=== PATIENT | male | born 1945 | race Caucasian/White ===

== ENCOUNTER 2018-07-02 15:46 | Inpatient (IN) | payer OTHER, MEDICARE | END 2018-07-08 15:23 | disposition home or self-care (01) | LOC: J5S 07-03 06:45 → JER 15:46 → JERBED 19:48 ==

== ENCOUNTER 2018-07-20 07:56 | Inpatient (IN) | payer OTHER, MEDICARE ==
--- NOTE | 2018-07-20 07:57 | PDOC ---
History of Present Illness - General Stated Complaint: Respiratory Distress Time Seen by Provider: 07/20/18 07:57 History Source: Patient Exam Limitations: No Limitations Past History - Travel Traveled outside of the country in the last 30 days: No Close contact w/someone who was outside of country & ill: No - Past Medical History Allergies/Adverse Reactions: Allergies Allergy/AdvReac Type Severity Reaction Status Date / Time No Known Allergies Allergy Verified 07/20/18 08:11 Home Medications: Ambulatory Orders Acetaminophen [Tylenol .Regular Strength -] 650 mg PO Q6H PRN #90 tablet Albuterol 0.083% Nebulizer Kayce [Ventolin 0.083% Nebulizer Soln -] 1 neb NEB Q4H PRN #30 vial 07/18/13 Fluticasone Propionate [Flovent Hfa] 110 mcg IH BID 12/18/13 Diltiazem Cd [Cardizem Cd -] 120 mg PO DAILY #30 cap.cd.24h 12/21/13 Arformoterol Tartrate [Brovana] 15 mcg IH BID #1 ml 04/08/14 Aspirin [ASA -] 81 mg PO DAILY #30 tab.chew 04/08/14 Polyethylene Glycol 3350 [Miralax 119 gm Btl -] 17 gm PO DAILY #1 bottle Oxycodone HCl 20 mg PO ONCE 07/03/18 Albuterol 2.5/Ipratropium 0.5 [Duoneb -] 1 amp NEB RQID #120 amp 07/08/18 Azithromycin [Zithromax 250mg Tablets -] 1 tab PO Q2D #2 tablet 07/08/18 Loratadine [Claritin -] 10 mg PO DAILY #30 tablet 07/08/18 Roflumilast [Daliresp -] 500 mcg PO DAILY #30 tablet 07/08/18 Prednisone 5 mg PO ASDIR 07/20/18 Anemia: No Asthma: No Cancer: No Cardiac Disorders: Yes (a fib) CVA: No COPD: Yes CHF: No Dementia: No Diabetes: No GI Disorders: No Disorders: No HTN: No Hypercholesterolemia: No Liver Disease: No Seizures: No Thyroid Disease: No - Surgical History Abdominal Surgery: No Appendectomy: Yes Cardiac Surgery: No Cholecystectomy: Yes Lung Surgery: No Neurologic Surgery: No Orthopedic Surgery: Yes (total hip replacement) - Suicide/Smoking/Psychosocial Hx Smoking Status: Yes Smoking History: Former smoker Have you smoked in the past 12 months: No Number of Cigarettes Smoked Daily: 40 If you are a former smoker, when did you quit?: 1 YR AGO 'Breaking Loose' booklet given: 05/04/13 Hx Alcohol Use: No Drug/Substance Use Hx: No Substance Use Type: None Hx Substance Use Treatment: No Review of Systems - Review of Systems Able to Perform ROS?: Yes Is the patient limited Romansh proficient: No *Physical Exam - Physical Exam Comments: Vitals stable, pt afebrile. Pt in NAD, normal body habitus. Pt alert and oriented x3. radio mechanic helper generally intact, muscular strength and sensation intact. No midline spinal tenderness, step-offs, or crepitus. Head normocephalic, atraumatic. Eyes PERRLA, EOMI. Oropharynx without erythema or exudates, no LAD b/l. No nasal congestion, hearing intact. Clear heart sounds, S1/S2, no JVD, b/l pedal edema, or heart murmur. Clear lung sounds, no respiratory distress, wheezes, crackles, or accessory muscle use. No abdominal or CVA tenderness to palpation, no rebound, no guarding. Abdomen soft, non-distended, and with normoactive bowel sounds. Skin without jaundice or rash. 07/20/18 09:51 ED Treatment Course - LABORATORY CBC & Chemistry Diagram: 07/20/18 08:02 07/20/18 08:02 Medical Decision Making - Medical Decision Making Pt was seen at bedside, also will be seen by attending Dr. Miller. Pt presenting with complaints of SOB from his baseline over the past 3 days, which worsened this AM. EMS stated pt was low 80% on 2L NC when they arrived at the pt this AM. Considering [vs vs] Ordered work-up including CBC, CMP, BNP, cardiac profile, ECG, chest x-ray, blood cultures (recent hospitalizations), . Provided [interventions/meds] for improvement of [pain/symptom control]. Will continue to reassess pt and monitor for symptomatic improvement. ECG: NSR, intervals WNL. No TWIs or significant ST segment changes. No significant changes from prior ECG. 07/20/18 09:51 Pt improving on BiPAP, resting comfortably. Pt admitted to Dr. Tete Soares (for Dr. George). Consult orders placed -- pulm, cardiology, ID. 07/20/18 10:13 *DC/Admit/Observation/Transfer - Referrals Referrals: James Lira MD [Primary Care Provider] - - Patient Instructions - Post Discharge Activity
[2018-07-20] MEDS ORDERED: methylPREDNISolone NA SUCC 125 MG/2 ML VIAL IVPUSH ONE (07:59)
[2018-07-20] MEDS ORDERED: MAGNESIUM 1GM/D5W - 1 GM/100 ML IVPB IVPB ONE (08:01)
--- NOTE | 2018-07-20 08:05 | PDOC ---
Attending Attestation - Resident Resident Name: Clarisa Goodman - ED Attending Attestation I have performed the following: I have examined & evaluated the patient, The case was reviewed & discussed with the resident, I agree w/resident's findings & plan, Exceptions are as noted - HPI HPI: 07/20/18 10:30 73 years old past medical history significant for COPD on home O2, hypertension remote history of paroxysmal atrial fibrillation not on anticoagulation anxiety back pain presents with three-day history of worsening shortness of breath today at 7 AM woke up with moderate to severe shortness of breath EMS was called was found to be satting in the 80s was given 2 Combineb treatments and Decadron in the field presented to the ED. Symptoms are moderate to severe persistent constant with no exacerbating or alleviating factors. ROS: A complete review of 10 out of 10 review of systems is taken and is negative apart from what is previously mentioned below and in the HPI. - Physicial Exam PE: 07/20/18 10:30 Vitals: Triage Vital signs reviewed General Appearance: no acute distress, well nourished well developed, Head: Atraumatic, Neck: Supple;No Nucal rigidity Chest Wall: Nontender Cardiac: Regular rate and rhythym, no murmurs, no rubs, no gallops, Lungs: Poor air movement bilaterally, wheezing bilaterally inspiratory and expiratory. Increased work of breathing. Abdomen: Soft, non distended, normal bowel sounds, non tender to palpation Extremities: Full range of motion to all extremities, no cyanosis, clubbing, or edema Skin: Warm and dry, no rashes or lesions, no rash, no petechiae Psych: normal mood, normal affect - Critical Care Time Total Critical Care Time: 35 Critical Care Statement: The care of this patient involved high complexity decision making to prevent further life threatening deterioration of the patient 's condition and/or to evaluate & treat vital organ system(s) failure or risk of failure. - Medical Decision Making 07/20/18 10:31 Moderate to severe COPD exacerbation upon arrival to the emergency department patient placed on BiPAP. Given additional Combineb as well as continued Ventolin nebs Solu-Medrol given No significant improvement initially magnesium ordered Reevaluation 10 AM chest x-ray with congestive findings increased markings at the base given patient with additional history of increased sputum production at home we'll cover with broad-spectrum antibiotics given recent admission Reevaluation 10:30 breathing improving the patient still requires BiPAP We'll continue Ventolin treatments and admit the hospital for further management. Heart Score/ECG Review - ECG Impressions Comment:: 07/20/18 10:31 EKG performed at 750 4M and straits sinus rhythm [address] elevations no T- wave inversions Left axis deviation Interpreted by me
[2018-07-20] MEDS ORDERED: ALBUTEROL SO4 0.083% IH SOL 2.5 MG/3 ML VIAL.NEB. NEB ONE ×2 (08:07→08:13)
[2018-07-20] MEDS ORDERED: ALBUTEROL SO4 2.5/IPRATROPIUM 0.5 INH SOL 3 ML VIAL.NEB. NEB ONE (08:12)
[2018-07-20] MEDS ORDERED: ALBUTEROL SO4 0.083% IH SOL 2.5 MG/3 ML VIAL.NEB. NEB PRN (08:12)
[2018-07-20 08:26] LABS: BASO % 0.2 % (0-2.0); EOS % 0.7 % (0-4.5); HEMATOCRIT 38.4 % (35.4-49); HEMOGLOBIN 12.6 GM/dL (11.7-16.9); LYMPH % 3.7 % (8-40); MCH 30.7 pg (25.7-33.7); MCHC 32.8 g/dl (32.0-35.9); MEAN CELL VOLUME 93.6 fl (80-96); MEAN PLT VOLUME 7.9 fl (7.5-11.1); MONO % 4.6 % (3.8-10.2); NEUT % 90.8 % (42.8-82.8); PLATELET COUNT 106 K/MM3 (134-434); RDW 15.8 % (11.9-15.9); WHITE BLOOD COUNT 8.5 K/mm3 (4.0-10.0)
[2018-07-20 08:29] LABS: VENOUS PC02 64.9 mmHg (41-51); VENOUS PH 7.31 (7.31-7.41)
[2018-07-20 08:35] LABS: VENOUS PO2 23.2 mmHg (30-40)
[2018-07-20 08:45] LABS: INR 1.08 (0.83-1.09); PROTHROMBIN TIME (PATIENT) 12.7 SEC (9.7-13.0)
[2018-07-20 08:55] LABS: ALBUMIN 3.2 g/dl (3.4-5.0); BILIRUBIN,TOTAL 0.9 mg/dL (0.2-1); BLOOD UREA NITROGEN 26.9 mg/dL (7-18); CALCIUM 8.7 mg/dL (8.5-10.1); CREATININE 1.3 mg/dL (0.55-1.3); MAGNESIUM 2.1 mg/dL (1.8-2.4); TOT PROT 6.6 g/dl (6.4-8.2)
[2018-07-20] MEDS ORDERED: PIPERACILLIN/TAZOB 3.375 GM 3.375 GM in DEXTROSE 5%-WATER - 50 ML IVPB ONE (09:00)
[2018-07-20] MEDS ORDERED: VANCOMYCIN 1,500 MG in DEXTROSE 5%-WATER - 250 ML IVPB ONE ×3 (09:00→11:15)
[2018-07-20] MEDS ORDERED: AZITHROMYCIN IVPB 500 MG in DEXTROSE 5%-WATER - 250 ML IVPB ONE (09:01)
[2018-07-20] MEDS ORDERED: ASPIRIN 325 MG ENTERIC COATED TABLET (FP) PO ONE (09:01)
[2018-07-20] MEDS ORDERED: ASPIRIN 325 MG TABLET PO ONE (09:06)
[2018-07-20] MEDS ORDERED: PIPERACILLIN/TAZOB 3.375 GM 3.375 GM/50 ML BAG IVPB ONE (09:06)
[2018-07-20] MEDS ORDERED: ASPIRIN 325 MG ENTERIC COATED TABLET (FP) ONE (09:06)
[2018-07-20] MEDS ORDERED: SODIUM CHLORIDE 500 ML IV STA (09:06)
[2018-07-20] MEDS ORDERED: AZITHROMYCIN IVPB 500 MG/250 ML BAG IVPB ONE (09:18)
[2018-07-20] MEDS ORDERED: VANCOMYCIN 1,500 MG in DEXTROSE 5%-WATER - 500 ML IVPB ONE (09:18)
[2018-07-20 09:35] LABS: ARTERIAL BLD GAS O2 SATURATION 95.8 % (95-98); ARTERIAL BLOOD GAS BASE EXCESS 2.5 meq/l (-2-2); ARTERIAL BLOOD GAS PCO2 48.4 mmHg (35-45); ARTERIAL BLOOD GAS pH 7.38 (7.35-7.45); CARBOXYHEMOGLOBIN 1.8 % (0-2)
[2018-07-20 09:38] LABS: ALLENS TEST POSITIVE
--- NOTE | 2018-07-20 11:00 | CON.CARD ---
Consult Consult Specialty:: Cardiology Referred by:: Precious Goodman MD Reason for Consultation:: Dyspnea - History of Present Illness Chief Complaint: Dyspnea History of Present Illness: Patient is a 73 year old male (last saw in the office on 12/16/17) with underlying history of COPD dependent on O2 recent admission for exacerbation undergoing prednisone taper, remote history of PAF (not on anticoagulation due to patient refusal) and HTN who presented to [facility] with 3 days of worsening shortness of breath, found to be in hypoxic respiratory failure, started nebulizers, steroids, placed on bipap. - History Source History Provided By: Patient Limitations to Obtaining History: No Limitations - Past Medical History Cardio/Vascular: Yes: AFIB, HTN Pulmonary: Yes: COPD (home oxygen), Pneumonia Musculoskeletal: Yes: Chronic low back pain - Past Surgical History Past Surgical History: Yes: Appendectomy, Cholecystectomy - Alcohol/Substance Use Hx Alcohol Use: No History of Substance Use: reports: None - Smoking History Smoking history: Former smoker Have you smoked in the past 12 months: No Aproximately how many cigarettes per day: 40 If you are a former smoker, when did you quit?: 1 YR AGO - Social History Usual Living Arrangement: With Spouse ADL: Independent Occupation: retired History of Recent Travel: No Home Medications - Allergies Allergies/Adverse Reactions: Allergies Allergy/AdvReac Type Severity Reaction Status Date / Time No Known Allergies Allergy Verified 07/20/18 08:11 - Home Medications Home Medications: Ambulatory Orders Acetaminophen [Tylenol .Regular Strength -] 650 mg PO Q6H PRN #90 tablet Albuterol 0.083% Nebulizer Kayce [Ventolin 0.083% Nebulizer Soln -] 1 neb NEB Q4H PRN #30 vial 07/18/13 Fluticasone Propionate [Flovent Hfa] 110 mcg IH BID 12/18/13 Diltiazem Cd [Cardizem Cd -] 120 mg PO DAILY #30 cap.cd.24h 12/21/13 Arformoterol Tartrate [Brovana] 15 mcg IH BID #1 ml 04/08/14 Aspirin [ASA -] 81 mg PO DAILY #30 tab.chew 04/08/14 Polyethylene Glycol 3350 [Miralax 119 gm Btl -] 17 gm PO DAILY #1 bottle Oxycodone HCl 20 mg PO ONCE 07/03/18 Albuterol 2.5/Ipratropium 0.5 [Duoneb -] 1 amp NEB RQID #120 amp 07/08/18 Azithromycin [Zithromax 250mg Tablets -] 1 tab PO Q2D #2 tablet 07/08/18 Loratadine [Claritin -] 10 mg PO DAILY #30 tablet 07/08/18 Roflumilast [Daliresp -] 500 mcg PO DAILY #30 tablet 07/08/18 Prednisone 5 mg PO ASDIR 07/20/18 Family Disease History - Family Disease History Family Disease History: Heart Disease: Father ([place] at age 63 ), CA: Mother (Colon , Renal/Bladder) Review of Systems - Review of Systems Respiratory: reports: Exercise Intolerance, SOB, SOB on Exertion Vital Signs: Vital Signs Temperature 98.6 F 07/20/18 07:59 Pulse Rate 79 07/20/18 10:22 Respiratory Rate 20 07/20/18 10:22 Blood Pressure 109/70 07/20/18 10:22 O2 Sat by Pulse Oximetry (%) 95 07/20/18 10:52 Constitutional: Yes: No Distress, Calm Neck: Yes: Supple Respiratory: Yes: Regular, Diminished, On BiPap Gastrointestinal: Yes: Soft, Hypoactive Bowel Sounds Cardiovascular: Yes: Tachycardia JVD: No Carotid Bruit: No Heart Sounds: Yes: S1, S2 Murmur: Yes: Systolic Murmur, Grade 1 Edema: No - Other Data Labs, Other Data: CBC, BMP 07/20/18 08:02 07/20/18 08:02 INR, PTT INR 1.08 (0.83-1.09) 07/20/18 08:09 Troponin, BNP 07/20/18 08:02 Troponin I 0.27 H B-Natriuretic Peptide 535.0 H Troponin, BNP 07/20/18 08:02 Troponin I 0.27 H B-Natriuretic Peptide 535.[address] @ 100 PAC Ejection Fraction %: LVEF > or = 40 % Problem List - Problems (1) Shortness of breath Code(s): R06.02 - SHORTNESS OF BREATH (2) AF (paroxysmal atrial fibrillation) Code(s): I48.0 - PAROXYSMAL ATRIAL FIBRILLATION (3) COPD with acute exacerbation Code(s): J44.1 - CHRONIC OBSTRUCTIVE PULMONARY DISEASE W (ACUTE) EXACERBATION (4) SOB (shortness of breath) Code(s): R06.02 - SHORTNESS OF BREATH (5) Hypertension Code(s): I10 - ESSENTIAL (PRIMARY) HYPERTENSION Qualifiers: Hypertension type: essential hypertension Qualified Code(s): I10 - Essential (primary) hypertension Assessment/Plan Echocardiogram 07/03/2018 Normal LV and RV size and fxn, LVEF 55-60%, mild LAE, mild ao root diltatation 4.2 cm, impaired LV relaxation Echocardiography (12/08/17) which revealed normal LV systolic function, LVEF 60- 65%, moderately dilated ascending thoracic aorta, mild TR and trace [place]. Nuclear MPI (08/20/16) revealed moderate zone of anterior and anteroapical reversible defect c/s mild intensity ischemia and moderate inferior attenuation. LVEF was 71%. 1. Acute on chronic hypercapneic/hypoxemic respiratory failure undergoing prednisone taper. 2. COPD exacerbation 3. PAF [id number] score of 2-3 currently in sinus rhythm, refused DOAC or Coumadin 4. HTN 5. Prior abnormal nuclear MPI suggests CAD with demand ischemia referable to #1 6. Diastolic dysfunction, euvolemic PLAN: 1. Resume IV steroids with GI protection, Daliresp, bronchodilators, O2, empiric abx course, and bipap as needed to maintain saO2>90%. 2. Continue Cardizem CD 120 qd and ASA 81 qd, trend trops to document peak 3. Ideally anticoagulation is recommended, but patient has previously declined, DVT prophylaxis 4. Cardiac work up including repeat nuclear MPI can be done as outpatient in the office once pulmonary status fully improves 5. Thank you for consultative opportunity
--- NOTE | 2018-07-20 11:20 | HP ---
Admitting History and Physical - Admission Chief Complaint: came in for SOB for last few days History of Present Illness: 73 yr old male with h/o of copd on home oxygen, open mouth breathing,PAF,HTN came in for last few days noted his breathing is gurgling, he was discharge last month from hospital on prednisone taper was on 5mg , also noted increase leg swelling and abdominal swelling last few days patient asked today to call 911,EMS found him saturating in 80's got neblzier and steroid History Source: Family Member, Medical Record - Past Medical History Cardiovascular: Yes: AFIB, HTN Pulmonary: Yes: COPD (home oxygen), Pneumonia Musculoskeletal: Yes: Chronic low back pain - Past Surgical History Past Surgical History: Yes: Appendectomy, Cholecystectomy - Smoking History Smoking history: Former smoker Have you smoked in the past 12 months: No Aproximately how many cigarettes per day: 40 If you are a former smoker, when did you quit?: 1 YR AGO - Alcohol/Substance Use Hx Alcohol Use: No History of Substance Use: reports: None - Social History ADL: Independent Occupation: retired History of Recent Travel: No Home Medications - Allergies Allergies/Adverse Reactions: Allergies Allergy/AdvReac Type Severity Reaction Status Date / Time No Known Allergies Allergy Verified 07/20/18 08:11 - Home Medications Home Medications: Ambulatory Orders Acetaminophen [Tylenol .Regular Strength -] 650 mg PO Q6H PRN #90 tablet Albuterol 0.083% Nebulizer Kayce [Ventolin 0.083% Nebulizer Soln -] 1 neb BANNER Q4H PRN #30 vial 07/18/13 Fluticasone Propionate [Flovent Hfa] 110 mcg IH BID 12/18/13 Diltiazem Cd [Cardizem Cd -] 120 mg PO DAILY #30 cap.cd.24h 12/21/13 Arformoterol Tartrate [Brovana] 15 mcg IH BID #1 ml 04/08/14 Aspirin [ASA -] 81 mg PO DAILY #30 tab.chew 04/08/14 Polyethylene Glycol 3350 [Miralax 119 gm Btl -] 17 gm PO DAILY #1 bottle Oxycodone HCl 20 mg PO ONCE 07/03/18 Albuterol 2.5/Ipratropium 0.5 [Duoneb -] 1 amp BANNER RQID #120 amp 07/08/18 Azithromycin [Zithromax 250mg Tablets -] 1 tab PO Q2D #2 tablet 07/08/18 Loratadine [Claritin -] 10 mg PO DAILY #30 tablet 07/08/18 Roflumilast [Daliresp -] 500 mcg PO DAILY #30 tablet 07/08/18 Prednisone 5 mg PO ASDIR 07/20/18 Family Disease History - Family Disease History Family Disease History: Heart Disease: Father ([place] at age 63 ), CA: Mother (Colon , Renal/Bladder) Review of Systems - Review of Systems Respiratory: reports: Other (on bipap feeling better) Physical Examination Vital Signs: Vital Signs Temperature 98.6 F 07/20/18 07:59 Pulse Rate 79 07/20/18 10:22 Respiratory Rate 20 07/20/18 10:22 Blood Pressure 109/70 07/20/18 10:22 O2 Sat by Pulse Oximetry (%) 95 07/20/18 10:52 Constitutional: Yes: Calm Cardiovascular: Yes: Regular Rate and Rhythm, S1, S2 Respiratory: Yes: Diminished, On BiPap Gastrointestinal: Yes: Normal Bowel Sounds, Soft, Abdomen, Obese, Distention Edema: Yes Neurological: Yes: Other (sleeping on bipap) Labs: CBC, BMP 07/20/18 08:02 07/20/18 08:02 Problem List - Problems (1) Shortness of breath Assessment/Plan: bipap pulm solumedrol duonebs will need sleep study and possible cpap when discharge as outpatient abx daliresp Code(s): R06.02 - SHORTNESS OF BREATH (2) AF (paroxysmal atrial fibrillation) Assessment/Plan: cardizem per cardiology patient refusing AC Code(s): I48.0 - PAROXYSMAL ATRIAL FIBRILLATION (3) Hypertension Assessment/Plan: cardizem Code(s): I10 - ESSENTIAL (PRIMARY) HYPERTENSION Qualifiers: Hypertension type: essential hypertension Qualified Code(s): I10 - Essential (primary) hypertension (4) Leg edema Assessment/Plan: venous dopler lasix one dose dvt ppx Code(s): R60.0 - LOCALIZED EDEMA
[2018-07-20] MEDS: ALBUTEROL SO4 2.5/IPRATROPIUM 0.5 INH SOL 3 ML VIAL.NEB. NEB SCH ×3 (11:43→20:01)
[2018-07-20] MEDS ORDERED: FUROSEMIDE 40 MG/4 ML INJECTABLE VIAL IVPUSH ONE (12:00)
--- NOTE | 2018-07-20 13:03 | CON.PULM ---
Consult Consult Specialty:: PULMONARY Referred by:: Dr Soares Reason for Consultation:: shortness of breath - History of Present Illness Chief Complaint: shortness of breath History of Present Illness: 73yo male with h/o HTN, paroxysmal atrial fibrillation, COPD, chronic hypoxic respiratory failure on home O2 who was admitted with worsening shortness of breath x 3 days. Denies chest pain or palpitations. No fevers, chills or sweats. Pt currently somnolent but arousable, difficult to obtain history. No fevers on presentation. CXR with possible right base infiltrate vs atelectasis. Noted to be hypoxic by EMS. Started on antibiotics, medrol and placed on BiPAP in the ER. - History Source History Provided By: Patient, Medical Record Limitations to Obtaining History: Clinical Condition - Past Medical History Cardio/Vascular: Yes: AFIB, HTN Pulmonary: Yes: COPD (home oxygen), Pneumonia Musculoskeletal: Yes: Chronic low back pain - Past Surgical History Past Surgical History: Yes: Appendectomy, Cholecystectomy - Alcohol/Substance Use Hx Alcohol Use: No History of Substance Use: reports: None - Smoking History Smoking history: Former smoker Have you smoked in the past 12 months: No Aproximately how many cigarettes per day: 40 If you are a former smoker, when did you quit?: 1 YR AGO - Social History Usual Living Arrangement: With Spouse ADL: Independent Occupation: retired History of Recent Travel: No Home Medications - Allergies Allergies/Adverse Reactions: Allergies Allergy/AdvReac Type Severity Reaction Status Date / Time No Known Allergies Allergy Verified 07/20/18 08:11 - Home Medications Home Medications: Ambulatory Orders Acetaminophen [Tylenol .Regular Strength -] 650 mg PO Q6H PRN #90 tablet Albuterol 0.083% Nebulizer Kayce [Ventolin 0.083% Nebulizer Soln -] 1 neb NEB Q4H PRN #30 vial 07/18/13 Fluticasone Propionate [Flovent Hfa] 110 mcg IH BID 12/18/13 Diltiazem Cd [Cardizem Cd -] 120 mg PO DAILY #30 cap.cd.24h 12/21/13 Arformoterol Tartrate [Brovana] 15 mcg IH BID #1 ml 04/08/14 Aspirin [ASA -] 81 mg PO DAILY #30 tab.chew 04/08/14 Polyethylene Glycol 3350 [Miralax 119 gm Btl -] 17 gm PO DAILY #1 bottle Oxycodone HCl 20 mg PO ONCE 07/03/18 Albuterol 2.5/Ipratropium 0.5 [Duoneb -] 1 amp NEB RQID #120 amp 07/08/18 Azithromycin [Zithromax 250mg Tablets -] 1 tab PO Q2D #2 tablet 07/08/18 Loratadine [Claritin -] 10 mg PO DAILY #30 tablet 07/08/18 Roflumilast [Daliresp -] 500 mcg PO DAILY #30 tablet 07/08/18 Prednisone 5 mg PO ASDIR 07/20/18 Family Disease History - Family Disease History Family Disease History: Heart Disease: Father ([place] at age 63 ), CA: Mother (Colon , Renal/Bladder) Review of Systems - Review of Systems Constitutional: reports: Weakness. denies: Chills, Fever Eyes: denies: Recent Change in Vision HENT: denies: Throat Pain Neck: denies: Stiffness, Tenderness Cardiovascular: reports: Shortness of Breath. denies: Chest Pain, Edema Respiratory: reports: Cough. denies: Hemoptysis, Wheezing Gastrointestinal: denies: Abdominal Pain, Nausea, Vomiting Genitourinary: denies: Dysuria, Hematuria Neurological: denies: Dizziness, Headache Endocrine: denies: Unexplained Weight Loss Physical Exam Vital Sings: Vital Signs Temperature 98.6 F 07/20/18 07:59 Pulse Rate 79 07/20/18 10:22 Respiratory Rate 20 07/20/18 10:22 Blood Pressure 109/70 07/20/18 10:22 O2 Sat by Pulse Oximetry (%) 95 07/20/18 10:52 Constitutional: Yes: Calm Eyes: Yes: Conjunctiva Clear, EOM Intact HENT: Yes: Atraumatic, Normocephalic Neck: Yes: Supple, Trachea Midline Cardiovascular: Yes: Regular Rate and Rhythm Respiratory: Yes: Diminished (distant breath sounds). No: Wheezes ...Clubbing: No Gastrointestinal: Yes: Normal Bowel Sounds, Soft. No: Tenderness Edema: No Labs: CBC, BMP 07/20/18 08:02 07/20/18 08:02 ABG Results ABG pH 7.38 (7.35-7.45) 07/20/18 09:12 ABG pCO2 at Pt Temp 48.4 mmHg (35-45) H 07/20/18 09:12 ABG pO2 at Pt Temp 81.0 mmHg (80-105) 07/20/18 09:12 ABG HCO3 27.8 mmol/L (22-27) H 07/20/18 09:12 ABG O2 Sat (Measured) 95.8 % (95-98) 07/20/18 09:12 ABG O2 Content 17.4 % vol (15-22) 07/20/18 09:12 ABG Base Excess 2.5 meq/l (-2-2) H 07/20/18 09:12 Imaging - Results Chest X-ray: Report Reviewed, Image Reviewed (right base infiltrate vs atelectasis) Problem List - Problems (1) COPD with acute exacerbation Code(s): J44.1 - CHRONIC OBSTRUCTIVE PULMONARY DISEASE W (ACUTE) EXACERBATION (2) Chronic respiratory failure with hypoxia Code(s): J96.11 - CHRONIC RESPIRATORY FAILURE WITH HYPOXIA Assessment/Plan Acute COPD Exacerbation Acute on Chronic Hypoxic Respiratory Failure Paroxysmal Atrial Fibrillation +Troponins likely Demand Ischemia LV Diastolic Dysfunction HTN - IV medrol - inhaled bronchodilators standing and PRN - O2 to keep SpO2 >88% - can give empiric azithromycin - trend cardiac enzymes - rate controlled - continue anticoagulation Thank you for this consult Daniel Milian MD
--- NOTE | 2018-07-20 13:14 | CON.ID ---
Consult Referred by:: dr betancourt - History of Present Illness Chief Complaint: copd exacerbation, pneumonia History of Present Illness: 73 yo man with known COPD on home oxygen admitted with worsening SOB no fevers on steroid taper at home here 07/02 to 07/08 with copd exacerbation chest ct 07/03 no acute pathology, cxray now unchanged from prior admission currently on bipap no complaints more sob least several days hypoxic this am known prior MRSA colonization of the nares - History Source History Provided By: Patient, Family Member, Medical Record Limitations to Obtaining History: Clinical Condition - Past Medical History Cardio/Vascular: Yes: AFIB, HTN Pulmonary: Yes: COPD (home oxygen), Pneumonia Musculoskeletal: Yes: Chronic low back pain - Past Surgical History Past Surgical History: Yes: Appendectomy, Cholecystectomy - Alcohol/Substance Use Hx Alcohol Use: No History of Substance Use: reports: None - Smoking History Smoking history: Former smoker Have you smoked in the past 12 months: No Aproximately how many cigarettes per day: 40 If you are a former smoker, when did you quit?: 1 YR AGO - Social History Usual Living Arrangement: With Spouse ADL: Independent Occupation: retired History of Recent Travel: No Home Medications - Allergies Allergies/Adverse Reactions: Allergies Allergy/AdvReac Type Severity Reaction Status Date / Time No Known Allergies Allergy Verified 07/20/18 08:11 - Home Medications Home Medications: Ambulatory Orders Acetaminophen [Tylenol .Regular Strength -] 650 mg PO Q6H PRN #90 tablet Albuterol 0.083% Nebulizer Kayce [Ventolin 0.083% Nebulizer Soln -] 1 neb NEB Q4H PRN #30 vial 07/18/13 Fluticasone Propionate [Flovent Hfa] 110 mcg IH BID 12/18/13 Diltiazem Cd [Cardizem Cd -] 120 mg PO DAILY #30 cap.cd.24h 12/21/13 Arformoterol Tartrate [Brovana] 15 mcg IH BID #1 ml 04/08/14 Aspirin [ASA -] 81 mg PO DAILY #30 tab.chew 04/08/14 Polyethylene Glycol 3350 [Miralax 119 gm Btl -] 17 gm PO DAILY #1 bottle Oxycodone HCl 20 mg PO ONCE 07/03/18 Albuterol 2.5/Ipratropium 0.5 [Duoneb -] 1 amp NEB RQID #120 amp 07/08/18 Azithromycin [Zithromax 250mg Tablets -] 1 tab PO Q2D #2 tablet 07/08/18 Loratadine [Claritin -] 10 mg PO DAILY #30 tablet 07/08/18 Roflumilast [Daliresp -] 500 mcg PO DAILY #30 tablet 07/08/18 Prednisone 5 mg PO ASDIR 07/20/18 Family Disease History - Family Disease History Family Disease History: Heart Disease: Father (SD at age 63 ), CA: Mother (Colon , Renal/Bladder) Review of Systems - Review of Systems Constitutional: reports: No Symptoms. denies: Chills, Diaphoresis, Fever Eyes: reports: No Symptoms HENT: reports: No Symptoms. denies: Difficult Swallowing Neck: reports: No Symptoms Cardiovascular: reports: No Symptoms Respiratory: reports: SOB. denies: Hemoptysis Gastrointestinal: reports: Other (increased abdominal girth) Musculoskeletal: reports: Other (leg swelling) Physical Exam Vital Signs: Vital Signs Temperature 98.6 F 07/20/18 07:59 Pulse Rate 79 07/20/18 10:22 Respiratory Rate 20 07/20/18 10:22 Blood Pressure 109/70 07/20/18 10:22 O2 Sat by Pulse Oximetry (%) 95 07/20/18 10:52 Constitutional: Yes: No Distress, Other (on bipap) HENT: Yes: Atraumatic, Normocephalic Neck: Yes: Supple, Trachea Midline Cardiovascular: Yes: Regular Rate and Rhythm Respiratory: Yes: CTA Bilaterally, Diminished (both bases) Gastrointestinal: Yes: Normal Bowel Sounds, Soft ...Rectal Exam: Yes: Deferred Renal/: Yes: WNL Edema: No Labs: CBC, BMP 07/20/18 08:02 07/20/18 08:02 blood cultures pending Imaging - Results Chest X-ray: Report Reviewed, Image Reviewed (no infiltrates, unchanged from prior) Problem List - Problems (1) Chronic respiratory failure with hypoxia Code(s): J96.11 - CHRONIC RESPIRATORY FAILURE WITH HYPOXIA (2) COPD with acute exacerbation Code(s): J44.1 - CHRONIC OBSTRUCTIVE PULMONARY DISEASE W (ACUTE) EXACERBATION (3) MRSA colonization Code(s): Z22.322 - CARRIER OR SUSPECTED CARRIER OF METHICILLIN RESIS STAPH Assessment/Plan d/w pulmonary agree with plans for steroids/zithromax /nebs contact isolation for MRSA
[2018-07-20] MEDS: methylPREDNISolone NA SUCC 40 MG/1 ML VIAL IVPUSH SCH ×2 (16:28→21:51)
[2018-07-20] MEDS: NYSTATIN 500,000 UNITS/5 ML SUSPENSION PO SCH ×2 (18:31→23:56)
[2018-07-20] MEDS: NYSTATIN 100,000 UNIT/GM TOPICAL CREAM 15 GM TUBE TP SCH (23:56)
[2018-07-20] MEDS ORDERED: PT OWN MED DRAWER 7, Y5N ONE (23:58)
[2018-07-21] MEDS: methylPREDNISolone NA SUCC 40 MG/1 ML VIAL IVPUSH SCH ×4 (02:00→22:25)
[2018-07-21] MEDS ORDERED: PT OWN MED DRAWER 7, Y5N ONE ×3 (05:25→14:39)
[2018-07-21] MEDS: NYSTATIN 100,000 UNIT/GM TOPICAL CREAM 15 GM TUBE TP SCH ×4 (05:27→23:50)
[2018-07-21] MEDS: NYSTATIN 500,000 UNITS/5 ML SUSPENSION PO SCH ×4 (05:27→23:07)
[2018-07-21 07:42] LABS: INR 1.04 (0.83-1.09); PROTHROMBIN TIME (PATIENT) 12.3 SEC (9.7-13.0)
[2018-07-21 07:44] LABS: ACTIVATED PTT 25.8 SECONDS (25.2-36.5)
[2018-07-21 07:46] LABS: ALBUMIN 2.8 g/dl (3.4-5.0); BILIRUBIN,TOTAL 0.6 mg/dL (0.2-1); BLOOD UREA NITROGEN 26.4 mg/dL (7-18); CALCIUM 8.3 mg/dL (8.5-10.1); CREATININE 1.2 mg/dL (0.55-1.3); MAGNESIUM 2.4 mg/dL (1.8-2.4); PHOSPHOROUS 3.3 mg/dL (2.5-4.9); POTASSIUM 4.2 mmol/L (3.5-5.1); TOT PROT 6.2 g/dl (6.4-8.2)
[2018-07-21] MEDS: ALBUTEROL SO4 2.5/IPRATROPIUM 0.5 INH SOL 3 ML VIAL.NEB. NEB SCH ×2 (08:08→11:45)
[2018-07-21 08:30] LABS: HEMATOCRIT 36.5 % (35.4-49); HEMOGLOBIN 12.1 GM/dL (11.7-16.9); LYMPH % 1.8 % (8-40); MCH 30.8 pg (25.7-33.7); MCHC 33.3 g/dl (32.0-35.9); MEAN CELL VOLUME 92.3 fl (80-96); MEAN PLT VOLUME 8.3 fl (7.5-11.1); MONO % 1.8 % (3.8-10.2); NEUT % 96.4 % (42.8-82.8); PLATELET COUNT 99 K/MM3 (134-434); RBC 3.95 M/mm3 (4.00-5.60); RDW 15.3 % (11.9-15.9); WHITE BLOOD COUNT 8.5 K/mm3 (4.0-10.0)
[2018-07-21] MEDS: AZITHROMYCIN IVPB 500 MG/250 ML BAG IVPB SCH (09:07)
[2018-07-21] MEDS: ENOXAPARIN NA (PORCINE) 40 MG/0.4 ML DISP.SYRIN SQ SCH (09:08)
[2018-07-21] MEDS: ASPIRIN 81 MG CHEWABLE TABLETS PO SCH (09:08)
[2018-07-21 10:24] LABS: ANISOCYTOSIS 1+; MACROCYTOSIS 1+; OVALOCYTE 1+; PLATELET ESTIMATE DECREASED
[2018-07-21] MEDS: MOMETASONE FUROATE 220 MCG/IH INHALER IH SCH (10:40)
--- NOTE | 2018-07-21 11:17 | PN ---
Progress Note, Physician - Current Medication List Current Medications: Active Medications Albuterol Sulfate (Ventolin 0.083% Nebulizer Soln -) 1 amp NEB Q1H PRN PRN Reason: SHORT OF BREATH/WHEEZING Albuterol/Ipratropium (Duoneb -) 1 amp NEB RQID [facility] Last Admin: 07/21/18 08:08 Dose: 1 amp Aspirin (Asa -) 81 mg PO DAILY [facility] Last Admin: 07/21/18 09:08 Dose: 81 mg Diltiazem HCl (Cardizem Cd -) 120 mg PO DAILY [facility] Last Admin: 07/21/18 09:07 Dose: 120 mg Enoxaparin Sodium (Lovenox -) 40 mg SQ DAILY [facility] Last Admin: 07/21/18 09:08 Dose: 40 mg Azithromycin (Zithromax 500mg Ivpb (Pre-Docked)) 500 mg in 250 mls @ 250 mls/ hr IVPB DAILY [facility] Stop: 07/24/18 10:59 Last Admin: 07/21/18 09:07 Dose: 250 mls/hr Methylprednisolone Sodium Succinate (Solu-Medrol -) 40 mg IVPUSH Q6H-IV MORE Last Admin: 07/21/18 09:07 Dose: 40 mg Mometasone Furoate (Asmanex 220mcg -) 2 puff IH DAILY [facility] Last Admin: 07/21/18 10:40 Dose: Not Given Nystatin (Nystatin Oral Suspension -) 500,000 units PO Q6HPO MORE Last Admin: 07/21/18 05:27 Dose: 500,000 units Nystatin (Mycostatin Cream -) 1 applic TP Q6HPO [facility] Last Admin: 07/21/18 05:27 Dose: 1 applic - Objective Vital Signs: Vital Signs Temperature 97.6 F 07/21/18 05:46 Pulse Rate 67 07/21/18 05:46 Respiratory Rate 18 07/21/18 05:46 Blood Pressure 157/91 07/21/18 05:46 O2 Sat by Pulse Oximetry (%) 96 07/20/18 22:00 Labs: CBC, BMP 07/21/18 06:00 07/21/18 06:00 INR, PTT INR 1.04 (0.83-1.09) 07/21/18 06:00
--- NOTE | 2018-07-21 12:32 | PN ---
Progress Note, Physician Chief Complaint: Events noted Complains of dyspnea intermittently History of Present Illness: Patient was seen and examined. Awake and alert. Chart was reviewed Denies chest pain or palpitations - Current Medication List Current Medications: Active Medications Albuterol Sulfate (Ventolin 0.083% Nebulizer Soln -) 1 amp NEB Q1H PRN PRN Reason: SHORT OF BREATH/WHEEZING Albuterol/Ipratropium (Duoneb -) 1 amp NEB RQID [facility] Last Admin: 07/21/18 11:45 Dose: 1 amp Aspirin (Asa -) 81 mg PO DAILY [facility] Last Admin: 07/21/18 09:08 Dose: 81 mg Diltiazem HCl (Cardizem Cd -) 120 mg PO DAILY [facility] Last Admin: 07/21/18 09:07 Dose: 120 mg Enoxaparin Sodium (Lovenox -) 40 mg SQ DAILY [facility] Last Admin: 07/21/18 09:08 Dose: 40 mg Azithromycin (Zithromax 500mg Ivpb (Pre-Docked)) 500 mg in 250 mls @ 250 mls/ hr IVPB DAILY [facility] Stop: 07/24/18 10:59 Last Admin: 07/21/18 09:07 Dose: 250 mls/hr Methylprednisolone Sodium Succinate (Solu-Medrol -) 40 mg IVPUSH Q6H-IV [facility] Last Admin: 07/21/18 09:07 Dose: 40 mg Mometasone Furoate (Asmanex 220mcg -) 2 puff IH DAILY [facility] Last Admin: 07/21/18 10:40 Dose: Not Given Nystatin (Nystatin Oral Suspension -) 500,000 units PO Q6HPO [facility] Last Admin: 07/21/18 05:27 Dose: 500,000 units Nystatin (Mycostatin Cream -) 1 applic TP Q6HPO [facility] Last Admin: 07/21/18 05:27 Dose: 1 applic - Objective Vital Signs: Vital Signs Temperature 97.9 F 07/21/18 09:00 Pulse Rate 80 07/21/18 09:00 Respiratory Rate 18 07/21/18 09:00 Blood Pressure 102/58 L 07/21/18 09:00 O2 Sat by Pulse Oximetry (%) 96 07/20/18 22:00 Eyes: Yes: PERRL HENT: Yes: Atraumatic Neck: Yes: Supple Cardiovascular: Yes: Regular Rate and Rhythm, S1, S2 Respiratory: Yes: CTA Bilaterally Gastrointestinal: Yes: Normal Bowel Sounds, Soft. No: Tenderness Edema: No Additional Findings/Remarks: - Review of Systems Constitutional: denies: Chills, Fever Cardiovascular: denies: Chest Pain, Palpitations, (+) Shortness of Breath Respiratory: denies: Cough, Hemoptysis, Orthopnea, PND, (+) SOB, SOB on Exertion Gastrointestinal: denies: Abdominal Pain, Constipation, Diarrhea, Melena, Nausea , Rectal Bleeding, Vomiting Genitourinary: denies: Dysuria, Hematuria Musculoskeletal: denies: Back Pain, Joint Pain Neurological: denies: Dizziness, Syncope. denies: Confusion, Headache, Numbness , Seizure, Unsteady Gait Labs: CBC, BMP 07/21/18 06:00 07/21/18 06:00 INR, PTT INR 1.04 (0.83-1.09) 07/21/18 06:00 Problem List - Problems (1) Chronic respiratory failure with hypoxia Code(s): J96.11 - CHRONIC RESPIRATORY FAILURE WITH HYPOXIA (2) Shortness of breath Code(s): R06.02 - SHORTNESS OF BREATH (3) AF (paroxysmal atrial fibrillation) Code(s): I48.0 - PAROXYSMAL ATRIAL FIBRILLATION (4) Anxiety Code(s): F41.9 - ANXIETY DISORDER, UNSPECIFIED (5) COPD (chronic obstructive pulmonary disease) Code(s): J44.9 - CHRONIC OBSTRUCTIVE PULMONARY DISEASE, UNSPECIFIED Qualifiers: COPD type: unspecified COPD Qualified Code(s): J44.9 - Chronic obstructive pulmonary disease, unspecified (6) MRSA colonization Code(s): Z22.322 - CARRIER OR SUSPECTED CARRIER OF METHICILLIN RESIS STAPH (7) Respiratory failure with hypoxia Code(s): J96.91 - RESPIRATORY FAILURE, UNSPECIFIED WITH HYPOXIA (8) SOB (shortness of breath) Code(s): R06.02 - SHORTNESS OF BREATH (9) Hypertension Code(s): I10 - ESSENTIAL (PRIMARY) HYPERTENSION Qualifiers: Hypertension type: essential hypertension Qualified Code(s): I10 - Essential (primary) hypertension Assessment/Plan 1. Acute on chronic hypercapneic/hypoxemic respiratory failure 2. COPD exacerbation 3. PAF [id number] score of 2-3 currently in sinus rhythm (refused DOAC or Coumadin) 4. HTN 5. Prior abnormal nuclear MPI suggests CAD with demand ischemia 6. Diastolic dysfunction, currently euvolemic PLAN: 1. Resume IV steroids with GI protection, Daliresp, bronchodilators, O2, empiric antibiotic coverage and BIPAP as needed 2. Continue Cardizem CD 120 mg QD and ASA 81 mg QD 3. Trend troponins 4. Ideally anticoagulation is recommended, but patient has previously declined. Continue DVT prophylaxis 5. Cardiac work up including repeat nuclear MPI can be done as outpatient in the office once pulmonary status fully improves Garrett Alcantar MD
--- NOTE | 2018-07-21 12:49 | EKG ---
Test Reason : Blood Pressure : / mmHG Vent. Rate : 103 BPM Atrial Rate : 103 BPM P-R Int : 152 ms QRS Dur : 078 ms QT Int : 316 ms P-R-T Axes : 028 -69 062 degrees QTc Int : 413 ms POOR DATA QUALITY, INTERPRETATION MAY BE ADVERSELY AFFECTED SINUS TACHYCARDIA WITH PREMATURE ATRIAL COMPLEXES LEFT ANTERIOR FASCICULAR BLOCK ABNORMAL ECG WHEN COMPARED WITH ECG OF 20-JUL-2018 07:54, NO SIGNIFICANT CHANGE WAS FOUND Confirmed by Daniel Cevallos MD ([id number]) on 07/21/2018 12:48:49 PM Referred By: Confirmed By:Daniel Cevallos MD
--- NOTE | 2018-07-21 13:10 | PN ---
Progress Note, Physician History of Present Illness: PULMONARY ALERT,STILL C/O SOB,-CP - Current Medication List Current Medications: Active Medications Albuterol Sulfate (Ventolin 0.083% Nebulizer Soln -) 1 amp NEB Q1H PRN PRN Reason: SHORT OF BREATH/WHEEZING Albuterol/Ipratropium (Duoneb -) 1 amp NEB RQID [facility] Last Admin: 07/21/18 11:45 Dose: 1 amp Aspirin (Asa -) 81 mg PO DAILY [facility] Last Admin: 07/21/18 09:08 Dose: 81 mg Diltiazem HCl (Cardizem Cd -) 120 mg PO DAILY [facility] Last Admin: 07/21/18 09:07 Dose: 120 mg Enoxaparin Sodium (Lovenox -) 40 mg SQ DAILY [facility] Last Admin: 07/21/18 09:08 Dose: 40 mg Azithromycin (Zithromax 500mg Ivpb (Pre-Docked)) 500 mg in 250 mls @ 250 mls/ hr IVPB DAILY [facility] Stop: 07/24/18 10:59 Last Admin: 07/21/18 09:07 Dose: 250 mls/hr Methylprednisolone Sodium Succinate (Solu-Medrol -) 40 mg IVPUSH Q6H-IV MORE Last Admin: 07/21/18 09:07 Dose: 40 mg Mometasone Furoate (Asmanex 220mcg -) 2 puff IH DAILY [facility] Last Admin: 07/21/18 10:40 Dose: Not Given Nystatin (Nystatin Oral Suspension -) 500,000 units PO Q6HPO [facility] Last Admin: 07/21/18 12:38 Dose: 500,000 units Nystatin (Mycostatin Cream -) 1 applic TP Q6HPO [facility] Last Admin: 07/21/18 12:38 Dose: 1 applic - Objective Vital Signs: Vital Signs Temperature 97.9 F 07/21/18 09:00 Pulse Rate 80 07/21/18 09:00 Respiratory Rate 18 07/21/18 09:00 Blood Pressure 102/58 L 07/21/18 09:00 O2 Sat by Pulse Oximetry (%) 93 L 07/21/18 12:55 Constitutional: Yes: Well Nourished, Calm Eyes: Yes: WNL HENT: Yes: WNL Neck: Yes: WNL Cardiovascular: Yes: Regular Rate and Rhythm, S1, S2 Respiratory: Yes: Rhonchi (SCATTERED BL RHONCHI) Gastrointestinal: Yes: Normal Bowel Sounds, Soft Extremities: Yes: WNL Edema: No Labs: CBC, BMP 07/21/18 06:00 07/21/18 06:00 INR, PTT INR 1.04 (0.83-1.09) 07/21/18 06:00 Assessment/Plan Problem List - Problems (1) COPD with acute exacerbation Code(s): J44.1 - CHRONIC OBSTRUCTIVE PULMONARY DISEASE W (ACUTE) EXACERBATION (2) Chronic respiratory failure with hypoxia Code(s): J96.11 - CHRONIC RESPIRATORY FAILURE WITH HYPOXIA Assessment/Plan Acute COPD Exacerbation Acute on Chronic Hypoxic Respiratory Failure Paroxysmal Atrial Fibrillation +Troponins likely Demand Ischemia LV Diastolic Dysfunction HTN - IV medrol same dose - inhaled bronchodilators standing and PRN - O2 to keep SpO2 >88% - azithromycin - trend cardiac enzymes - rate controlled - anticoagulation as per Cardiology DR DUNN
--- NOTE | 2018-07-21 13:32 | PN ---
Progress Note, Physician Chief Complaint: COPD SOB A-fib History of Present Illness: Previous notes and events reviewed awake and alert NAD complain of productive cough with green phlegm denies chest pain - Current Medication List Current Medications: Active Medications Albuterol Sulfate (Ventolin 0.083% Nebulizer Soln -) 1 amp NEB Q1H PRN PRN Reason: SHORT OF BREATH/WHEEZING Albuterol/Ipratropium (Duoneb -) 1 amp NEB RQID [facility] Last Admin: 07/21/18 11:45 Dose: 1 amp Aspirin (Asa -) 81 mg PO DAILY [facility] Last Admin: 07/21/18 09:08 Dose: 81 mg Diltiazem HCl (Cardizem Cd -) 120 mg PO DAILY [facility] Last Admin: 07/21/18 09:07 Dose: 120 mg Enoxaparin Sodium (Lovenox -) 40 mg SQ DAILY [facility] Last Admin: 07/21/18 09:08 Dose: 40 mg Azithromycin (Zithromax 500mg Ivpb (Pre-Docked)) 500 mg in 250 mls @ 250 mls/ hr IVPB DAILY [facility] Stop: 07/24/18 10:59 Last Admin: 07/21/18 09:07 Dose: 250 mls/hr Methylprednisolone Sodium Succinate (Solu-Medrol -) 40 mg IVPUSH Q6H-IV MORE Last Admin: 07/21/18 09:07 Dose: 40 mg Mometasone Furoate (Asmanex 220mcg -) 2 puff IH DAILY [facility] Last Admin: 07/21/18 10:40 Dose: Not Given Nystatin (Nystatin Oral Suspension -) 500,000 units PO Q6HPO MORE Last Admin: 07/21/18 12:38 Dose: 500,000 units Nystatin (Mycostatin Cream -) 1 applic TP Q6HPO [facility] Last Admin: 07/21/18 12:38 Dose: 1 applic - Objective Vital Signs: Vital Signs Temperature 97.9 F 07/21/18 09:00 Pulse Rate 80 07/21/18 09:00 Respiratory Rate 18 07/21/18 09:00 Blood Pressure 102/58 L 07/21/18 09:00 O2 Sat by Pulse Oximetry (%) 93 L 07/21/18 12:55 Constitutional: Yes: No Distress, Calm Eyes: Yes: Conjunctiva Clear HENT: Yes: Atraumatic Cardiovascular: Yes: Regular Rate and Rhythm Respiratory: Yes: Regular, Diminished, On Nasal O2 Gastrointestinal: Yes: Normal Bowel Sounds, Soft, Abdomen, Obese Musculoskeletal: Yes: Muscle Weakness Extremities: Yes: WNL Edema: No Neurological: Yes: Alert, Oriented Psychiatric: Yes: Alert, Oriented Labs: CBC, BMP 07/21/18 06:00 07/21/18 06:00 INR, PTT INR 1.04 (0.83-1.09) 07/21/18 06:00 Problem List - Problems (1) Chronic respiratory failure with hypoxia Assessment/Plan: -Pulm on board -keep O2 Sat >90% -O2 via NC -Bipap as needed -bronchodilators Code(s): J96.11 - CHRONIC RESPIRATORY FAILURE WITH HYPOXIA (2) Leg edema Assessment/Plan: -dvt ppx -Lovenox -pending LE doppler Code(s): R60.0 - LOCALIZED EDEMA (3) AF (paroxysmal atrial fibrillation) Assessment/Plan: -Cardiology on board -Asa and Cardizem -patient refusing AC in past Code(s): I48.0 - PAROXYSMAL ATRIAL FIBRILLATION (4) COPD with acute exacerbation Assessment/Plan: -Pulm on board -keep O2 Sat >90% -O2 via NC -Bipap as needed -bronchodilators -ID on board -Azithromycin -CXR reviewed -IV Medrol -Symbicort Code(s): J44.1 - CHRONIC OBSTRUCTIVE PULMONARY DISEASE W (ACUTE) EXACERBATION (5) MRSA colonization Assessment/Plan: -contact precaution Code(s): Z22.322 - CARRIER OR SUSPECTED CARRIER OF METHICILLIN RESIS STAPH Assessment/Plan see problem list dvt ppx
[2018-07-21] MEDS: BUDESONIDE/FORMETEROL FUMARATE 160/4.5 mcg INHALER IH SCH ×2 (16:15→22:25)
--- NOTE | 2018-07-21 16:56 | PN ---
Progress Note (short form) - Note Progress Note: feels improved productive cough no fevers Vital Signs Period Temp Pulse Resp BP Sys/[place] Pulse Ox Last 24 Hr 97.5 F-98.2 F 67-88 18-20 102-157/58-91 93-96 cor-rrr lungs clear abd soft,nt ext no edema CBC, BMP 07/21/18 06:00 07/21/18 06:00 Microbiology 07/20/18 08:02 Blood - Peripheral Venous Blood Culture - Preliminary NO GROWTH OBTAINED AFTER 24 HOURS, INCUBATION TO CONTINUE FOR 4 DAYS. 07/20/18 08:06 Blood - Peripheral Venous Blood Culture - Preliminary NO GROWTH OBTAINED AFTER 24 HOURS, INCUBATION TO CONTINUE FOR 4 DAYS. a/p copd exacerbation continue meds per pulmonary mrsa colonization- continue isolation please call back if needed Problem List - Problems (1) Chronic respiratory failure with hypoxia Code(s): J96.11 - CHRONIC RESPIRATORY FAILURE WITH HYPOXIA (2) COPD with acute exacerbation Code(s): J44.1 - CHRONIC OBSTRUCTIVE PULMONARY DISEASE W (ACUTE) EXACERBATION (3) MRSA colonization Code(s): Z22.322 - CARRIER OR SUSPECTED CARRIER OF METHICILLIN RESIS STAPH
[2018-07-21] MEDS: ALBUTEROL SO4 2.5/IPRATROPIUM 0.5 INH SOL 3 ML VIAL.NEB. NEB PRN (20:45)
[2018-07-22] MEDS: methylPREDNISolone NA SUCC 40 MG/1 ML VIAL IVPUSH SCH ×4 (02:44→21:35)
[2018-07-22] MEDS: NYSTATIN 100,000 UNIT/GM TOPICAL CREAM 15 GM TUBE TP SCH ×3 (06:13→18:39)
[2018-07-22] MEDS: NYSTATIN 500,000 UNITS/5 ML SUSPENSION PO SCH ×3 (06:13→18:37)
[2018-07-22 06:36] LABS: HEMATOCRIT 36.2 % (35.4-49); HEMOGLOBIN 12.1 GM/dL (11.7-16.9); MCH 30.6 pg (25.7-33.7); MCHC 33.4 g/dl (32.0-35.9); MEAN CELL VOLUME 91.7 fl (80-96); PLATELET COUNT 121 K/MM3 (134-434); RBC 3.94 M/mm3 (4.00-5.60); WHITE BLOOD COUNT 10.3 K/mm3 (4.0-10.0)
[2018-07-22 07:00] LABS: ALBUMIN 2.6 g/dl (3.4-5.0); BILIRUBIN,TOTAL 0.5 mg/dL (0.2-1); BLOOD UREA NITROGEN 30.6 mg/dL (7-18); CALCIUM 8.4 mg/dL (8.5-10.1); CREATININE 1.2 mg/dL (0.55-1.3); POTASSIUM 4.3 mmol/L (3.5-5.1); TOT PROT 5.8 g/dl (6.4-8.2)
[2018-07-22] MEDS: ALBUTEROL SO4 2.5/IPRATROPIUM 0.5 INH SOL 3 ML VIAL.NEB. NEB PRN ×3 (07:52→20:59)
[2018-07-22] MEDS ORDERED: PT OWN MED DRAWER 7, Y5N ONE (09:33)
[2018-07-22] MEDS: ENOXAPARIN NA (PORCINE) 40 MG/0.4 ML DISP.SYRIN SQ SCH (09:37)
[2018-07-22] MEDS: ASPIRIN 81 MG CHEWABLE TABLETS PO SCH (09:38)
[2018-07-22] MEDS: AZITHROMYCIN IVPB 500 MG/250 ML BAG IVPB SCH (09:38)
[2018-07-22] MEDS: BUDESONIDE/FORMETEROL FUMARATE 160/4.5 mcg INHALER IH SCH ×2 (09:38→21:38)
[2018-07-22] MEDS: MOMETASONE FUROATE 220 MCG/IH INHALER IH SCH (09:39)
--- NOTE | 2018-07-22 10:12 | PN ---
Progress Note, Physician History of Present Illness: Shortness of breath, cough, wheezes resolving on nebulizers, steroids, O2 - Current Medication List Current Medications: Active Medications Albuterol Sulfate (Ventolin 0.083% Nebulizer Soln -) 1 amp NEB Q1H PRN PRN Reason: SHORT OF BREATH/WHEEZING Albuterol/Ipratropium (Duoneb -) 1 amp NEB Q4H PRN PRN Reason: SHORTNESS OF BREATH Last Admin: 07/22/18 07:52 Dose: 1 amp Aspirin (Asa -) 81 mg PO DAILY [facility] Last Admin: 07/22/18 09:38 Dose: 81 mg Budesonide/Formoterol Fumarate (Symbicort 160/4.5mcg -) 2 puff IH BID MORE Last Admin: 07/22/18 09:38 Dose: 2 puff Diltiazem HCl (Cardizem Cd -) 120 mg PO DAILY [facility] Last Admin: 07/22/18 09:38 Dose: 120 mg Enoxaparin Sodium (Lovenox -) 40 mg SQ DAILY [facility] Last Admin: 07/22/18 09:37 Dose: 40 mg Azithromycin (Zithromax 500mg Ivpb (Pre-Docked)) 500 mg in 250 mls @ 250 mls/ hr IVPB DAILY [facility] Stop: 07/24/18 10:59 Last Admin: 07/22/18 09:38 Dose: 250 mls/hr Methylprednisolone Sodium Succinate (Solu-Medrol -) 40 mg IVPUSH Q6H-IV MORE Last Admin: 07/22/18 09:38 Dose: 40 mg Mometasone Furoate (Asmanex 220mcg -) 2 puff IH DAILY [facility] Last Admin: 07/22/18 09:39 Dose: Not Given Nystatin (Nystatin Oral Suspension -) 500,000 units PO Q6HPO MORE Last Admin: 07/22/18 06:13 Dose: 500,000 units Nystatin (Mycostatin Cream -) 1 applic TP Q6HPO MORE Last Admin: 07/22/18 06:13 Dose: 1 applic - Objective Vital Signs: Vital Signs Temperature 97.8 F 07/22/18 09:00 Pulse Rate 87 07/22/18 09:00 Respiratory Rate 17 07/22/18 09:00 Blood Pressure 124/60 07/22/18 09:00 O2 Sat by Pulse Oximetry (%) 96 07/21/18 20:40 Constitutional: Yes: No Distress, Calm Neck: Yes: Supple Cardiovascular: Yes: Regular Rate and Rhythm Respiratory: Yes: Regular, Diminished, On Nasal O2 Gastrointestinal: Yes: Soft, Hypoactive Bowel Sounds Edema: No Labs: CBC, BMP 07/22/18 05:20 07/22/18 05:20 INR, PTT INR 1.04 (0.83-1.09) 07/21/18 06:00 Problem List - Problems (1) Shortness of breath Code(s): R06.02 - SHORTNESS OF BREATH (2) AF (paroxysmal atrial fibrillation) Code(s): I48.0 - PAROXYSMAL ATRIAL FIBRILLATION (3) COPD with acute exacerbation Code(s): J44.1 - CHRONIC OBSTRUCTIVE PULMONARY DISEASE W (ACUTE) EXACERBATION (4) SOB (shortness of breath) Code(s): R06.02 - SHORTNESS OF BREATH (5) Hypertension Code(s): I10 - ESSENTIAL (PRIMARY) HYPERTENSION Qualifiers: Hypertension type: essential hypertension Qualified Code(s): I10 - Essential (primary) hypertension Assessment/Plan Echocardiogram 07/03/2018 Normal LV and RV size and fxn, LVEF 55-60%, mild LAE, mild ao root diltatation 4.2 cm, impaired LV relaxation Echocardiography (12/08/17) which revealed normal LV systolic function, LVEF 60- 65%, moderately dilated ascending thoracic aorta, mild TR and trace IA. Nuclear MPI (08/20/16) revealed moderate zone of anterior and anteroapical reversible defect c/s mild intensity ischemia and moderate inferior attenuation. LVEF was 71%. 1. Acute on chronic hypercapneic/hypoxemic respiratory failure 2. COPD exacerbation improving 3. PAF [id number] score of 2-3 currently in sinus rhythm (refused DOAC or Coumadin) 4. HTN 5. Prior abnormal nuclear MPI suggests CAD with demand ischemia 6. Diastolic dysfunction, currently euvolemic PLAN: 1. IV steroid taper with GI protection, bronchodilators, O2 as needed, empiric antibiotic coverage 2. Continue Cardizem CD 120 mg QD and ASA 81 mg QD 3. Troponins downtrending 4. Ideally anticoagulation is recommended, but patient has previously declined. Continue DVT prophylaxis 5. Cardiac work up including repeat nuclear MPI can be done as outpatient in the office once pulmonary status fully improves
--- NOTE | 2018-07-22 12:34 | PN ---
Progress Note, Physician History of Present Illness: PULMONARY ALERT,LESS DYSPNEIC,ON NASAL CANNULA - Current Medication List Current Medications: Active Medications Albuterol Sulfate (Ventolin 0.083% Nebulizer Soln -) 1 amp NEB Q1H PRN PRN Reason: SHORT OF BREATH/WHEEZING Albuterol/Ipratropium (Duoneb -) 1 amp NEB Q4H PRN PRN Reason: SHORTNESS OF BREATH Last Admin: 07/22/18 07:52 Dose: 1 amp Aspirin (Asa -) 81 mg PO DAILY MORE Last Admin: 07/22/18 09:38 Dose: 81 mg Budesonide/Formoterol Fumarate (Symbicort 160/4.5mcg -) 2 puff IH BID MORE Last Admin: 07/22/18 09:38 Dose: 2 puff Diltiazem HCl (Cardizem Cd -) 120 mg PO DAILY MORE Last Admin: 07/22/18 09:38 Dose: 120 mg Enoxaparin Sodium (Lovenox -) 40 mg SQ DAILY MORE Last Admin: 07/22/18 09:37 Dose: 40 mg Azithromycin (Zithromax 500mg Ivpb (Pre-Docked)) 500 mg in 250 mls @ 250 mls/ hr IVPB DAILY MORE Stop: 07/24/18 10:59 Last Admin: 07/22/18 09:38 Dose: 250 mls/hr Methylprednisolone Sodium Succinate (Solu-Medrol -) 40 mg IVPUSH Q6H-IV MORE Last Admin: 07/22/18 09:38 Dose: 40 mg Mometasone Furoate (Asmanex 220mcg -) 2 puff IH DAILY MORE Last Admin: 07/22/18 09:39 Dose: Not Given Nystatin (Nystatin Oral Suspension -) 500,000 units PO Q6HPO MORE Last Admin: 07/22/18 06:13 Dose: 500,000 units Nystatin (Mycostatin Cream -) 1 applic TP Q6HPO MORE Last Admin: 07/22/18 06:13 Dose: 1 applic - Objective Vital Signs: Vital Signs Temperature 97.8 F 07/22/18 09:00 Pulse Rate 87 07/22/18 09:00 Respiratory Rate 17 07/22/18 09:00 Blood Pressure 124/60 07/22/18 09:00 O2 Sat by Pulse Oximetry (%) 94 L 07/22/18 11:52 Constitutional: Yes: Well Nourished, Calm Eyes: Yes: WNL HENT: Yes: WNL Neck: Yes: WNL Cardiovascular: Yes: Regular Rate and Rhythm, S1, S2 Respiratory: Yes: Diminished Gastrointestinal: Yes: Normal Bowel Sounds, Soft Extremities: Yes: WNL Edema: No Labs: CBC, BMP 07/22/18 05:20 07/22/18 05:20 INR, PTT INR 1.04 (0.83-1.09) 07/21/18 06:00 Assessment/Plan Problem List - Problems (1) COPD with acute exacerbation Code(s): J44.1 - CHRONIC OBSTRUCTIVE PULMONARY DISEASE W (ACUTE) EXACERBATION (2) Chronic respiratory failure with hypoxia Code(s): J96.11 - CHRONIC RESPIRATORY FAILURE WITH HYPOXIA Assessment/Plan Acute COPD Exacerbation Acute on Chronic Hypoxic Respiratory Failure Paroxysmal Atrial Fibrillation +Troponins likely Demand Ischemia LV Diastolic Dysfunction HTN - IV medrol - inhaled bronchodilators standing and PRN - O2 to keep SpO2 >88% - azithromycin 250 mg po tiw as anti-inflammatory - trend cardiac enzymes - rate controlled DR DUNN
--- NOTE | 2018-07-22 14:25 | PN ---
Progress Note, Physician Chief Complaint: COPD SOB A-fib History of Present Illness: Previous notes and events reviewed awake and alert NAD complain of productive cough and SOB with exertion denies chest pain - Current Medication List Current Medications: Active Medications Albuterol Sulfate (Ventolin 0.083% Nebulizer Soln -) 1 amp NEB Q1H PRN PRN Reason: SHORT OF BREATH/WHEEZING Albuterol/Ipratropium (Duoneb -) 1 amp NEB Q4H PRN PRN Reason: SHORTNESS OF BREATH Last Admin: 07/22/18 07:52 Dose: 1 amp Aspirin (Asa -) 81 mg PO DAILY [facility] Last Admin: 07/22/18 09:38 Dose: 81 mg Budesonide/Formoterol Fumarate (Symbicort 160/4.5mcg -) 2 puff IH BID MORE Last Admin: 07/22/18 09:38 Dose: 2 puff Diltiazem HCl (Cardizem Cd -) 120 mg PO DAILY MORE Last Admin: 07/22/18 09:38 Dose: 120 mg Enoxaparin Sodium (Lovenox -) 40 mg SQ DAILY [facility] Last Admin: 07/22/18 09:37 Dose: 40 mg Azithromycin (Zithromax 500mg Ivpb (Pre-Docked)) 500 mg in 250 mls @ 250 mls/ hr IVPB DAILY [facility] Stop: 07/24/18 10:59 Last Admin: 07/22/18 09:38 Dose: 250 mls/hr Methylprednisolone Sodium Succinate (Solu-Medrol -) 40 mg IVPUSH Q6H-IV MORE Last Admin: 07/22/18 09:38 Dose: 40 mg Mometasone Furoate (Asmanex 220mcg -) 2 puff IH DAILY [facility] Last Admin: 07/22/18 09:39 Dose: Not Given Nystatin (Nystatin Oral Suspension -) 500,000 units PO Q6HPO MORE Last Admin: 07/22/18 12:58 Dose: 500,000 units Nystatin (Mycostatin Cream -) 1 applic TP Q6HPO MORE Last Admin: 07/22/18 12:58 Dose: 1 applic - Objective Vital Signs: Vital Signs Temperature 98.2 F 07/22/18 13:41 Pulse Rate 81 07/22/18 13:41 Respiratory Rate 18 07/22/18 13:41 Blood Pressure 127/61 07/22/18 13:41 O2 Sat by Pulse Oximetry (%) 94 L 07/22/18 11:52 Constitutional: Yes: No Distress, Calm Eyes: Yes: Conjunctiva Clear HENT: Yes: Atraumatic Cardiovascular: Yes: Regular Rate and Rhythm Respiratory: Yes: Regular, On Nasal O2, Wheezes Gastrointestinal: Yes: Normal Bowel Sounds, Soft Musculoskeletal: Yes: Muscle Weakness Extremities: Yes: WNL Edema: No Neurological: Yes: Alert, Oriented Psychiatric: Yes: Alert, Oriented Labs: CBC, BMP 07/22/18 05:20 07/22/18 05:20 INR, PTT INR 1.04 (0.83-1.09) 07/21/18 06:00 Microbiology 07/20/18 08:02 Blood - Peripheral Venous Blood Culture - Preliminary NO GROWTH OBTAINED AFTER 48 HOURS, INCUBATION TO CONTINUE FOR 3 DAYS. 07/20/18 08:06 Blood - Peripheral Venous Blood Culture - Preliminary NO GROWTH OBTAINED AFTER 48 HOURS, INCUBATION TO CONTINUE FOR 3 DAYS. Problem List - Problems (1) Chronic respiratory failure with hypoxia Assessment/Plan: -Pulm on board -keep O2 Sat >90% -O2 via NC -Bipap as needed -bronchodilators Code(s): J96.11 - CHRONIC RESPIRATORY FAILURE WITH HYPOXIA (2) Leg edema Assessment/Plan: -dvt ppx -Lovenox -pending LE doppler Code(s): R60.0 - LOCALIZED EDEMA (3) AF (paroxysmal atrial fibrillation) Assessment/Plan: -Cardiology on board -Asa and Cardizem -patient refusing AC in past Code(s): I48.0 - PAROXYSMAL ATRIAL FIBRILLATION (4) COPD with acute exacerbation Assessment/Plan: -Pulm on board -keep O2 Sat >90% -O2 via NC -Bipap as needed -bronchodilators -ID on board -Azithromycin -CXR reviewed -IV Medrol -Symbicort -Asmanex Code(s): J44.1 - CHRONIC OBSTRUCTIVE PULMONARY DISEASE W (ACUTE) EXACERBATION (5) MRSA colonization Assessment/Plan: -contact precaution Code(s): Z22.322 - CARRIER OR SUSPECTED CARRIER OF METHICILLIN RESIS STAPH (6) Elevated troponin Assessment/Plan: -Trop 0.27-->0.07 -cardiology on board -tele monitoring Code(s): R74.8 - ABNORMAL LEVELS OF OTHER SERUM ENZYMES Assessment/Plan see problem list dvt ppx
[2018-07-23] MEDS: NYSTATIN 500,000 UNITS/5 ML SUSPENSION PO SCH ×5 (01:10→23:43)
[2018-07-23] MEDS: NYSTATIN 100,000 UNIT/GM TOPICAL CREAM 15 GM TUBE TP SCH ×4 (01:10→18:02)
[2018-07-23] MEDS: methylPREDNISolone NA SUCC 40 MG/1 ML VIAL IVPUSH SCH ×3 (02:22→21:01)
[2018-07-23] MEDS: ALBUTEROL SO4 2.5/IPRATROPIUM 0.5 INH SOL 3 ML VIAL.NEB. NEB PRN ×2 (08:10→20:08)
[2018-07-23 08:31] LABS: ALBUMIN 2.6 g/dl (3.4-5.0); BILIRUBIN,TOTAL 0.5 mg/dL (0.2-1); BLOOD UREA NITROGEN 45.1 mg/dL (7-18); CALCIUM 7.8 mg/dL (8.5-10.1); CREATININE 1.5 mg/dL (0.55-1.3); POTASSIUM 4.5 mmol/L (3.5-5.1); TOT PROT 5.7 g/dl (6.4-8.2)
[2018-07-23 08:49] LABS: HEMATOCRIT 33.4 % (35.4-49); HEMOGLOBIN 11.3 GM/dL (11.7-16.9); MCH 31.1 pg (25.7-33.7); MCHC 33.9 g/dl (32.0-35.9); MEAN CELL VOLUME 91.6 fl (80-96); MEAN PLT VOLUME 8.5 fl (7.5-11.1); RBC 3.64 M/mm3 (4.00-5.60); RDW 15.5 % (11.9-15.9); WHITE BLOOD COUNT 6.7 K/mm3 (4.0-10.0)
[2018-07-23] MEDS ORDERED: PT OWN MED DRAWER 7, Y5N ONE (09:03)
[2018-07-23] MEDS: AZITHROMYCIN IVPB 500 MG/250 ML BAG IVPB SCH (09:13)
[2018-07-23] MEDS: MOMETASONE FUROATE 220 MCG/IH INHALER IH SCH (09:13)
[2018-07-23] MEDS: ENOXAPARIN NA (PORCINE) 40 MG/0.4 ML DISP.SYRIN SQ SCH (09:13)
[2018-07-23] MEDS: ASPIRIN 81 MG CHEWABLE TABLETS PO SCH (09:13)
[2018-07-23] MEDS: BUDESONIDE/FORMETEROL FUMARATE 160/4.5 mcg INHALER IH SCH ×2 (09:17→21:00)
[2018-07-23 09:21] LABS: PLATELET COUNT 111 K/MM3 (134-434)
--- NOTE | 2018-07-23 11:35 | PN ---
Progress Note (short form) - Note Progress Note: OOB to chair. Breathing overall feels better but became SOB when he walked back from the bathroom. No CP. Intake & Output 07/20/18 07/21/18 07/22/18 07/23/18 23:59 23:59 23:59 23:59 Intake Total 460 1020 1290 Output Total 2620 1000 500 400 Balance -2160 20 790 -400 Weight 215 lb Last Vital Signs Temp Pulse Resp BP Pulse Ox 98.0 F 102 H 18 139/83 96 07/23/18 10:00 07/23/18 10:00 07/23/18 10:00 07/23/18 10:00 07/22/18 21:00 Active Medications Albuterol Sulfate (Ventolin 0.083% Nebulizer Soln -) 1 amp NEB Q1H PRN PRN Reason: SHORT OF BREATH/WHEEZING Albuterol/Ipratropium (Duoneb -) 1 amp NEB Q4H PRN PRN Reason: SHORTNESS OF BREATH Last Admin: 07/23/18 08:10 Dose: 1 amp Aspirin (Asa -) 81 mg PO DAILY [facility] Last Admin: 07/23/18 09:13 Dose: 81 mg Budesonide/Formoterol Fumarate (Symbicort 160/4.5mcg -) 2 puff IH BID [facility] Last Admin: 07/23/18 09:17 Dose: 2 puff Diltiazem HCl (Cardizem Cd -) 120 mg PO DAILY [facility] Last Admin: 07/23/18 09:13 Dose: 120 mg Enoxaparin Sodium (Lovenox -) 40 mg SQ DAILY [facility] Last Admin: 07/23/18 09:13 Dose: 40 mg Azithromycin (Zithromax 500mg Ivpb (Pre-Docked)) 500 mg in 250 mls @ 250 mls/ hr IVPB DAILY [facility] Stop: 07/24/18 10:59 Last Admin: 07/23/18 09:13 Dose: 250 mls/hr Methylprednisolone Sodium Succinate (Solu-Medrol -) 40 mg IVPUSH Q12H [facility] Mometasone Furoate (Asmanex 220mcg -) 2 puff IH DAILY [facility] Last Admin: 07/23/18 09:13 Dose: Not Given Nystatin (Nystatin Oral Suspension -) 500,000 units PO Q6HPO [facility] Last Admin: 07/23/18 06:31 Dose: 500,000 units Nystatin (Mycostatin Cream -) 1 applic TP Q6HPO [facility] Last Admin: 07/23/18 06:31 Dose: Not Given Constitutional: Yes: Awake and alert, Mildly tachypneic at rest Eyes: Yes: WNL HENT: Yes: WNL Neck: Yes: WNL Cardiovascular: Yes: Regular Rate and Rhythm, S1, S2 Respiratory: Yes: Diminished throughout, no expiratory wheeze, scattered rhonchi Gastrointestinal: Yes: Normal Bowel Sounds, Soft Extremities: Yes: WNL Edema: No Labs: Laboratory Results - last 24 hr 07/23/18 07/23/18 06:30 06:30 WBC 6.7 RBC 3.64 L Hgb 11.3 L Hct 33.4 L MCV 91.6 MCH 31.1 MCHC 33.9 RDW 15.5 Plt Count 111 L MPV 8.5 Sodium 139 Potassium 4.5 Chloride 101 Carbon Dioxide 31 Anion Gap 6 L BUN 45.1 H Creatinine 1.5 H Est GFR (CKD-EPI)AfAm 52.03 Est GFR (CKD-EPI)NonAf 44.89 Random Glucose 102 Calcium 7.8 L Total Bilirubin 0.5 AST 24 ALT 85 H Alkaline Phosphatase 92 Total Protein 5.7 L Albumin 2.6 L Assessment/Plan (1) COPD with acute exacerbation Code(s): J44.1 - CHRONIC OBSTRUCTIVE PULMONARY DISEASE W (ACUTE) EXACERBATION (2) Chronic respiratory failure with hypoxia Code(s): J96.11 - CHRONIC RESPIRATORY FAILURE WITH HYPOXIA Assessment/Plan Acute COPD Exacerbation Acute on Chronic Hypoxic Respiratory Failure Paroxysmal Atrial Fibrillation +Troponins likely Demand Ischemia LV Diastolic Dysfunction HTN - Taper IV medrol today - inhaled bronchodilators standing and PRN - O2 to keep SpO2 >88% - Azithromycin 250 mg po tiw as anti-inflammatory - rate controlled Dr Rios
--- NOTE | 2018-07-23 12:11 | PN ---
Progress Note, Physician History of Present Illness: Shortness of breath, cough, wheezes slowly resolving on nebulizers, steroids, O2 - Current Medication List Current Medications: Active Medications Albuterol Sulfate (Ventolin 0.083% Nebulizer Soln -) 1 amp NEB Q1H PRN PRN Reason: SHORT OF BREATH/WHEEZING Albuterol/Ipratropium (Duoneb -) 1 amp NEB Q4H PRN PRN Reason: SHORTNESS OF BREATH Last Admin: 07/23/18 08:10 Dose: 1 amp Aspirin (Asa -) 81 mg PO DAILY [facility] Last Admin: 07/23/18 09:13 Dose: 81 mg Budesonide/Formoterol Fumarate (Symbicort 160/4.5mcg -) 2 puff IH BID [facility] Last Admin: 07/23/18 09:17 Dose: 2 puff Diltiazem HCl (Cardizem Cd -) 120 mg PO DAILY [facility] Last Admin: 07/23/18 09:13 Dose: 120 mg Enoxaparin Sodium (Lovenox -) 40 mg SQ DAILY [facility] Last Admin: 07/23/18 09:13 Dose: 40 mg Azithromycin (Zithromax 500mg Ivpb (Pre-Docked)) 500 mg in 250 mls @ 250 mls/ hr IVPB DAILY [facility] Stop: 07/24/18 10:59 Last Admin: 07/23/18 09:13 Dose: 250 mls/hr Methylprednisolone Sodium Succinate (Solu-Medrol -) 40 mg IVPUSH BID [facility] Mometasone Furoate (Asmanex 220mcg -) 2 puff IH DAILY [facility] Last Admin: 07/23/18 09:13 Dose: Not Given Nystatin (Nystatin Oral Suspension -) 500,000 units PO Q6HPO [facility] Last Admin: 07/23/18 06:31 Dose: 500,000 units Nystatin (Mycostatin Cream -) 1 applic TP Q6HPO [facility] Last Admin: 07/23/18 06:31 Dose: Not Given - Objective Vital Signs: Vital Signs Temperature 98.0 F 07/23/18 10:00 Pulse Rate 102 H 07/23/18 10:00 Respiratory Rate 18 07/23/18 10:00 Blood Pressure 139/83 07/23/18 10:00 O2 Sat by Pulse Oximetry (%) 96 07/22/18 21:00 Constitutional: Yes: No Distress, Calm Neck: Yes: Supple Cardiovascular: Yes: Regular Rate and Rhythm Respiratory: Yes: Regular, Diminished, On Nasal O2 Gastrointestinal: Yes: Normal Bowel Sounds, Soft Edema: No Labs: CBC, BMP 07/23/18 06:30 07/23/18 06:30 INR, PTT INR 1.04 (0.83-1.09) 07/21/18 06:00 - ....Imaging EKG: Report Reviewed (Tele: NSR) Problem List - Problems (1) Shortness of breath Code(s): R06.02 - SHORTNESS OF BREATH (2) AF (paroxysmal atrial fibrillation) Code(s): I48.0 - PAROXYSMAL ATRIAL FIBRILLATION (3) COPD with acute exacerbation Code(s): J44.1 - CHRONIC OBSTRUCTIVE PULMONARY DISEASE W (ACUTE) EXACERBATION (4) SOB (shortness of breath) Code(s): R06.02 - SHORTNESS OF BREATH (5) Hypertension Code(s): I10 - ESSENTIAL (PRIMARY) HYPERTENSION Qualifiers: Hypertension type: essential hypertension Qualified Code(s): I10 - Essential (primary) hypertension Assessment/Plan Echocardiogram 07/03/2018 Normal LV and RV size and fxn, LVEF 55-60%, mild LAE, mild ao root diltatation 4.2 cm, impaired LV relaxation Echocardiography (12/08/17) which revealed normal LV systolic function, LVEF 60- 65%, moderately dilated ascending thoracic aorta, mild TR and trace [place]. Nuclear MPI (08/20/16) revealed moderate zone of anterior and anteroapical reversible defect c/s mild intensity ischemia and moderate inferior attenuation. LVEF was 71%. 1. Acute on chronic hypercapneic/hypoxemic respiratory failure 2. COPD exacerbation improving 3. PAF [id number] score of 2-3 currently in sinus rhythm (refused DOAC or Coumadin) 4. HTN 5. Prior abnormal nuclear MPI suggests CAD with demand ischemia 6. Diastolic dysfunction, currently euvolemic PLAN: 1. IV steroid taper with GI protection, bronchodilators, O2 as needed to keep SpO2 >88%, Azithromycin 250 mg po tiw as anti-inflammatory 2. Continue Cardizem CD 120 mg QD and ASA 81 mg QD 3. Troponins downtrending 4. Ideally anticoagulation is recommended, but patient has previously declined. Continue DVT prophylaxis 5. Cardiac work up including repeat nuclear MPI can be done as outpatient in the office once pulmonary status fully improves
--- NOTE | 2018-07-23 13:25 | PN ---
Progress Note, Physician Chief Complaint: patient seen nad examiend sitting in chair - Current Medication List Current Medications: Active Medications Albuterol Sulfate (Ventolin 0.083% Nebulizer Soln -) 1 amp NEB Q1H PRN PRN Reason: SHORT OF BREATH/WHEEZING Albuterol/Ipratropium (Duoneb -) 1 amp NEB Q4H PRN PRN Reason: SHORTNESS OF BREATH Last Admin: 07/23/18 08:10 Dose: 1 amp Aspirin (Asa -) 81 mg PO DAILY [facility] Last Admin: 07/23/18 09:13 Dose: 81 mg Azithromycin (Zithromax -) 250 mg PO Q2D [facility] Budesonide/Formoterol Fumarate (Symbicort 160/4.5mcg -) 2 puff IH BID [facility] Last Admin: 07/23/18 09:17 Dose: 2 puff Diltiazem HCl (Cardizem Cd -) 120 mg PO DAILY [facility] Last Admin: 07/23/18 09:13 Dose: 120 mg Enoxaparin Sodium (Lovenox -) 40 mg SQ DAILY [facility] Last Admin: 07/23/18 09:13 Dose: 40 mg Methylprednisolone Sodium Succinate (Solu-Medrol -) 40 mg IVPUSH BID [facility] Mometasone Furoate (Asmanex 220mcg -) 2 puff IH DAILY [facility] Last Admin: 07/23/18 09:13 Dose: Not Given Nystatin (Nystatin Oral Suspension -) 500,000 units PO Q6HPO [facility] Last Admin: 07/23/18 13:04 Dose: 500,000 units Nystatin (Mycostatin Cream -) 1 applic TP Q6HPO [facility] Last Admin: 07/23/18 13:05 Dose: Not Given - Objective Vital Signs: Vital Signs Temperature 98.0 F 07/23/18 10:00 Pulse Rate 102 H 07/23/18 10:00 Respiratory Rate 18 07/23/18 10:00 Blood Pressure 139/83 07/23/18 10:00 O2 Sat by Pulse Oximetry (%) 96 07/22/18 21:00 Constitutional: Yes: Calm Cardiovascular: Yes: Regular Rate and Rhythm, S1, S2 Respiratory: Yes: On Nasal O2, Rhonchi (scattered) Gastrointestinal: Yes: Normal Bowel Sounds, Soft Edema: No Neurological: Yes: Alert, Oriented Labs: CBC, BMP 07/23/18 06:30 07/23/18 06:30 INR, PTT INR 1.04 (0.83-1.09) 07/21/18 06:00 Problem List - Problems (1) Shortness of breath Assessment/Plan: solumedrol taper duonebs will need sleep study and possible cpap when discharge as outpatient abx zithormcyin 250mg po TIW as an antifinflammatory daliresp dc symbivort bid Code(s): R06.02 - SHORTNESS OF BREATH (2) AF (paroxysmal atrial fibrillation) Assessment/Plan: cardizem per cardiology patient refusing AC Code(s): I48.0 - PAROXYSMAL ATRIAL FIBRILLATION (3) Hypertension Assessment/Plan: cardizem Code(s): I10 - ESSENTIAL (PRIMARY) HYPERTENSION Qualifiers: Hypertension type: essential hypertension Qualified Code(s): I10 - Essential (primary) hypertension (4) Leg edema Assessment/Plan: venous dopler- no dvt lasix one dose dvt ppx Code(s): R60.0 - LOCALIZED EDEMA
[2018-07-24] MEDS: NYSTATIN 100,000 UNIT/GM TOPICAL CREAM 15 GM TUBE TP SCH ×5 (00:08→23:20)
[2018-07-24] MEDS: NYSTATIN 500,000 UNITS/5 ML SUSPENSION PO SCH ×4 (05:50→23:20)
[2018-07-24] MEDS: ALBUTEROL SO4 2.5/IPRATROPIUM 0.5 INH SOL 3 ML VIAL.NEB. NEB PRN (07:45)
[2018-07-24 08:01] LABS: ALBUMIN 2.7 g/dl (3.4-5.0); BILIRUBIN,TOTAL 0.5 mg/dL (0.2-1); BLOOD UREA NITROGEN 49.7 mg/dL (7-18); CALCIUM 8.1 mg/dL (8.5-10.1); CREATININE 1.4 mg/dL (0.55-1.3); POTASSIUM 4.8 mmol/L (3.5-5.1); TOT PROT 5.7 g/dl (6.4-8.2)
[2018-07-24 08:27] LABS: HEMATOCRIT 34.3 % (35.4-49); HEMOGLOBIN 11.4 GM/dL (11.7-16.9); LYMPH % 2.1 % (8-40); MCH 30.2 pg (25.7-33.7); MCHC 33.1 g/dl (32.0-35.9); MEAN CELL VOLUME 91.4 fl (80-96); MEAN PLT VOLUME 8.9 fl (7.5-11.1); MONO % 4.1 % (3.8-10.2); NEUT % 93.8 % (42.8-82.8); RBC 3.76 M/mm3 (4.00-5.60); RDW 15.2 % (11.9-15.9); WHITE BLOOD COUNT 6.3 K/mm3 (4.0-10.0)
[2018-07-24] MEDS: ASPIRIN 81 MG CHEWABLE TABLETS PO SCH (09:11)
[2018-07-24] MEDS: methylPREDNISolone NA SUCC 40 MG/1 ML VIAL IVPUSH SCH ×2 (09:12→22:00)
[2018-07-24] MEDS: ENOXAPARIN NA (PORCINE) 40 MG/0.4 ML DISP.SYRIN SQ SCH (09:12)
--- NOTE | 2018-07-24 09:40 | PN ---
Progress Note, Physician History of Present Illness: Shortness of breath, cough, wheezes slowly resolving on nebulizers, steroids, O2 , developed thrush. - Current Medication List Current Medications: Active Medications Albuterol Sulfate (Ventolin 0.083% Nebulizer Soln -) 1 amp NEB Q1H PRN PRN Reason: SHORT OF BREATH/WHEEZING Albuterol/Ipratropium (Duoneb -) 1 amp NEB Q4H PRN PRN Reason: SHORTNESS OF BREATH Last Admin: 07/23/18 20:08 Dose: 1 amp Aspirin (Asa -) 81 mg PO DAILY [facility] Last Admin: 07/24/18 09:11 Dose: 81 mg Azithromycin (Zithromax -) 250 mg PO Q2D [facility] Budesonide/Formoterol Fumarate (Symbicort 160/4.5mcg -) 2 puff IH BID [facility] Last Admin: 07/23/18 21:00 Dose: 2 puff Diltiazem HCl (Cardizem Cd -) 120 mg PO DAILY [facility] Last Admin: 07/24/18 09:11 Dose: 120 mg Enoxaparin Sodium (Lovenox -) 40 mg SQ DAILY [facility] Last Admin: 07/24/18 09:12 Dose: 40 mg Methylprednisolone Sodium Succinate (Solu-Medrol -) 40 mg IVPUSH BID [facility] Last Admin: 07/24/18 09:12 Dose: 40 mg Mometasone Furoate (Asmanex 220mcg -) 2 puff IH DAILY [facility] Last Admin: 07/23/18 09:13 Dose: Not Given Nystatin (Nystatin Oral Suspension -) 500,000 units PO Q6HPO [facility] Last Admin: 07/24/18 05:50 Dose: 500,000 units Nystatin (Mycostatin Cream -) 1 applic TP Q6HPO [facility] Last Admin: 07/24/18 05:50 Dose: Not Given - Objective Vital Signs: Vital Signs Temperature 97.8 F 07/24/18 09:04 Pulse Rate 81 07/24/18 09:04 Respiratory Rate 20 07/24/18 09:04 Blood Pressure 139/77 07/24/18 09:04 O2 Sat by Pulse Oximetry (%) 96 07/24/18 09:00 Constitutional: Yes: No Distress, Calm Neck: Yes: Supple Cardiovascular: Yes: Regular Rate and Rhythm Respiratory: Yes: Regular, Diminished, On Nasal O2 Gastrointestinal: Yes: Normal Bowel Sounds, Soft Edema: No Labs: CBC, BMP 07/24/18 06:31 07/24/18 06:31 INR, PTT INR 1.04 (0.83-1.09) 07/21/18 06:00 - ....Imaging EKG: Report Reviewed (Tele: SR) Problem List - Problems (1) Shortness of breath Code(s): R06.02 - SHORTNESS OF BREATH (2) AF (paroxysmal atrial fibrillation) Code(s): I48.0 - PAROXYSMAL ATRIAL FIBRILLATION (3) COPD with acute exacerbation Code(s): J44.1 - CHRONIC OBSTRUCTIVE PULMONARY DISEASE W (ACUTE) EXACERBATION (4) Hypertension Code(s): I10 - ESSENTIAL (PRIMARY) HYPERTENSION Qualifiers: Hypertension type: essential hypertension Qualified Code(s): I10 - Essential (primary) hypertension Assessment/Plan Echocardiogram 07/03/2018 Normal LV and RV size and fxn, LVEF 55-60%, mild LAE, mild ao root diltatation 4.2 cm, impaired LV relaxation Echocardiography (12/08/17) which revealed normal LV systolic function, LVEF 60- 65%, moderately dilated ascending thoracic aorta, mild TR and trace [place]. Nuclear MPI (08/20/16) revealed moderate zone of anterior and anteroapical reversible defect c/s mild intensity ischemia and moderate inferior attenuation. LVEF was 71%. 1. Acute on chronic hypercapneic/hypoxemic respiratory failure 2. COPD exacerbation improving 3. PAF [id number] score of 2-3 currently in sinus rhythm (refused DOAC or Coumadin) 4. HTN 5. Prior abnormal nuclear MPI suggests CAD with demand ischemia 6. Diastolic dysfunction, currently euvolemic PLAN: 1. IV steroid taper with GI protection, bronchodilators, O2 as needed to keep SpO2 >88%, Azithromycin 250 mg po tiw as anti-inflammatory 2. Continue Cardizem CD 120 mg QD and ASA 81 mg QD 3. Troponins downtrending 4. Ideally anticoagulation is recommended, but patient has previously declined. Continue DVT prophylaxis 5. Cardiac work up including repeat nuclear MPI can be done as outpatient in the office once pulmonary status fully improves
--- NOTE | 2018-07-24 10:43 | PN ---
Progress Note (short form) - Note Progress Note: PULMONARY AWAKE/ALERT/OOB TO CHAIR COMPLAINING OF THRUSH STILL DYSPNEIC UPON MINIMAL EXERTION VSS/AFEBRILE Constitutional: Yes: Awake and alert, Mildly tachypneic at rest Eyes: Yes: WNL HENT: Yes: WNL Neck: Yes: WNL Cardiovascular: Yes: Regular Rate and Rhythm, S1, S2 Respiratory: Yes: Diminished throughout, no expiratory wheeze, scattered rhonchi Gastrointestinal: Yes: Normal Bowel Sounds, Soft Extremities: Yes: WNL Edema: No Labs/xrays reviewed Acute COPD Exacerbation Acute on Chronic Hypoxic Respiratory Failure Paroxysmal Atrial Fibrillation +Troponins likely Demand Ischemia LV Diastolic Dysfunction HTN - medrol same dose today - inhaled bronchodilators standing and PRN/chest PT - O2 to keep SpO2 >88% - Azithromycin 250 mg po tiw as anti-inflammatory - rate controlled - Xanax to relieve anxiety - Short trial of diflucan - will hold zithromax while on diflucan Dr James Lira
[2018-07-24] MEDS: BUDESONIDE/FORMETEROL FUMARATE 160/4.5 mcg INHALER IH SCH ×2 (11:01→22:01)
[2018-07-24] MEDS: FLUCONAZOLE 100 MG TABLET (UD) PO SCH (11:02)
[2018-07-24] MEDS: ALBUTEROL SO4 2.5/IPRATROPIUM 0.5 INH SOL 3 ML VIAL.NEB. NEB SCH ×4 (11:15→23:36)
[2018-07-24] MEDS: MOMETASONE FUROATE 220 MCG/IH INHALER IH SCH (11:16)
[2018-07-24 11:21] LABS: ANISOCYTOSIS 0; MACROCYTOSIS 0
[2018-07-24 11:50] LABS: PLATELET ESTIMATE ADEQUATE
[2018-07-24 11:54] LABS: PLATELET COUNT 158 K/MM3 (134-434)
--- NOTE | 2018-07-24 12:33 | PN ---
Progress Note, Physician Chief Complaint: sitting in chair says his breathing is better - Current Medication List Current Medications: Active Medications Albuterol Sulfate (Ventolin 0.083% Nebulizer Soln -) 1 amp NEB Q1H PRN PRN Reason: SHORT OF BREATH/WHEEZING Albuterol/Ipratropium (Duoneb -) 1 amp NEB RQ4H [facility] Last Admin: 07/24/18 11:15 Dose: 1 amp Alprazolam (Xanax -) 0.5 mg PO [facility] Aspirin (Asa -) 81 mg PO DAILY [facility] Last Admin: 07/24/18 09:11 Dose: 81 mg Budesonide/Formoterol Fumarate (Symbicort 160/4.5mcg -) 2 puff IH BID [facility] Last Admin: 07/24/18 11:01 Dose: 2 puff Diltiazem HCl (Cardizem Cd -) 120 mg PO DAILY [facility] Last Admin: 07/24/18 09:11 Dose: 120 mg Enoxaparin Sodium (Lovenox -) 40 mg SQ DAILY [facility] Last Admin: 07/24/18 09:12 Dose: 40 mg Fluconazole (Diflucan -) 100 mg PO DAILY [facility] Last Admin: 07/24/18 11:02 Dose: 100 mg Methylprednisolone Sodium Succinate (Solu-Medrol -) 40 mg IVPUSH BID [facility] Last Admin: 07/24/18 09:12 Dose: 40 mg Mometasone Furoate (Asmanex 220mcg -) 2 puff IH DAILY [facility] Last Admin: 07/24/18 11:16 Dose: Not Given Nystatin (Nystatin Oral Suspension -) 500,000 units PO Q6HPO [facility] Last Admin: 07/24/18 05:50 Dose: 500,000 units Nystatin (Mycostatin Cream -) 1 applic TP Q6HPO [facility] Last Admin: 07/24/18 05:50 Dose: Not Given - Objective Vital Signs: Vital Signs Temperature 97.8 F 07/24/18 09:04 Pulse Rate 81 07/24/18 09:04 Respiratory Rate 20 07/24/18 09:04 Blood Pressure 139/77 07/24/18 09:04 O2 Sat by Pulse Oximetry (%) 97 07/24/18 10:01 Constitutional: Yes: Calm Cardiovascular: Yes: Regular Rate and Rhythm, S1, S2 Respiratory: Yes: Diminished Gastrointestinal: Yes: Normal Bowel Sounds, Soft Edema: No Labs: CBC, BMP 07/24/18 06:31 07/24/18 06:31 INR, PTT INR 1.04 (0.83-1.09) 07/21/18 06:00 Problem List - Problems (1) Shortness of breath Assessment/Plan: solumedrol same dose duonebs abx zithormcyin 250mg po TIW as an antifinflammatory- on hold for now as diflucan daliresp dc symbivort bid Code(s): R06.02 - SHORTNESS OF BREATH (2) AF (paroxysmal atrial fibrillation) Assessment/Plan: cardizem per cardiology patient refusing AC Code(s): I48.0 - PAROXYSMAL ATRIAL FIBRILLATION (3) Hypertension Assessment/Plan: cardizem Code(s): I10 - ESSENTIAL (PRIMARY) HYPERTENSION Qualifiers: Hypertension type: essential hypertension Qualified Code(s): I10 - Essential (primary) hypertension (4) Leg edema Assessment/Plan: venous dopler- no dvt lasix one dose- improved leg edema dvt ppx (5) Thrush Assessment/Plan: nystatin and diflucan Code(s): B37.0 - CANDIDAL STOMATITIS
[2018-07-24] MEDS ORDERED: PT OWN MED DRAWER 7, Y5N ONE (18:22)
[2018-07-24] MEDS: ALPRAZolam 0.25 MG TABLET PO SCH (22:00)
[2018-07-25] MEDS: ALBUTEROL SO4 2.5/IPRATROPIUM 0.5 INH SOL 3 ML VIAL.NEB. NEB SCH ×5 (04:50→20:11)
[2018-07-25] MEDS: NYSTATIN 500,000 UNITS/5 ML SUSPENSION PO SCH ×3 (06:08→17:16)
[2018-07-25] MEDS: NYSTATIN 100,000 UNIT/GM TOPICAL CREAM 15 GM TUBE TP SCH ×3 (06:09→17:24)
[2018-07-25 06:21] LABS: HEMATOCRIT 32.3 % (35.4-49); HEMOGLOBIN 10.8 GM/dL (11.7-16.9); LYMPH % 2.1 % (8-40); MCH 30.4 pg (25.7-33.7); MCHC 33.3 g/dl (32.0-35.9); MEAN CELL VOLUME 91.2 fl (80-96); MEAN PLT VOLUME 8.1 fl (7.5-11.1); MONO % 2.7 % (3.8-10.2); NEUT % 95.2 % (42.8-82.8); PLATELET COUNT 112 K/MM3 (134-434); RBC 3.54 M/mm3 (4.00-5.60); RDW 15.1 % (11.9-15.9); WHITE BLOOD COUNT 3.8 K/mm3 (4.0-10.0)
[2018-07-25 06:42] LABS: ALBUMIN 2.6 g/dl (3.4-5.0); BILIRUBIN,TOTAL 0.5 mg/dL (0.2-1); BLOOD UREA NITROGEN 49.9 mg/dL (7-18); CALCIUM 7.9 mg/dL (8.5-10.1); CREATININE 1.4 mg/dL (0.55-1.3); POTASSIUM 5.3 mmol/L (3.5-5.1); TOT PROT 5.4 g/dl (6.4-8.2)
[2018-07-25] MEDS: methylPREDNISolone NA SUCC 40 MG/1 ML VIAL IVPUSH SCH ×2 (09:16→17:17)
[2018-07-25] MEDS: ASPIRIN 81 MG CHEWABLE TABLETS PO SCH (09:16)
[2018-07-25] MEDS: ENOXAPARIN NA (PORCINE) 40 MG/0.4 ML DISP.SYRIN SQ SCH (09:16)
[2018-07-25] MEDS: FLUCONAZOLE 100 MG TABLET (UD) PO SCH (09:16)
[2018-07-25] MEDS: BUDESONIDE/FORMETEROL FUMARATE 160/4.5 mcg INHALER IH SCH ×2 (09:25→22:00)
[2018-07-25] MEDS: MOMETASONE FUROATE 220 MCG/IH INHALER IH SCH (09:26)
[2018-07-25] MEDS ORDERED: AZITHROMYCIN 250 MG TABLET PO SCH (10:00)
--- NOTE | 2018-07-25 10:44 | PN ---
Progress Note (short form) - Note Progress Note: PULMONARY AWAKE/ALERT/OOB TO CHAIR SUBJECTIVE IMPROVEMENT STILL DYSPNEIC UPON MINIMAL EXERTION VSS/AFEBRILE Constitutional: Yes: Awake and alert, Mildly tachypneic at rest Eyes: Yes: WNL HENT: Yes: WNL Neck: Yes: WNL Cardiovascular: Yes: Regular Rate and Rhythm, S1, S2 Respiratory: Yes: Diminished throughout, no expiratory wheeze, scattered rhonchi Gastrointestinal: Yes: Normal Bowel Sounds, Soft Extremities: Yes: WNL Edema: No Labs/xrays reviewed Acute COPD Exacerbation Acute on Chronic Hypoxic Respiratory Failure Paroxysmal Atrial Fibrillation +Troponins likely Demand Ischemia LV Diastolic Dysfunction HTN - medrol changed to 20mg Q8 - inhaled bronchodilators standing and PRN/chest PT - O2 to keep SpO2 >88% - Azithromycin 250 mg po tiw as anti-inflammatory - rate controlled - Xanax to relieve anxiety - Short trial of diflucan - will hold zithromax while on diflucan Dr James Lira
--- NOTE | 2018-07-25 12:21 | PN ---
Progress Note, Physician Chief Complaint: AWAKE ALERT STILL COUGHING - Current Medication List Current Medications: Active Medications Albuterol Sulfate (Ventolin 0.083% Nebulizer Soln -) 1 amp NEB Q1H PRN PRN Reason: SHORT OF BREATH/WHEEZING Albuterol/Ipratropium (Duoneb -) 1 amp NEB RQ4H [facility] Last Admin: 07/25/18 11:55 Dose: 1 amp Alprazolam (Xanax -) 0.5 mg PO HS [facility] Last Admin: 07/24/18 22:00 Dose: 0.5 mg Aspirin (Asa -) 81 mg PO DAILY [facility] Last Admin: 07/25/18 09:16 Dose: 81 mg Budesonide/Formoterol Fumarate (Symbicort 160/4.5mcg -) 2 puff IH BID [facility] Last Admin: 07/25/18 09:25 Dose: 2 puff Diltiazem HCl (Cardizem Cd -) 120 mg PO DAILY [facility] Last Admin: 07/25/18 09:16 Dose: 120 mg Enoxaparin Sodium (Lovenox -) 40 mg SQ DAILY [facility] Last Admin: 07/25/18 09:16 Dose: 40 mg Fluconazole (Diflucan -) 100 mg PO DAILY [facility] Last Admin: 07/25/18 09:16 Dose: 100 mg Methylprednisolone Sodium Succinate (Solu-Medrol -) 20 mg IVPUSH Q8H-IV MORE Mometasone Furoate (Asmanex 220mcg -) 2 puff IH DAILY [facility] Last Admin: 07/25/18 09:26 Dose: Not Given Nystatin (Nystatin Oral Suspension -) 500,000 units PO Q6HPO [facility] Last Admin: 07/25/18 12:10 Dose: 500,000 units Nystatin (Mycostatin Cream -) 1 applic TP Q6HPO [facility] Last Admin: 07/25/18 12:12 Dose: 1 applic - Objective Vital Signs: Vital Signs Temperature 98 F 07/25/18 09:45 Pulse Rate 95 H 07/25/18 09:45 Respiratory Rate 18 07/25/18 09:45 Blood Pressure 145/81 07/25/18 09:45 O2 Sat by Pulse Oximetry (%) 94 L 07/25/18 09:00 Constitutional: Yes: Mild Distress Eyes: Yes: WNL HENT: Yes: WNL Neck: Yes: WNL Cardiovascular: Yes: Pulse Irregular Respiratory: Yes: Cough, On Nasal O2, Rhonchi Gastrointestinal: Yes: WNL Genitourinary: Yes: WNL Musculoskeletal: Yes: WNL Extremities: Yes: WNL Edema: No Peripheral Pulses WNL: Yes Integumentary: Yes: WNL Wound/Incision: Yes: Clean/Dry Neurological: Yes: WNL ...Motor Strength: WNL Psychiatric: Yes: WNL Labs: CBC, BMP 07/25/18 05:30 07/25/18 05:30 INR, PTT INR 1.04 (0.83-1.09) 07/21/18 06:00 Problem List - Problems (1) Chronic respiratory failure with hypoxia Code(s): J96.11 - CHRONIC RESPIRATORY FAILURE WITH HYPOXIA (2) Shortness of breath Code(s): R06.02 - SHORTNESS OF BREATH (3) AF (paroxysmal atrial fibrillation) Code(s): I48.0 - PAROXYSMAL ATRIAL FIBRILLATION (4) Anxiety Code(s): F41.9 - ANXIETY DISORDER, UNSPECIFIED (5) COPD (chronic obstructive pulmonary disease) Code(s): J44.9 - CHRONIC OBSTRUCTIVE PULMONARY DISEASE, UNSPECIFIED Qualifiers: COPD type: unspecified COPD Qualified Code(s): J44.9 - Chronic obstructive pulmonary disease, unspecified Assessment/Plan STEROIDS AND NEBULIZERS WITH 02 SUPPORT CONTINUE LOVENOX DVT PROPHYLAXIS OOB TO CHAIR +BM/+APPETITE DC PLANNING THURSDAY 07/27
[2018-07-25 12:37] LABS: ANISOCYTOSIS 0; MACROCYTOSIS 0; PLATELET ESTIMATE DECREASED
[2018-07-25] MEDS ORDERED: methylPREDNISolone NA SUCC 40 MG/1 ML VIAL IVPUSH SCH (18:00)
[2018-07-25] MEDS: ALPRAZolam 0.25 MG TABLET PO SCH (22:00)
[2018-07-26] MEDS: NYSTATIN 100,000 UNIT/GM TOPICAL CREAM 15 GM TUBE TP SCH ×4 (00:04→17:33)
[2018-07-26] MEDS: NYSTATIN 500,000 UNITS/5 ML SUSPENSION PO SCH ×4 (00:04→17:33)
[2018-07-26] MEDS: ALBUTEROL SO4 2.5/IPRATROPIUM 0.5 INH SOL 3 ML VIAL.NEB. NEB SCH ×7 (00:30→23:17)
[2018-07-26] MEDS: methylPREDNISolone NA SUCC 40 MG/1 ML VIAL IVPUSH SCH ×3 (01:20→17:33)
[2018-07-26 06:14] LABS: BLOOD UREA NITROGEN 43.8 mg/dL (7-18); CALCIUM 7.9 mg/dL (8.5-10.1); CREATININE 1.2 mg/dL (0.55-1.3); POTASSIUM 5.4 mmol/L (3.5-5.1)
--- NOTE | 2018-07-26 08:58 | PN ---
Progress Note (short form) - Note Progress Note: PULMONARY AWAKE/ALERT/ SUBJECTIVE IMPROVEMENT STILL DYSPNEIC UPON EXERTION VSS/AFEBRILE Constitutional: Yes: Awake and alert, Mildly tachypneic at rest Eyes: Yes: WNL HENT: Yes: WNL Neck: Yes: WNL Cardiovascular: Yes: Regular Rate and Rhythm, S1, S2 Respiratory: Yes: Diminished throughout, no expiratory wheeze, scattered rhonchi Gastrointestinal: Yes: Normal Bowel Sounds, Soft Extremities: Yes: WNL Edema: No Labs/xrays reviewed Acute COPD Exacerbation Acute on Chronic Hypoxic Respiratory Failure Paroxysmal Atrial Fibrillation +Troponins likely Demand Ischemia LV Diastolic Dysfunction HTN - medrol changed to 20mg Q8 - inhaled bronchodilators standing and PRN/chest PT - O2 to keep SpO2 >88% - Azithromycin 250 mg po tiw as anti-inflammatory - rate controlled - Xanax to relieve anxiety - Short trial of diflucan - will hold zithromax while on diflucan - would change to prednisone in AM if improving trend continues Dr James Lira
[2018-07-26] MEDS: PHENOL 177 ML SPRAY BOTTLE MM PRN ×2 (09:19→17:33)
[2018-07-26] MEDS: BUDESONIDE/FORMETEROL FUMARATE 160/4.5 mcg INHALER IH SCH ×2 (09:20→22:38)
[2018-07-26] MEDS: ENOXAPARIN NA (PORCINE) 40 MG/0.4 ML DISP.SYRIN SQ SCH (09:20)
[2018-07-26] MEDS: ASPIRIN 81 MG CHEWABLE TABLETS PO SCH (09:20)
[2018-07-26] MEDS: MOMETASONE FUROATE 220 MCG/IH INHALER IH SCH (09:21)
[2018-07-26] MEDS: FLUCONAZOLE 100 MG TABLET (UD) PO SCH (09:21)
--- NOTE | 2018-07-26 12:16 | PN ---
Progress Note, Physician Chief Complaint: AWAKE ALERT EATING LUNH," FEELS GOOD BUT NOT 100% YET" - Current Medication List Current Medications: Active Medications Albuterol Sulfate (Ventolin 0.083% Nebulizer Soln -) 1 amp NEB Q1H PRN PRN Reason: SHORT OF BREATH/WHEEZING Albuterol/Ipratropium (Duoneb -) 1 amp NEB RQ4H [facility] Last Admin: 07/26/18 08:27 Dose: 1 amp Alprazolam (Xanax -) 0.5 mg PO HS [facility] Last Admin: 07/25/18 22:00 Dose: 0.5 mg Aspirin (Asa -) 81 mg PO DAILY [facility] Last Admin: 07/26/18 09:20 Dose: 81 mg Budesonide/Formoterol Fumarate (Symbicort 160/4.5mcg -) 2 puff IH BID [facility] Last Admin: 07/26/18 09:20 Dose: 2 puff Diltiazem HCl (Cardizem Cd -) 120 mg PO DAILY [facility] Last Admin: 07/26/18 09:20 Dose: 120 mg Enoxaparin Sodium (Lovenox -) 40 mg SQ DAILY [facility] Last Admin: 07/26/18 09:20 Dose: 40 mg Fluconazole (Diflucan -) 100 mg PO DAILY [facility] Last Admin: 07/26/18 09:21 Dose: 100 mg Methylprednisolone Sodium Succinate (Solu-Medrol -) 20 mg IVPUSH Q8H-IV MORE Last Admin: 07/26/18 09:21 Dose: 20 mg Mometasone Furoate (Asmanex 220mcg -) 2 puff IH DAILY [facility] Last Admin: 07/26/18 09:21 Dose: Not Given Nystatin (Nystatin Oral Suspension -) 500,000 units PO Q6HPO MORE Last Admin: 07/26/18 05:38 Dose: 500,000 units Nystatin (Mycostatin Cream -) 1 applic TP Q6HPO MORE Last Admin: 07/26/18 12:12 Dose: 1 applic Phenol/Menthol (Chloraseptic -) 1 spray MM Q6HPO PRN PRN Reason: SORE THROAT Last Admin: 07/26/18 09:19 Dose: 1 spray - Objective Vital Signs: Vital Signs Temperature 98.2 F 07/26/18 10:00 Pulse Rate 98 H 07/26/18 10:00 Respiratory Rate 18 07/26/18 10:00 Blood Pressure 145/85 07/26/18 10:00 O2 Sat by Pulse Oximetry (%) 98 07/26/18 10:00 Constitutional: Yes: Mild Distress Eyes: Yes: WNL HENT: Yes: WNL Neck: Yes: WNL Cardiovascular: Yes: Regular Rate and Rhythm Respiratory: Yes: On Nasal O2, Wheezes Gastrointestinal: Yes: WNL Genitourinary: Yes: WNL Musculoskeletal: Yes: WNL Extremities: Yes: WNL Edema: No Peripheral Pulses WNL: Yes Integumentary: Yes: WNL Wound/Incision: Yes: Clean/Dry Neurological: Yes: WNL ...Motor Strength: WNL Psychiatric: Yes: WNL Labs: CBC, BMP 07/25/18 05:30 07/26/18 05:20 INR, PTT INR 1.04 (0.83-1.09) 07/21/18 06:00 Problem List - Problems (1) Chronic respiratory failure with hypoxia Code(s): J96.11 - CHRONIC RESPIRATORY FAILURE WITH HYPOXIA (2) Shortness of breath Code(s): R06.02 - SHORTNESS OF BREATH (3) AF (paroxysmal atrial fibrillation) Code(s): I48.0 - PAROXYSMAL ATRIAL FIBRILLATION (4) Anxiety Code(s): F41.9 - ANXIETY DISORDER, UNSPECIFIED (5) COPD (chronic obstructive pulmonary disease) Code(s): J44.9 - CHRONIC OBSTRUCTIVE PULMONARY DISEASE, UNSPECIFIED Qualifiers: COPD type: unspecified COPD Qualified Code(s): J44.9 - Chronic obstructive pulmonary disease, unspecified Assessment/Plan STEROIDS AND NEBULIZERS WITH 02 SUPPORT CONTINUE CHANGE TP PREDNISONE IN A.M. LOVENOX DVT PROPHYLAXIS OOB TO CHAIR +BM/+APPETITE DC PLANNING THURSDAY 07/27
[2018-07-26] MEDS: ALPRAZolam 0.25 MG TABLET PO SCH (22:39)
[2018-07-27] MEDS: NYSTATIN 100,000 UNIT/GM TOPICAL CREAM 15 GM TUBE TP SCH ×4 (01:03→18:16)
[2018-07-27] MEDS: NYSTATIN 500,000 UNITS/5 ML SUSPENSION PO SCH ×4 (01:03→18:15)
[2018-07-27] MEDS: methylPREDNISolone NA SUCC 40 MG/1 ML VIAL IVPUSH SCH ×3 (01:03→18:15)
[2018-07-27] MEDS: ALBUTEROL SO4 2.5/IPRATROPIUM 0.5 INH SOL 3 ML VIAL.NEB. NEB SCH ×5 (03:50→20:50)
[2018-07-27] MEDS: PHENOL 177 ML SPRAY BOTTLE MM PRN ×2 (08:00→18:16)
[2018-07-27] MEDS ORDERED: PT OWN MED DRAWER 7, Y5N ONE ×4 (09:35→14:24)
[2018-07-27] MEDS: FLUCONAZOLE 100 MG TABLET (UD) PO SCH (09:52)
[2018-07-27] MEDS: ASPIRIN 81 MG CHEWABLE TABLETS PO SCH (09:53)
[2018-07-27] MEDS: ENOXAPARIN NA (PORCINE) 40 MG/0.4 ML DISP.SYRIN SQ SCH (09:55)
[2018-07-27] MEDS: BUDESONIDE/FORMETEROL FUMARATE 160/4.5 mcg INHALER IH SCH ×2 (09:56→22:56)
--- NOTE | 2018-07-27 09:58 | PN ---
Progress Note, Physician History of Present Illness: Shortness of breath, cough, wheezes slowly resolving on nebulizers, steroids, O2 , developed thrush. - Current Medication List Current Medications: Active Medications Albuterol Sulfate (Ventolin 0.083% Nebulizer Soln -) 1 amp NEB Q1H PRN PRN Reason: SHORT OF BREATH/WHEEZING Albuterol/Ipratropium (Duoneb -) 1 amp NEB RQ4H [facility] Last Admin: 07/27/18 07:50 Dose: 1 amp Alprazolam (Xanax -) 0.5 mg PO HS [facility] Last Admin: 07/26/18 22:39 Dose: 0.5 mg Aspirin (Asa -) 81 mg PO DAILY [facility] Last Admin: 07/26/18 09:20 Dose: 81 mg Budesonide/Formoterol Fumarate (Symbicort 160/4.5mcg -) 2 puff IH BID [facility] Last Admin: 07/26/18 22:38 Dose: 2 puff Diltiazem HCl (Cardizem Cd -) 120 mg PO DAILY [facility] Last Admin: 07/26/18 09:20 Dose: 120 mg Enoxaparin Sodium (Lovenox -) 40 mg SQ DAILY [facility] Last Admin: 07/26/18 09:20 Dose: 40 mg Fluconazole (Diflucan -) 100 mg PO DAILY [facility] Last Admin: 07/26/18 09:21 Dose: 100 mg Methylprednisolone Sodium Succinate (Solu-Medrol -) 20 mg IVPUSH Q8H-IV [facility] Last Admin: 07/27/18 01:03 Dose: 20 mg Mometasone Furoate (Asmanex 220mcg -) 2 puff IH DAILY [facility] Last Admin: 07/26/18 09:21 Dose: Not Given Nystatin (Nystatin Oral Suspension -) 500,000 units PO Q6HPO MORE Last Admin: 07/27/18 05:48 Dose: 500,000 units Nystatin (Mycostatin Cream -) 1 applic TP Q6HPO MORE Last Admin: 07/27/18 05:48 Dose: Not Given Phenol/Menthol (Chloraseptic -) 1 spray MM Q6HPO PRN PRN Reason: SORE THROAT Last Admin: 07/26/18 17:33 Dose: 1 spray - Objective Vital Signs: Vital Signs Temperature 98 F 07/27/18 06:12 Pulse Rate 82 07/27/18 06:12 Respiratory Rate 18 07/27/18 06:12 Blood Pressure 133/76 07/27/18 06:12 O2 Sat by Pulse Oximetry (%) 93 L 07/26/18 21:00 Constitutional: Yes: No Distress, Calm Neck: Yes: Supple Cardiovascular: Yes: Regular Rate and Rhythm Respiratory: Yes: Regular, Diminished, On Nasal O2 Gastrointestinal: Yes: Soft, Hypoactive Bowel Sounds Edema: Yes Edema: LLE: Trace, RLE: Trace Labs: CBC, BMP 07/25/18 05:30 07/26/18 05:20 INR, PTT INR 1.04 (0.83-1.09) 07/21/18 06:00 - ....Imaging EKG: Report Reviewed (Tele: NSR) Problem List - Problems (1) Shortness of breath Code(s): R06.02 - SHORTNESS OF BREATH (2) AF (paroxysmal atrial fibrillation) Code(s): I48.0 - PAROXYSMAL ATRIAL FIBRILLATION (3) COPD with acute exacerbation Code(s): J44.1 - CHRONIC OBSTRUCTIVE PULMONARY DISEASE W (ACUTE) EXACERBATION (4) Hypertension Code(s): I10 - ESSENTIAL (PRIMARY) HYPERTENSION Qualifiers: Hypertension type: essential hypertension Qualified Code(s): I10 - Essential (primary) hypertension Assessment/Plan Echocardiogram 07/03/2018 Normal LV and RV size and fxn, LVEF 55-60%, mild LAE, mild ao root diltatation 4.2 cm, impaired LV relaxation Echocardiography (12/08/17) which revealed normal LV systolic function, LVEF 60- 65%, moderately dilated ascending thoracic aorta, mild TR and trace MT. Nuclear MPI (08/20/16) revealed moderate zone of anterior and anteroapical reversible defect c/s mild intensity ischemia and moderate inferior attenuation. LVEF was 71%. 1. Acute on chronic hypercapneic/hypoxemic respiratory failure 2. COPD exacerbation improving 3. PAF [id number] score of 2-3 currently in sinus rhythm (refused DOAC or Coumadin) 4. HTN 5. Prior abnormal nuclear MPI suggests CAD with demand ischemia 6. Diastolic dysfunction, currently euvolemic PLAN: 1. IV steroid taper with GI protection, bronchodilators, O2 as needed to keep SpO2 >88%, Azithromycin 250 mg po tiw as anti-inflammatory 2. Continue Cardizem CD 120 mg QD and ASA 81 mg QD 3. Troponins downtrending 4. Ideally anticoagulation is recommended, but patient has previously declined. Continue DVT prophylaxis 5. Cardiac work up including repeat nuclear MPI can be done as outpatient in the office once pulmonary status fully improves
[2018-07-27] MEDS: MOMETASONE FUROATE 220 MCG/IH INHALER IH SCH (10:00)
--- NOTE | 2018-07-27 12:09 | PN ---
Progress Note (short form) - Note Progress Note: PULMONARY States breathing better today. Less cough and chest tightness. Vital Signs Period Temp Pulse Resp BP Sys/[place] Pulse Ox Last 24 Hr 97.5 F-98.1 F 81-86 18-20 130-161/54-89 93-95 Gen: NAD in chair Heart: RRR Lung: distant breath sounds, no wheezes Abd: soft, nontender Ext: no edema CBC, BMP 07/25/18 05:30 07/26/18 05:20 Active Medications Albuterol Sulfate (Ventolin 0.083% Nebulizer Soln -) 1 amp NEB Q1H PRN PRN Reason: SHORT OF BREATH/WHEEZING Albuterol/Ipratropium (Duoneb -) 1 amp NEB RQ4H [facility] Last Admin: 07/27/18 11:49 Dose: 1 amp Alprazolam (Xanax -) 0.5 mg PO HS [facility] Last Admin: 07/26/18 22:39 Dose: 0.5 mg Aspirin (Asa -) 81 mg PO DAILY [facility] Last Admin: 07/27/18 09:53 Dose: 81 mg Budesonide/Formoterol Fumarate (Symbicort 160/4.5mcg -) 2 puff IH BID [facility] Last Admin: 07/27/18 09:56 Dose: 2 puff Diltiazem HCl (Cardizem Cd -) 120 mg PO DAILY [facility] Last Admin: 07/27/18 09:52 Dose: 120 mg Enoxaparin Sodium (Lovenox -) 40 mg SQ DAILY [facility] Last Admin: 07/27/18 09:55 Dose: 40 mg Methylprednisolone Sodium Succinate (Solu-Medrol -) 20 mg IVPUSH Q8H-IV MORE Last Admin: 07/27/18 09:53 Dose: 20 mg Mometasone Furoate (Asmanex 220mcg -) 2 puff IH DAILY [facility] Last Admin: 07/27/18 10:00 Dose: Not Given Nystatin (Nystatin Oral Suspension -) 500,000 units PO Q6HPO MORE Last Admin: 07/27/18 11:41 Dose: 500,000 units Nystatin (Mycostatin Cream -) 1 applic TP Q6HPO [facility] Last Admin: 07/27/18 05:48 Dose: Not Given Phenol/Menthol (Chloraseptic -) 1 spray MM Q6HPO PRN PRN Reason: SORE THROAT Last Admin: 07/27/18 08:00 Dose: 1 spray A/P Acute COPD Exacerbation Acute on Chronic Hypoxic Respiratory Failure Paroxysmal Atrial Fibrillation +Troponins likely Demand Ischemia LV Diastolic Dysfunction HTN - continue medrol - inhaled bronchodilators standing and PRN/chest PT - O2 to keep SpO2 >88% - rate controlled - nystatin swish/swallow - will hold zithromax while on diflucan - would change to prednisone in AM if continues to improve Problem List - Problems (1) COPD with acute exacerbation Code(s): J44.1 - CHRONIC OBSTRUCTIVE PULMONARY DISEASE W (ACUTE) EXACERBATION (2) Chronic respiratory failure with hypoxia Code(s): J96.11 - CHRONIC RESPIRATORY FAILURE WITH HYPOXIA
--- NOTE | 2018-07-27 12:24 | PN ---
Progress Note, Physician Chief Complaint: patient seen and examined says his breathing is better - Current Medication List Current Medications: Active Medications Albuterol Sulfate (Ventolin 0.083% Nebulizer Soln -) 1 amp NEB Q1H PRN PRN Reason: SHORT OF BREATH/WHEEZING Albuterol/Ipratropium (Duoneb -) 1 amp NEB RQ4H [facility] Last Admin: 07/27/18 11:49 Dose: 1 amp Alprazolam (Xanax -) 0.5 mg PO HS [facility] Last Admin: 07/26/18 22:39 Dose: 0.5 mg Aspirin (Asa -) 81 mg PO DAILY [facility] Last Admin: 07/27/18 09:53 Dose: 81 mg Budesonide/Formoterol Fumarate (Symbicort 160/4.5mcg -) 2 puff IH BID [facility] Last Admin: 07/27/18 09:56 Dose: 2 puff Diltiazem HCl (Cardizem Cd -) 120 mg PO DAILY [facility] Last Admin: 07/27/18 09:52 Dose: 120 mg Enoxaparin Sodium (Lovenox -) 40 mg SQ DAILY [facility] Last Admin: 07/27/18 09:55 Dose: 40 mg Methylprednisolone Sodium Succinate (Solu-Medrol -) 20 mg IVPUSH Q8H-IV [facility] Last Admin: 07/27/18 09:53 Dose: 20 mg Mometasone Furoate (Asmanex 220mcg -) 2 puff IH DAILY [facility] Last Admin: 07/27/18 10:00 Dose: Not Given Nystatin (Nystatin Oral Suspension -) 500,000 units PO Q6HPO [facility] Last Admin: 07/27/18 11:41 Dose: 500,000 units Nystatin (Mycostatin Cream -) 1 applic TP Q6HPO MORE Last Admin: 07/27/18 12:15 Dose: 1 applic Phenol/Menthol (Chloraseptic -) 1 spray MM Q6HPO PRN PRN Reason: SORE THROAT Last Admin: 07/27/18 08:00 Dose: 1 spray - Objective Vital Signs: Vital Signs Temperature 98.1 F 07/27/18 10:00 Pulse Rate 86 07/27/18 10:00 Respiratory Rate 18 07/27/18 10:00 Blood Pressure 161/89 07/27/18 10:00 O2 Sat by Pulse Oximetry (%) 95 07/27/18 09:00 Constitutional: Yes: Calm Cardiovascular: Yes: Regular Rate and Rhythm, S1, S2 Respiratory: Yes: Diminished, On Nasal O2 Gastrointestinal: Yes: Normal Bowel Sounds, Soft Edema: No Neurological: Yes: Alert, Oriented Labs: CBC, BMP 07/25/18 05:30 07/26/18 05:20 INR, PTT INR 1.04 (0.83-1.09) 07/21/18 06:00 Problem List - Problems (1) Shortness of breath Assessment/Plan: solumedrol same dose duonebs abx zithormcyin 250mg po TIW as an antifinflammatory- daliresp dc symbivort bid Code(s): R06.02 - SHORTNESS OF BREATH (2) AF (paroxysmal atrial fibrillation) Assessment/Plan: cardizem per cardiology patient refusing AC Code(s): I48.0 - PAROXYSMAL ATRIAL FIBRILLATION (3) Hypertension Assessment/Plan: cardizem Code(s): I10 - ESSENTIAL (PRIMARY) HYPERTENSION Qualifiers: Hypertension type: essential hypertension Qualified Code(s): I10 - Essential (primary) hypertension (4) Leg edema Assessment/Plan: venous dopler- no dvt lasix one dose- improved leg edema dvt ppx (5) Thrush Assessment/Plan: nystatin s/p diflucan Code(s): B37.0 - CANDIDAL STOMATITIS
[2018-07-27] MEDS ORDERED: AZITHROMYCIN 500 MG TABLET PO SCH (12:30)
[2018-07-27] MEDS ORDERED: AZITHROMYCIN 250 MG TABLET PO SCH (14:27)
[2018-07-27] MEDS: AZITHROMYCIN 250 MG TABLET PO SCH (14:54)
[2018-07-27] MEDS: ALPRAZolam 0.25 MG TABLET PO SCH (22:56)
[2018-07-28] MEDS: ALBUTEROL SO4 2.5/IPRATROPIUM 0.5 INH SOL 3 ML VIAL.NEB. NEB SCH ×7 (00:29→23:51)
[2018-07-28] MEDS: NYSTATIN 500,000 UNITS/5 ML SUSPENSION PO SCH ×4 (01:18→18:14)
[2018-07-28] MEDS: NYSTATIN 100,000 UNIT/GM TOPICAL CREAM 15 GM TUBE TP SCH ×4 (01:18→18:24)
[2018-07-28] MEDS: methylPREDNISolone NA SUCC 40 MG/1 ML VIAL IVPUSH SCH ×3 (01:18→18:15)
[2018-07-28 06:53] LABS: ALBUMIN 2.9 g/dl (3.4-5.0); BILIRUBIN,TOTAL 0.4 mg/dL (0.2-1); BLOOD UREA NITROGEN 46.1 mg/dL (7-18); CALCIUM 8.4 mg/dL (8.5-10.1); CREATININE 1.3 mg/dL (0.55-1.3); POTASSIUM 5.5 mmol/L (3.5-5.1); TOT PROT 5.9 g/dl (6.4-8.2)
[2018-07-28] MEDS ORDERED: PT OWN MED DRAWER 7, Y5N ONE (10:13)
[2018-07-28] MEDS: ENOXAPARIN NA (PORCINE) 40 MG/0.4 ML DISP.SYRIN SQ SCH (10:22)
[2018-07-28] MEDS: ASPIRIN 81 MG CHEWABLE TABLETS PO SCH (10:23)
[2018-07-28] MEDS: BUDESONIDE/FORMETEROL FUMARATE 160/4.5 mcg INHALER IH SCH ×2 (10:26→22:02)
[2018-07-28] MEDS: PHENOL 177 ML SPRAY BOTTLE MM PRN (10:27)
[2018-07-28] MEDS: MOMETASONE FUROATE 220 MCG/IH INHALER IH SCH (10:27)
--- NOTE | 2018-07-28 12:29 | PN ---
Progress Note, Physician Chief Complaint: Events noted Feels better History of Present Illness: Patient was seen and examined. Awake and alert. Chart was reviewed Denies chest pain or palpitations Less SOB - Current Medication List Current Medications: Active Medications Albuterol Sulfate (Ventolin 0.083% Nebulizer Soln -) 1 amp NEB Q1H PRN PRN Reason: SHORT OF BREATH/WHEEZING Albuterol/Ipratropium (Duoneb -) 1 amp NEB RQ4H [facility] Last Admin: 07/28/18 12:12 Dose: 1 amp Alprazolam (Xanax -) 0.5 mg PO HS [facility] Last Admin: 07/27/18 22:56 Dose: 0.5 mg Aspirin (Asa -) 81 mg PO DAILY [facility] Last Admin: 07/28/18 10:23 Dose: 81 mg Azithromycin (Zithromax -) 250 mg PO Q2D [facility] Stop: 07/31/18 10:01 Last Admin: 07/27/18 14:54 Dose: 250 mg Budesonide/Formoterol Fumarate (Symbicort 160/4.5mcg -) 2 puff IH BID [facility] Last Admin: 07/28/18 10:26 Dose: 2 puff Diltiazem HCl (Cardizem Cd -) 120 mg PO DAILY [facility] Last Admin: 07/28/18 10:23 Dose: 120 mg Enoxaparin Sodium (Lovenox -) 40 mg SQ DAILY [facility] Last Admin: 07/28/18 10:22 Dose: 40 mg Methylprednisolone Sodium Succinate (Solu-Medrol -) 20 mg IVPUSH Q8H-IV [facility] Last Admin: 07/28/18 10:25 Dose: 20 mg Mometasone Furoate (Asmanex 220mcg -) 2 puff IH DAILY [facility] Last Admin: 07/28/18 10:27 Dose: Not Given Nystatin (Nystatin Oral Suspension -) 500,000 units PO Q6HPO MORE Last Admin: 07/28/18 06:16 Dose: 500,000 units Nystatin (Mycostatin Cream -) 1 applic TP Q6HPO MORE Last Admin: 07/28/18 06:16 Dose: 1 applic Phenol/Menthol (Chloraseptic -) 1 spray MM Q6HPO PRN PRN Reason: SORE THROAT Last Admin: 07/28/18 10:27 Dose: 1 spray - Objective Vital Signs: Vital Signs Temperature 98.5 F 07/28/18 10:34 Pulse Rate 100 H 07/28/18 10:34 Respiratory Rate 20 07/28/18 10:34 Blood Pressure 141/77 07/28/18 10:34 O2 Sat by Pulse Oximetry (%) 95 07/28/18 10:35 Eyes: Yes: PERRL HENT: Yes: Atraumatic Neck: Yes: Supple Cardiovascular: Yes: Regular Rate and Rhythm, S1, S2 Respiratory: Yes: Diminished Gastrointestinal: Yes: Normal Bowel Sounds, Soft. No: Tenderness Edema: Yes Edema: LLE: Trace, RLE: Trace Additional Findings/Remarks: - Review of Systems Constitutional: denies: Chills, Fever Cardiovascular: denies: Chest Pain, Palpitations, (+) Shortness of Breath Respiratory: denies: Cough, Hemoptysis, Orthopnea, PND, (+) SOB, SOB on Exertion Gastrointestinal: denies: Abdominal Pain, Constipation, Diarrhea, Melena, Nausea , Rectal Bleeding, Vomiting Genitourinary: denies: Dysuria, Hematuria Musculoskeletal: denies: Back Pain, Joint Pain Neurological: denies: Dizziness, Syncope. denies: Confusion, Headache, Numbness , Seizure, Unsteady Gait Labs: CBC, BMP 07/28/18 05:45 Problem List - Problems (1) Chronic respiratory failure with hypoxia Code(s): J96.11 - CHRONIC RESPIRATORY FAILURE WITH HYPOXIA (2) Shortness of breath Code(s): R06.02 - SHORTNESS OF BREATH (3) AF (paroxysmal atrial fibrillation) Code(s): I48.0 - PAROXYSMAL ATRIAL FIBRILLATION (4) Anxiety Code(s): F41.9 - ANXIETY DISORDER, UNSPECIFIED (5) COPD (chronic obstructive pulmonary disease) Code(s): J44.9 - CHRONIC OBSTRUCTIVE PULMONARY DISEASE, UNSPECIFIED Qualifiers: COPD type: unspecified COPD Qualified Code(s): J44.9 - Chronic obstructive pulmonary disease, unspecified (6) MRSA colonization Code(s): Z22.322 - CARRIER OR SUSPECTED CARRIER OF METHICILLIN RESIS STAPH (7) Respiratory failure with hypoxia Code(s): J96.91 - RESPIRATORY FAILURE, UNSPECIFIED WITH HYPOXIA (8) SOB (shortness of breath) Code(s): R06.02 - SHORTNESS OF BREATH (9) Hypertension Code(s): I10 - ESSENTIAL (PRIMARY) HYPERTENSION Qualifiers: Hypertension type: essential hypertension Qualified Code(s): I10 - Essential (primary) hypertension Assessment/Plan 1. Acute on chronic hypercapneic/hypoxemic respiratory failure 2. COPD exacerbation 3. PAF [id number] score of 2-3 currently in sinus rhythm (refused DOAC or Coumadin) 4. HTN 5. Prior abnormal nuclear MPI suggests CAD with demand ischemia 6. Diastolic dysfunction, currently euvolemic PLAN: 1. IV steroids with GI protection, bronchodilators, O2, empiric antibiotic coverage and BIPAP as needed 2. Continue Cardizem CD 120 mg QD and ASA 81 mg QD 3. Ideally anticoagulation is recommended, but patient has previously declined. Continue DVT prophylaxis 4. Cardiac work up including repeat nuclear MPI can be done as outpatient in the office once clinically improved Garrett Alcantar MD
--- NOTE | 2018-07-28 12:34 | PN ---
Progress Note, Physician History of Present Illness: PULMONARY ALERT,FEELING BETTER,LESS DYSPNEIC,LESS COUGH - Current Medication List Current Medications: Active Medications Albuterol Sulfate (Ventolin 0.083% Nebulizer Soln -) 1 amp NEB Q1H PRN PRN Reason: SHORT OF BREATH/WHEEZING Albuterol/Ipratropium (Duoneb -) 1 amp NEB RQ4H [facility] Last Admin: 07/28/18 12:12 Dose: 1 amp Alprazolam (Xanax -) 0.5 mg PO HS [facility] Last Admin: 07/27/18 22:56 Dose: 0.5 mg Aspirin (Asa -) 81 mg PO DAILY [facility] Last Admin: 07/28/18 10:23 Dose: 81 mg Azithromycin (Zithromax -) 250 mg PO Q2D [facility] Stop: 07/31/18 10:01 Last Admin: 07/27/18 14:54 Dose: 250 mg Budesonide/Formoterol Fumarate (Symbicort 160/4.5mcg -) 2 puff IH BID [facility] Last Admin: 07/28/18 10:26 Dose: 2 puff Diltiazem HCl (Cardizem Cd -) 120 mg PO DAILY [facility] Last Admin: 07/28/18 10:23 Dose: 120 mg Enoxaparin Sodium (Lovenox -) 40 mg SQ DAILY [facility] Last Admin: 07/28/18 10:22 Dose: 40 mg Methylprednisolone Sodium Succinate (Solu-Medrol -) 20 mg IVPUSH Q8H-IV [facility] Last Admin: 07/28/18 10:25 Dose: 20 mg Mometasone Furoate (Asmanex 220mcg -) 2 puff IH DAILY [facility] Last Admin: 07/28/18 10:27 Dose: Not Given Nystatin (Nystatin Oral Suspension -) 500,000 units PO Q6HPO [facility] Last Admin: 07/28/18 06:16 Dose: 500,000 units Nystatin (Mycostatin Cream -) 1 applic TP Q6HPO [facility] Last Admin: 07/28/18 06:16 Dose: 1 applic Phenol/Menthol (Chloraseptic -) 1 spray MM Q6HPO PRN PRN Reason: SORE THROAT Last Admin: 07/28/18 10:27 Dose: 1 spray - Objective Vital Signs: Vital Signs Temperature 98.5 F 07/28/18 10:34 Pulse Rate 100 H 07/28/18 10:34 Respiratory Rate 20 07/28/18 10:34 Blood Pressure 141/77 07/28/18 10:34 O2 Sat by Pulse Oximetry (%) 95 07/28/18 10:35 Constitutional: Yes: Well Nourished, Calm Eyes: Yes: WNL HENT: Yes: WNL, Other Cardiovascular: Yes: Regular Rate and Rhythm, S1, S2 Respiratory: Yes: Rhonchi (FEW SCATTERED RHONCHI) Gastrointestinal: Yes: Normal Bowel Sounds, Soft Extremities: Yes: WNL Edema: No Labs: CBC, BMP 07/28/18 05:45 INR, PTT INR 1.04 (0.83-1.09) 07/21/18 06:00 Assessment/Plan Problem List - Problems (1) COPD with acute exacerbation Code(s): J44.1 - CHRONIC OBSTRUCTIVE PULMONARY DISEASE W (ACUTE) EXACERBATION (2) Chronic respiratory failure with hypoxia Code(s): J96.11 - CHRONIC RESPIRATORY FAILURE WITH HYPOXIA Assessment/Plan Acute COPD Exacerbation improving Acute on Chronic Hypoxic Respiratory Failure Paroxysmal Atrial Fibrillation +Troponins likely Demand Ischemia LV Diastolic Dysfunction HTN - IV medrol - inhaled bronchodilators standing and PRN - O2 to keep SpO2 >88% - azithromycin 250 mg po tiw as anti-inflammatory - rate controlled - pulmonary rehab post discharge DR DUNN
--- NOTE | 2018-07-28 17:59 | PN ---
Progress Note, Physician Chief Complaint: COPD SOB A-fib History of Present Illness: Previous notes and events reviewed awake and alert NAD sts breathing has improved productive cough with light green colored sputum reported pulmonary rehab for discharge - Current Medication List Current Medications: Active Medications Albuterol Sulfate (Ventolin 0.083% Nebulizer Soln -) 1 amp NEB Q1H PRN PRN Reason: SHORT OF BREATH/WHEEZING Albuterol/Ipratropium (Duoneb -) 1 amp NEB RQ4H [facility] Last Admin: 07/28/18 12:12 Dose: 1 amp Alprazolam (Xanax -) 0.5 mg PO HS [facility] Last Admin: 07/27/18 22:56 Dose: 0.5 mg Aspirin (Asa -) 81 mg PO DAILY [facility] Last Admin: 07/28/18 10:23 Dose: 81 mg Azithromycin (Zithromax -) 250 mg PO Q2D [facility] Stop: 07/31/18 10:01 Last Admin: 07/27/18 14:54 Dose: 250 mg Budesonide/Formoterol Fumarate (Symbicort 160/4.5mcg -) 2 puff IH BID [facility] Last Admin: 07/28/18 10:26 Dose: 2 puff Diltiazem HCl (Cardizem Cd -) 120 mg PO DAILY [facility] Last Admin: 07/28/18 10:23 Dose: 120 mg Enoxaparin Sodium (Lovenox -) 40 mg SQ DAILY [facility] Last Admin: 07/28/18 10:22 Dose: 40 mg Methylprednisolone Sodium Succinate (Solu-Medrol -) 20 mg IVPUSH Q8H-IV [facility] Last Admin: 07/28/18 10:25 Dose: 20 mg Mometasone Furoate (Asmanex 220mcg -) 2 puff IH DAILY [facility] Last Admin: 07/28/18 10:27 Dose: Not Given Nystatin (Nystatin Oral Suspension -) 500,000 units PO Q6HPO [facility] Last Admin: 07/28/18 12:56 Dose: 500,000 units Nystatin (Mycostatin Cream -) 1 applic TP Q6HPO [facility] Last Admin: 07/28/18 12:56 Dose: 1 applic Phenol/Menthol (Chloraseptic -) 1 spray MM Q6HPO PRN PRN Reason: SORE THROAT Last Admin: 07/28/18 10:27 Dose: 1 spray - Objective Vital Signs: Vital Signs Temperature 97.5 F L 07/28/18 15:02 Pulse Rate 87 07/28/18 15:02 Respiratory Rate 20 07/28/18 15:02 Blood Pressure 152/86 07/28/18 15:02 O2 Sat by Pulse Oximetry (%) 95 07/28/18 10:35 Constitutional: Yes: No Distress, Calm Eyes: Yes: Conjunctiva Clear HENT: Yes: Atraumatic Cardiovascular: Yes: Regular Rate and Rhythm Respiratory: Yes: Diminished, On Nasal O2 Gastrointestinal: Yes: Normal Bowel Sounds, Soft Musculoskeletal: Yes: Muscle Weakness Extremities: Yes: WNL Edema: Yes Edema: LLE: 2+, RLE: 1+ Neurological: Yes: Alert, Oriented Psychiatric: Yes: Alert, Oriented Labs: CBC, BMP 07/25/18 05:30 07/28/18 05:45 INR, PTT INR 1.04 (0.83-1.09) 07/21/18 06:00 Microbiology 07/20/18 08:02 Blood - Peripheral Venous Blood Culture - Final NO GROWTH AFTER 5 DAYS INCUBATION 07/20/18 08:06 Blood - Peripheral Venous Blood Culture - Final NO GROWTH AFTER 5 DAYS INCUBATION Problem List - Problems (1) Chronic respiratory failure with hypoxia Assessment/Plan: -Pulm on board -keep O2 Sat >90% -O2 via NC -Bipap as needed -bronchodilators -pulm rehab for discharge Code(s): J96.11 - CHRONIC RESPIRATORY FAILURE WITH HYPOXIA (2) Leg edema Assessment/Plan: -dvt ppx -Lovenox -pending LE doppler Code(s): R60.0 - LOCALIZED EDEMA (3) AF (paroxysmal atrial fibrillation) Assessment/Plan: -Cardiology on board -Asa and Cardizem -patient refusing AC in past Code(s): I48.0 - PAROXYSMAL ATRIAL FIBRILLATION (4) COPD with acute exacerbation Assessment/Plan: -Pulm on board -keep O2 Sat >90% -O2 via NC -Bipap as needed -bronchodilators -ID on board -Azithromycin -CXR reviewed -IV Medrol -Symbicort -Asmanex Code(s): J44.1 - CHRONIC OBSTRUCTIVE PULMONARY DISEASE W (ACUTE) EXACERBATION (5) MRSA colonization Assessment/Plan: -contact precaution Code(s): Z22.322 - CARRIER OR SUSPECTED CARRIER OF METHICILLIN RESIS STAPH (6) Elevated troponin Assessment/Plan: -Trop 0.27-->0.07 -cardiology on board -tele monitoring Code(s): R74.8 - ABNORMAL LEVELS OF OTHER SERUM ENZYMES (7) Hyperkalemia Assessment/Plan: -repeat CMP STAT -renal consult placed -monitor electrolyte daily Code(s): E87.5 - HYPERKALEMIA (8) Elevated BUN Assessment/Plan: -BUN 46.1 -renal consult Code(s): R79.9 - ABNORMAL FINDING OF BLOOD CHEMISTRY, UNSPECIFIED Assessment/Plan see problem list dvt ppx
[2018-07-28 21:21] LABS: ALBUMIN 3.1 g/dl (3.4-5.0); BILIRUBIN,TOTAL 0.3 mg/dL (0.2-1); BLOOD UREA NITROGEN 51.2 mg/dL (7-18); CALCIUM 8.4 mg/dL (8.5-10.1); CREATININE 1.6 mg/dL (0.55-1.3); POTASSIUM 5.4 mmol/L (3.5-5.1); TOT PROT 6.4 g/dl (6.4-8.2)
[2018-07-28] MEDS ORDERED: SODIUM POLYSTYRENE SULFONATE 15 GM/60 ML BOTTLE PO ONE (21:48)
[2018-07-29] MEDS: ALPRAZolam 0.25 MG TABLET PO SCH ×2 (00:32→22:51)
[2018-07-29] MEDS: NYSTATIN 500,000 UNITS/5 ML SUSPENSION PO SCH ×5 (00:32→23:00)
[2018-07-29] MEDS: NYSTATIN 100,000 UNIT/GM TOPICAL CREAM 15 GM TUBE TP SCH ×5 (00:32→23:01)
[2018-07-29] MEDS: methylPREDNISolone NA SUCC 40 MG/1 ML VIAL IVPUSH SCH ×2 (01:23→10:32)
[2018-07-29] MEDS: ALBUTEROL SO4 2.5/IPRATROPIUM 0.5 INH SOL 3 ML VIAL.NEB. NEB SCH ×6 (05:08→23:57)
[2018-07-29 06:43] LABS: HEMOGLOBIN 11.3 GM/dL (11.7-16.9); MEAN PLT VOLUME 7.7 fl (7.5-11.1)
[2018-07-29 06:55] LABS: ALBUMIN 2.7 g/dl (3.4-5.0); BILIRUBIN,TOTAL 0.5 mg/dL (0.2-1); BLOOD UREA NITROGEN 39.9 mg/dL (7-18); CALCIUM 7.8 mg/dL (8.5-10.1); CREATININE 1.2 mg/dL (0.55-1.3); POTASSIUM 5.2 mmol/L (3.5-5.1); TOT PROT 5.8 g/dl (6.4-8.2)
[2018-07-29 07:35] LABS: HEMATOCRIT 33.9 % (35.4-49); MCH 30.7 pg (25.7-33.7); MCHC 33.3 g/dl (32.0-35.9); MEAN CELL VOLUME 92.2 fl (80-96); PLATELET COUNT 221 K/MM3 (134-434); RBC 3.67 M/mm3 (4.00-5.60); RDW 15.3 % (11.9-15.9); WHITE BLOOD COUNT 6.4 K/mm3 (4.0-10.0)
[2018-07-29] MEDS: ASPIRIN 81 MG CHEWABLE TABLETS PO SCH (10:31)
[2018-07-29] MEDS: ENOXAPARIN NA (PORCINE) 40 MG/0.4 ML DISP.SYRIN SQ SCH (10:31)
[2018-07-29] MEDS: MOMETASONE FUROATE 220 MCG/IH INHALER IH SCH (10:35)
[2018-07-29] MEDS: BUDESONIDE/FORMETEROL FUMARATE 160/4.5 mcg INHALER IH SCH ×2 (10:35→21:19)
[2018-07-29] MEDS: AZITHROMYCIN 250 MG TABLET PO SCH (10:38)
--- NOTE | 2018-07-29 10:46 | PN ---
Progress Note, Physician History of Present Illness: pulmonary alert,oob-chair,+whitt,-cp - Current Medication List Current Medications: Active Medications Albuterol Sulfate (Ventolin 0.083% Nebulizer Soln -) 1 amp NEB Q1H PRN PRN Reason: SHORT OF BREATH/WHEEZING Albuterol/Ipratropium (Duoneb -) 1 amp NEB RQ4H [facility] Last Admin: 07/29/18 08:46 Dose: 1 amp Alprazolam (Xanax -) 0.5 mg PO HS [facility] Last Admin: 07/29/18 00:32 Dose: 0.5 mg Aspirin (Asa -) 81 mg PO DAILY [facility] Last Admin: 07/29/18 10:31 Dose: 81 mg Azithromycin (Zithromax -) 250 mg PO Q2D [facility] Stop: 07/31/18 10:01 Last Admin: 07/29/18 10:38 Dose: 250 mg Budesonide/Formoterol Fumarate (Symbicort 160/4.5mcg -) 2 puff IH BID [facility] Last Admin: 07/29/18 10:35 Dose: 2 puff Diltiazem HCl (Cardizem Cd -) 120 mg PO DAILY [facility] Last Admin: 07/29/18 10:31 Dose: 120 mg Enoxaparin Sodium (Lovenox -) 40 mg SQ DAILY [facility] Last Admin: 07/29/18 10:31 Dose: 40 mg Methylprednisolone Sodium Succinate (Solu-Medrol -) 20 mg IVPUSH Q8H-IV MORE Last Admin: 07/29/18 10:32 Dose: 20 mg Mometasone Furoate (Asmanex 220mcg -) 2 puff IH DAILY [facility] Last Admin: 07/29/18 10:35 Dose: Not Given Nystatin (Nystatin Oral Suspension -) 500,000 units PO Q6HPO MORE Last Admin: 07/29/18 05:05 Dose: 500,000 units Nystatin (Mycostatin Cream -) 1 applic TP Q6HPO MORE Last Admin: 07/29/18 05:05 Dose: 1 applic Phenol/Menthol (Chloraseptic -) 1 spray MM Q6HPO PRN PRN Reason: SORE THROAT Last Admin: 07/28/18 10:27 Dose: 1 spray - Objective Vital Signs: Vital Signs Temperature 97.6 F 07/29/18 08:49 Pulse Rate 87 07/29/18 08:49 Respiratory Rate 20 07/29/18 08:49 Blood Pressure 135/76 07/29/18 08:49 O2 Sat by Pulse Oximetry (%) 95 07/29/18 00:18 Constitutional: Yes: Well Nourished, Calm Eyes: Yes: WNL HENT: Yes: WNL Neck: Yes: WNL Cardiovascular: Yes: Regular Rate and Rhythm, S1, S2 Respiratory: Yes: Diminished, Rhonchi (few scattered rhonchi) Gastrointestinal: Yes: Normal Bowel Sounds, Soft Extremities: Yes: WNL Edema: Yes Labs: CBC, BMP 07/29/18 05:30 07/29/18 05:30 INR, PTT INR 1.04 (0.83-1.09) 07/21/18 06:00 Assessment/Plan Problem List - Problems (1) COPD with acute exacerbation Code(s): J44.1 - CHRONIC OBSTRUCTIVE PULMONARY DISEASE W (ACUTE) EXACERBATION (2) Chronic respiratory failure with hypoxia Code(s): J96.11 - CHRONIC RESPIRATORY FAILURE WITH HYPOXIA Assessment/Plan Acute COPD Exacerbation improving Acute on Chronic Hypoxic Respiratory Failure Paroxysmal Atrial Fibrillation +Troponins likely Demand Ischemia LV Diastolic Dysfunction HTN - Steroids - inhaled bronchodilators standing and PRN - O2 to keep SpO2 >88% - azithromycin 250 mg po tiw as anti-inflammatory - rate controlled - pulmonary rehab post discharge DR DUNN
[2018-07-29] MEDS ORDERED: DOCUSATE SODIUM 100 MG CAPSULE (FP) PO PRN (11:18)
--- NOTE | 2018-07-29 12:58 | CONSULT ---
Consult Consult Specialty:: Nephrology Reason for Consultation:: CKD and hyperkalemia - History of Present Illness Chief Complaint: shortness of breath History of Present Illness: Pt is a 73 year old male with pmhx of COPD, HTN, a-fib and anxiety who presented with shortness of breath. He is on home oxygen. He was noted to have hyperkalemia and I was called to evaluate him. He denies history of CKD. He denies history of hyperkalemia. He is on steroids for COPD. He feels that his breathing is improving however he does get shortness of breath with ambulation. He denies dysuria or hematuria. - History Source History Provided By: Patient, Medical Record - Past Medical History Cardio/Vascular: Yes: AFIB, HTN Pulmonary: Yes: COPD (home oxygen), Pneumonia Musculoskeletal: Yes: Chronic low back pain - Past Surgical History Past Surgical History: Yes: Appendectomy, Cholecystectomy - Alcohol/Substance Use Hx Alcohol Use: No History of Substance Use: reports: None - Smoking History Smoking history: Former smoker Have you smoked in the past 12 months: No Aproximately how many cigarettes per day: 40 If you are a former smoker, when did you quit?: 1 YR AGO - Social History Usual Living Arrangement: With Spouse ADL: Independent Occupation: retired History of Recent Travel: No Home Medications - Allergies Allergies/Adverse Reactions: Allergies Allergy/AdvReac Type Severity Reaction Status Date / Time No Known Allergies Allergy Verified 07/20/18 08:11 - Home Medications Home Medications: Ambulatory Orders Acetaminophen [Tylenol .Regular Strength -] 650 mg PO Q6H PRN #90 tablet Albuterol 0.083% Nebulizer Kayce [Ventolin 0.083% Nebulizer Soln -] 1 neb NEB Q4H PRN #30 vial 07/18/13 Fluticasone Propionate [Flovent Hfa] 110 mcg IH BID 12/18/13 Diltiazem Cd [Cardizem Cd -] 120 mg PO DAILY #30 cap.cd.24h 12/21/13 Arformoterol Tartrate [Brovana] 15 mcg IH BID #1 ml 04/08/14 Aspirin [ASA -] 81 mg PO DAILY #30 tab.chew 04/08/14 Polyethylene Glycol 3350 [Miralax 119 gm Btl -] 17 gm PO DAILY #1 bottle Oxycodone HCl 20 mg PO ONCE 07/03/18 Albuterol 2.5/Ipratropium 0.5 [Duoneb -] 1 amp NEB RQID #120 amp 07/08/18 Azithromycin [Zithromax 250mg Tablets -] 1 tab PO Q2D #2 tablet 07/08/18 Loratadine [Claritin -] 10 mg PO DAILY #30 tablet 07/08/18 Roflumilast [Daliresp -] 500 mcg PO DAILY #30 tablet 07/08/18 Prednisone 5 mg PO ASDIR 07/20/18 Family Disease History - Family Disease History Family Disease History: Heart Disease: Father (ID at age 63 ), CA: Mother (Colon , Renal/Bladder) Review of Systems - Review of Systems Constitutional: reports: Malaise Eyes: reports: No Symptoms HENT: reports: No Symptoms Neck: reports: No Symptoms Cardiovascular: reports: Edema, Shortness of Breath. denies: Chest Pain Respiratory: reports: SOB on Exertion Gastrointestinal: reports: No Symptoms Genitourinary: reports: No Symptoms Musculoskeletal: reports: No Symptoms Integumentary: reports: No Symptoms Neurological: reports: No Symptoms Endocrine: reports: No Symptoms Hematology/Lymphatic: reports: No Symptoms Psychiatric: reports: No Symptoms Physical Exam Vital Signs: Vital Signs Temperature 97.6 F 07/29/18 08:49 Pulse Rate 87 07/29/18 08:49 Respiratory Rate 20 07/29/18 10:00 Blood Pressure 135/76 07/29/18 08:49 O2 Sat by Pulse Oximetry (%) 91 L 07/29/18 10:00 Constitutional: Yes: Calm Eyes: Yes: Conjunctiva Clear HENT: Yes: Atraumatic Neck: Yes: Supple Cardiovascular: Yes: S1, S2 Respiratory: Yes: On Nasal O2 Gastrointestinal: Yes: Normal Bowel Sounds, Soft Renal/: Yes: WNL Musculoskeletal: Yes: WNL Edema: Yes Edema: LLE: 1+, RLE: 1+ Neurological: Yes: Oriented Psychiatric: Yes: Oriented Labs: CBC, BMP 07/29/18 05:30 07/29/18 05:30 Laboratory Tests 07/24/18 07/25/18 07/25/18 06:31 05:30 05:30 WBC 3.8 L Hgb 10.8 L Plt Count 112 L D Sodium Potassium Creatinine 1.4 H 1.4 H 07/26/18 07/28/18 07/28/18 05:20 05:45 20:00 WBC Hgb Plt Count Sodium Potassium 5.4 H Creatinine 1.2 1.3 1.6 H 07/29/18 07/29/18 05:30 05:30 WBC 6.4 Hgb 11.3 L Plt Count 221 D Sodium 140 Potassium 5.2 H Creatinine 1.2 Imaging - Results Chest X-ray: Report Reviewed Problem List - Problems (1) Elevated BUN Code(s): R79.9 - ABNORMAL FINDING OF BLOOD CHEMISTRY, UNSPECIFIED (2) Hyperkalemia Code(s): E87.5 - HYPERKALEMIA (3) COPD with acute exacerbation Code(s): J44.1 - CHRONIC OBSTRUCTIVE PULMONARY DISEASE W (ACUTE) EXACERBATION Assessment/Plan Current Medications Generic Name Dose Route Start Last Admin Trade Name Freq PRN Reason Stop Dose Admin Albuterol Sulfate 1 amp 07/20/18 08:12 Ventolin 0.083% Nebulizer Soln - NEB Q1H PRN SHORT OF BREATH/WHEEZING Albuterol/Ipratropium 1 amp 07/24/18 10:45 07/29/18 08:46 Duoneb - NEB 1 amp RQ4H MORE Administration Alprazolam 0.5 mg 07/24/18 22:00 07/29/18 00:32 Xanax - PO 0.5 mg HS MORE Administration Aspirin 81 mg 07/21/18 10:00 07/29/18 10:31 Asa - PO 81 mg DAILY MORE Administration Azithromycin 250 mg 07/27/18 15:00 07/29/18 10:38 Zithromax - PO 07/31/18 10:01 250 mg Q2D MORE Administration Budesonide/Formoterol Fumarate 2 puff 07/21/18 13:45 07/29/18 10:35 Symbicort 160/4.5mcg - IH 2 puff BID MORE Administration Diltiazem HCl 120 mg 07/20/18 11:30 07/29/18 10:31 Cardizem Cd - PO 120 mg DAILY MORE Administration Docusate Sodium 100 mg 07/29/18 11:18 Colace - PO BID PRN CONSTIPATION Enoxaparin Sodium 40 mg 07/21/18 10:00 07/29/18 10:31 Lovenox - SQ 40 mg DAILY MORE Administration Methylprednisolone Sodium Succinate 20 mg 07/25/18 18:00 07/29/18 10:32 Solu-Medrol - IVPUSH 20 mg Q8H-IV MORE Administration Mometasone Furoate 2 puff 07/21/18 10:00 07/29/18 10:35 Asmanex 220mcg - IH Not Given DAILY MORE Nystatin 500,000 units 07/20/18 18:00 07/29/18 11:35 Nystatin Oral Suspension - PO 500,000 units Q6HPO MORE Administration Nystatin 1 applic 07/21/18 00:00 07/29/18 11:36 Mycostatin Cream - TP 1 applic Q6HPO MORE Administration Phenol/Menthol 1 spray 07/26/18 08:58 07/28/18 10:27 Chloraseptic - MM 1 spray Q6HPO PRN Administration SORE THROAT Impression 1. CKD vs YANG 2. hyperkalemia 3. copd 4. htn 5. 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
--- NOTE | 2018-07-29 14:07 | PN ---
Progress Note, Physician History of Present Illness: Shortness of breath, cough, wheezes slowly resolving on nebulizers, steroids, O2 , developed thrush. - Current Medication List Current Medications: Active Medications Albuterol Sulfate (Ventolin 0.083% Nebulizer Soln -) 1 amp NEB Q1H PRN PRN Reason: SHORT OF BREATH/WHEEZING Albuterol/Ipratropium (Duoneb -) 1 amp NEB RQ4H MORE Last Admin: 07/29/18 08:46 Dose: 1 amp Alprazolam (Xanax -) 0.5 mg PO HS [facility] Last Admin: 07/29/18 00:32 Dose: 0.5 mg Aspirin (Asa -) 81 mg PO DAILY [facility] Last Admin: 07/29/18 10:31 Dose: 81 mg Azithromycin (Zithromax -) 250 mg PO Q2D [facility] Stop: 07/31/18 10:01 Last Admin: 07/29/18 10:38 Dose: 250 mg Budesonide/Formoterol Fumarate (Symbicort 160/4.5mcg -) 2 puff IH BID [facility] Last Admin: 07/29/18 10:35 Dose: 2 puff Diltiazem HCl (Cardizem Cd -) 120 mg PO DAILY [facility] Last Admin: 07/29/18 10:31 Dose: 120 mg Docusate Sodium (Colace -) 100 mg PO BID PRN PRN Reason: CONSTIPATION Enoxaparin Sodium (Lovenox -) 40 mg SQ DAILY [facility] Last Admin: 07/29/18 10:31 Dose: 40 mg Methylprednisolone Sodium Succinate (Solu-Medrol -) 20 mg IVPUSH Q8H-IV MORE Last Admin: 07/29/18 10:32 Dose: 20 mg Mometasone Furoate (Asmanex 220mcg -) 2 puff IH DAILY [facility] Last Admin: 07/29/18 10:35 Dose: Not Given Nystatin (Nystatin Oral Suspension -) 500,000 units PO Q6HPO MORE Last Admin: 07/29/18 11:35 Dose: 500,000 units Nystatin (Mycostatin Cream -) 1 applic TP Q6HPO MORE Last Admin: 07/29/18 11:36 Dose: 1 applic Phenol/Menthol (Chloraseptic -) 1 spray MM Q6HPO PRN PRN Reason: SORE THROAT Last Admin: 07/28/18 10:27 Dose: 1 spray - Objective Vital Signs: Vital Signs Temperature 97.6 F 07/29/18 08:49 Pulse Rate 87 07/29/18 08:49 Respiratory Rate 20 07/29/18 10:00 Blood Pressure 135/76 07/29/18 08:49 O2 Sat by Pulse Oximetry (%) 91 L 07/29/18 10:00 Constitutional: Yes: No Distress, Calm Neck: Yes: Supple Cardiovascular: Yes: Regular Rate and Rhythm Respiratory: Yes: Regular, Diminished, On Nasal O2 Gastrointestinal: Yes: Normal Bowel Sounds, Soft Edema: Yes Edema: LLE: Trace, RLE: Trace Labs: CBC, BMP 07/29/18 05:30 07/29/18 05:30 INR, PTT INR 1.04 (0.83-1.09) 07/21/18 06:00 Problem List - Problems (1) Shortness of breath Code(s): R06.02 - SHORTNESS OF BREATH (2) AF (paroxysmal atrial fibrillation) Code(s): I48.0 - PAROXYSMAL ATRIAL FIBRILLATION (3) COPD with acute exacerbation Code(s): J44.1 - CHRONIC OBSTRUCTIVE PULMONARY DISEASE W (ACUTE) EXACERBATION (4) Hypertension Code(s): I10 - ESSENTIAL (PRIMARY) HYPERTENSION Qualifiers: Hypertension type: essential hypertension Qualified Code(s): I10 - Essential (primary) hypertension (5) Acute kidney injury superimposed on CKD Code(s): N17.9 - ACUTE KIDNEY FAILURE, UNSPECIFIED; N18.9 - CHRONIC KIDNEY DISEASE, UNSPECIFIED Assessment/Plan Echocardiogram 07/03/2018 Normal LV and RV size and fxn, LVEF 55-60%, mild LAE, mild ao root diltatation 4.2 cm, impaired LV relaxation Echocardiography (12/08/17) which revealed normal LV systolic function, LVEF 60- 65%, moderately dilated ascending thoracic aorta, mild TR and trace LA. Nuclear MPI (08/20/16) revealed moderate zone of anterior and anteroapical reversible defect c/s mild intensity ischemia and moderate inferior attenuation. LVEF was 71%. 1. Acute on chronic hypercapneic/hypoxemic respiratory failure 2. COPD exacerbation 3. PAF [id number] score of 2-3 currently in sinus rhythm (refused DOAC or Coumadin) 4. HTN 5. Prior abnormal nuclear MPI suggests CAD with demand ischemia 6. Diastolic dysfunction, currently euvolemic 7. Acute on CKD with hyperkalemia resolving PLAN: 1. IV steroid taper with GI protection, bronchodilators, O2, empiric azithromycin as antiinflammatory and BIPAP as needed, pulmonary rehab post discharge 2. Continue Cardizem CD 120 mg QD and ASA 81 mg QD 3. Ideally anticoagulation is recommended, but patient has previously declined. Continue DVT prophylaxis 4. Cardiac work up including repeat nuclear MPI can be done as outpatient in the office once clinically improved 5. F/u renal U/S, microalbumin/Cr ratio, potassium levels
--- NOTE | 2018-07-29 17:13 | DS ---
Physical Examination Vital Signs: Vital Signs Temperature 97.6 F 07/29/18 08:49 Pulse Rate 87 07/29/18 08:49 Respiratory Rate 20 07/29/18 14:00 Blood Pressure 135/76 07/29/18 08:49 O2 Sat by Pulse Oximetry (%) 91 L 07/29/18 10:00 Findings/Remarks: Patient is a 73 y/o male with past medical history of COPD with home O2, PAF, HTN. Patients noted patient having gurgling while breathing. Patient was discharged from hospital last month and was on Prednisone taper. Patient also had bilateral lower extremity swelling. Constitutional: Yes: No Distress, Calm Eyes: Yes: Conjunctiva Clear HENT: Yes: Atraumatic Cardiovascular: Yes: Regular Rate and Rhythm Respiratory: Yes: Regular, Diminished, On Nasal O2 Gastrointestinal: Yes: Normal Bowel Sounds, Soft, Abdomen, Obese Musculoskeletal: Yes: Muscle Weakness Extremities: Yes: WNL Edema: Yes Edema: LLE: 2+, RLE: 1+ Neurological: Yes: Alert, Oriented Psychiatric: Yes: Alert, Oriented Labs: CBC, BMP 07/29/18 05:30 07/29/18 05:30 Microbiology 07/20/18 08:02 Blood - Peripheral Venous Blood Culture - Final NO GROWTH AFTER 5 DAYS INCUBATION 07/20/18 08:06 Blood - Peripheral Venous Blood Culture - Final NO GROWTH AFTER 5 DAYS INCUBATION Discharge Summary Reason For Visit: ELEVATED TROPONIN LEVEL,COPD,PNEUMONIA Current Active Problems Acute kidney injury superimposed on CKD (Acute) Chronic respiratory failure with hypoxia (Acute) Elevated BUN (Acute) Elevated troponin (Acute) Hyperkalemia (Acute) Leg edema (Acute) Shortness of breath (Acute) Thrush (Acute) Hospital Course: see progress notes Laboratory Tests 07/20/18 07/20/18 07/20/18 00:00 08:02 08:02 WBC 8.5 RBC 4.10 Hgb 12.6 Hct 38.4 MCV 93.6 MCH 30.7 MCHC 32.8 RDW 15.8 Plt Count 106 L D MPV 7.9 Absolute Neuts (auto) 7.7 Neutrophils % 90.8 H Neutrophils % (Manual) Band Neutrophils % Lymphocytes % 3.7 L Lymphocytes % (Manual) Monocytes % 4.6 D Monocytes % (Manual) Eosinophils % 0.7 D Eosinophils % (Manual) Basophils % 0.2 D Basophils % (Manual) Myelocytes % (Man) Promyelocytes % (Man) Blast Cells % (Manual) Nucleated RBC % 0 Metamyelocytes Hypochromia Platelet Estimate Platelet Comment Polychromasia Poikilocytosis Anisocytosis Microcytosis Macrocytosis Ovalocytes PT with INR INR PTT (Actin FS) Anticoagulation Therapy Puncture Site ABG pH ABG pCO2 at Pt Temp ABG pO2 at Pt Temp ABG HCO3 ABG O2 Sat (Measured) ABG O2 Content ABG Base Excess Josue Test VBG pH 7.31 POC VBG pCO2 64.9 H POC VBG pO2 23.2 L VBG HCO3 31.5 H VBG O2 Sat (Lefty) 32.1 L VBG Base Excess 3.4 H Carboxyhemoglobin Methemoglobin O2 Delivery Device Oxygen Flow Rate Vent Mode Vent Rate Mechanical Rate Pressure Support Vent Sodium Potassium Chloride Carbon Dioxide Anion Gap BUN Creatinine Est GFR (CKD-EPI)AfAm Est GFR (CKD-EPI)NonAf Random Glucose Lactic Acid Calcium Phosphorus Magnesium Total Bilirubin AST ALT Alkaline Phosphatase Creatine Kinase Troponin I B-Natriuretic Peptide Total Protein Albumin Influenza A (Rapid) Negative Influenza B (Rapid) Negative 07/20/18 07/20/18 07/20/18 08:02 08:02 08:09 WBC RBC Hgb Hct MCV MCH MCHC RDW Plt Count MPV Absolute Neuts (auto) Neutrophils % Neutrophils % (Manual) Band Neutrophils % Lymphocytes % Lymphocytes % (Manual) Monocytes % Monocytes % (Manual) Eosinophils % Eosinophils % (Manual) Basophils % Basophils % (Manual) Myelocytes % (Man) Promyelocytes % (Man) Blast Cells % (Manual) Nucleated RBC % Metamyelocytes Hypochromia Platelet Estimate Platelet Comment Polychromasia Poikilocytosis Anisocytosis Microcytosis Macrocytosis Ovalocytes PT with INR 12.70 INR 1.08 PTT (Actin FS) Anticoagulation Therapy Puncture Site ABG pH ABG pCO2 at Pt Temp ABG pO2 at Pt Temp ABG HCO3 ABG O2 Sat (Measured) ABG O2 Content ABG Base Excess Josue Test VBG pH POC VBG pCO2 POC VBG pO2 VBG HCO3 VBG O2 Sat (Lefty) VBG Base Excess Carboxyhemoglobin Methemoglobin O2 Delivery Device Oxygen Flow Rate Vent Mode Vent Rate Mechanical Rate Pressure Support Vent Sodium 139 Potassium 5.0 Chloride 100 Carbon Dioxide 32 Anion Gap 7 L BUN 26.9 H Creatinine 1.3 Est GFR (CKD-EPI)AfAm 61.86 Est GFR (CKD-EPI)NonAf 53.37 Random Glucose 92 Lactic Acid 1.5 Calcium 8.7 Phosphorus Magnesium 2.1 Total Bilirubin 0.9 AST 24 ALT 65 H Alkaline Phosphatase 117 Creatine Kinase 101 Troponin I 0.27 H B-Natriuretic Peptide 535.0 H Total Protein 6.6 Albumin 3.2 L Influenza A (Rapid) Influenza B (Rapid) 07/20/18 07/21/18 07/21/18 09:12 06:00 06:00 WBC 8.5 RBC 3.95 L Hgb 12.1 Hct 36.5 MCV 92.3 MCH 30.8 MCHC 33.3 RDW 15.3 Plt Count 99 L MPV 8.3 Absolute Neuts (auto) 8.2 H Neutrophils % 96.4 H Neutrophils % (Manual) 98.0 H Band Neutrophils % 0.0 Lymphocytes % 1.8 L D Lymphocytes % (Manual) 0.0 L Monocytes % 1.8 L Monocytes % (Manual) 2 L D Eosinophils % 0.0 D Eosinophils % (Manual) 0.0 Basophils % 0.0 Basophils % (Manual) 0.0 Myelocytes % (Man) 0 Promyelocytes % (Man) 0 Blast Cells % (Manual) 0 Nucleated RBC % 0 Metamyelocytes 0 Hypochromia 0 Platelet Estimate Decreased Platelet Comment Polychromasia 0 Poikilocytosis 0 Anisocytosis 1+ Microcytosis 0 Macrocytosis 1+ Ovalocytes 1+ PT with INR 12.30 INR 1.04 PTT (Actin FS) 25.8 Anticoagulation Therapy No Result Required. Puncture Site Right radial ABG pH 7.38 ABG pCO2 at Pt Temp 48.4 H ABG pO2 at Pt Temp 81.0 ABG HCO3 27.8 H ABG O2 Sat (Measured) 95.8 ABG O2 Content 17.4 ABG Base Excess 2.5 H Josue Test Positive VBG pH POC VBG pCO2 POC VBG pO2 VBG HCO3 VBG O2 Sat (Lefty) VBG Base Excess Carboxyhemoglobin 1.8 Methemoglobin 0.3 O2 Delivery Device No Result Required. Oxygen Flow Rate 35 Vent Mode No Result Required. Vent Rate No Result Required. Mechanical Rate No Result Required. Pressure Support Vent No Result Required. Sodium Potassium Chloride Carbon Dioxide Anion Gap BUN Creatinine Est GFR (CKD-EPI)AfAm Est GFR (CKD-EPI)NonAf Random Glucose Lactic Acid Calcium Phosphorus Magnesium Total Bilirubin AST ALT Alkaline Phosphatase Creatine Kinase Troponin I B-Natriuretic Peptide Total Protein Albumin Influenza A (Rapid) Influenza B (Rapid) 07/21/18 07/22/18 07/22/18 06:00 05:20 05:20 WBC 10.3 H RBC 3.94 L Hgb 12.1 Hct 36.2 MCV 91.7 MCH 30.6 MCHC 33.4 RDW 16.0 H Plt Count 121 L D MPV 8.0 Absolute Neuts (auto) Neutrophils % Neutrophils % (Manual) Band Neutrophils % Lymphocytes % Lymphocytes % (Manual) Monocytes % Monocytes % (Manual) Eosinophils % Eosinophils % (Manual) Basophils % Basophils % (Manual) Myelocytes % (Man) Promyelocytes % (Man) Blast Cells % (Manual) Nucleated RBC % Metamyelocytes Hypochromia Platelet Estimate Platelet Comment Polychromasia Poikilocytosis Anisocytosis Microcytosis Macrocytosis Ovalocytes PT with INR INR PTT (Actin FS) Anticoagulation Therapy Puncture Site ABG pH ABG pCO2 at Pt Temp ABG pO2 at Pt Temp ABG HCO3 ABG O2 Sat (Measured) ABG O2 Content ABG Base Excess Josue Test VBG pH POC VBG pCO2 POC VBG pO2 VBG HCO3 VBG O2 Sat (Lefty) VBG Base Excess Carboxyhemoglobin Methemoglobin O2 Delivery Device Oxygen Flow Rate Vent Mode Vent Rate Mechanical Rate Pressure Support Vent Sodium 142 141 Potassium 4.2 4.3 Chloride 102 103 Carbon Dioxide 31 33 H Anion Gap 8 5 L BUN 26.4 H 30.6 H Creatinine 1.2 1.2 Est GFR (CKD-EPI)AfAm 68.15 68.15 Est GFR (CKD-EPI)NonAf 58.80 58.80 Random Glucose 128 H 116 H Lactic Acid Calcium 8.3 L 8.4 L Phosphorus 3.3 Magnesium 2.4 Total Bilirubin 0.6 0.5 AST 16 21 ALT 50 54 Alkaline Phosphatase 105 100 Creatine Kinase Troponin I 0.07 H B-Natriuretic Peptide Total Protein 6.2 L 5.8 L Albumin 2.8 L 2.6 L Influenza A (Rapid) Influenza B (Rapid) 07/23/18 07/23/18 07/24/18 06:30 06:30 06:31 WBC 6.7 RBC 3.64 L Hgb 11.3 L Hct 33.4 L MCV 91.6 MCH 31.1 MCHC 33.9 RDW 15.5 Plt Count 111 L MPV 8.5 Absolute Neuts (auto) Neutrophils % Neutrophils % (Manual) Band Neutrophils % Lymphocytes % Lymphocytes % (Manual) Monocytes % Monocytes % (Manual) Eosinophils % Eosinophils % (Manual) Basophils % Basophils % (Manual) Myelocytes % (Man) Promyelocytes % (Man) Blast Cells % (Manual) Nucleated RBC % Metamyelocytes Hypochromia Platelet Estimate Platelet Comment Polychromasia Poikilocytosis Anisocytosis Microcytosis Macrocytosis Ovalocytes PT with INR INR PTT (Actin FS) Anticoagulation Therapy Puncture Site ABG pH ABG pCO2 at Pt Temp ABG pO2 at Pt Temp ABG HCO3 ABG O2 Sat (Measured) ABG O2 Content ABG Base Excess Josue Test VBG pH POC VBG pCO2 POC VBG pO2 VBG HCO3 VBG O2 Sat (Lefty) VBG Base Excess Carboxyhemoglobin Methemoglobin O2 Delivery Device Oxygen Flow Rate Vent Mode Vent Rate Mechanical Rate Pressure Support Vent Sodium 139 137 Potassium 4.5 4.8 Chloride 101 100 Carbon Dioxide 31 33 H Anion Gap 6 L 4 L BUN 45.1 H 49.7 H Creatinine 1.5 H 1.4 H Est GFR (CKD-EPI)AfAm 52.03 56.56 Est GFR (CKD-EPI)NonAf 44.89 48.80 Random Glucose 102 103 Lactic Acid Calcium 7.8 L 8.1 L Phosphorus Magnesium Total Bilirubin 0.5 0.5 AST 24 24 ALT 85 H 87 H Alkaline Phosphatase 92 89 Creatine Kinase Troponin I B-Natriuretic Peptide Total Protein 5.7 L 5.7 L Albumin 2.6 L 2.7 L Influenza A (Rapid) Influenza B (Rapid) 07/24/18 07/25/18 07/25/18 06:31 05:30 05:30 WBC 6.3 3.8 L RBC 3.76 L 3.54 L Hgb 11.4 L 10.8 L Hct 34.3 L 32.3 L MCV 91.4 91.2 MCH 30.2 30.4 MCHC 33.1 33.3 RDW 15.2 15.1 Plt Count 158 D 112 L D MPV 8.9 8.1 Absolute Neuts (auto) 5.9 3.6 Neutrophils % 93.8 H 95.2 H Neutrophils % (Manual) 93.0 H 93.0 H Band Neutrophils % 1.0 0.0 Lymphocytes % 2.1 L 2.1 L Lymphocytes % (Manual) 3.0 L D 3.0 L Monocytes % 4.1 D 2.7 L Monocytes % (Manual) 3 L 4 Eosinophils % 0.0 0.0 Eosinophils % (Manual) 0.0 0.0 Basophils % 0.0 0.0 Basophils % (Manual) 0.0 0.0 Myelocytes % (Man) 0 0 Promyelocytes % (Man) 0 0 Blast Cells % (Manual) 0 0 Nucleated RBC % 0 0 Metamyelocytes 0 0 Hypochromia 0 0 Platelet Estimate Adequate Decreased Platelet Comment No clumping noted Polychromasia 0 0 Poikilocytosis 0 0 Anisocytosis 0 0 Microcytosis 0 0 Macrocytosis 0 0 Ovalocytes PT with INR INR PTT (Actin FS) Anticoagulation Therapy Puncture Site ABG pH ABG pCO2 at Pt Temp ABG pO2 at Pt Temp ABG HCO3 ABG O2 Sat (Measured) ABG O2 Content ABG Base Excess Josue Test VBG pH POC VBG pCO2 POC VBG pO2 VBG HCO3 VBG O2 Sat (Lefty) VBG Base Excess Carboxyhemoglobin Methemoglobin O2 Delivery Device Oxygen Flow Rate Vent Mode Vent Rate Mechanical Rate Pressure Support Vent Sodium 137 Potassium 5.3 H Chloride 102 Carbon Dioxide 31 Anion Gap 5 L BUN 49.9 H Creatinine 1.4 H Est GFR (CKD-EPI)AfAm 56.56 Est GFR (CKD-EPI)NonAf 48.80 Random Glucose 112 H Lactic Acid Calcium 7.9 L Phosphorus Magnesium Total Bilirubin 0.5 AST 16 ALT 72 H Alkaline Phosphatase 79 Creatine Kinase Troponin I B-Natriuretic Peptide Total Protein 5.4 L Albumin 2.6 L Influenza A (Rapid) Influenza B (Rapid) 07/26/18 07/28/18 07/28/18 05:20 05:45 20:00 WBC RBC Hgb Hct MCV MCH MCHC RDW Plt Count MPV Absolute Neuts (auto) Neutrophils % Neutrophils % (Manual) Band Neutrophils % Lymphocytes % Lymphocytes % (Manual) Monocytes % Monocytes % (Manual) Eosinophils % Eosinophils % (Manual) Basophils % Basophils % (Manual) Myelocytes % (Man) Promyelocytes % (Man) Blast Cells % (Manual) Nucleated RBC % Metamyelocytes Hypochromia Platelet Estimate Platelet Comment Polychromasia Poikilocytosis Anisocytosis Microcytosis Macrocytosis Ovalocytes PT with INR INR PTT (Actin FS) Anticoagulation Therapy Puncture Site ABG pH ABG pCO2 at Pt Temp ABG pO2 at Pt Temp ABG HCO3 ABG O2 Sat (Measured) ABG O2 Content ABG Base Excess Josue Test VBG pH POC VBG pCO2 POC VBG pO2 VBG HCO3 VBG O2 Sat (Lefty) VBG Base Excess Carboxyhemoglobin Methemoglobin O2 Delivery Device Oxygen Flow Rate Vent Mode Vent Rate Mechanical Rate Pressure Support Vent Sodium 139 138 138 Potassium 5.4 H 5.5 H 5.4 H Chloride 103 102 99 Carbon Dioxide 32 33 H 32 Anion Gap 5 L 4 L 6 L BUN 43.8 H 46.1 H 51.2 H Creatinine 1.2 1.3 1.6 H Est GFR (CKD-EPI)AfAm 68.15 61.86 48.13 Est GFR (CKD-EPI)NonAf 58.80 53.37 41.53 Random Glucose 108 H 94 135 H Lactic Acid Calcium 7.9 L 8.4 L 8.4 L Phosphorus Magnesium Total Bilirubin 0.4 0.3 AST 15 22 ALT 81 H 88 H Alkaline Phosphatase 87 97 Creatine Kinase Troponin I B-Natriuretic Peptide Total Protein 5.9 L 6.4 Albumin 2.9 L 3.1 L Influenza A (Rapid) Influenza B (Rapid) 07/29/18 07/29/18 05:30 05:30 WBC 6.4 RBC 3.67 L Hgb 11.3 L Hct 33.9 L MCV 92.2 MCH 30.7 MCHC 33.3 RDW 15.3 Plt Count 221 D MPV 7.7 Absolute Neuts (auto) Neutrophils % Neutrophils % (Manual) Band Neutrophils % Lymphocytes % Lymphocytes % (Manual) Monocytes % Monocytes % (Manual) Eosinophils % Eosinophils % (Manual) Basophils % Basophils % (Manual) Myelocytes % (Man) Promyelocytes % (Man) Blast Cells % (Manual) Nucleated RBC % Metamyelocytes Hypochromia Platelet Estimate Platelet Comment Polychromasia Poikilocytosis Anisocytosis Microcytosis Macrocytosis Ovalocytes PT with INR INR PTT (Actin FS) Anticoagulation Therapy Puncture Site ABG pH ABG pCO2 at Pt Temp ABG pO2 at Pt Temp ABG HCO3 ABG O2 Sat (Measured) ABG O2 Content ABG Base Excess Josue Test VBG pH POC VBG pCO2 POC VBG pO2 VBG HCO3 VBG O2 Sat (Lefty) VBG Base Excess Carboxyhemoglobin Methemoglobin O2 Delivery Device Oxygen Flow Rate Vent Mode Vent Rate Mechanical Rate Pressure Support Vent Sodium 140 Potassium 5.2 H Chloride 103 Carbon Dioxide 31 Anion Gap 5 L BUN 39.9 H Creatinine 1.2 Est GFR (CKD-EPI)AfAm 68.15 Est GFR (CKD-EPI)NonAf 58.80 Random Glucose 116 H Lactic Acid Calcium 7.8 L Phosphorus Magnesium Total Bilirubin 0.5 AST 18 ALT 75 H Alkaline Phosphatase 86 Creatine Kinase Troponin I B-Natriuretic Peptide Total Protein 5.8 L Albumin 2.7 L Influenza A (Rapid) Influenza B (Rapid) Active Medications Generic Name Dose Route Start Last Admin Trade Name Freq PRN Reason Stop Dose Admin Albuterol Sulfate 1 amp 07/20/18 08:12 Ventolin 0.083% Nebulizer Soln - NEB Q1H PRN SHORT OF BREATH/WHEEZING Albuterol/Ipratropium 1 amp 07/24/18 10:45 07/29/18 16:35 Duoneb - NEB 1 amp RQ4H MORE Administration Alprazolam 0.5 mg 07/24/18 22:00 07/29/18 00:32 Xanax - PO 0.5 mg HS MORE Administration Aspirin 81 mg 07/21/18 10:00 07/29/18 10:31 Asa - PO 81 mg DAILY MORE Administration Azithromycin 250 mg 07/27/18 15:00 07/29/18 10:38 Zithromax - PO 07/31/18 10:01 250 mg Q2D MORE Administration Budesonide/Formoterol Fumarate 2 puff 07/21/18 13:45 07/29/18 10:35 Symbicort 160/4.5mcg - IH 2 puff BID MORE Administration Diltiazem HCl 120 mg 07/20/18 11:30 07/29/18 10:31 Cardizem Cd - PO 120 mg DAILY MORE Administration Docusate Sodium 100 mg 07/29/18 11:18 Colace - PO BID PRN CONSTIPATION Enoxaparin Sodium 40 mg 07/21/18 10:00 07/29/18 10:31 Lovenox - SQ 40 mg DAILY MORE Administration Methylprednisolone Sodium Succinate 20 mg 07/25/18 18:00 07/29/18 10:32 Solu-Medrol - IVPUSH 20 mg Q8H-IV MORE Administration Mometasone Furoate 2 puff 07/21/18 10:00 07/29/18 10:35 Asmanex 220mcg - IH Not Given DAILY MORE Nystatin 500,000 units 07/20/18 18:00 07/29/18 11:35 Nystatin Oral Suspension - PO 500,000 units Q6HPO MORE Administration Nystatin 1 applic 07/21/18 00:00 07/29/18 11:36 Mycostatin Cream - TP 1 applic Q6HPO MORE Administration Phenol/Menthol 1 spray 07/26/18 08:58 07/28/18 10:27 Chloraseptic - MM 1 spray Q6HPO PRN Administration SORE THROAT Microbiology 07/20/18 08:02 Blood - Peripheral Venous Blood Culture - Final NO GROWTH AFTER 5 DAYS INCUBATION 07/20/18 08:06 Blood - Peripheral Venous Blood Culture - Final NO GROWTH AFTER 5 DAYS INCUBATION Condition: Stable - Instructions Diet, Activity, Other Instructions: follow up with pmd after discharge from pulmonary rehab follow up with Dr Dunn follow up with [facility] Dr Oakley Follow up with renal Dr Mcdaniel take medication as prescribed return to ER if develop severe abdominal pain, respiratory distress, chest pain Patient will be discharged with Prednisone 60mg daily. Pulmonary rehab will taper dose of prednisone Referrals: Jaylan Oakley MD [Staff Physician] - Heather Mcdaniel MD [Staff Physician] - Merritt Dunn MD [Staff Physician] - Disposition: [facility] - Home Medications Comprehensive Discharge Medication List: Ambulatory Orders Acetaminophen [Tylenol .Regular Strength -] 650 mg PO Q6H PRN #90 tablet Albuterol 0.083% Nebulizer Kayce [Ventolin 0.083% Nebulizer Soln -] 1 neb NEB Q4H PRN #30 vial 07/18/13 Fluticasone Propionate [Flovent Hfa] 110 mcg IH BID 12/18/13 Diltiazem Cd [Cardizem Cd -] 120 mg PO DAILY #30 cap.cd.24h 12/21/13 Arformoterol Tartrate [Brovana] 15 mcg IH BID #1 ml 04/08/14 Aspirin [ASA -] 81 mg PO DAILY #30 tab.chew 04/08/14 Polyethylene Glycol 3350 [Miralax 119 gm Btl -] 17 gm PO DAILY #1 bottle Oxycodone HCl 20 mg PO ONCE 07/03/18 Albuterol 2.5/Ipratropium 0.5 [Duoneb -] 1 amp NEB RQID #120 amp 07/08/18 Azithromycin [Zithromax 250mg Tablets -] 1 tab PO Q2D #2 tablet 07/08/18 Loratadine [Claritin -] 10 mg PO DAILY #30 tablet 07/08/18 Roflumilast [Daliresp -] 500 mcg PO DAILY #30 tablet 07/08/18 Prednisone 5 mg PO ASDIR 07/20/18 Albuterol 0.083% Nebulizer Kayce [Ventolin 0.083% Nebulizer Soln -] 1 amp NEB Q1H PRN amp 07/29/18 Albuterol 2.5/Ipratropium 0.5 [Duoneb -] 1 amp NEB RQ4H amp 07/29/18 Alprazolam [Xanax] 0.5 mg PO HS tablet MDD 1 07/29/18 Aspirin [ASA -] 81 mg PO DAILY #0 tab.chew 07/29/18 Azithromycin [Zithromax 250mg Tablets -] 250 mg PO Q2D tablet 07/29/18 Budesonide/Formeterol Fumarate [SYMBICORT 160/4.5mcg -] 2 puff IH BID inhaler 07/29/18 Diltiazem Cd [Cardizem Cd -] 120 mg PO DAILY cap.cd.24h 07/29/18 Docusate Sodium [Colace -] 100 mg PO BID PRN capsule 07/29/18 Enoxaparin [Lovenox -] 40 mg SQ DAILY disp.syrin 07/29/18 Mometasone Furoate [Asmanex 220Mcg -] 2 puff IH DAILY inhaler 07/29/18 Nystatin Cream [Mycostatin Cream -] 1 applic TP Q6HPO applic 07/29/18 Nystatin Oral Suspension - [Nystatin Oral Susp 449446 Units/5 ML -] 500,000 units PO Q6HPO cup 07/29/18 Phenol [Chloraseptic -] 1 spray MM Q6HPO PRN bottle 07/29/18 Prednisone 60mg daily--dose will be tapered by pulmonary rehab
[2018-07-29 20:37] LABS: EPI CELLS 0.3 /HPF (0-5/HPF); HYALINE CASTS 3 /lpf (0-8); PH,URINE 5.5 (5.0-8.0); URINE APPEARANCE CLEAR; URINE BACTERIA 4.4 /hpf (NEGATIVE); URINE BILIRUBIN NEGATIVE (NEGATIVE); URINE COLOR YELLOW; URINE GLUCOSE (UA) NEGATIVE (NEGATIVE); URINE KETONE NEGATIVE (NEGATIVE); URINE LEUK ESTERASE NEGATIVE (NEGATIVE); URINE NITRITE NEGATIVE (NEGATIVE); URINE PROTEIN 1+ (NEGATIVE); URINE RBC 1 /hpf (0-4); URINE UROBILINOGEN 0.2 mg/dL (0.2-1.0); URINE WBC 0 /hpf (0-5)
[2018-07-29 20:50] LABS: RATIO URIN PROTEIN/URIN CREAT 0.83 MG/DL
[2018-07-29] MEDS: PHENOL 177 ML SPRAY BOTTLE MM PRN (21:22)
[2018-07-30] MEDS: ALBUTEROL SO4 2.5/IPRATROPIUM 0.5 INH SOL 3 ML VIAL.NEB. NEB SCH ×5 (04:55→20:12)
[2018-07-30] MEDS: NYSTATIN 100,000 UNIT/GM TOPICAL CREAM 15 GM TUBE TP SCH ×4 (05:08→23:01)
[2018-07-30] MEDS: NYSTATIN 500,000 UNITS/5 ML SUSPENSION PO SCH ×4 (06:16→23:01)
[2018-07-30 06:46] LABS: ALBUMIN 2.6 g/dl (3.4-5.0); BILIRUBIN,TOTAL 0.6 mg/dL (0.2-1); CALCIUM 8.2 mg/dL (8.5-10.1); CREATININE 1.2 mg/dL (0.55-1.3); POTASSIUM 5.3 mmol/L (3.5-5.1); TOT PROT 5.6 g/dl (6.4-8.2)
[2018-07-30] MEDS ORDERED: PT OWN MED DRAWER 7, Y5N ONE (09:49)
[2018-07-30] MEDS: ENOXAPARIN NA (PORCINE) 40 MG/0.4 ML DISP.SYRIN SQ SCH (09:51)
[2018-07-30] MEDS: ASPIRIN 81 MG CHEWABLE TABLETS PO SCH (09:51)
[2018-07-30] MEDS: predniSONE 20 MG TABLET (UD) PO SCH (09:52)
[2018-07-30] MEDS: BUDESONIDE/FORMETEROL FUMARATE 160/4.5 mcg INHALER IH SCH ×2 (09:56→23:01)
[2018-07-30] MEDS: MOMETASONE FUROATE 220 MCG/IH INHALER IH SCH (09:58)
--- NOTE | 2018-07-30 09:58 | PN ---
Progress Note, Physician Chief Complaint: COPD SOB A-fib History of Present Illness: Previous notes and events reviewed awake and alert NAD patient complain of feeling weak, breathing in tripod position, noted to be tachycardic with HR 130s, on O2 NC and noted with accessory muscle use, denied palpitations and chest pain, EKG and troponin ordered STAT, placed on Bipap and states that he feels he is breathing better and feels less weak - Current Medication List Current Medications: Active Medications Albuterol Sulfate (Ventolin 0.083% Nebulizer Soln -) 1 amp NEB Q1H PRN PRN Reason: SHORT OF BREATH/WHEEZING Albuterol/Ipratropium (Duoneb -) 1 amp NEB RQ4H [facility] Last Admin: 07/30/18 04:55 Dose: 1 amp Alprazolam (Xanax -) 0.5 mg PO HS [facility] Last Admin: 07/29/18 22:51 Dose: 0.5 mg Aspirin (Asa -) 81 mg PO DAILY [facility] Last Admin: 07/29/18 10:31 Dose: 81 mg Azithromycin (Zithromax -) 250 mg PO Q2D [facility] Stop: 07/31/18 10:01 Last Admin: 07/29/18 10:38 Dose: 250 mg Budesonide/Formoterol Fumarate (Symbicort 160/4.5mcg -) 2 puff IH BID [facility] Last Admin: 07/29/18 21:19 Dose: 2 puff Diltiazem HCl (Cardizem Cd -) 120 mg PO DAILY [facility] Last Admin: 07/29/18 10:31 Dose: 120 mg Docusate Sodium (Colace -) 100 mg PO BID PRN PRN Reason: CONSTIPATION Enoxaparin Sodium (Lovenox -) 40 mg SQ DAILY [facility] Last Admin: 07/29/18 10:31 Dose: 40 mg Mometasone Furoate (Asmanex 220mcg -) 2 puff IH DAILY [facility] Last Admin: 07/29/18 10:35 Dose: Not Given Nystatin (Nystatin Oral Suspension -) 500,000 units PO Q6HPO [facility] Last Admin: 07/30/18 06:16 Dose: 500,000 units Nystatin (Mycostatin Cream -) 1 applic TP Q6HPO [facility] Last Admin: 07/30/18 05:08 Dose: Not Given Phenol/Menthol (Chloraseptic -) 1 spray MM Q6HPO PRN PRN Reason: SORE THROAT Last Admin: 07/29/18 21:22 Dose: 1 spray Prednisone (Deltasone -) 60 mg PO DAILY MORE - Objective Vital Signs: Vital Signs Temperature 98.6 F 07/30/18 05:25 Pulse Rate 113 H 07/30/18 05:25 Respiratory Rate 22 H 07/30/18 05:25 Blood Pressure 153/89 07/30/18 05:25 O2 Sat by Pulse Oximetry (%) 91 L 07/29/18 20:31 Constitutional: Yes: Mild Distress Eyes: Yes: Conjunctiva Clear HENT: Yes: Atraumatic Cardiovascular: Yes: Tachycardia, Pulse Irregular Respiratory: Yes: Diminished, On BiPap Gastrointestinal: Yes: Normal Bowel Sounds, Soft Musculoskeletal: Yes: Muscle Weakness Extremities: Yes: WNL Edema: Yes Edema: LLE: 2+, RLE: 1+ Neurological: Yes: Alert, Oriented Psychiatric: Yes: Alert, Oriented Labs: CBC, BMP 07/29/18 05:30 07/30/18 05:15 INR, PTT INR 1.04 (0.83-1.09) 07/21/18 06:00 Microbiology 07/20/18 08:02 Blood - Peripheral Venous Blood Culture - Final NO GROWTH AFTER 5 DAYS INCUBATION 07/20/18 08:06 Blood - Peripheral Venous Blood Culture - Final NO GROWTH AFTER 5 DAYS INCUBATION Problem List - Problems (1) Chronic respiratory failure with hypoxia Assessment/Plan: -Pulm on board -keep O2 Sat >90% -O2 via NC -Bipap -bronchodilators -pulm rehab for discharge on hold at moment Code(s): J96.11 - CHRONIC RESPIRATORY FAILURE WITH HYPOXIA (2) Leg edema Assessment/Plan: -dvt ppx -Lovenox -pending LE doppler Code(s): R60.0 - LOCALIZED EDEMA (3) AF (paroxysmal atrial fibrillation) Assessment/Plan: -Cardiology on board -Asa and Cardizem -patient refusing AC in past Code(s): I48.0 - PAROXYSMAL ATRIAL FIBRILLATION (4) COPD with acute exacerbation Assessment/Plan: -Pulm on board -keep O2 Sat >90% -O2 via NC -Bipap -bronchodilators -ID on board -Azithromycin -CXR reviewed -Prednisone -Symbicort -Asmanex Code(s): J44.1 - CHRONIC OBSTRUCTIVE PULMONARY DISEASE W (ACUTE) EXACERBATION (5) MRSA colonization Assessment/Plan: -contact precaution -MRSA culture sent Code(s): Z22.322 - CARRIER OR SUSPECTED CARRIER OF METHICILLIN RESIS STAPH (6) Elevated troponin Assessment/Plan: -Trop 0.27-->0.07 -cardiology on board -tele monitoring Code(s): R74.8 - ABNORMAL LEVELS OF OTHER SERUM ENZYMES (7) Hyperkalemia Assessment/Plan: -K 5.3 -renal on board -monitor electrolyte daily Code(s): E87.5 - HYPERKALEMIA (8) Elevated BUN Assessment/Plan: -BUN 37 -renal on board Code(s): R79.9 - ABNORMAL FINDING OF BLOOD CHEMISTRY, UNSPECIFIED Assessment/Plan see problem list dvt ppx discharge on hold until patient status improve
[2018-07-30] MEDS ORDERED: FUROSEMIDE 40 MG/4 ML INJECTABLE VIAL IVPUSH ONE ×2 (10:33→16:00)
[2018-07-30 10:39] LABS: HEMATOCRIT 36.1 % (35.4-49); MCH 30.4 pg (25.7-33.7); MCHC 33.3 g/dl (32.0-35.9); MEAN CELL VOLUME 91.5 fl (80-96); MEAN PLT VOLUME 7.8 fl (7.5-11.1); PLATELET COUNT 239 K/MM3 (134-434); RBC 3.95 M/mm3 (4.00-5.60); RDW 15.5 % (11.9-15.9); WHITE BLOOD COUNT 10.6 K/mm3 (4.0-10.0)
[2018-07-30] MEDS ORDERED: SODIUM ZIRCONIUM CYCLOSILICATE (LOKELMA) 5 GM PACKET PO ONE (11:00)
--- NOTE | 2018-07-30 12:01 | PN ---
Progress Note (short form) - Note Progress Note: PULMONARY Episode of respiratory distress this AM, placed on BiPAP and given lasix with improvement. Now denies shortness of breath. Vital Signs Period Temp Pulse Resp BP Sys/[place] Pulse Ox Last 24 Hr 98.0 F-99.3 F 91-114 18-22 140-154/79-89 89-91 Gen: mildly tachypneic at rest Heart: RRR Lung: distant breath sounds, no wheezes Abd: soft, nontender Ext: + edema CBC, BMP 07/30/18 10:00 07/30/18 05:15 Active Medications Albuterol Sulfate (Ventolin 0.083% Nebulizer Soln -) 1 amp NEB Q1H PRN PRN Reason: SHORT OF BREATH/WHEEZING Albuterol/Ipratropium (Duoneb -) 1 amp NEB RQ4H [facility] Last Admin: 07/30/18 07:45 Dose: 1 amp Alprazolam (Xanax -) 0.5 mg PO HS [facility] Last Admin: 07/29/18 22:51 Dose: 0.5 mg Aspirin (Asa -) 81 mg PO DAILY [facility] Last Admin: 07/30/18 09:51 Dose: 81 mg Azithromycin (Zithromax -) 250 mg PO Q2D [facility] Stop: 07/31/18 10:01 Last Admin: 07/29/18 10:38 Dose: 250 mg Budesonide/Formoterol Fumarate (Symbicort 160/4.5mcg -) 2 puff IH BID [facility] Last Admin: 07/30/18 09:56 Dose: 2 puff Diltiazem HCl (Cardizem Cd -) 120 mg PO DAILY [facility] Last Admin: 07/30/18 09:52 Dose: 120 mg Docusate Sodium (Colace -) 100 mg PO BID PRN PRN Reason: CONSTIPATION Enoxaparin Sodium (Lovenox -) 40 mg SQ DAILY [facility] Last Admin: 07/30/18 09:51 Dose: 40 mg Mometasone Furoate (Asmanex 220mcg -) 2 puff IH DAILY [facility] Last Admin: 07/30/18 09:58 Dose: Not Given Nystatin (Nystatin Oral Suspension -) 500,000 units PO Q6HPO [facility] Last Admin: 07/30/18 11:13 Dose: 500,000 units Nystatin (Mycostatin Cream -) 1 applic TP Q6HPO [facility] Last Admin: 07/30/18 11:20 Dose: 1 applic Phenol/Menthol (Chloraseptic -) 1 spray MM Q6HPO PRN PRN Reason: SORE THROAT Last Admin: 07/29/18 21:22 Dose: 1 spray Prednisone (Deltasone -) 60 mg PO DAILY [facility] Last Admin: 07/30/18 09:52 Dose: 60 mg A/P Acute COPD Exacerbation Acute on Chronic Hypoxic Respiratory Failure Paroxysmal Atrial Fibrillation +Troponins likely Demand Ischemia LV Diastolic Dysfunction HTN - will give another dose lasix in PM - monitor urine output, creatinine - daily weights - BiPAP as needed - prednisone taper - inhaled bronchodilators standing and PRN/chest PT - O2 to keep SpO2 >88% - rate controlled - nystatin swish/swallow Problem List - Problems (1) COPD with acute exacerbation Code(s): J44.1 - CHRONIC OBSTRUCTIVE PULMONARY DISEASE W (ACUTE) EXACERBATION (2) Chronic respiratory failure with hypoxia Code(s): J96.11 - CHRONIC RESPIRATORY FAILURE WITH HYPOXIA
--- NOTE | 2018-07-30 12:16 | PN ---
Progress Note, Physician History of Present Illness: Shortness of breath worse in AM amenable to IV Lasix, telemetry shows ST with PAC. - Current Medication List Current Medications: Active Medications Albuterol Sulfate (Ventolin 0.083% Nebulizer Soln -) 1 amp NEB Q1H PRN PRN Reason: SHORT OF BREATH/WHEEZING Albuterol/Ipratropium (Duoneb -) 1 amp NEB RQ4H [facility] Last Admin: 07/30/18 12:06 Dose: 1 amp Alprazolam (Xanax -) 0.5 mg PO HS [facility] Last Admin: 07/29/18 22:51 Dose: 0.5 mg Aspirin (Asa -) 81 mg PO DAILY [facility] Last Admin: 07/30/18 09:51 Dose: 81 mg Azithromycin (Zithromax -) 250 mg PO Q2D [facility] Stop: 07/31/18 10:01 Last Admin: 07/29/18 10:38 Dose: 250 mg Budesonide/Formoterol Fumarate (Symbicort 160/4.5mcg -) 2 puff IH BID [facility] Last Admin: 07/30/18 09:56 Dose: 2 puff Diltiazem HCl (Cardizem Cd -) 120 mg PO DAILY [facility] Last Admin: 07/30/18 09:52 Dose: 120 mg Docusate Sodium (Colace -) 100 mg PO BID PRN PRN Reason: CONSTIPATION Enoxaparin Sodium (Lovenox -) 40 mg SQ DAILY [facility] Last Admin: 07/30/18 09:51 Dose: 40 mg Furosemide (Lasix Injection -) 40 mg IVPUSH ONCE ONE Stop: 07/30/18 16:01 Mometasone Furoate (Asmanex 220mcg -) 2 puff IH DAILY [facility] Last Admin: 07/30/18 09:58 Dose: Not Given Nystatin (Nystatin Oral Suspension -) 500,000 units PO Q6HPO [facility] Last Admin: 07/30/18 11:13 Dose: 500,000 units Nystatin (Mycostatin Cream -) 1 applic TP Q6HPO [facility] Last Admin: 07/30/18 11:20 Dose: 1 applic Phenol/Menthol (Chloraseptic -) 1 spray MM Q6HPO PRN PRN Reason: SORE THROAT Last Admin: 07/29/18 21:22 Dose: 1 spray Prednisone (Deltasone -) 60 mg PO DAILY [facility] Last Admin: 07/30/18 09:52 Dose: 60 mg - Objective Vital Signs: Vital Signs Temperature 99.3 F 07/30/18 09:00 Pulse Rate 114 H 07/30/18 09:00 Respiratory Rate 22 H 07/30/18 09:00 Blood Pressure 143/87 07/30/18 09:00 O2 Sat by Pulse Oximetry (%) 89 L 07/30/18 12:05 Constitutional: Yes: No Distress, Calm Neck: Yes: Supple Cardiovascular: Yes: Tachycardia Respiratory: Yes: Regular, Diminished, On Nasal O2 Gastrointestinal: Yes: Normal Bowel Sounds, Soft Edema: No Labs: CBC, BMP 07/30/18 10:00 07/30/18 05:15 INR, PTT INR 1.04 (0.83-1.09) 07/21/18 06:00 - ....Imaging Chest X-ray: Report Reviewed (Bibasilar ATX) Ultrasound: Report Reviewed (Renal US: Negative for hydro) EKG: Report Reviewed (Tele: ST with PAC) Problem List - Problems (1) Shortness of breath Code(s): R06.02 - SHORTNESS OF BREATH (2) AF (paroxysmal atrial fibrillation) Code(s): I48.0 - PAROXYSMAL ATRIAL FIBRILLATION (3) COPD with acute exacerbation Code(s): J44.1 - CHRONIC OBSTRUCTIVE PULMONARY DISEASE W (ACUTE) EXACERBATION (4) Hypertension Code(s): I10 - ESSENTIAL (PRIMARY) HYPERTENSION Qualifiers: Hypertension type: essential hypertension Qualified Code(s): I10 - Essential (primary) hypertension (5) Acute kidney injury superimposed on CKD Code(s): N17.9 - ACUTE KIDNEY FAILURE, UNSPECIFIED; N18.9 - CHRONIC KIDNEY DISEASE, UNSPECIFIED Assessment/Plan Echocardiogram 07/03/2018 Normal LV and RV size and fxn, LVEF 55-60%, mild LAE, mild ao root diltatation 4.2 cm, impaired LV relaxation Echocardiography (12/08/17) which revealed normal LV systolic function, LVEF 60- 65%, moderately dilated ascending thoracic aorta, mild TR and trace AR. Nuclear MPI (08/20/16) revealed moderate zone of anterior and anteroapical reversible defect c/s mild intensity ischemia and moderate inferior attenuation. LVEF was 71%. 1. Acute on chronic hypercapneic/hypoxemic respiratory failure 2. COPD exacerbation improving 3. PAF [id number] score of 2-3 currently in sinus rhythm (refused DOAC or Coumadin) 4. HTN 5. Prior abnormal nuclear MPI suggests CAD with demand ischemia 6. Diastolic dysfunction 7. Acute on CKD with hyperkalemia resolving PLAN: 1. Oral steroid taper with GI protection, bronchodilators, O2, empiric azithromycin as antiinflammatory and BIPAP as needed, pulmonary rehab post discharge 2. Continue Cardizem CD 120 mg QD and ASA 81 mg QD, diuresis as needed 3. Ideally anticoagulation is recommended, but patient has previously declined. Continue DVT prophylaxis 4. Cardiac work up including repeat nuclear MPI can be done as outpatient in the office once clinically improved 5. F/u microalbumin/Cr ratio, potassium levels
--- NOTE | 2018-07-30 12:29 | EKG ---
Test Reason : Blood Pressure : / mmHG Vent. Rate : 123 BPM Atrial Rate : 123 BPM P-R Int : 128 ms QRS Dur : 076 ms QT Int : 270 ms P-R-T Axes : 055 -72 072 degrees QTc Int : 386 ms SINUS TACHYCARDIA WITH PREMATURE ATRIAL COMPLEXES LEFT ANTERIOR FASCICULAR BLOCK ABNORMAL ECG WHEN COMPARED WITH ECG OF 20-JUL-2018 07:56, NO SIGNIFICANT CHANGE WAS FOUND Confirmed by NICHOLAS TEAGUE, LAURE ([id number]) on 07/30/2018 12:29:28 PM Referred By: HORTENSIA TERRY Confirmed By:LAURE PETERSON MD
--- NOTE | 2018-07-30 16:17 | PN ---
Progress Note, Physician History of Present Illness: Pt seen and examined at bedside. He is awake and alert. He denies chest pain or palpitations. - Current Medication List Current Medications: Active Medications Albuterol Sulfate (Ventolin 0.083% Nebulizer Soln -) 1 amp NEB Q1H PRN PRN Reason: SHORT OF BREATH/WHEEZING Albuterol/Ipratropium (Duoneb -) 1 amp NEB RQ4H [facility] Last Admin: 07/30/18 16:09 Dose: 1 amp Alprazolam (Xanax -) 0.5 mg PO HS [facility] Last Admin: 07/29/18 22:51 Dose: 0.5 mg Aspirin (Asa -) 81 mg PO DAILY [facility] Last Admin: 07/30/18 09:51 Dose: 81 mg Azithromycin (Zithromax -) 250 mg PO Q2D [facility] Stop: 07/31/18 10:01 Last Admin: 07/29/18 10:38 Dose: 250 mg Budesonide/Formoterol Fumarate (Symbicort 160/4.5mcg -) 2 puff IH BID [facility] Last Admin: 07/30/18 09:56 Dose: 2 puff Diltiazem HCl (Cardizem Cd -) 120 mg PO DAILY [facility] Last Admin: 07/30/18 09:52 Dose: 120 mg Docusate Sodium (Colace -) 100 mg PO BID PRN PRN Reason: CONSTIPATION Enoxaparin Sodium (Lovenox -) 40 mg SQ DAILY [facility] Last Admin: 07/30/18 09:51 Dose: 40 mg Mometasone Furoate (Asmanex 220mcg -) 2 puff IH DAILY [facility] Last Admin: 07/30/18 09:58 Dose: Not Given Nystatin (Nystatin Oral Suspension -) 500,000 units PO Q6HPO [facility] Last Admin: 07/30/18 11:13 Dose: 500,000 units Nystatin (Mycostatin Cream -) 1 applic TP Q6HPO [facility] Last Admin: 07/30/18 11:20 Dose: 1 applic Phenol/Menthol (Chloraseptic -) 1 spray MM Q6HPO PRN PRN Reason: SORE THROAT Last Admin: 07/29/18 21:22 Dose: 1 spray Prednisone (Deltasone -) 60 mg PO DAILY [facility] Last Admin: 07/30/18 09:52 Dose: 60 mg - Objective Vital Signs: Vital Signs Temperature 99.3 F 07/30/18 14:28 Pulse Rate 92 H 07/30/18 14:28 Respiratory Rate 22 H 07/30/18 14:28 Blood Pressure 135/69 07/30/18 14:28 O2 Sat by Pulse Oximetry (%) 91 L 07/30/18 16:08 Constitutional: Yes: Calm Eyes: Yes: Conjunctiva Clear HENT: Yes: Atraumatic Neck: Yes: Supple Cardiovascular: Yes: S1, S2 Respiratory: Yes: CTA Bilaterally Gastrointestinal: Yes: Soft Genitourinary: Yes: WNL Musculoskeletal: Yes: WNL Edema: Yes Edema: LLE: Trace, RLE: Trace Neurological: Yes: Oriented Psychiatric: Yes: Oriented Labs: CBC, BMP 07/30/18 10:00 07/30/18 05:15 INR, PTT INR 1.04 (0.83-1.09) 07/21/18 06:00 Problem List - Problems (1) Elevated BUN Code(s): R79.9 - ABNORMAL FINDING OF BLOOD CHEMISTRY, UNSPECIFIED (2) Hyperkalemia Code(s): E87.5 - HYPERKALEMIA (3) COPD with acute exacerbation Code(s): J44.1 - CHRONIC OBSTRUCTIVE PULMONARY DISEASE W (ACUTE) EXACERBATION Assessment/Plan Current Medications Generic Name Dose Route Start Last Admin Trade Name Freq PRN Reason Stop Dose Admin Albuterol Sulfate 1 amp 07/20/18 08:12 Ventolin 0.083% Nebulizer Soln - NEB Q1H PRN SHORT OF BREATH/WHEEZING Albuterol/Ipratropium 1 amp 07/24/18 10:45 07/30/18 16:09 Duoneb - NEB 1 amp RQ4H MORE Administration Alprazolam 0.5 mg 07/24/18 22:00 07/29/18 22:51 Xanax - PO 0.5 mg HS MORE Administration Aspirin 81 mg 07/21/18 10:00 07/30/18 09:51 Asa - PO 81 mg DAILY MORE Administration Azithromycin 250 mg 07/27/18 15:00 07/29/18 10:38 Zithromax - PO 07/31/18 10:01 250 mg Q2D MORE Administration Budesonide/Formoterol Fumarate 2 puff 07/21/18 13:45 07/30/18 09:56 Symbicort 160/4.5mcg - IH 2 puff BID MORE Administration Diltiazem HCl 120 mg 07/20/18 11:30 07/30/18 09:52 Cardizem Cd - PO 120 mg DAILY MORE Administration Docusate Sodium 100 mg 07/29/18 11:18 Colace - PO BID PRN CONSTIPATION Enoxaparin Sodium 40 mg 07/21/18 10:00 07/30/18 09:51 Lovenox - SQ 40 mg DAILY MORE Administration Mometasone Furoate 2 puff 07/21/18 10:00 07/30/18 09:58 Asmanex 220mcg - IH Not Given DAILY MORE Nystatin 500,000 units 07/20/18 18:00 07/30/18 11:13 Nystatin Oral Suspension - PO 500,000 units Q6HPO MORE Administration Nystatin 1 applic 07/21/18 00:00 07/30/18 11:20 Mycostatin Cream - TP 1 applic Q6HPO MORE Administration Phenol/Menthol 1 spray 07/26/18 08:58 07/29/18 21:22 Chloraseptic - MM 1 spray Q6HPO PRN Administration SORE THROAT Prednisone 60 mg 07/30/18 10:00 07/30/18 09:52 Deltasone - PO 60 mg DAILY MORE Administration Laboratory Tests 07/29/18 19:45 Protein/Creatinin Ratio 0.830 Impression 1. CKD vs YANG 2. hyperkalemia 3. copd 4. htn 5. a-fib 6 anxiety Plan - will give lokelma - renal ultrasound reviewed - low potassium diet - mechanical technologist is improved - cardiology follow up
[2018-07-30 16:38] VITALS: BMI 29.0
[2018-07-30] MEDS: ALPRAZolam 0.25 MG TABLET PO SCH (23:01)
[2018-07-31] MEDS: ALBUTEROL SO4 2.5/IPRATROPIUM 0.5 INH SOL 3 ML VIAL.NEB. NEB SCH ×4 (00:53→11:51)
[2018-07-31] MEDS: NYSTATIN 500,000 UNITS/5 ML SUSPENSION PO SCH ×2 (05:15→12:17)
[2018-07-31] MEDS: NYSTATIN 100,000 UNIT/GM TOPICAL CREAM 15 GM TUBE TP SCH ×2 (05:15→12:16)
[2018-07-31 08:32] LABS: HEMATOCRIT 34.8 % (35.4-49); HEMOGLOBIN 11.4 GM/dL (11.7-16.9); MCHC 32.8 g/dl (32.0-35.9); MEAN CELL VOLUME 91.2 fl (80-96); MEAN PLT VOLUME 7.4 fl (7.5-11.1); PLATELET COUNT 230 K/MM3 (134-434); RBC 3.82 M/mm3 (4.00-5.60); RDW 15.3 % (11.9-15.9); WHITE BLOOD COUNT 8.4 K/mm3 (4.0-10.0)
[2018-07-31 08:59] LABS: ALBUMIN 2.4 g/dl (3.4-5.0); BILIRUBIN,TOTAL 0.4 mg/dL (0.2-1); BLOOD UREA NITROGEN 40.7 mg/dL (7-18); CREATININE 1.2 mg/dL (0.55-1.3); POTASSIUM 4.3 mmol/L (3.5-5.1); TOT PROT 5.5 g/dl (6.4-8.2)
[2018-07-31] MEDS: predniSONE 20 MG TABLET (UD) PO SCH (09:53)
[2018-07-31] MEDS: ENOXAPARIN NA (PORCINE) 40 MG/0.4 ML DISP.SYRIN SQ SCH (09:54)
[2018-07-31] MEDS: AZITHROMYCIN 250 MG TABLET PO SCH (09:54)
[2018-07-31] MEDS: ASPIRIN 81 MG CHEWABLE TABLETS PO SCH (09:54)
[2018-07-31] MEDS: BUDESONIDE/FORMETEROL FUMARATE 160/4.5 mcg INHALER IH SCH (09:59)
[2018-07-31] MEDS: MOMETASONE FUROATE 220 MCG/IH INHALER IH SCH (09:59)
--- NOTE | 2018-07-31 10:28 | PN ---
Progress Note, Physician Chief Complaint: COPD SOB A-fib History of Present Illness: Previous notes and events reviewed awake and alert NAD patient states feeling much better today, states breathing is better than yesterday continue with productive cough HR more controlled today OOB to chair - Current Medication List Current Medications: Active Medications Albuterol Sulfate (Ventolin 0.083% Nebulizer Soln -) 1 amp NEB Q1H PRN PRN Reason: SHORT OF BREATH/WHEEZING Albuterol/Ipratropium (Duoneb -) 1 amp NEB RQ4H [facility] Last Admin: 07/31/18 04:49 Dose: Not Given Alprazolam (Xanax -) 0.5 mg PO HS [facility] Last Admin: 07/30/18 23:01 Dose: Not Given Aspirin (Asa -) 81 mg PO DAILY [facility] Last Admin: 07/31/18 09:54 Dose: 81 mg Budesonide/Formoterol Fumarate (Symbicort 160/4.5mcg -) 2 puff IH BID [facility] Last Admin: 07/31/18 09:59 Dose: 2 puff Diltiazem HCl (Cardizem Cd -) 120 mg PO DAILY [facility] Last Admin: 07/31/18 09:54 Dose: 120 mg Docusate Sodium (Colace -) 100 mg PO BID PRN PRN Reason: CONSTIPATION Last Admin: 07/30/18 17:09 Dose: 100 mg Enoxaparin Sodium (Lovenox -) 40 mg SQ DAILY [facility] Last Admin: 07/31/18 09:54 Dose: 40 mg Mometasone Furoate (Asmanex 220mcg -) 2 puff IH DAILY [facility] Last Admin: 07/31/18 09:59 Dose: Not Given Nystatin (Nystatin Oral Suspension -) 500,000 units PO Q6HPO [facility] Last Admin: 07/31/18 05:15 Dose: 500,000 units Nystatin (Mycostatin Cream -) 1 applic TP Q6HPO [facility] Last Admin: 07/31/18 05:15 Dose: Not Given Phenol/Menthol (Chloraseptic -) 1 spray MM Q6HPO PRN PRN Reason: SORE THROAT Last Admin: 07/29/18 21:22 Dose: 1 spray Prednisone (Deltasone -) 60 mg PO DAILY [facility] Last Admin: 07/31/18 09:53 Dose: 60 mg - Objective Vital Signs: Vital Signs Temperature 98.0 F 07/31/18 06:00 Pulse Rate 70 07/31/18 06:00 Respiratory Rate 20 07/31/18 06:00 Blood Pressure 151/75 07/31/18 06:00 O2 Sat by Pulse Oximetry (%) 93 L 07/30/18 21:00 Constitutional: Yes: No Distress, Calm Eyes: Yes: Conjunctiva Clear HENT: Yes: Atraumatic Cardiovascular: Yes: Regular Rate and Rhythm Respiratory: Yes: Regular, Diminished, On Nasal O2 Gastrointestinal: Yes: Normal Bowel Sounds, Soft Musculoskeletal: Yes: Muscle Weakness Extremities: Yes: WNL Edema: Yes Edema: LLE: 1+, RLE: 1+ Neurological: Yes: Alert, Oriented Psychiatric: Yes: Alert, Oriented Labs: CBC, BMP 07/31/18 08:07 07/31/18 08:07 INR, PTT INR 1.04 (0.83-1.09) 07/21/18 06:00 Problem List - Problems (1) Chronic respiratory failure with hypoxia Assessment/Plan: -Pulm on board -keep O2 Sat >90% -O2 via NC -Bipap as needed -prednisone taper to be done by pulm rehab -bronchodilators -pulm rehab for discharge Code(s): J96.11 - CHRONIC RESPIRATORY FAILURE WITH HYPOXIA (2) Leg edema Assessment/Plan: -dvt ppx -Lovenox Code(s): R60.0 - LOCALIZED EDEMA (3) AF (paroxysmal atrial fibrillation) Assessment/Plan: -Cardiology on board -Asa and Cardizem -patient refusing AC in past Code(s): I48.0 - PAROXYSMAL ATRIAL FIBRILLATION (4) COPD with acute exacerbation Assessment/Plan: -Pulm on board -keep O2 Sat >90% -O2 via NC -Bipap -bronchodilators -ID on board -Azithromycin -CXR reviewed -Prednisone to be tapered by pulmonary rehab -Symbicort -Asmanex Code(s): J44.1 - CHRONIC OBSTRUCTIVE PULMONARY DISEASE W (ACUTE) EXACERBATION (5) MRSA colonization Assessment/Plan: -contact precaution -MRSA culture sent Code(s): Z22.322 - CARRIER OR SUSPECTED CARRIER OF METHICILLIN RESIS STAPH (6) Elevated troponin Assessment/Plan: -Trop 0.27-->0.07 -cardiology on board -tele monitoring Code(s): R74.8 - ABNORMAL LEVELS OF OTHER SERUM ENZYMES (7) Hyperkalemia Assessment/Plan: -K 4.3 -renal on board -monitor electrolyte daily Code(s): E87.5 - HYPERKALEMIA (8) Elevated BUN Assessment/Plan: -BUN 40.7 -renal on board Code(s): R79.9 - ABNORMAL FINDING OF BLOOD CHEMISTRY, UNSPECIFIED Assessment/Plan see problem list dvt ppx discharge to pulmonary rehab
--- NOTE | 2018-07-31 11:33 | PN ---
Progress Note, Physician History of Present Illness: Shortness of breath improved to baseline. - Current Medication List Current Medications: Active Medications Albuterol Sulfate (Ventolin 0.083% Nebulizer Soln -) 1 amp NEB Q1H PRN PRN Reason: SHORT OF BREATH/WHEEZING Albuterol/Ipratropium (Duoneb -) 1 amp NEB RQ4H [facility] Last Admin: 07/31/18 04:49 Dose: Not Given Alprazolam (Xanax -) 0.5 mg PO HS [facility] Last Admin: 07/30/18 23:01 Dose: Not Given Aspirin (Asa -) 81 mg PO DAILY [facility] Last Admin: 07/31/18 09:54 Dose: 81 mg Budesonide/Formoterol Fumarate (Symbicort 160/4.5mcg -) 2 puff IH BID [facility] Last Admin: 07/31/18 09:59 Dose: 2 puff Diltiazem HCl (Cardizem Cd -) 120 mg PO DAILY [facility] Last Admin: 07/31/18 09:54 Dose: 120 mg Docusate Sodium (Colace -) 100 mg PO BID PRN PRN Reason: CONSTIPATION Last Admin: 07/30/18 17:09 Dose: 100 mg Enoxaparin Sodium (Lovenox -) 40 mg SQ DAILY [facility] Last Admin: 07/31/18 09:54 Dose: 40 mg Mometasone Furoate (Asmanex 220mcg -) 2 puff IH DAILY [facility] Last Admin: 07/31/18 09:59 Dose: Not Given Nystatin (Nystatin Oral Suspension -) 500,000 units PO Q6HPO [facility] Last Admin: 07/31/18 05:15 Dose: 500,000 units Nystatin (Mycostatin Cream -) 1 applic TP Q6HPO [facility] Last Admin: 07/31/18 05:15 Dose: Not Given Phenol/Menthol (Chloraseptic -) 1 spray MM Q6HPO PRN PRN Reason: SORE THROAT Last Admin: 07/29/18 21:22 Dose: 1 spray Prednisone (Deltasone -) 60 mg PO DAILY [facility] Last Admin: 07/31/18 09:53 Dose: 60 mg - Objective Vital Signs: Vital Signs Temperature 98.0 F 07/31/18 06:00 Pulse Rate 70 07/31/18 06:00 Respiratory Rate 20 07/31/18 09:00 Blood Pressure 151/75 07/31/18 06:00 O2 Sat by Pulse Oximetry (%) 93 L 07/31/18 09:00 Constitutional: Yes: No Distress, Calm Neck: Yes: Supple Cardiovascular: Yes: Regular Rate and Rhythm Respiratory: Yes: Regular, Diminished, On Nasal O2 Gastrointestinal: Yes: Normal Bowel Sounds, Soft Edema: No Labs: CBC, BMP 07/31/18 08:07 07/31/18 08:07 INR, PTT INR 1.04 (0.83-1.09) 07/21/18 06:00 - ....Imaging EKG: Report Reviewed (Tele: PAF->SR) Problem List - Problems (1) Shortness of breath Code(s): R06.02 - SHORTNESS OF BREATH (2) AF (paroxysmal atrial fibrillation) Code(s): I48.0 - PAROXYSMAL ATRIAL FIBRILLATION (3) COPD with acute exacerbation Code(s): J44.1 - CHRONIC OBSTRUCTIVE PULMONARY DISEASE W (ACUTE) EXACERBATION (4) Hypertension Code(s): I10 - ESSENTIAL (PRIMARY) HYPERTENSION Qualifiers: Hypertension type: essential hypertension Qualified Code(s): I10 - Essential (primary) hypertension (5) Acute kidney injury superimposed on CKD Code(s): N17.9 - ACUTE KIDNEY FAILURE, UNSPECIFIED; N18.9 - CHRONIC KIDNEY DISEASE, UNSPECIFIED Assessment/Plan Echocardiogram 07/03/2018 Normal LV and RV size and fxn, LVEF 55-60%, mild LAE, mild ao root diltatation 4.2 cm, impaired LV relaxation Echocardiography (12/08/17) which revealed normal LV systolic function, LVEF 60- 65%, moderately dilated ascending thoracic aorta, mild TR and trace AR. Nuclear MPI (08/20/16) revealed moderate zone of anterior and anteroapical reversible defect c/s mild intensity ischemia and moderate inferior attenuation. LVEF was 71%. 1. Acute on chronic hypercapneic/hypoxemic respiratory failure 2. COPD exacerbation improving 3. PAF [id number] score of 2-3 currently in sinus rhythm (refused DOAC or Coumadin) 4. HTN 5. Prior abnormal nuclear MPI suggests CAD with demand ischemia 6. Diastolic dysfunction 7. Acute on CKD with hyperkalemia resolving PLAN: 1. Oral steroid taper with GI protection, bronchodilators, O2, empiric azithromycin as antiinflammatory and BIPAP as needed, pulmonary rehab post discharge 2. Continue Cardizem CD 120 mg QD and ASA 81 mg QD, diuresis as needed 3. Ideally anticoagulation is recommended, but patient has previously declined. Continue DVT prophylaxis 4. Cardiac work up including repeat nuclear MPI can be done as outpatient in the office once clinically improved 5. Lokemia with f/u potassium levels 6. D/c planning to pulm rehab
--- NOTE | 2018-07-31 13:18 | PN ---
Progress Note, Physician History of Present Illness: Pt seen and examined at bedside. He is awake and alert. He denies dysuria or hematuria. He is eager to go home. - Current Medication List Current Medications: Active Medications Albuterol Sulfate (Ventolin 0.083% Nebulizer Soln -) 1 amp NEB Q1H PRN PRN Reason: SHORT OF BREATH/WHEEZING Albuterol/Ipratropium (Duoneb -) 1 amp NEB RQ4H [facility] Last Admin: 07/31/18 11:51 Dose: 1 amp Alprazolam (Xanax -) 0.5 mg PO HS [facility] Last Admin: 07/30/18 23:01 Dose: Not Given Aspirin (Asa -) 81 mg PO DAILY [facility] Last Admin: 07/31/18 09:54 Dose: 81 mg Budesonide/Formoterol Fumarate (Symbicort 160/4.5mcg -) 2 puff IH BID [facility] Last Admin: 07/31/18 09:59 Dose: 2 puff Diltiazem HCl (Cardizem Cd -) 120 mg PO DAILY [facility] Last Admin: 07/31/18 09:54 Dose: 120 mg Docusate Sodium (Colace -) 100 mg PO BID PRN PRN Reason: CONSTIPATION Last Admin: 07/30/18 17:09 Dose: 100 mg Enoxaparin Sodium (Lovenox -) 40 mg SQ DAILY [facility] Last Admin: 07/31/18 09:54 Dose: 40 mg Mometasone Furoate (Asmanex 220mcg -) 2 puff IH DAILY [facility] Last Admin: 07/31/18 09:59 Dose: Not Given Nystatin (Nystatin Oral Suspension -) 500,000 units PO Q6HPO MORE Last Admin: 07/31/18 12:17 Dose: 500,000 units Nystatin (Mycostatin Cream -) 1 applic TP Q6HPO [facility] Last Admin: 07/31/18 12:16 Dose: Not Given Phenol/Menthol (Chloraseptic -) 1 spray MM Q6HPO PRN PRN Reason: SORE THROAT Last Admin: 07/29/18 21:22 Dose: 1 spray Prednisone (Deltasone -) 60 mg PO DAILY [facility] Last Admin: 07/31/18 09:53 Dose: 60 mg - Objective Vital Signs: Vital Signs Temperature 98.0 F 07/31/18 06:00 Pulse Rate 70 06/21/19 06:00 Respiratory Rate 20 07/31/18 09:00 Blood Pressure 151/75 07/31/18 06:00 O2 Sat by Pulse Oximetry (%) 93 L 07/31/18 09:00 Constitutional: Yes: Calm Eyes: Yes: Conjunctiva Clear HENT: Yes: Atraumatic Neck: Yes: Supple Cardiovascular: Yes: S1, S2 Respiratory: Yes: On Nasal O2 Gastrointestinal: Yes: WNL Genitourinary: Yes: WNL Musculoskeletal: Yes: WNL Edema: Yes Edema: LLE: Trace, RLE: Trace Integumentary: Yes: WNL Neurological: Yes: Oriented Psychiatric: Yes: Oriented Labs: CBC, BMP 07/31/18 08:07 07/31/18 08:07 INR, PTT INR 1.04 (0.83-1.09) 07/21/18 06:00 Problem List - Problems (1) Elevated BUN Code(s): R79.9 - ABNORMAL FINDING OF BLOOD CHEMISTRY, UNSPECIFIED (2) Hyperkalemia Code(s): E87.5 - HYPERKALEMIA (3) COPD with acute exacerbation Code(s): J44.1 - CHRONIC OBSTRUCTIVE PULMONARY DISEASE W (ACUTE) EXACERBATION Assessment/Plan Current Medications Generic Name Dose Route Start Last Admin Trade Name Freq PRN Reason Stop Dose Admin Albuterol Sulfate 1 amp 07/20/18 08:12 Ventolin 0.083% Nebulizer Soln - NEB Q1H PRN SHORT OF BREATH/WHEEZING Albuterol/Ipratropium 1 amp 07/24/18 10:45 07/31/18 11:51 Duoneb - NEB 1 amp RQ4H MORE Administration Alprazolam 0.5 mg 07/24/18 22:00 07/30/18 23:01 Xanax - PO Not Given HS MORE Aspirin 81 mg 07/21/18 10:00 07/31/18 09:54 Asa - PO 81 mg DAILY MORE Administration Budesonide/Formoterol Fumarate 2 puff 07/21/18 13:45 07/31/18 09:59 Symbicort 160/4.5mcg - IH 2 puff BID MORE Administration Diltiazem HCl 120 mg 07/20/18 11:30 07/31/18 09:54 Cardizem Cd - PO 120 mg DAILY MORE Administration Docusate Sodium 100 mg 07/29/18 11:18 07/30/18 17:09 Colace - PO 100 mg BID PRN Administration CONSTIPATION Enoxaparin Sodium 40 mg 07/21/18 10:00 07/31/18 09:54 Lovenox - SQ 40 mg DAILY MORE Administration Mometasone Furoate 2 puff 07/21/18 10:00 07/31/18 09:59 Asmanex 220mcg - IH Not Given DAILY MORE Nystatin 500,000 units 07/20/18 18:00 07/31/18 12:17 Nystatin Oral Suspension - PO 500,000 units Q6HPO MORE Administration Nystatin 1 applic 07/21/18 00:00 07/31/18 12:16 Mycostatin Cream - TP Not Given Q6HPO MORE Phenol/Menthol 1 spray 07/26/18 08:58 07/29/18 21:22 Chloraseptic - MM 1 spray Q6HPO PRN Administration SORE THROAT Prednisone 60 mg 07/30/18 10:00 07/31/18 09:53 Deltasone - PO 60 mg DAILY MORE Administration Impression 1. CKD vs YANG 2. hyperkalemia 3. copd 4. htn 5. a-fib 6. anxiety Plan - potassium normalized - [facility] laboratory is stable - can see as outpt - low potassium diet, discussed with pt - cardiology follow up
--- NOTE | 2018-07-31 13:19 | PN ---
Progress Note (short form) - Note Progress Note: Breathing overall feels better. No acute events overnight. Intake & Output 07/28/18 07/29/18 07/30/18 07/31/18 23:59 23:59 23:59 23:59 Intake Total 690 520 120 Output Total 1350 1420 825 650 Balance -660 -900 -825 -530 Weight 202 lb Last Vital Signs Temp Pulse Resp BP Pulse Ox 98.0 F 70 20 151/75 93 L 07/31/18 06:00 07/31/18 06:00 07/31/18 09:00 07/31/18 06:00 07/31/18 09:00 Active Medications Albuterol Sulfate (Ventolin 0.083% Nebulizer Soln -) 1 amp NEB Q1H PRN PRN Reason: SHORT OF BREATH/WHEEZING Albuterol/Ipratropium (Duoneb -) 1 amp NEB RQ4H [facility] Last Admin: 07/31/18 11:51 Dose: 1 amp Alprazolam (Xanax -) 0.5 mg PO HS [facility] Last Admin: 07/30/18 23:01 Dose: Not Given Aspirin (Asa -) 81 mg PO DAILY [facility] Last Admin: 07/31/18 09:54 Dose: 81 mg Budesonide/Formoterol Fumarate (Symbicort 160/4.5mcg -) 2 puff IH BID [facility] Last Admin: 07/31/18 09:59 Dose: 2 puff Diltiazem HCl (Cardizem Cd -) 120 mg PO DAILY [facility] Last Admin: 07/31/18 09:54 Dose: 120 mg Docusate Sodium (Colace -) 100 mg PO BID PRN PRN Reason: CONSTIPATION Last Admin: 07/30/18 17:09 Dose: 100 mg Enoxaparin Sodium (Lovenox -) 40 mg SQ DAILY [facility] Last Admin: 07/31/18 09:54 Dose: 40 mg Mometasone Furoate (Asmanex 220mcg -) 2 puff IH DAILY [facility] Last Admin: 07/31/18 09:59 Dose: Not Given Nystatin (Nystatin Oral Suspension -) 500,000 units PO Q6HPO MORE Last Admin: 07/31/18 12:17 Dose: 500,000 units Nystatin (Mycostatin Cream -) 1 applic TP Q6HPO MORE Last Admin: 07/31/18 12:16 Dose: Not Given Phenol/Menthol (Chloraseptic -) 1 spray MM Q6HPO PRN PRN Reason: SORE THROAT Last Admin: 07/29/18 21:22 Dose: 1 spray Prednisone (Deltasone -) 60 mg PO DAILY [facility] Last Admin: 07/31/18 09:53 Dose: 60 mg Constitutional: Yes: Awake and alert, NAD Eyes: Yes: WNL HENT: Yes: WNL Neck: Yes: WNL Cardiovascular: Yes: Regular Rate and Rhythm, S1, S2 Respiratory: Yes: Diminished throughout, no expiratory wheeze, scattered rhonchi Gastrointestinal: Yes: Normal Bowel Sounds, Soft Extremities: Yes: WNL Edema: No Labs: Laboratory Results - last 24 hr 07/31/18 07/31/18 08:07 08:07 WBC 8.4 RBC 3.82 L Hgb 11.4 L Hct 34.8 L MCV 91.2 MCH 30.0 MCHC 32.8 RDW 15.3 Plt Count 230 MPV 7.4 L Sodium 138 Potassium 4.3 Chloride 98 Carbon Dioxide 35 H Anion Gap 5 L BUN 40.7 H Creatinine 1.2 Est GFR (CKD-EPI)AfAm 68.15 Est GFR (CKD-EPI)NonAf 58.80 Random Glucose 86 Calcium 8.0 L Total Bilirubin 0.4 AST 16 ALT 58 Alkaline Phosphatase 85 Total Protein 5.5 L Albumin 2.4 L Assessment/Plan (1) COPD with acute exacerbation Code(s): J44.1 - CHRONIC OBSTRUCTIVE PULMONARY DISEASE W (ACUTE) EXACERBATION (2) Chronic respiratory failure with hypoxia Code(s): J96.11 - CHRONIC RESPIRATORY FAILURE WITH HYPOXIA Assessment/Plan Acute COPD Exacerbation Acute on Chronic Hypoxic Respiratory Failure Paroxysmal Atrial Fibrillation +Troponins likely Demand Ischemia LV Diastolic Dysfunction HTN - Prednisone - BD TX - O2 to keep SpO2 >88% - Azithromycin 250 mg po tiw as anti-inflammatory - D/C planning Dr Rios
[2018-07-31 15:19] VITALS: BP 137/74; PULSE 81; TEMP 97.6
== END 2018-07-31 15:32 | DRG 189 ==
LOC: JER 07:56 → JERBED 09:07 → J4S 11:03
PROVIDERS: ADMIT Student in an Organized Health Care Education/Training Program; ATTEND Student in an Organized Health Care Education/Training Program
DX: J96.21 Acute and chronic respiratory failure with hypoxia (principal); J44.1 Chronic obstructive pulmonary disease with (acute) exacerbation; I24.8 Other forms of acute ischemic heart disease; B37.0 Candidal stomatitis; N17.9 Acute kidney failure, unspecified; J96.22 Acute and chronic respiratory failure with hypercapnia; I48.91 Unspecified atrial fibrillation; I48.0 Paroxysmal atrial fibrillation; I12.9 Hypertensive chronic kidney disease with stage 1 through stage 4 chronic kidney disease, or unspecified chronic kidney disease; N18.9 Chronic kidney disease, unspecified; R60.0 Localized edema; E87.5 Hyperkalemia; M54.5 Low back pain; F41.9 Anxiety disorder, unspecified; I25.10 Atherosclerotic heart disease of native coronary artery without angina pectoris; R79.9 Abnormal finding of blood chemistry, unspecified; R74.8 Abnormal levels of other serum enzymes; Z99.81 Dependence on supplemental oxygen; Z22.322 Carrier or suspected carrier of Methicillin resistant Staphylococcus aureus
CPT/HCPCS: 36415; 36600; 71045-TC-FY; 76775-TC; 80048; 80053; 81003; 82375; 82550; 82570; 82803; 83050; 83605; 83735; 83880; 84100; 84156; 84484; 85025; 85027; 85610; 85730; 87040; 87081; 87804; 93005; 93010; 93970-TC; 94640; 94660; 97116-GP; 97161-GP; 99285-25; J7030

== ENCOUNTER 2018-09-22 20:58 | Inpatient (IN) | payer OTHER, MEDICARE ==
[2018-09-22] MEDS ORDERED: RAPID SEQUENCE INTUBATION KIT NR ONE (21:03)
[2018-09-22] MEDS ORDERED: KETAMINE HCL 200 MG/20 ML VIAL ONE (21:06)
[2018-09-22] MEDS ORDERED: MAGNESIUM SULF 50% (8.12 MEQ/2 ML-1 GM VIAL) ONE (21:22)
[2018-09-22] MEDS ORDERED: DEXAMETHASONE SOD PHOSPHATE 10 MG/1 ML VIAL ONE (21:22)
[2018-09-22] MEDS ORDERED: PROPOFOL 1,000,000 MCG/100 ML VIAL ONE (21:23)
[2018-09-22] MEDS ORDERED: PROPOFOL 1,000,000 MCG/100 ML VIAL IVPB SCH ×2 (21:30→21:48)
[2018-09-22] MEDS ORDERED: KETAMINE HCL 200 MG/20 ML VIAL IVPUSH ONE (21:41)
[2018-09-22 21:48] LABS: HEMOGLOBIN 8.6 GM/dL (11.7-16.9); MEAN CELL VOLUME 91.8 fl (80-96); WHITE BLOOD COUNT 6.7 K/mm3 (4.0-10.0)
[2018-09-22] MEDS ORDERED: PIPERACILLIN/TAZOB 3.375 GM 3.375 GM in DEXTROSE 5%-WATER - 50 ML IVPB ONE (21:49)
[2018-09-22] MEDS ORDERED: VANCOMYCIN 1 GM in D5W (PRE-DOCKED) 1,000 MG/250 ML IVPB ONE (21:49)
[2018-09-22 21:52] LABS: VENOUS PC02 55.1 mmHg (41-51); VENOUS PH 7.32 (7.31-7.41)
[2018-09-22 21:57] LABS: BASO % 0.1 % (0-2.0); EOS % 0.4 % (0-4.5); HEMATOCRIT 26.4 % (35.4-49); MCH 29.9 pg (25.7-33.7); MCHC 32.5 g/dl (32.0-35.9); MEAN PLT VOLUME 7.2 fl (7.5-11.1); MONO % 2.9 % (3.8-10.2); NEUT % 86.6 % (42.8-82.8); PLATELET COUNT 236 K/MM3 (134-434); RBC 2.88 M/mm3 (4.00-5.60); RDW 17.3 % (11.9-15.9)
[2018-09-22 22:13] LABS: EPI CELLS 1.6 /HPF (0-5/HPF); HYALINE CASTS 15 /lpf (0-8); URINE APPEARANCE CLEAR; URINE BACTERIA 0.5 /hpf (NEGATIVE); URINE BILIRUBIN NEGATIVE (NEGATIVE); URINE COLOR YELLOW; URINE GLUCOSE (UA) NEGATIVE (NEGATIVE); URINE KETONE NEGATIVE (NEGATIVE); URINE LEUK ESTERASE NEGATIVE (NEGATIVE); URINE NITRITE NEGATIVE (NEGATIVE); URINE PROTEIN 2+ (NEGATIVE); URINE RBC 1 /hpf (0-4); URINE UROBILINOGEN 0.2 mg/dL (0.2-1.0); URINE WBC 2 /hpf (0-5)
[2018-09-22] MEDS ORDERED: SODIUM CHLORIDE 1,000 ML IV STA (22:17)
[2018-09-22] MEDS ORDERED: VANCOMYCIN 1 GRAM (PRE-DOCKED) 1,000 MG/250 ML BAG IVPB ONE (22:21)
[2018-09-22] MEDS ORDERED: PIPERACILLIN/TAZOB 3.375 GM 3.375 GM/50 ML BAG IVPB ONE (22:22)
--- NOTE | 2018-09-22 22:23 | PDOC ---
Documentation entered by Coy Elmore SCRIBE, acting as scribe for Darlyn Gonzalez DO. Darlyn Gonzalez DO: This documentation has been prepared by the Ramírez frost Elijah, SCRIBE, under my direction and personally reviewed by me in its entirety. I confirm that the documentation accurately reflects all work , treatment, procedures, and medical decision making performed by me. Attending Attestation - Resident Resident Name: Jaylin Lindquist - ED Attending Attestation I have performed the following: I have examined & evaluated the patient, The case was reviewed & discussed with the resident, I agree w/resident's findings & plan - HPI HPI: 09/22/18 21:22 Patient is a 73 year old male with a significant past medical history of asthma who presents to the ED with increasing SOB. Patient was brought in with severe distress and was unable to provide history. Patient was recently admitted for similar symptoms. CPAP in Progress. Allergies:NKA - Physicial Exam PE: 09/22/18 21:25 Agree with Resident's exam. - Critical Care Time Total Critical Care Time: 60 Critical Care Statement: The care of this patient involved high complexity decision making to prevent further life threatening deterioration of the patient 's condition and/or to evaluate & treat vital organ system(s) failure or risk of failure. - Medical Decision Making 09/22/18 22:21 73-year-old male with severe respiratory distress Patient intubated on arrival due to increased work of breathing and oxygen saturation of 70% on 100% oxygen CPAP mask Patient given dexamethasone in route by EMS as well as duo nebs 2 and magnesium 2 g with minimal improvement Successful intubation performed by the emergency department resident, end tidal CO2, direct visualization and chest x-ray confirmed placement Patient to be admitted to ICU for further management
[2018-09-22 22:28] LABS: ALBUMIN 2.5 g/dl (3.4-5.0); BILIRUBIN,TOTAL 0.4 mg/dL (0.2-1); CALCIUM 7.8 mg/dL (8.5-10.1); CREATININE 1.2 mg/dL (0.55-1.3); N-TERMINAL BNP 821.7 pg/ml (5-450); POTASSIUM 4.6 mmol/L (3.5-5.1); TOT PROT 5.8 g/dl (6.4-8.2)
--- NOTE | 2018-09-22 22:36 | PDOC ---
History of Present Illness - General Chief Complaint: Respiratory Distress Stated Complaint: DIFFICULTY BREATHING Time Seen by Provider: 09/22/18 21:23 History Source: EMS, Family Exam Limitations: Intubated - History of Present Illness Initial Comments: 09/22/18 22:34 73yo M with PMH of COPD (on 2L O2), Afib, HTN, Anemia BIBA for SOB/COPD exacerbation. Patient was placed on CPAP by EMS, given magnesium and decadron. Patient was saturating in the 70s on CPAP and decision to intubate was made. Per , patient was in his usual state of health yesterday. He went to see his strip machine operator and everything was fine. Pt started to feel short of breath today and it got worse in the evening. also states that pt was hospitalized 3-4w ago at [facility] and ended up with a GI bleed which required repair and pt became anemic. No recent fevers. Pt had been intubated once in the past for COPD exacerbation. PMD: Doris PMH: see hpi PSH: see hpi Meds: see med rec Allergies: nkda Past History - Past Medical History Allergies/Adverse Reactions: Allergies Allergy/AdvReac Type Severity Reaction Status Date / Time No Known Allergies Allergy Verified 09/22/18 21:20 Home Medications: Ambulatory Orders Acetaminophen [Tylenol .Regular Strength -] 650 mg PO Q6H PRN #90 tablet Albuterol 0.083% Nebulizer Kayce [Ventolin 0.083% Nebulizer Soln -] 1 neb NEB Q4H PRN #30 vial 07/18/13 Fluticasone Propionate [Flovent Hfa] 110 mcg IH BID 12/18/13 Diltiazem Cd [Cardizem Cd -] 120 mg PO DAILY #30 cap.cd.24h 12/21/13 Arformoterol Tartrate [Brovana] 15 mcg IH BID #1 ml 04/08/14 Aspirin [ASA -] 81 mg PO DAILY #30 tab.chew 04/08/14 Polyethylene Glycol 3350 [Miralax 119 gm Btl -] 17 gm PO DAILY #1 bottle Oxycodone HCl 20 mg PO ONCE 07/03/18 Albuterol 2.5/Ipratropium 0.5 [Duoneb -] 1 amp NEB RQID #120 amp 07/08/18 Azithromycin [Zithromax 250mg Tablets -] 1 tab PO Q2D #2 tablet 07/08/18 Loratadine [Claritin -] 10 mg PO DAILY #30 tablet 07/08/18 Roflumilast [Daliresp -] 500 mcg PO DAILY #30 tablet 07/08/18 Prednisone 5 mg PO ASDIR 07/20/18 Albuterol 0.083% Nebulizer Kayce [Ventolin 0.083% Nebulizer Soln -] 1 amp NEB Q1H PRN amp 07/29/18 Albuterol 2.5/Ipratropium 0.5 [Duoneb -] 1 amp NEB RQ4H amp 07/29/18 Alprazolam [Xanax] 0.5 mg PO HS tablet MDD 1 07/29/18 Aspirin [ASA -] 81 mg PO DAILY #0 tab.chew 07/29/18 Azithromycin [Zithromax 250mg Tablets -] 250 mg PO Q2D tablet 07/29/18 Budesonide/Formeterol Fumarate [SYMBICORT 160/4.5mcg -] 2 puff IH BID inhaler 07/29/18 Diltiazem Cd [Cardizem Cd -] 120 mg PO DAILY cap.cd.24h 07/29/18 Docusate Sodium [Colace -] 100 mg PO BID PRN capsule 07/29/18 Enoxaparin [Lovenox -] 40 mg SQ DAILY disp.syrin 07/29/18 Methylprednisolone Na Succ [Solu-Medrol -] 20 mg IVPUSH Q8H-IV vial 07/29/18 Mometasone Furoate [Asmanex 220Mcg -] 2 puff IH DAILY inhaler 07/29/18 Nystatin Cream [Mycostatin Cream -] 1 applic TP Q6HPO applic 07/29/18 Nystatin Oral Suspension - [Nystatin Oral Susp 799736 Units/5 ML -] 500,000 units PO Q6HPO cup 07/29/18 Phenol [Chloraseptic -] 1 spray MM Q6HPO PRN bottle 07/29/18 predniSONE [Deltasone -] 60 mg PO DAILY tablet 07/29/18 Anemia: No Asthma: No Cancer: No Cardiac Disorders: Yes (a fib) CVA: No COPD: Yes CHF: No Dementia: No Diabetes: No GI Disorders: No Disorders: No HTN: No Hypercholesterolemia: No Liver Disease: No Seizures: No Thyroid Disease: No - Surgical History Abdominal Surgery: No Appendectomy: Yes Cardiac Surgery: No Cholecystectomy: Yes Lung Surgery: No Neurologic Surgery: No Orthopedic Surgery: Yes (total hip replacement) - Suicide/Smoking/Psychosocial Hx Smoking Status: Yes Smoking History: Never smoked Have you smoked in the past 12 months: No Number of Cigarettes Smoked Daily: 40 If you are a former smoker, when did you quit?: 1 YR AGO 'Breaking Loose' booklet given: 05/04/13 Hx Alcohol Use: No Drug/Substance Use Hx: No Substance Use Type: None Hx Substance Use Treatment: No Review of Systems - Review of Systems Able to Perform ROS?: No (intubated) *Physical Exam - Vital Signs Last Vital Signs Temp Pulse Resp BP Pulse Ox 96.6 F L 129 H 14 174/84 H 70 L 09/22/18 21:11 09/22/18 21:11 09/22/18 21:29 09/22/18 21:11 09/22/18 21:11 - Physical Exam General Appearance: Yes: Other (tachypneic, and uncomfortable upon arrival, using accessory muscles. ) HEENT: positive: EOMI, TYRONE Neck: positive: Trachea midline, Supple. negative: Lymphadenopathy (R), Lymphadenopathy (L) Respiratory/Chest: positive: Accessory Muscle Use, Rapid RR, Decreased Breath Sounds, Crackles, Rhonchi Cardiovascular: positive: Tachycardia. negative: Edema, JVD, Murmur Vascular Pulses: Dorsalis-Pedis (R): 2+, Doralis-Pedis (L): 2+ Gastrointestinal/Abdominal: positive: Normal Bowel Sounds, Soft. negative: Tender Musculoskeletal: negative: CVA Tenderness Extremity: positive: Normal Capillary Refill. negative: Swelling, Calf Tenderness, Erythema Integumentary: positive: Normal Color, Dry, Warm Neurologic: positive: screen room operator II-XII NML intact, Fully Oriented, Alert, Normal Mood/ Affect, Normal Response, Motor Strength 5/5 Procedures - Intubation Time of Intubation: 21:05 Intubation Method: orotracheal Blade used: Mac Tube Size (Fr): 7.5 Medications: Ketamine, Rocuronium Tube position @ lip (cm): 22 Tube position confirmed by: Direct visualization, CO2 detector, Chest x-ray, Breath sounds Intubation Complications: no complications Post Intubation Xray: Yes ED Treatment Course - LABORATORY CBC & Chemistry Diagram: 09/22/18 21:00 09/23/18 06:05 - ADDITIONAL ORDERS Additional order review: Laboratory Results 09/22/18 09/22/18 09/22/18 22:00 21:00 21:00 PT with INR INR PTT (Actin FS) VBG pH 7.32 POC VBG pCO2 55.1 H POC VBG pO2 126 H VBG HCO3 27.4 VBG O2 Sat (Lefty) 98.7 H VBG Base Excess 1.4 Sodium Potassium Chloride Carbon Dioxide Anion Gap BUN Creatinine Est GFR (CKD-EPI)AfAm Est GFR (CKD-EPI)NonAf Random Glucose Lactic Acid 1.4 Calcium Total Bilirubin AST ALT Alkaline Phosphatase Troponin I B-Natriuretic Peptide Total Protein Albumin Urine Color Yellow Urine Appearance Clear Urine pH 5.0 Ur Specific [place] 1.023 Urine Protein 2+ H Urine Glucose (UA) Negative Urine Ketones Negative Urine Blood Negative Urine Nitrite Negative Urine Bilirubin Negative Urine Urobilinogen 0.2 Ur Leukocyte Esterase Negative Urine WBC (Auto) 2 Urine RBC (Auto) 1 Urine Casts (Auto) 15 U Epithel Cells (Auto) 1.6 Urine Bacteria (Auto) 0.5 09/22/18 09/22/18 09/22/18 21:00 21:00 21:00 PT with INR 14.10 H INR 1.19 H PTT (Actin FS) 26.0 VBG pH POC VBG pCO2 POC VBG pO2 VBG HCO3 VBG O2 Sat (Lefty) VBG Base Excess Sodium 134 L Potassium 4.6 Chloride 98 Carbon Dioxide 28 Anion Gap 7 L BUN 24.0 H Creatinine 1.2 Est GFR (CKD-EPI)AfAm 68.15 Est GFR (CKD-EPI)NonAf 58.80 Random Glucose 134 H Lactic Acid Calcium 7.8 L Total Bilirubin 0.4 AST 17 ALT 25 Alkaline Phosphatase 108 Troponin I 0.03 B-Natriuretic Peptide 821.7 H Total Protein 5.8 L Albumin 2.5 L Urine Color Urine Appearance Urine pH Ur Specific [place] Urine Protein Urine Glucose (UA) Urine Ketones Urine Blood Urine Nitrite Urine Bilirubin Urine Urobilinogen Ur Leukocyte Esterase Urine WBC (Auto) Urine RBC (Auto) Urine Casts (Auto) U Epithel Cells (Auto) Urine Bacteria (Auto) 09/22/18 21:00 RBC 2.88 L MCV 91.8 MCHC 32.5 RDW 17.3 H MPV 7.2 L Neutrophils % 86.6 H Lymphocytes % 10.0 D Monocytes % 2.9 L Eosinophils % 0.4 D Basophils % 0.1 D - RADIOLOGY Radiology Studies Ordered: Category Date Time Status CHEST X-RAY PORTABLE* [RAD] Stat Radiology 09/22/18 21:28 Taken - Medications Given in the ED: ED Medications Discontinued Medications Generic Name Dose Route Start Last Admin Trade Name Roger PRN Reason Stop Dose Admin Propofol 1,000,000 mcg in 100 mls @ 3.13 mls/hr 09/22/18 21:30 09/22/18 21:42 Diprivan - IVPB 10 mcg/kg/min TITR MORE 6.26 mls/hr Administration Protocol 5 MCG/KG/MIN Ketamine HCl 100 mg 09/22/18 21:41 09/22/18 22:08 Ketalar - IVPUSH 09/22/18 21:42 100 mg ONCE ONE Administration Medical Decision Making - Critical Care Time Total Critical Care Time (minutes): 40 Critical Care Statement: The care of this patient involved high complexity decision making to prevent further life threatening deterioration of the patient 's condition and/or to evaluate & treat vital organ system(s) failure or risk of failure. - Medical Decision Making 09/23/18 07:44 73yo M with PMH of COPD (on 2L O2), Afib, HTN, Anemia BIBA for SOB/COPD exacerbation. Patient was placed on CPAP by EMS, given magnesium and decadron. Patient was saturating in the 70s on CPAP and decision to intubate was made. Per , patient was in his usual state of health yesterday. He went to see his strip machine operator and everything was fine. Pt started to feel short of breath today and it got worse in the evening. also states that pt was hospitalized 3-4w ago at [facility] and ended up with a GI bleed which required repair and pt became anemic. No recent fevers. Pt had been intubated once in the past for COPD exacerbation. Vitals; tachycardic, tachypneic, saturing in 70s. afebrile ddx includes but not limited to copd exacerbation, pe, chf, acs, ptx, pna likely copd exacerbation. pt intubated quickly upon arrival. see procedure note. added fluids, antibiotics, sedated with ketamine, induction by kofi. Given propfol drip for sedation and added fentanyl labs including guaiac (recent history of gi bleed), ts, cardiac enzymes, cultures. cxr: no infiltrates or consolidations ekg: sinus tachycardia at 129. pr 140, qtc 407. no marino or depressions. labs wnl, negative trop. pocus: no b lines. pt accepted to ICU. *DC/Admit/Observation/Transfer Diagnosis at time of Disposition: COPD with acute exacerbation - Discharge Dispostion Condition at time of disposition: Critical Decision to Admit order Date/Time: Decision to Admit Order Category Date Time Status Decision to Admit to Hospital Routine Admission 09/22/18 22:07 Active - Referrals - Patient Instructions - Post Discharge Activity
[2018-09-22 22:44] LABS: INR 1.18 (0.83-1.09); PROTHROMBIN TIME (PATIENT) 13.9 SEC (9.7-13.0)
[2018-09-22] MEDS ORDERED: FENTANYL INJECTION 500 MCG in DEXTROSE 5%-WATER - 90 ML IVPB SCH (22:45)
[2018-09-22 22:46] LABS: ACTIVATED PTT 25.4 SECONDS (25.2-36.5)
[2018-09-22 22:56] LABS: ANISOCYTOSIS 1+; MACROCYTOSIS 1+; PLATELET ESTIMATE ADEQUATE
[2018-09-22] MEDS ORDERED: fentaNYL CITRATE 250 MCG/5 ML VIAL ONE (23:01)
--- NOTE | 2018-09-22 23:01 | CONSULT ---
Consultation: REQUESTING PROVIDER: CONSULT REQUEST: We have been asked to medically evaluate this patient for ( specify). HISTORY OF PRESENT ILLNESS: HPI obtained from and children @ bedside as patient intubated at time of exam. Patient was in his usual state of health earlier today then around 7 p.m. he started to complain of chills and shortness of breath. Patient tried nebulizer treatment and continued c/o shortness of breath prompting to call 911. notes he has been hospitalized intermittently for eight weeks total since June 2018 including multiple hospitalizations for PNA and a hospitalization for GI bleed requiring transfusion. Recently completed a three week course of Methylprednisolone which states he was only supposed to take for 5 days. Patient takes Zithromax (3x weekly) for COPD. Also recently started on Fe pills for anemia As per EM medical staff patient was given Dexamethasone, Duo Nebs x2 and Mg (2 gm) en route to the hospital. ED course was significant for SpO2 70% on CPAP, s/p intubation (currently on ventilator, sedation w/propofol). REVIEW OF SYSTEMS: unable to obtain 2/2 to clinical condition PHYSICAL EXAMINATION General: Obese, intubated Respiratory: scattered rhonchi CV: S1, S2, Tachycardic Abdomen: soft, non-tender, (+) bowel sounds Extremity: 2+ DP pulses B/L, no edema Vital Signs - 24 hr 09/22/18 09/22/18 21:11 21:29 Temperature 96.6 F L Pulse Rate 129 H Respiratory 40 H 14 Rate Blood Pressure 174/84 H O2 Sat by Pulse 70 L Oximetry (%) Laboratory Results - last 24 hr 09/22/18 09/22/18 09/22/18 21:00 21:00 21:00 WBC 6.7 RBC 2.88 L Hgb 8.6 L Hct 26.4 L D MCV 91.8 MCH 29.9 MCHC 32.5 RDW 17.3 H Plt Count 236 MPV 7.2 L Absolute Neuts (auto) 5.8 Total Counted 100 Neutrophils % 86.6 H Neutrophils % (Manual) 65.0 D Band Neutrophils % 21.0 Lymphocytes % 10.0 D Lymphocytes % (Manual) 9.0 D Monocytes % 2.9 L Monocytes % (Manual) 2 L Eosinophils % 0.4 D Basophils % 0.1 D Myelocytes % (Man) 1 D Nucleated RBC % 0 Differential Comment Man diff performed Platelet Estimate Adequate Platelet Comment Polychromasia 1+ Anisocytosis 1+ Macrocytosis 1+ PT with INR 13.90 H INR 1.18 H PTT (Actin FS) 25.4 VBG pH POC VBG pCO2 POC VBG pO2 VBG HCO3 VBG O2 Sat (Lefty) VBG Base Excess Sodium Potassium Chloride Carbon Dioxide Anion Gap BUN Creatinine Est GFR (CKD-EPI)AfAm Est GFR (CKD-EPI)NonAf Random Glucose Lactic Acid Calcium Total Bilirubin AST ALT Alkaline Phosphatase Troponin I 0.03 B-Natriuretic Peptide Total Protein Albumin Urine Color Urine Appearance Urine pH Ur Specific [place] Urine Protein Urine Glucose (UA) Urine Ketones Urine Blood Urine Nitrite Urine Bilirubin Urine Urobilinogen Ur Leukocyte Esterase Urine WBC (Auto) Urine RBC (Auto) Urine Casts (Auto) U Epithel Cells (Auto) Urine Bacteria (Auto) 09/22/18 09/22/18 09/22/18 21:00 21:00 21:00 WBC RBC Hgb Hct MCV MCH MCHC RDW Plt Count MPV Absolute Neuts (auto) Total Counted Neutrophils % Neutrophils % (Manual) Band Neutrophils % Lymphocytes % Lymphocytes % (Manual) Monocytes % Monocytes % (Manual) Eosinophils % Basophils % Myelocytes % (Man) Nucleated RBC % Differential Comment Platelet Estimate Platelet Comment Polychromasia Anisocytosis Macrocytosis PT with INR Cancelled INR Cancelled PTT (Actin FS) VBG pH POC VBG pCO2 POC VBG pO2 VBG HCO3 VBG O2 Sat (Lefty) VBG Base Excess Sodium 134 L Potassium 4.6 Chloride 98 Carbon Dioxide 28 Anion Gap 7 L BUN 24.0 H Creatinine 1.2 Est GFR (CKD-EPI)AfAm 68.15 Est GFR (CKD-EPI)NonAf 58.80 Random Glucose 134 H Lactic Acid 1.4 Calcium 7.8 L Total Bilirubin 0.4 AST 17 ALT 25 Alkaline Phosphatase 108 Troponin I B-Natriuretic Peptide 821.7 H Total Protein 5.8 L Albumin 2.5 L Urine Color Urine Appearance Urine pH Ur Specific [place] Urine Protein Urine Glucose (UA) Urine Ketones Urine Blood Urine Nitrite Urine Bilirubin Urine Urobilinogen Ur Leukocyte Esterase Urine WBC (Auto) Urine RBC (Auto) Urine Casts (Auto) U Epithel Cells (Auto) Urine Bacteria (Auto) 09/22/18 09/22/18 21:00 22:00 WBC RBC Hgb Hct MCV MCH MCHC RDW Plt Count MPV Absolute Neuts (auto) Total Counted Neutrophils % Neutrophils % (Manual) Band Neutrophils % Lymphocytes % Lymphocytes % (Manual) Monocytes % Monocytes % (Manual) Eosinophils % Basophils % Myelocytes % (Man) Nucleated RBC % Differential Comment Platelet Estimate Platelet Comment Polychromasia Anisocytosis Macrocytosis PT with INR INR PTT (Actin FS) VBG pH 7.32 POC VBG pCO2 55.1 H POC VBG pO2 126 H VBG HCO3 27.4 VBG O2 Sat (Lefty) 98.7 H VBG Base Excess 1.4 Sodium Potassium Chloride Carbon Dioxide Anion Gap BUN Creatinine Est GFR (CKD-EPI)AfAm Est GFR (CKD-EPI)NonAf Random Glucose Lactic Acid Calcium Total Bilirubin AST ALT Alkaline Phosphatase Troponin I B-Natriuretic Peptide Total Protein Albumin Urine Color Yellow Urine Appearance Clear Urine pH 5.0 Ur Specific [place] 1.023 Urine Protein 2+ H Urine Glucose (UA) Negative Urine Ketones Negative Urine Blood Negative Urine Nitrite Negative Urine Bilirubin Negative Urine Urobilinogen 0.2 Ur Leukocyte Esterase Negative Urine WBC (Auto) 2 Urine RBC (Auto) 1 Urine Casts (Auto) 15 U Epithel Cells (Auto) 1.6 Urine Bacteria (Auto) 0.5 Active Medications Generic Name Dose Route Start Last Admin Trade Name Freq PRN Reason Stop Dose Admin Propofol 1,000,000 mcg in 100 mls @ 9.389 mls/hr 09/22/18 21:48 09/22/18 22: 08 Diprivan - IVPB 25 mcg/kg/min TITR MORE 15.649 mls/hr Titration Protocol 15 MCG/KG/MIN Sodium Chloride 1,000 mls @ 1,000 mls/hr 09/22/18 22:17 09/22/18 22:55 Normal Saline - IV 09/22/18 23:16 1,000 mls/hr ASDIR STA Administration Fentanyl 500 mcg/ Dextrose 100 mls @ 5 mls/hr 09/22/18 22:45 IVPB TITR MORE 25 MCG/HR ASSESSMENT/PLAN: The patient is a 73 year old male with a PMH of GI bleed, Anemia and COPD (on 2 L NC @ home) who presented to our ED in Respiratory Distress. Patient intubated and sedated with Propofol. Admitted to ICU for further monitoring. RESPIRATORY Acute on Chronic Respiratory Failure - s/p intubation w/Propofol sedation - Vent settings 500/12/5/40% (double triggering vent) - VBG 7.32/55.1/126/27.4 - CXR shows bibasilar atelectasis - ABG pending Acute COPD Exacerbation - No leukocytosis, Bandemia 21% - possibly 2/2 to chronic steroid use + chronic prophylatic ABx - Urine Legionella, Sputum Cultures pending - Continue Vanc/Zosyn - Duo-Nebs - Steroids CARDIOVASCULAR HTN - BP well controlled - Hold home medications HEMATOLOGY Anemia - Hb 8 - Continue to monitor daily CBC, transfuse for Hb =/< 7 FEN NS 75cc/hr Monitor Lytes replete PRN NPO Visit type - Emergency Visit Emergency Visit: Yes ED Registration Date: 09/22/18 Care time: The patient presented to the Emergency Department on the above date and was hospitalized for further evaluation of their emergent condition. - New Patient This patient is new to me today: Yes Date on this admission: 09/24/18 - Critical Care Critical Care patient: Yes Total Critical Care Time (in minutes): 30 Critical Care Statement: The care of this patient involved high complexity decision making to prevent further life threatening deterioration of the patient 's condition and/or to evaluate & treat vital organ system(s) failure or risk of failure. ATTENDING PHYSICIAN STATEMENT I saw and evaluated the patient. I reviewed the resident's note and discussed the case with the resident. I agree with the resident's findings and plan as documented. SUBJECTIVE: OBJECTIVE: ASSESSMENT AND PLAN:
[2018-09-23] MEDS: SODIUM CHLORIDE 1,000 ML IV SCH (00:35)
--- NOTE | 2018-09-23 00:44 | HP ---
CHIEF COMPLAINT: Respiratory Distress PCP: Dr. Miller HISTORY OF PRESENT ILLNESS: 73 year old male with PMHx of COPD (on 2L O2 at home), Afib, HTN arrived to ED via EMS for SOB/COPD exacerbation. Patient was placed on CPAP by EMS, given magnesium and decadron. Patient was saturating in the 70s on CPAP and decision to intubate was made in ED. As per family at bedside patient was in his usual state of health earlier today then in evening complained of chills and shortness of breath. Patient tried nebulizer treatment without relief which made call 911. According to patient has had multiple hospitalized intermittently for eight weeks total since June 2018 including multiple hospitalizations for PNA and a hospitalization for GI bleed requiring transfusion. Recently completed a three week course of Methylprednisolone which states supposed to be for 5 days. ER course was notable for: (1) with CPAP spo2 was 70s ---> intubation (currently on ventilator, sedation w/ propofol) (2) given a dose of Vanco, Zosy & 1 L IVF Recent Travel:No PAST MEDICAL HISTORY: A-fib,COPD PAST SURGICAL HISTORY: Appendectomy, Cholecystectomy, B/l Total hip replacement Social History: Smokin cigarettes a day, quite 1 year ago Alcohol: No Drugs: No Family History: Allergies: No Known Allergies Allergy (Verified 09/22/18 21:20) HOME MEDICATIONS: Home Medications Medication Instructions Recorded Acetaminophen [Tylenol .Regular 650 mg PO Q6H PRN #90 tablet 07/05/13 Strength -] Albuterol 0.083% Nebulizer Kayce 1 neb NEB Q4H PRN #30 vial 07/18/13 [Ventolin 0.083% Nebulizer Soln -] Fluticasone Propionate [Flovent 110 mcg IH BID 12/18/13 Hfa] Diltiazem Cd [Cardizem Cd -] 120 mg PO DAILY #30 cap.cd.24h 12/21/13 Arformoterol Tartrate [Brovana] 15 mcg IH BID #1 ml 04/08/14 Aspirin [ASA -] 81 mg PO DAILY #30 tab.chew 04/08/14 Polyethylene Glycol 3350 [Miralax 17 gm PO DAILY #1 bottle 04/08/14 119 gm Btl -] Oxycodone HCl 20 mg PO ONCE 07/03/18 Albuterol 2.5/Ipratropium 0.5 1 amp NEB RQID #120 amp 07/08/18 [Duoneb -] Azithromycin [Zithromax 250mg 1 tab PO Q2D #2 tablet 07/08/18 Tablets -] Loratadine [Claritin -] 10 mg PO DAILY #30 tablet 07/08/18 Roflumilast [Daliresp -] 500 mcg PO DAILY #30 tablet 07/08/18 Prednisone 5 mg PO ASDIR 07/20/18 Albuterol 0.083% Nebulizer Kayce 1 amp NEB Q1H PRN amp 07/29/18 [Ventolin 0.083% Nebulizer Soln -] Albuterol 2.5/Ipratropium 0.5 1 amp NEB RQ4H amp 07/29/18 [Duoneb -] Alprazolam [Xanax] 0.5 mg PO HS tablet MDD 1 07/29/18 Aspirin [ASA -] 81 mg PO DAILY #0 tab.chew 07/29/18 Azithromycin [Zithromax 250mg 250 mg PO Q2D tablet 07/29/18 Tablets -] Budesonide/Formeterol Fumarate 2 puff IH BID inhaler 07/29/18 [SYMBICORT 160/4.5mcg -] Diltiazem Cd [Cardizem Cd -] 120 mg PO DAILY cap.cd.24h 07/29/18 Docusate Sodium [Colace -] 100 mg PO BID PRN capsule 07/29/18 Enoxaparin [Lovenox -] 40 mg SQ DAILY disp.syrin 07/29/18 Methylprednisolone Na Succ 20 mg IVPUSH Q8H-IV vial 07/29/18 [Solu-Medrol -] Mometasone Furoate [Asmanex 220Mcg 2 puff IH DAILY inhaler 07/29/18 -] Nystatin Cream [Mycostatin Cream -] 1 applic TP Q6HPO applic 07/29/18 Nystatin Oral Suspension - 500,000 units PO Q6HPO cup 07/29/18 [Nystatin Oral Susp 551688 Units/5 ML -] Phenol [Chloraseptic -] 1 spray MM Q6HPO PRN bottle 07/29/18 predniSONE [Deltasone -] 60 mg PO DAILY tablet 07/29/18 REVIEW OF SYSTEMS: unable to obtain 2/2 to clinical condition PHYSICAL EXAMINATION Vital Signs - 24 hr 09/22/18 09/22/18 21:11 21:29 Temperature 96.6 F L Pulse Rate 129 H Respiratory 40 H 14 Rate Blood Pressure 174/84 H O2 Sat by Pulse 70 L Oximetry (%) GENERAL: + sedated, intubated HEENT: NC/AT, no JVD LUNGS: air entry equal, noted with few rhonchi HEART: Regular rate and rhythm, normal S1 and S2 without murmur, rub or gallop. ABDOMEN: Soft, nontender, not distended, normoactive bowel sounds, no guarding, no rebound, no masses. Extremity: edema 2+ B/l LE o NEUROLOGICAL: sedated SKIN: Warm, dry Laboratory Results - last 24 hr 09/22/18 09/22/18 09/22/18 21:00 21:00 21:00 WBC 6.7 RBC 2.88 L Hgb 8.6 L Hct 26.4 L D MCV 91.8 MCH 29.9 MCHC 32.5 RDW 17.3 H Plt Count 236 MPV 7.2 L Absolute Neuts (auto) 5.8 Total Counted 100 Neutrophils % 86.6 H Neutrophils % (Manual) 65.0 D Band Neutrophils % 21.0 Lymphocytes % 10.0 D Lymphocytes % (Manual) 9.0 D Monocytes % 2.9 L Monocytes % (Manual) 2 L Eosinophils % 0.4 D Basophils % 0.1 D Myelocytes % (Man) 1 D Nucleated RBC % 0 Differential Comment Man diff performed Platelet Estimate Adequate Platelet Comment Polychromasia 1+ Anisocytosis 1+ Macrocytosis 1+ PT with INR 13.90 H INR 1.18 H PTT (Actin FS) 25.4 VBG pH POC VBG pCO2 POC VBG pO2 VBG HCO3 VBG O2 Sat (Lefty) VBG Base Excess Sodium Potassium Chloride Carbon Dioxide Anion Gap BUN Creatinine Est GFR (CKD-EPI)AfAm Est GFR (CKD-EPI)NonAf Random Glucose Lactic Acid Calcium Total Bilirubin AST ALT Alkaline Phosphatase Troponin I 0.03 B-Natriuretic Peptide Total Protein Albumin Urine Color Urine Appearance Urine pH Ur Specific [place] Urine Protein Urine Glucose (UA) Urine Ketones Urine Blood Urine Nitrite Urine Bilirubin Urine Urobilinogen Ur Leukocyte Esterase Urine WBC (Auto) Urine RBC (Auto) Urine Casts (Auto) U Pathogenic Cast Auto U Epithel Cells (Auto) Urine Bacteria (Auto) 09/22/18 09/22/18 09/22/18 21:00 21:00 21:00 WBC RBC Hgb Hct MCV MCH MCHC RDW Plt Count MPV Absolute Neuts (auto) Total Counted Neutrophils % Neutrophils % (Manual) Band Neutrophils % Lymphocytes % Lymphocytes % (Manual) Monocytes % Monocytes % (Manual) Eosinophils % Basophils % Myelocytes % (Man) Nucleated RBC % Differential Comment Platelet Estimate Platelet Comment Polychromasia Anisocytosis Macrocytosis PT with INR Cancelled INR Cancelled PTT (Actin FS) VBG pH POC VBG pCO2 POC VBG pO2 VBG HCO3 VBG O2 Sat (Lefty) VBG Base Excess Sodium 134 L Potassium 4.6 Chloride 98 Carbon Dioxide 28 Anion Gap 7 L BUN 24.0 H Creatinine 1.2 Est GFR (CKD-EPI)AfAm 68.15 Est GFR (CKD-EPI)NonAf 58.80 Random Glucose 134 H Lactic Acid 1.4 Calcium 7.8 L Total Bilirubin 0.4 AST 17 ALT 25 Alkaline Phosphatase 108 Troponin I B-Natriuretic Peptide 821.7 H Total Protein 5.8 L Albumin 2.5 L Urine Color Urine Appearance Urine pH Ur Specific [place] Urine Protein Urine Glucose (UA) Urine Ketones Urine Blood Urine Nitrite Urine Bilirubin Urine Urobilinogen Ur Leukocyte Esterase Urine WBC (Auto) Urine RBC (Auto) Urine Casts (Auto) U Pathogenic Cast Auto U Epithel Cells (Auto) Urine Bacteria (Auto) 09/22/18 09/22/18 21:00 22:00 WBC RBC Hgb Hct MCV MCH MCHC RDW Plt Count MPV Absolute Neuts (auto) Total Counted Neutrophils % Neutrophils % (Manual) Band Neutrophils % Lymphocytes % Lymphocytes % (Manual) Monocytes % Monocytes % (Manual) Eosinophils % Basophils % Myelocytes % (Man) Nucleated RBC % Differential Comment Platelet Estimate Platelet Comment Polychromasia Anisocytosis Macrocytosis PT with INR INR PTT (Actin FS) VBG pH 7.32 POC VBG pCO2 55.1 H POC VBG pO2 126 H VBG HCO3 27.4 VBG O2 Sat (Lefty) 98.7 H VBG Base Excess 1.4 Sodium Potassium Chloride Carbon Dioxide Anion Gap BUN Creatinine Est GFR (CKD-EPI)AfAm Est GFR (CKD-EPI)NonAf Random Glucose Lactic Acid Calcium Total Bilirubin AST ALT Alkaline Phosphatase Troponin I B-Natriuretic Peptide Total Protein Albumin Urine Color Yellow Urine Appearance Clear Urine pH 5.0 Ur Specific [place] 1.023 Urine Protein 2+ H Urine Glucose (UA) Negative Urine Ketones Negative Urine Blood Negative Urine Nitrite Negative Urine Bilirubin Negative Urine Urobilinogen 0.2 Ur Leukocyte Esterase Negative Urine WBC (Auto) 2 Urine RBC (Auto) 1 Urine Casts (Auto) 15 U Pathogenic Cast Auto None seen U Epithel Cells (Auto) 1.6 Urine Bacteria (Auto) 0.5 ASSESSMENT/PLAN: 73 year old male with PMHx of COPD (on 2L O2 at home), Afib, HTN arrived to ED via EMS for SOB/COPD exacerbation, severe respiratory distress, intubated on arrival due to saturation of 70% on 100% oxygen CPAP mask. En enroute to ED EMS gave dexamethasone, duo nebs 2 and magnesium 2 g without much changes. # Acute on Chronic hypoxia respiratory failure ( s/p intubation) # Acute COPD exacerbation # A-FIB #HTN # Anemia - s/p intubation, sedated - f/u community youth secretary consult - repeat cbc, cmp, and ABGs - continue with nebulizer PRN - monitor BP, SPo2 levels closely - follow up occult blood, monitor H/H trend - follow up blood, urine culture - hogue in place, monitor I &O Problem List - Problem (1) Acute and chronic respiratory failure with hypoxia Code(s): J96.21 - ACUTE AND CHRONIC RESPIRATORY FAILURE WITH HYPOXIA (2) Intubation of airway performed without difficulty Code(s): Z78.9 - OTHER SPECIFIED HEALTH STATUS (3) COPD with acute exacerbation Code(s): J44.1 - CHRONIC OBSTRUCTIVE PULMONARY DISEASE W (ACUTE) EXACERBATION (4) Anemia Code(s): D64.9 - ANEMIA, UNSPECIFIED (5) AF (paroxysmal atrial fibrillation) Code(s): I48.0 - PAROXYSMAL ATRIAL FIBRILLATION (6) Hypertension Code(s): I10 - ESSENTIAL (PRIMARY) HYPERTENSION Qualifiers: Hypertension type: essential hypertension Qualified Code(s): I10 - Essential (primary) hypertension Visit type - Emergency Visit Emergency Visit: Yes ED Registration Date: 09/22/18 Care time: The patient presented to the Emergency Department on the above date and was hospitalized for further evaluation of their emergent condition. - New Patient This patient is new to me today: Yes Date on this admission: 09/23/18 - Critical Care Critical Care patient: Yes Total Critical Care Time (in minutes): 30 Critical Care Statement: The care of this patient involved high complexity decision making to prevent further life threatening deterioration of the patient 's condition and/or to evaluate & treat vital organ system(s) failure or risk of failure.
[2018-09-23 06:48] LABS: BILIRUBIN,TOTAL 0.5 mg/dL (0.2-1); BLOOD UREA NITROGEN 22.8 mg/dL (7-18); CALCIUM 7.6 mg/dL (8.5-10.1); CREATININE 1.2 mg/dL (0.55-1.3); POTASSIUM 4.4 mmol/L (3.5-5.1); TOT PROT 4.9 g/dl (6.4-8.2)
[2018-09-23 06:59] LABS: ARTERIAL BLOOD GAS BASE EXCESS 1.6 meq/l (-2-2); ARTERIAL BLOOD GAS PCO2 43.9 mmHg (35-45); ARTERIAL BLOOD GAS PO2 78.2 mmHg (80-105); ARTERIAL BLOOD GAS pH 7.39 (7.35-7.45)
[2018-09-23 07:01] LABS: ALLENS TEST POSITIVE
[2018-09-23] MEDS ORDERED: PIPERACILLIN/TAZOBACTAM 3.375 GM VIAL IVPB ONE (07:37)
[2018-09-23] MEDS ORDERED: DEXTROSE 5%-WATER - 50 ML IVPB ONE (07:37)
[2018-09-23 07:45] LABS: BASO % 0.1 % (0-2.0); EOS % 0.1 % (0-4.5); HEMATOCRIT 22.1 % (35.4-49); HEMOGLOBIN 7.2 GM/dL (11.7-16.9); LYMPH % 4.7 % (8-40); MCHC 32.4 g/dl (32.0-35.9); MEAN CELL VOLUME 92.7 fl (80-96); MEAN PLT VOLUME 7.4 fl (7.5-11.1); MONO % 2.7 % (3.8-10.2); NEUT % 92.4 % (42.8-82.8); PLATELET COUNT 162 K/MM3 (134-434); RBC 2.38 M/mm3 (4.00-5.60); RDW 17.3 % (11.9-15.9); WHITE BLOOD COUNT 8.3 K/mm3 (4.0-10.0)
[2018-09-23] MEDS ORDERED: PIPERACILLIN/TAZOB 3.375 GM 3.375 GM in DEXTROSE 5%-WATER - 50 ML IVPB SCH (08:00)
[2018-09-23] MEDS: ALBUTEROL SO4 2.5/IPRATROPIUM 0.5 INH SOL 3 ML VIAL.NEB. NEB SCH ×4 (08:15→20:50)
[2018-09-23] MEDS ORDERED: PT OWN MED DRAWER 7, Y5N ONE ×2 (09:09→19:47)
[2018-09-23] MEDS: methylPREDNISolone NA SUCC 40 MG/1 ML VIAL IVPUSH SCH (09:47)
[2018-09-23] MEDS: MUPIROCIN 2% TOPICAL OINTMENT FOR DECOLONIZATION NS SCH ×2 (09:48→22:24)
[2018-09-23] MEDS ORDERED: AZITHROMYCIN IVPB 250 MG in DEXTROSE 5%-WATER - 250 ML IVPB SCH (10:00)
--- NOTE | 2018-09-23 11:49 | PN ---
Physical Exam: SUBJECTIVE: Patient seen and examined at bedside. There were no acute events reported overnight. Will trial sedation vacation and CPAP to evaluate patient for extubation today. OBJECTIVE: Vital Signs Period Temp Pulse Resp BP Sys/[place] Pulse Ox Last 24 Hr 96.6 F-99.2 F 68-129 12-40 85-174/56-84 70-98 GENERAL: The patient is awake, alert, in no acute distress. HEAD: Normal with no signs of trauma. EYES: PERRL, extraocular movements intact, sclera anicteric, conjunctiva clear. ENT: Ears normal, nares patent NECK: Trachea midline, supple. LUNGS: Breath sounds equal, clear to auscultation bilaterally, no wheezes, no crackles, no accessory muscle use. HEART: Regular rate and rhythm, S1, S2 without murmur. ABDOMEN: Soft, nontender, nondistended, normoactive bowel sounds, EXTREMITIES: 2+ pulses, warm, well-perfused, no edema. SKIN: Warm, dry, normal turgor, no rashes or lesions noted Laboratory Results - last 24 hr 09/22/18 09/22/18 09/22/18 21:00 21:00 21:00 WBC 6.7 RBC 2.88 L Hgb 8.6 L Hct 26.4 L D MCV 91.8 MCH 29.9 MCHC 32.5 RDW 17.3 H Plt Count 236 MPV 7.2 L Absolute Neuts (auto) 5.8 Total Counted 100 Neutrophils % 86.6 H Neutrophils % (Manual) 65.0 D Band Neutrophils % 21.0 Lymphocytes % 10.0 D Lymphocytes % (Manual) 9.0 D Monocytes % 2.9 L Monocytes % (Manual) 2 L Eosinophils % 0.4 D Basophils % 0.1 D Myelocytes % (Man) 1 D Nucleated RBC % 0 Differential Comment Man diff performed Platelet Estimate Adequate Platelet Comment Polychromasia 1+ Anisocytosis 1+ Macrocytosis 1+ PT with INR 13.90 H INR 1.18 H PTT (Actin FS) 25.4 Puncture Site ABG pH ABG pCO2 at Pt Temp ABG pO2 at Pt Temp ABG HCO3 ABG O2 Sat (Measured) ABG O2 Content ABG Base Excess Josue Test VBG pH POC VBG pCO2 POC VBG pO2 VBG HCO3 VBG O2 Sat (Lefty) VBG Base Excess O2 Delivery Device Oxygen Flow Rate Vent Mode Vent Rate Mechanical Rate PEEP Pressure Support Vent Sodium Potassium Chloride Carbon Dioxide Anion Gap BUN Creatinine Est GFR (CKD-EPI)AfAm Est GFR (CKD-EPI)NonAf Random Glucose Lactic Acid Calcium Total Bilirubin AST ALT Alkaline Phosphatase Troponin I 0.03 B-Natriuretic Peptide Total Protein Albumin Urine Color Urine Appearance Urine pH Ur Specific [place] Urine Protein Urine Glucose (UA) Urine Ketones Urine Blood Urine Nitrite Urine Bilirubin Urine Urobilinogen Ur Leukocyte Esterase Urine WBC (Auto) Urine RBC (Auto) Urine Casts (Auto) U Pathogenic Cast Auto U Epithel Cells (Auto) Urine Bacteria (Auto) Blood Type Antibody Screen 09/22/18 09/22/18 09/22/18 21:00 21:00 21:00 WBC RBC Hgb Hct MCV MCH MCHC RDW Plt Count MPV Absolute Neuts (auto) Total Counted Neutrophils % Neutrophils % (Manual) Band Neutrophils % Lymphocytes % Lymphocytes % (Manual) Monocytes % Monocytes % (Manual) Eosinophils % Basophils % Myelocytes % (Man) Nucleated RBC % Differential Comment Platelet Estimate Platelet Comment Polychromasia Anisocytosis Macrocytosis PT with INR Cancelled INR Cancelled PTT (Actin FS) Puncture Site ABG pH ABG pCO2 at Pt Temp ABG pO2 at Pt Temp ABG HCO3 ABG O2 Sat (Measured) ABG O2 Content ABG Base Excess Josue Test VBG pH POC VBG pCO2 POC VBG pO2 VBG HCO3 VBG O2 Sat (Lefty) VBG Base Excess O2 Delivery Device Oxygen Flow Rate Vent Mode Vent Rate Mechanical Rate PEEP Pressure Support Vent Sodium 134 L Potassium 4.6 Chloride 98 Carbon Dioxide 28 Anion Gap 7 L BUN 24.0 H Creatinine 1.2 Est GFR (CKD-EPI)AfAm 68.15 Est GFR (CKD-EPI)NonAf 58.80 Random Glucose 134 H Lactic Acid 1.4 Calcium 7.8 L Total Bilirubin 0.4 AST 17 ALT 25 Alkaline Phosphatase 108 Troponin I B-Natriuretic Peptide 821.7 H Total Protein 5.8 L Albumin 2.5 L Urine Color Urine Appearance Urine pH Ur Specific [place] Urine Protein Urine Glucose (UA) Urine Ketones Urine Blood Urine Nitrite Urine Bilirubin Urine Urobilinogen Ur Leukocyte Esterase Urine WBC (Auto) Urine RBC (Auto) Urine Casts (Auto) U Pathogenic Cast Auto U Epithel Cells (Auto) Urine Bacteria (Auto) Blood Type Antibody Screen 09/22/18 09/22/18 09/22/18 21:00 22:00 23:45 WBC RBC Hgb Hct MCV MCH MCHC RDW Plt Count MPV Absolute Neuts (auto) Total Counted Neutrophils % Neutrophils % (Manual) Band Neutrophils % Lymphocytes % Lymphocytes % (Manual) Monocytes % Monocytes % (Manual) Eosinophils % Basophils % Myelocytes % (Man) Nucleated RBC % Differential Comment Platelet Estimate Platelet Comment Polychromasia Anisocytosis Macrocytosis PT with INR INR PTT (Actin FS) Puncture Site ABG pH ABG pCO2 at Pt Temp ABG pO2 at Pt Temp ABG HCO3 ABG O2 Sat (Measured) ABG O2 Content ABG Base Excess Josue Test VBG pH 7.32 POC VBG pCO2 55.1 H POC VBG pO2 126 H VBG HCO3 27.4 VBG O2 Sat (Lefty) 98.7 H VBG Base Excess 1.4 O2 Delivery Device Oxygen Flow Rate Vent Mode Vent Rate Mechanical Rate PEEP Pressure Support Vent Sodium Potassium Chloride Carbon Dioxide Anion Gap BUN Creatinine Est GFR (CKD-EPI)AfAm Est GFR (CKD-EPI)NonAf Random Glucose Lactic Acid Calcium Total Bilirubin AST ALT Alkaline Phosphatase Troponin I B-Natriuretic Peptide Total Protein Albumin Urine Color Yellow Urine Appearance Clear Urine pH 5.0 Ur Specific [place] 1.023 Urine Protein 2+ H Urine Glucose (UA) Negative Urine Ketones Negative Urine Blood Negative Urine Nitrite Negative Urine Bilirubin Negative Urine Urobilinogen 0.2 Ur Leukocyte Esterase Negative Urine WBC (Auto) 2 Urine RBC (Auto) 1 Urine Casts (Auto) 15 U Pathogenic Cast Auto None seen U Epithel Cells (Auto) 1.6 Urine Bacteria (Auto) 0.5 Blood Type O POSITIVE Antibody Screen Negative 09/23/18 09/23/18 09/23/18 00:41 06:05 06:05 WBC 8.3 RBC 2.38 L Hgb 7.2 L Hct 22.1 L D MCV 92.7 MCH 30.0 MCHC 32.4 RDW 17.3 H Plt Count 162 D MPV 7.4 L Absolute Neuts (auto) 7.7 Total Counted Neutrophils % 92.4 H Neutrophils % (Manual) Band Neutrophils % Lymphocytes % 4.7 L D Lymphocytes % (Manual) Monocytes % 2.7 L Monocytes % (Manual) Eosinophils % 0.1 Basophils % 0.1 Myelocytes % (Man) Nucleated RBC % 0 Differential Comment Platelet Estimate Platelet Comment Polychromasia Anisocytosis Macrocytosis PT with INR INR PTT (Actin FS) Puncture Site ABG pH ABG pCO2 at Pt Temp ABG pO2 at Pt Temp ABG HCO3 ABG O2 Sat (Measured) ABG O2 Content ABG Base Excess Josue Test VBG pH POC VBG pCO2 POC VBG pO2 VBG HCO3 VBG O2 Sat (Lefty) VBG Base Excess O2 Delivery Device Oxygen Flow Rate Vent Mode Vent Rate Mechanical Rate PEEP Pressure Support Vent Sodium 135 L Potassium 4.4 Chloride 100 Carbon Dioxide 28 Anion Gap 8 BUN 22.8 H Creatinine 1.2 Est GFR (CKD-EPI)AfAm 68.15 Est GFR (CKD-EPI)NonAf 58.80 Random Glucose 163 H Lactic Acid 1.1 Calcium 7.6 L Total Bilirubin 0.5 AST 17 ALT 21 Alkaline Phosphatase 88 Troponin I B-Natriuretic Peptide Total Protein 4.9 L Albumin 2.0 L Urine Color Urine Appearance Urine pH Ur Specific [place] Urine Protein Urine Glucose (UA) Urine Ketones Urine Blood Urine Nitrite Urine Bilirubin Urine Urobilinogen Ur Leukocyte Esterase Urine WBC (Auto) Urine RBC (Auto) Urine Casts (Auto) U Pathogenic Cast Auto U Epithel Cells (Auto) Urine Bacteria (Auto) Blood Type Antibody Screen 09/23/18 06:45 WBC RBC Hgb Hct MCV MCH MCHC RDW Plt Count MPV Absolute Neuts (auto) Total Counted Neutrophils % Neutrophils % (Manual) Band Neutrophils % Lymphocytes % Lymphocytes % (Manual) Monocytes % Monocytes % (Manual) Eosinophils % Basophils % Myelocytes % (Man) Nucleated RBC % Differential Comment Platelet Estimate Platelet Comment Polychromasia Anisocytosis Macrocytosis PT with INR INR PTT (Actin FS) Puncture Site Right radial ABG pH 7.39 ABG pCO2 at Pt Temp 43.9 ABG pO2 at Pt Temp 78.2 L ABG HCO3 26.1 ABG O2 Sat (Measured) 96.0 ABG O2 Content 9.7 L* ABG Base Excess 1.6 Josue Test Positive VBG pH POC VBG pCO2 POC VBG pO2 VBG HCO3 VBG O2 Sat (Lefty) VBG Base Excess O2 Delivery Device Vent Oxygen Flow Rate 40% Vent Mode A/c Vent Rate 12 Mechanical Rate Yes PEEP 5.0 Pressure Support Vent 500 Sodium Potassium Chloride Carbon Dioxide Anion Gap BUN Creatinine Est GFR (CKD-EPI)AfAm Est GFR (CKD-EPI)NonAf Random Glucose Lactic Acid Calcium Total Bilirubin AST ALT Alkaline Phosphatase Troponin I B-Natriuretic Peptide Total Protein Albumin Urine Color Urine Appearance Urine pH Ur Specific [place] Urine Protein Urine Glucose (UA) Urine Ketones Urine Blood Urine Nitrite Urine Bilirubin Urine Urobilinogen Ur Leukocyte Esterase Urine WBC (Auto) Urine RBC (Auto) Urine Casts (Auto) U Pathogenic Cast Auto U Epithel Cells (Auto) Urine Bacteria (Auto) Blood Type Antibody Screen Active Medications Generic Name Dose Route Start Last Admin Trade Name Freq PRN Reason Stop Dose Admin Albuterol/Ipratropium 1 amp 09/23/18 08:00 09/23/18 08:15 Duoneb - NEB 1 amp RQID MORE Administration Chlorhexidine Gluconate 1 applic 09/23/18 22:00 Hibiclens For Decolonization - TP HS MORE Propofol 1,000,000 mcg in 100 mls @ 9.389 mls/hr 09/22/18 21:48 09/23/18 04: 00 Diprivan - IVPB 10 mcg/kg/min TITR MORE 6.26 mls/hr Titration Protocol 15 MCG/KG/MIN Fentanyl 500 mcg/ Dextrose 100 mls @ 5 mls/hr 09/22/18 22:45 09/23/18 05:20 IVPB 25 mcg/hr TITR MORE 5 mls/hr Titration 25 MCG/HR Sodium Chloride 1,000 mls @ 75 mls/hr 09/23/18 00:30 09/23/18 00:35 Normal Saline - IV 75 mls/hr ASDIR MORE Administration Azithromycin 250 mg/ Dextrose 250 mls @ 250 mls/hr 09/23/18 10:00 09/23/18 10 :35 IVPB 250 mls/hr DAILY MORE Administration Piperacillin Sod/Tazobactam 50 mls @ 100 mls/hr 09/23/18 08:00 Sod 3.375 gm/ Dextrose IVPB Q8H-IV MORE Protocol Piperacillin Sod/Tazobactam 50 mls @ 100 mls/hr 09/23/18 08:00 09/23/18 07:54 Sod 3.375 gm/ Dextrose IVPB 09/24/18 00:29 100 mls/hr Q8H MORE Administration Methylprednisolone Sodium Succinate 40 mg 09/23/18 10:00 09/23/18 09:47 Solu-Medrol - IVPUSH 40 mg DAILY MORE Administration Mupirocin 1 applic 09/23/18 10:00 09/23/18 09:48 Bactroban Ointment (For Decolonization) - NS 09/28/18 09:59 1 applic BID MORE Administration ASSESSMENT/PLAN: The patient is a 73 year old male with a PMH of GI bleed, Anemia and COPD (on 2 L NC @ home) who presented to our ED in Respiratory Distress. Patient intubated and sedated with Propofol. Admitted to ICU for further monitoring. Acute on Chronic Respiratory Failure due to RLL PNA GI bleed Anemia O2 dependent COPD (on 2 L NC @ home) HTN Neurologic - Intubated but not sedated - Patient alert and following commands - Plan for trial of CPAP and extubation today. Cardiovascular - HTN - BP well controlled for now, continue to monitor - Holding home medications Pulmonary Acute on Chronic Respiratory Failure - intubated, not sedated, following commands - Vent settings 500/18/5/40% (was double triggering vent) -plan to trial CPAP and if well tolerated, extubate this morning - ABG 7.39/43.9/78.2/26.1 - CXR shows bibasilar atelectasis - continue Duo-Nebs - continue teroids Hematologic - Anemia in patient with history of recent GI bleed - Hb decreasing, now 7.2 from 8.6 yesterday - Continue to monitor daily CBC - transfuse for Hb =/< 7 - Continue to monitor for evidence of bleeding ID -Bandemia 21% without Leukocytosis- possibly 2/2 to chronic steroid use + chronic prophylatic ABx - RLL pneumonia(HAP)-legionella urinary antigen negative - Continue Vanc/Zosyn - d/c zithromax -history of MRSA colonization-continue isolation -f/u cultures -add probiotics - ID following, appreciate recommendations FEN NS 75cc/hr Monitor Lytes replete PRN NPO Visit type - Emergency Visit Emergency Visit: Yes ED Registration Date: 09/22/18 Care time: The patient presented to the Emergency Department on the above date and was hospitalized for further evaluation of their emergent condition. - New Patient This patient is new to me today: Yes Date on this admission: 09/23/18 - Critical Care Critical Care patient: Yes Total Critical Care Time (in minutes): 40 Critical Care Statement: The care of this patient involved high complexity decision making to prevent further life threatening deterioration of the patient 's condition and/or to evaluate & treat vital organ system(s) failure or risk of failure. ATTENDING PHYSICIAN STATEMENT I saw and evaluated the patient. I reviewed the resident's note and discussed the case with the resident. I agree with the resident's findings and plan as documented. SUBJECTIVE: OBJECTIVE: ASSESSMENT AND PLAN:
--- NOTE | 2018-09-23 12:00 | PN ---
Teaching Attending Note Name of Resident: Mary Ann Foley ATTENDING PHYSICIAN STATEMENT I saw and evaluated the patient. I reviewed the resident's note and discussed the case with the resident. I agree with the resident's findings and plan as documented. SUBJECTIVE: Patient seen and examined in the ICU. Intubated on AC Mode of vent, 40% FiO2. No pressors. Awake and alert and able to follow commands. Intake & Output 09/20/18 09/21/18 09/22/18 09/23/18 23:59 23:59 23:59 23:59 Intake Total 805 Output Total 500 Balance 305 Weight 187 lb 6.287 oz 188 lb 8 oz Last Vital Signs Temp Pulse Resp BP Pulse Ox 98.2 F 75 18 133/68 97 09/23/18 08:00 09/23/18 11:54 09/23/18 10:35 09/23/18 08:00 09/23/18 11:54 Active Medications Albuterol/Ipratropium (Duoneb -) 1 amp NEB RQID [facility] Last Admin: 09/23/18 11:55 Dose: 1 amp Chlorhexidine Gluconate (Hibiclens For Decolonization -) 1 applic TP HS MORE Propofol (Diprivan -) 1,000,000 mcg in 100 mls @ 9.389 mls/hr IVPB TITR MORE; Protocol Last Titration: 09/23/18 04:00 Dose: 10 mcg/kg/min, 6.26 mls/hr Fentanyl 500 mcg/ Dextrose 100 mls @ 5 mls/hr IVPB TITR [facility] Last Titration: 09/23/18 05:20 Dose: 25 mcg/hr, 5 mls/hr Sodium Chloride (Normal Saline -) 1,000 mls @ 75 mls/hr IV ASDIR MORE Last Admin: 09/23/18 00:35 Dose: 75 mls/hr Azithromycin 250 mg/ Dextrose 250 mls @ 250 mls/hr IVPB DAILY MORE Last Admin: 09/23/18 10:35 Dose: 250 mls/hr Piperacillin Sod/Tazobactam (Sod 3.375 gm/ Dextrose) 50 mls @ 100 mls/hr IVPB Q8H-IV MORE; Protocol Piperacillin Sod/Tazobactam (Sod 3.375 gm/ Dextrose) 50 mls @ 100 mls/hr IVPB Q8H MORE Stop: 09/24/18 00:29 Last Admin: 09/23/18 07:54 Dose: 100 mls/hr Methylprednisolone Sodium Succinate (Solu-Medrol -) 40 mg IVPUSH DAILY [facility] Last Admin: 09/23/18 09:47 Dose: 40 mg Mupirocin (Bactroban Ointment (For Decolonization) -) 1 applic NS BID [facility] Stop: 09/28/18 09:59 Last Admin: 09/23/18 09:48 Dose: 1 applic General: Obese, intubated, awake Respiratory: bibasilar rhonchi, Right > Left CV: S1, S2, Tachycardic Abdomen: soft, non-tender, (+) bowel sounds Extremity: 2+ DP pulses B/L, no edema [employer]CEIVING [employer]IST: awake and alert, non-focal Laboratory Results - last 24 hr 09/22/18 09/22/18 09/22/18 21:00 21:00 21:00 WBC 6.7 RBC 2.88 L Hgb 8.6 L Hct 26.4 L D MCV 91.8 MCH 29.9 MCHC 32.5 RDW 17.3 H Plt Count 236 MPV 7.2 L Absolute Neuts (auto) 5.8 Total Counted 100 Neutrophils % 86.6 H Neutrophils % (Manual) 65.0 D Band Neutrophils % 21.0 Lymphocytes % 10.0 D Lymphocytes % (Manual) 9.0 D Monocytes % 2.9 L Monocytes % (Manual) 2 L Eosinophils % 0.4 D Basophils % 0.1 D Myelocytes % (Man) 1 D Nucleated RBC % 0 Differential Comment Man diff performed Platelet Estimate Adequate Platelet Comment Polychromasia 1+ Anisocytosis 1+ Macrocytosis 1+ PT with INR 13.90 H INR 1.18 H PTT (Actin FS) 25.4 Puncture Site ABG pH ABG pCO2 at Pt Temp ABG pO2 at Pt Temp ABG HCO3 ABG O2 Sat (Measured) ABG O2 Content ABG Base Excess Josue Test VBG pH POC VBG pCO2 POC VBG pO2 VBG HCO3 VBG O2 Sat (Lefty) VBG Base Excess O2 Delivery Device Oxygen Flow Rate Vent Mode Vent Rate Mechanical Rate PEEP Pressure Support Vent Sodium Potassium Chloride Carbon Dioxide Anion Gap BUN Creatinine Est GFR (CKD-EPI)AfAm Est GFR (CKD-EPI)NonAf Random Glucose Lactic Acid Calcium Total Bilirubin AST ALT Alkaline Phosphatase Troponin I 0.03 B-Natriuretic Peptide Total Protein Albumin Urine Color Urine Appearance Urine pH Ur Specific [place] Urine Protein Urine Glucose (UA) Urine Ketones Urine Blood Urine Nitrite Urine Bilirubin Urine Urobilinogen Ur Leukocyte Esterase Urine WBC (Auto) Urine RBC (Auto) Urine Casts (Auto) U Pathogenic Cast Auto U Epithel Cells (Auto) Urine Bacteria (Auto) Blood Type Antibody Screen 09/22/18 09/22/18 09/22/18 21:00 21:00 21:00 WBC RBC Hgb Hct MCV MCH MCHC RDW Plt Count MPV Absolute Neuts (auto) Total Counted Neutrophils % Neutrophils % (Manual) Band Neutrophils % Lymphocytes % Lymphocytes % (Manual) Monocytes % Monocytes % (Manual) Eosinophils % Basophils % Myelocytes % (Man) Nucleated RBC % Differential Comment Platelet Estimate Platelet Comment Polychromasia Anisocytosis Macrocytosis PT with INR Cancelled INR Cancelled PTT (Actin FS) Puncture Site ABG pH ABG pCO2 at Pt Temp ABG pO2 at Pt Temp ABG HCO3 ABG O2 Sat (Measured) ABG O2 Content ABG Base Excess Josue Test VBG pH POC VBG pCO2 POC VBG pO2 VBG HCO3 VBG O2 Sat (Lefty) VBG Base Excess O2 Delivery Device Oxygen Flow Rate Vent Mode Vent Rate Mechanical Rate PEEP Pressure Support Vent Sodium 134 L Potassium 4.6 Chloride 98 Carbon Dioxide 28 Anion Gap 7 L BUN 24.0 H Creatinine 1.2 Est GFR (CKD-EPI)AfAm 68.15 Est GFR (CKD-EPI)NonAf 58.80 Random Glucose 134 H Lactic Acid 1.4 Calcium 7.8 L Total Bilirubin 0.4 AST 17 ALT 25 Alkaline Phosphatase 108 Troponin I B-Natriuretic Peptide 821.7 H Total Protein 5.8 L Albumin 2.5 L Urine Color Urine Appearance Urine pH Ur Specific [place] Urine Protein Urine Glucose (UA) Urine Ketones Urine Blood Urine Nitrite Urine Bilirubin Urine Urobilinogen Ur Leukocyte Esterase Urine WBC (Auto) Urine RBC (Auto) Urine Casts (Auto) U Pathogenic Cast Auto U Epithel Cells (Auto) Urine Bacteria (Auto) Blood Type Antibody Screen 09/22/18 09/22/18 09/22/18 21:00 22:00 23:45 WBC RBC Hgb Hct MCV MCH MCHC RDW Plt Count MPV Absolute Neuts (auto) Total Counted Neutrophils % Neutrophils % (Manual) Band Neutrophils % Lymphocytes % Lymphocytes % (Manual) Monocytes % Monocytes % (Manual) Eosinophils % Basophils % Myelocytes % (Man) Nucleated RBC % Differential Comment Platelet Estimate Platelet Comment Polychromasia Anisocytosis Macrocytosis PT with INR INR PTT (Actin FS) Puncture Site ABG pH ABG pCO2 at Pt Temp ABG pO2 at Pt Temp ABG HCO3 ABG O2 Sat (Measured) ABG O2 Content ABG Base Excess [place] Test VBG pH 7.32 POC VBG pCO2 55.1 H POC VBG pO2 126 H VBG HCO3 27.4 VBG O2 Sat (Lefty) 98.7 H VBG Base Excess 1.4 O2 Delivery Device Oxygen Flow Rate Vent Mode Vent Rate Mechanical Rate PEEP Pressure Support Vent Sodium Potassium Chloride Carbon Dioxide Anion Gap BUN Creatinine Est GFR (CKD-EPI)AfAm Est GFR (CKD-EPI)NonAf Random Glucose Lactic Acid Calcium Total Bilirubin AST ALT Alkaline Phosphatase Troponin I B-Natriuretic Peptide Total Protein Albumin Urine Color Yellow Urine Appearance Clear Urine pH 5.0 Ur Specific [place] 1.023 Urine Protein 2+ H Urine Glucose (UA) Negative Urine Ketones Negative Urine Blood Negative Urine Nitrite Negative Urine Bilirubin Negative Urine Urobilinogen 0.2 Ur Leukocyte Esterase Negative Urine WBC (Auto) 2 Urine RBC (Auto) 1 Urine Casts (Auto) 15 U Pathogenic Cast Auto None seen U Epithel Cells (Auto) 1.6 Urine Bacteria (Auto) 0.5 Blood Type O POSITIVE Antibody Screen Negative 09/23/18 09/23/18 09/23/18 00:41 06:05 06:05 WBC 8.3 RBC 2.38 L Hgb 7.2 L Hct 22.1 L D MCV 92.7 MCH 30.0 MCHC 32.4 RDW 17.3 H Plt Count 162 D MPV 7.4 L Absolute Neuts (auto) 7.7 Total Counted Neutrophils % 92.4 H Neutrophils % (Manual) Band Neutrophils % Lymphocytes % 4.7 L D Lymphocytes % (Manual) Monocytes % 2.7 L Monocytes % (Manual) Eosinophils % 0.1 Basophils % 0.1 Myelocytes % (Man) Nucleated RBC % 0 Differential Comment Platelet Estimate Platelet Comment Polychromasia Anisocytosis Macrocytosis PT with INR INR PTT (Actin FS) Puncture Site ABG pH ABG pCO2 at Pt Temp ABG pO2 at Pt Temp ABG HCO3 ABG O2 Sat (Measured) ABG O2 Content ABG Base Excess Josue Test VBG pH POC VBG pCO2 POC VBG pO2 VBG HCO3 VBG O2 Sat (Lefty) VBG Base Excess O2 Delivery Device Oxygen Flow Rate Vent Mode Vent Rate Mechanical Rate PEEP Pressure Support Vent Sodium 135 L Potassium 4.4 Chloride 100 Carbon Dioxide 28 Anion Gap 8 BUN 22.8 H Creatinine 1.2 Est GFR (CKD-EPI)AfAm 68.15 Est GFR (CKD-EPI)NonAf 58.80 Random Glucose 163 H Lactic Acid 1.1 Calcium 7.6 L Total Bilirubin 0.5 AST 17 ALT 21 Alkaline Phosphatase 88 Troponin I B-Natriuretic Peptide Total Protein 4.9 L Albumin 2.0 L Urine Color Urine Appearance Urine pH Ur Specific [place] Urine Protein Urine Glucose (UA) Urine Ketones Urine Blood Urine Nitrite Urine Bilirubin Urine Urobilinogen Ur Leukocyte Esterase Urine WBC (Auto) Urine RBC (Auto) Urine Casts (Auto) U Pathogenic Cast Auto U Epithel Cells (Auto) Urine Bacteria (Auto) Blood Type Antibody Screen 09/23/18 06:45 WBC RBC Hgb Hct MCV MCH MCHC RDW Plt Count MPV Absolute Neuts (auto) Total Counted Neutrophils % Neutrophils % (Manual) Band Neutrophils % Lymphocytes % Lymphocytes % (Manual) Monocytes % Monocytes % (Manual) Eosinophils % Basophils % Myelocytes % (Man) Nucleated RBC % Differential Comment Platelet Estimate Platelet Comment Polychromasia Anisocytosis Macrocytosis PT with INR INR PTT (Actin FS) Puncture Site Right radial ABG pH 7.39 ABG pCO2 at Pt Temp 43.9 ABG pO2 at Pt Temp 78.2 L ABG HCO3 26.1 ABG O2 Sat (Measured) 96.0 ABG O2 Content 9.7 L* ABG Base Excess 1.6 Josue Test Positive VBG pH POC VBG pCO2 POC VBG pO2 VBG HCO3 VBG O2 Sat (Lefty) VBG Base Excess O2 Delivery Device Vent Oxygen Flow Rate 40% Vent Mode A/c Vent Rate 12 Mechanical Rate Yes PEEP 5.0 Pressure Support Vent 500 Sodium Potassium Chloride Carbon Dioxide Anion Gap BUN Creatinine Est GFR (CKD-EPI)AfAm Est GFR (CKD-EPI)NonAf Random Glucose Lactic Acid Calcium Total Bilirubin AST ALT Alkaline Phosphatase Troponin I B-Natriuretic Peptide Total Protein Albumin Urine Color Urine Appearance Urine pH Ur Specific [place] Urine Protein Urine Glucose (UA) Urine Ketones Urine Blood Urine Nitrite Urine Bilirubin Urine Urobilinogen Ur Leukocyte Esterase Urine WBC (Auto) Urine RBC (Auto) Urine Casts (Auto) U Pathogenic Cast Auto U Epithel Cells (Auto) Urine Bacteria (Auto) Blood Type Antibody Screen ASSESSMENT/PLAN: Acute on Chronic Respiratory Failure due to RLL PNA GI bleed Anemia O2 dependent COPD (on 2 L NC @ home) HTN Wean to extubate ABX ID evaluation Check urinary antigen BD TX Daily Medrol Follow sputum Normal transfusion thresholds Requires ICU monitoring Dr Rios Critical care time spent in reviewing chart, evaluating patient and formulating plan - 36 minutes.
[2018-09-23 13:16] LABS: MACROCYTOSIS 1+; OVALOCYTE 1+; PLATELET ESTIMATE ADEQUATE; TEAR DROP CELLS 1+
[2018-09-23 13:16] LABS: BASO % 0.1 % (0-2.0); HEMATOCRIT 24.3 % (35.4-49); HEMOGLOBIN 7.9 GM/dL (11.7-16.9); LYMPH % 3.5 % (8-40); MCH 29.5 pg (25.7-33.7); MCHC 32.6 g/dl (32.0-35.9); MEAN CELL VOLUME 90.4 fl (80-96); MONO % 2.4 % (3.8-10.2); PLATELET COUNT 173 K/MM3 (134-434); RBC 2.69 M/mm3 (4.00-5.60); WHITE BLOOD COUNT 8.4 K/mm3 (4.0-10.0)
--- NOTE | 2018-09-23 13:53 | PN ---
Progress Note (short form) - Note Progress Note: ID consult dictated imp/reccd 73 yo ma n with history of copd on oxygen at home recently discharged from [facility] - reports anticiotics and steroids at [place], also had GI bleed, and Cdiff?? finished outpt steroids, has constipation yesterday developed sudden SOB , always coughs brought to ED by EMS-given decadron, nebs and magnesium en route intubated on arrival to the ER due to severe respiratory distress and hypoxia despite cpap received vancomycin, zosyn and zithromax in the ED extubated this am remains dyspneic he takes zithromax 3times a week as outpt no fevers +cough no dysuria aute on chronic resp failure RLL pneumonia(HAP)-legionella urinary antigen negative recent GI bleed COPD home oxygen history of MRSA colonization-continue isolation suggest vancomycin and zosyn d/c zithromax f/u cultures add probiotics over 40 minutes spent in the care of this critically ill ICU patient
[2018-09-23] MEDS ORDERED: DEXTROSE 5%-WATER 100 ML IVPB ONE ×2 (15:35→16:48)
[2018-09-23] MEDS ORDERED: PIPERACILLIN/TAZOBACTAM 4.5 GM VIAL IVPB ONE ×2 (15:35→16:48)
[2018-09-23] MEDS: VANCOMYCIN 1 GRAM (PRE-DOCKED) 1,000 MG/250 ML BAG IVPB SCH (15:46)
[2018-09-23] MEDS: PIPERACILLIN/TAZOB 4.5 GM 4.5 GM in DEXTROSE 5%-WATER 100 ML IVPB SCH ×2 (15:59→20:47)
--- NOTE | 2018-09-23 16:04 | EKG ---
Test Reason : Blood Pressure : / mmHG Vent. Rate : 088 BPM Atrial Rate : 088 BPM P-R Int : 152 ms QRS Dur : 090 ms QT Int : 352 ms P-R-T Axes : 055 -17 049 degrees QTc Int : 425 ms SINUS RHYTHM WITH MARKED SINUS ARRHYTHMIA WITH PREMATURE ATRIAL COMPLEXES WITH ABERRANT CONDUCTION LOW VOLTAGE QRS BORDERLINE ECG WHEN COMPARED WITH ECG OF 30-JUL-2018 09:21, QRS AXIS SHIFTED RIGHT PATIENT SITTING UP IN BED DURING EKG DUE TO BREATHING DIFFICULTY Confirmed by JHOANA BEST MD ([id number]) on 09/23/2018 4:03:44 PM Referred By: Sarah GANT Confirmed By:JHOANA BEST MD
[2018-09-23 16:19] LABS: ANISOCYTOSIS 0; HELMET CELLS 0; HOWELL-JOLLY BODIES 0; MACROCYTOSIS 0; OVALOCYTE 0; PLATELET ESTIMATE NORMAL; ROULEAU 0; SICKELED CELLS 0; TARGET CELLS 0; TEAR DROP CELLS 0; TOXIC GRANULATION 0
[2018-09-23] MEDS ORDERED: PANTOPRAZOLE SODIUM 40 MG VIAL IVPUSH ONE (16:29)
--- NOTE | 2018-09-23 17:50 | PN ---
Progress Note (short form) - Note Progress Note: Update #3 Noted that patient has tachypnea, with increased work of breathing (using accessory muscles of respiration) Patient denies chest or abdominal pain at this time. Endorses only shortness of breath STAT ABG reveals decreased PaO2 78.2 -> 45.8 while on 40% venti-mask, without CO2 retention. Patient placed on BiLevel ventillation with significant improvement of his work of breathing. Will obtain CTA chest to rule out pulmonary embolism. Update #2 Patient endorses re-occurrence of epigastric abdominal pain. Patient states this is similar pain he felt prior to his endoscopy for ?bleeding gastric ulcer. His abdomen is soft, mildly tender at epigastrum without guarding, rigidity, or rebound tenderness. Patient given Ranitidine, and Maalox with improvement of the pain Patient endorses vague chest discomfort EKG performed revealing sinus arrhythmia, repeat reveals Afib (known history of PAF). Negative ischemic changes noted. Patient endorses recent history of hematemesis 3-4 weeks ago, requiring PRBC transfusion- refuses anticoagulation, and aspirin Case discussed with Dr. Oakley Upon further questioning, patient endorses the discomfort is in epigastric region. Protonix 40mg IV push- patient endorses significant improvement of the discomfort.
--- NOTE | 2018-09-23 18:44 | PN ---
Progress Note, Physician Chief Complaint: Pneumonia Afib COPD History of Present Illness: Previous notes and events reviewed awake and alert NAD complain of mid chest/epigastric pain, EKG and troponin ordered, EKG shows Afib , stated feeling relief after receiving pantoprazole patient extubated and on VentiMask 40% denies dyspnea or cough - Current Medication List Current Medications: Active Medications Albuterol/Ipratropium (Duoneb -) 1 amp NEB RQID [facility] Last Admin: 09/23/18 15:54 Dose: 1 amp Chlorhexidine Gluconate (Hibiclens For Decolonization -) 1 applic TP HS [facility] Diltiazem HCl (Cardizem Cd -) 120 mg PO DAILY [facility] Last Admin: 09/23/18 17:57 Dose: 120 mg Sodium Chloride (Normal Saline -) 1,000 mls @ 75 mls/hr IV ASDIR [facility] Last Admin: 09/23/18 00:35 Dose: 75 mls/hr Vancomycin HCl (Vancomycin (Pre-Docked)) 1,000 mg in 250 mls @ 166.667 mls/hr IVPB Q12H [facility]; Protocol Last Admin: 09/23/18 15:46 Dose: 166.667 mls/hr Piperacillin Sod/Tazobactam (Sod 4.5 gm/ Dextrose) 100 mls @ 200 mls/hr IVPB Q8H-IV MORE; Protocol Last Admin: 09/23/18 15:59 Dose: 200 mls/hr Lactobacillus Acidophilus (Bacid -) 1 tab PO DAILY [facility] Methylprednisolone Sodium Succinate (Solu-Medrol -) 40 mg IVPUSH DAILY [facility] Last Admin: 09/23/18 09:47 Dose: 40 mg Mupirocin (Bactroban Ointment (For Decolonization) -) 1 applic NS BID [facility] Stop: 09/28/18 09:59 Last Admin: 09/23/18 09:48 Dose: 1 applic - Objective Vital Signs: Vital Signs Temperature 98.2 F 09/23/18 08:00 Pulse Rate 93 H 09/23/18 17:00 Respiratory Rate 17 09/23/18 17:00 Blood Pressure 122/58 L 09/23/18 17:00 O2 Sat by Pulse Oximetry (%) 97 09/23/18 11:54 Constitutional: Yes: No Distress, Calm Eyes: Yes: Conjunctiva Clear HENT: Yes: Atraumatic Cardiovascular: Yes: Pulse Irregular Respiratory: Yes: Regular, On Venti-Mask, Rhonchi Gastrointestinal: Yes: Normal Bowel Sounds, Soft Musculoskeletal: Yes: Muscle Weakness Extremities: Yes: WNL Edema: Yes (2+ pedal edema) Neurological: Yes: Alert, Oriented Psychiatric: Yes: Alert, Oriented Labs: CBC, BMP 09/23/18 12:55 09/23/18 06:05 INR, PTT INR 1.18 (0.83-1.09) H 09/22/18 21:00 Microbiology 09/23/18 02:00 Sputum - Endotrachea Suction/Ventilator Gram Stain - Final 09/23/18 02:00 Urine For Antigen Detection Legionella Antigen - Final 09/23/18 02:00 Urine For Antigen Detection Streptococcus pneumoniae Antigen (M - Final - ....Imaging Chest X-ray: Report Reviewed EKG: Report Reviewed Problem List - Problems (1) Acute and chronic respiratory failure with hypoxia Assessment/Plan: -Pulmonary on board -CXR shows prominent mediastinum with congestive changes and some bibasilar atelectactic/infiltrative findings -patient extubated -VentiMask 40% -keep SpO2 >90% -bronchodilators -IV Medrol Code(s): J96.21 - ACUTE AND CHRONIC RESPIRATORY FAILURE WITH HYPOXIA (2) Anemia Assessment/Plan: -Hg 7.9 -monitor Hg daily -transfuse for Hg <7.0 to avoid fluid overload -recent admission to [facility] for GI bleed Code(s): D64.9 - ANEMIA, UNSPECIFIED (3) COPD with acute exacerbation Assessment/Plan: -Pulm on board -CXR shows prominent mediastinum with congestive changes and some bibasilar atelectactic/infiltrative findings -VentiMask 40% -keep SpO2 >90% -bronchodilators -IV Medrol Code(s): J44.1 - CHRONIC OBSTRUCTIVE PULMONARY DISEASE W (ACUTE) EXACERBATION (4) Pneumonia Assessment/Plan: -Pulm on board -CXR shows prominent mediastinum with congestive changes and some bibasilar atelectactic/infiltrative findings -VentiMask 40% -keep SpO2 >90% -bronchodilators -IV Medrol -ID on board -afebrile -Vancomycin, Zosyn -no leukocytosis -tylenol prn for temp >100F -BC and Sputum cultures pending -Urine Legionella neg Code(s): J18.9 - PNEUMONIA, UNSPECIFIED ORGANISM (5) Hypertension Assessment/Plan: -Cardizem Code(s): I10 - ESSENTIAL (PRIMARY) HYPERTENSION Qualifiers: Hypertension type: essential hypertension Qualified Code(s): I10 - Essential (primary) hypertension (6) Chest pain Assessment/Plan: -EKG shows afib--not on AC?, recent admission to [facility] for GI bleed -troponin ordered -telemetry monitoring -cardiology consult Code(s): R07.9 - CHEST PAIN, UNSPECIFIED Assessment/Plan see problem list SCDs
--- NOTE | 2018-09-23 19:22 | CONS ---
DATE OF CONSULTATION: DATE OF DICTATION: 09/23/2018 INFECTIOUS DISEASE CONSULTATION REQUESTING PHYSICIAN: Jenn Miller M.D. CONSULTING PHYSICIAN: Stephanie Romo M.D. HISTORY OF PRESENT ILLNESS: This is a 73-year-old man with a past medical history of COPD on home oxygen who was recently admitted to [facility] he reports several weeks ago. Over the course of his admission, he states he was treated with antibiotics and steroids. He had a GI bleed as well, and he states he may have had C. difficile. After discharge he says he was continued on steroids. He does not know if he was continued on antibiotics. He reports he finished the steroid tape. Yesterday he developed sudden shortness of breath. He reports he has a chronic cough. He was brought to the ER by EMS, given Decadron nebulizers and magnesium en route. He was intubated on arrival to the ER due to severe respiratory distress and hypoxia despite CPAP. He received vancomycin, Zosyn, and Zithromax in the ER. He was extubated this morning. He still remains dyspneic. He reports he takes Zithromax 3 times a week as an outpatient per Dr. Lira. He denies any fevers, but has this cough. He denies any dysuria, and he reports constipation. PAST MEDICAL HISTORY: At [facility] he has had 2 admissions here for COPD exacerbation and has had MRSA colonization of his nares. His past medical history is notable for this recent admission to [place]. He has had a prior history of COPD on home oxygen 2 L, atrial fibrillation, hypertension. He is status post appendectomy, cholecystectomy, and bilateral total hip repair. He has chronic low back pain as well. SOCIAL HISTORY: He lives at home with his . He is retired. There is no history of recent travel. He has no known drug allergies. FAMILY HISTORY: Notable for heart disease in his father and colon and renal bladder cancer in his mother. MEDICATION: His medications as an outpatient include prednisone, Daliresp, Miralax, Nystatin, , Claritin, Lovenox, Colace, Cardizem, Zithromax every 2 days, aspirin, Brovana, Xanax, Ventolin nebulizer solution, DuoNeb nebulizer solution. PHYSICAL EXAMINATION: GENERAL: He is awake and alert. VITAL SIGNS: T-max is 99.2, current temperature is 98.2. His pulse was 72, his blood pressure 107/59, respiratory rate 24, he is saturating 97% on Ventimask. HEENT: Normocephalic. Eyes are anicteric. PULMONARY: He has bilateral rhonchi on exam. HEART: Regular rate and rhythm. ABDOMEN: Firm, nontender. EXTREMITIES: Without edema. LABORATORY: White count is 8.4, hemoglobin 7.9, platelets of 173. BUN and creatinine are 22 and 1.2, LFTs are normal. Urinalysis is negative. Cultures are pending. Legionella urinary antigen is negative. Chest x-ray reveals a possible right lower lobe infiltrate. IMPRESSION: In summary this is a 73-year-old man with acute on chronic respiratory failure, chest extubated, right lower lobe pneumonia hospital acquired, legionella urinary antigen negative, recent gastrointestinal bleed, chronic obstructive pulmonary disease on home oxygen, history of methicillin-resistant Staphylococcus aureus colonization, would continue isolation. Suggest vancomycin and Zosyn at this time, discontinue Zithromax. Follow up cultures. Add probiotics. Overall 40 minutes were spent in the care of this critically ill intensive care unit patient. Alexsandra [id number]
--- NOTE | 2018-09-23 19:45 | CON.CARD ---
Consult Consult Specialty:: Cardiology Referred by:: JORDYN Kimbrough Reason for Consultation:: PAF - History of Present Illness Chief Complaint: Dyspnea, respiratory failure History of Present Illness: Patient is a 73 year old male (last saw in the office on 12/16/17) with underlying history of COPD dependent on O2 recent admission for exacerbation at [facility] with GI bleed and ?c. diff, undergoing prednisone taper, remote history of PAF (not on anticoagulation due to patient refusal), and HTN who presented to [facility] with worsening shortness of breath refractory to nebulizer treatments, intubated for hypoxic respiratory failure despite NIPPV, recently extubated on 40% VM, noted to be back in rate-controlled afib, denies chest pain , palpitations, near or true syncope. - History Source History Provided By: Medical Record Limitations to Obtaining History: Clinical Condition - Past Medical History Cardio/Vascular: Yes: AFIB, HTN Pulmonary: Yes: COPD (home oxygen), Pneumonia Musculoskeletal: Yes: Chronic low back pain - Past Surgical History Past Surgical History: Yes: Appendectomy, Cholecystectomy - Alcohol/Substance Use Hx Alcohol Use: No History of Substance Use: reports: None - Smoking History Smoking history: Never smoked Have you smoked in the past 12 months: No Aproximately how many cigarettes per day: 40 If you are a former smoker, when did you quit?: 1 YR AGO - Social History Usual Living Arrangement: With Spouse ADL: Independent Occupation: retired History of Recent Travel: No Home Medications - Allergies Allergies/Adverse Reactions: Allergies Allergy/AdvReac Type Severity Reaction Status Date / Time No Known Allergies Allergy Verified 09/22/18 21:20 - Home Medications Home Medications: Ambulatory Orders Acetaminophen [Tylenol .Regular Strength -] 650 mg PO Q6H PRN #90 tablet Albuterol 0.083% Nebulizer Kayce [Ventolin 0.083% Nebulizer Soln -] 1 neb NEB Q4H PRN #30 vial 07/18/13 Fluticasone Propionate [Flovent Hfa] 110 mcg IH BID 12/18/13 Diltiazem Cd [Cardizem Cd -] 120 mg PO DAILY #30 cap.cd.24h 12/21/13 Arformoterol Tartrate [Brovana] 15 mcg IH BID #1 ml 04/08/14 Aspirin [ASA -] 81 mg PO DAILY #30 tab.chew 04/08/14 Polyethylene Glycol 3350 [Miralax 119 gm Btl -] 17 gm PO DAILY #1 bottle Oxycodone HCl 20 mg PO ONCE 07/03/18 Albuterol 2.5/Ipratropium 0.5 [Duoneb -] 1 amp NEB RQID #120 amp 07/08/18 Azithromycin [Zithromax 250mg Tablets -] 1 tab PO Q2D #2 tablet 07/08/18 Loratadine [Claritin -] 10 mg PO DAILY #30 tablet 07/08/18 Roflumilast [Daliresp -] 500 mcg PO DAILY #30 tablet 07/08/18 Prednisone 5 mg PO ASDIR 07/20/18 Albuterol 0.083% Nebulizer Kayce [Ventolin 0.083% Nebulizer Soln -] 1 amp NEB Q1H PRN amp 07/29/18 Albuterol 2.5/Ipratropium 0.5 [Duoneb -] 1 amp NEB RQ4H amp 07/29/18 Alprazolam [Xanax] 0.5 mg PO HS tablet MDD 1 07/29/18 Aspirin [ASA -] 81 mg PO DAILY #0 tab.chew 07/29/18 Azithromycin [Zithromax 250mg Tablets -] 250 mg PO Q2D tablet 07/29/18 Budesonide/Formeterol Fumarate [SYMBICORT 160/4.5mcg -] 2 puff IH BID inhaler 07/29/18 Diltiazem Cd [Cardizem Cd -] 120 mg PO DAILY cap.cd.24h 07/29/18 Docusate Sodium [Colace -] 100 mg PO BID PRN capsule 07/29/18 Enoxaparin [Lovenox -] 40 mg SQ DAILY disp.syrin 07/29/18 Methylprednisolone Na Succ [Solu-Medrol -] 20 mg IVPUSH Q8H-IV vial 07/29/18 Mometasone Furoate [Asmanex 220Mcg -] 2 puff IH DAILY inhaler 07/29/18 Nystatin Cream [Mycostatin Cream -] 1 applic TP Q6HPO applic 07/29/18 Nystatin Oral Suspension - [Nystatin Oral Susp 896258 Units/5 ML -] 500,000 units PO Q6HPO cup 07/29/18 Phenol [Chloraseptic -] 1 spray MM Q6HPO PRN bottle 07/29/18 predniSONE [Deltasone -] 60 mg PO DAILY tablet 07/29/18 Family Disease History - Family Disease History Family Disease History: Heart Disease: Father ([place] at age 63 ), CA: Mother (Colon , Renal/Bladder) Review of Systems - Review of Systems Cardiovascular: reports: Shortness of Breath Respiratory: reports: SOB Vital Signs: Vital Signs Temperature 98.2 F 09/23/18 08:00 Pulse Rate 93 H 09/23/18 17:00 Respiratory Rate 17 09/23/18 17:00 Blood Pressure 122/58 L 09/23/18 17:00 O2 Sat by Pulse Oximetry (%) 97 09/23/18 11:54 Constitutional: Yes: No Distress, Calm Neck: Yes: Supple Respiratory: Yes: Regular, Diminished, On Venti-Mask Gastrointestinal: Yes: Normal Bowel Sounds, Soft Cardiovascular: Yes: Pulse Irregular JVD: No Carotid Bruit: No Heart Sounds: Yes: S1, S2 Edema: No - Other Data Labs, Other Data: CBC, BMP 09/23/18 12:55 09/23/18 06:05 INR, PTT INR 1.18 (0.83-1.09) H 09/22/18 21:00 Troponin, BNP 09/22/18 09/22/18 21:00 21:00 Troponin I 0.03 B-Natriuretic Peptide 821.7 H Troponin, BNP 09/22/18 09/22/18 21:00 21:00 Troponin I 0.03 B-Natriuretic Peptide 821.7 H NSR PAC ECG: Afib @98 Tele: Afib Ejection Fraction %: LVEF > or = 40 % Imaging - Results Chest X-ray: Report Reviewed (Lou ROCHE) Problem List - Problems (1) Acute and chronic respiratory failure with hypoxia Code(s): J96.21 - ACUTE AND CHRONIC RESPIRATORY FAILURE WITH HYPOXIA (2) Anemia Code(s): D64.9 - ANEMIA, UNSPECIFIED Qualifiers: Iron deficiency anemia type: chronic blood loss (3) COPD with acute exacerbation Code(s): J44.1 - CHRONIC OBSTRUCTIVE PULMONARY DISEASE W (ACUTE) EXACERBATION (4) AF (paroxysmal atrial fibrillation) Code(s): I48.0 - PAROXYSMAL ATRIAL FIBRILLATION (5) Hypertension Code(s): I10 - ESSENTIAL (PRIMARY) HYPERTENSION Qualifiers: Hypertension type: essential hypertension Qualified Code(s): I10 - Essential (primary) hypertension (6) Pneumonia Code(s): J18.9 - PNEUMONIA, UNSPECIFIED ORGANISM Qualifiers: Laterality: right Lung location: lower lobe of lung Assessment/Plan Echocardiogram 07/03/2018 Normal LV and RV size and fxn, LVEF 55-60%, mild LAE, mild ao root dilatation 4.2 cm, impaired LV relaxation Echocardiography (12/08/17) which revealed normal LV systolic function, LVEF 60- 65%, moderately dilated ascending thoracic aorta, mild TR and trace [place]. Nuclear MPI (08/20/16) revealed moderate zone of anterior and anteroapical reversible defect c/s mild intensity ischemia and moderate inferior attenuation. LVEF was 71%. 1. Post acute on chronic hypercapneic/hypoxemic respiratory failure requiring mechanical ventilation 2. Acute COPD exacerbation 3. RLL pneumonia(HAP)-legionella urinary antigen negative 4. PAF [id number] score of 2-3 currently in sinus rhythm (refused DOAC or Coumadin) 5. Recent GI bleed 6. Anemia 7. HTN 8. Prior abnormal nuclear MPI suggests CAD with demand ischemia 9. Diastolic dysfunction 10. Hstory of MRSA colonization-continue isolation PLAN: 1. IV steroids with GI protection, bronchodilators, O2, Vanco/zosyn per C&S and BIPAP as needed, pulmonary rehab post discharge 2. Continue Cardizem CD 120 mg QD and hold ASA 81 mg QD, diuresis as needed 3. Ideally anticoagulation is recommended, but patient has previously declined, recent GI bleed. Continue DVT prophylaxis 4. Cardiac work up including repeat nuclear MPI can be done as outpatient in the office once clinically improved 5. Monitor Hgb and transfuse as needed 6. Thank you for consultative opportunity
[2018-09-23] MEDS ORDERED: RANITIDINE HCL 150 MG TABLET (FP) PO ONE (20:04)
[2018-09-23] MEDS ORDERED: MAG HYDROX/AL HYDROX/SIMETH 30 ML UNIT-DOSE CUP PO ONE (20:10)
[2018-09-23] MEDS: CHLORHEXIDINE GLUCONATE 4% CLEANSER FOR DECOLONIZATION TP SCH (22:23)
[2018-09-23] MEDS ORDERED: ACETAMINOPHEN 1000 MG/100 ML VIAL (NON FORMULARY) IVPB ONE (22:38)
[2018-09-24] MEDS: VANCOMYCIN 1 GRAM (PRE-DOCKED) 1,000 MG/250 ML BAG IVPB SCH ×2 (01:37→14:00)
[2018-09-24] MEDS: PIPERACILLIN/TAZOB 4.5 GM 4.5 GM in DEXTROSE 5%-WATER 100 ML IVPB SCH ×3 (02:00→18:06)
[2018-09-24] MEDS ORDERED: MAG HYDROX/AL HYDROX/SIMETH 30 ML UNIT-DOSE CUP PO ONE (02:29)
[2018-09-24] MEDS ORDERED: PIPERACILLIN/TAZOBACTAM 4.5 GM VIAL IVPB ONE ×3 (02:31→18:00)
[2018-09-24] MEDS ORDERED: DEXTROSE 5%-WATER 100 ML IVPB ONE ×3 (02:32→18:00)
[2018-09-24 03:26] LABS: ALLENS TEST POSITIVE
[2018-09-24 03:35] LABS: ARTERIAL BLD GAS O2 SATURATION 79.1 % (95-98); ARTERIAL BLOOD GAS BASE EXCESS 3.3 meq/l (-2-2); ARTERIAL BLOOD GAS PCO2 41.3 mmHg (35-45); ARTERIAL BLOOD GAS pH 7.44 (7.35-7.45)
[2018-09-24 03:46] LABS: ARTERIAL BLOOD GAS PO2 45.8 mmHg (80-105)
[2018-09-24] MEDS ORDERED: dilTIAZem HCL 25 MG/5 ML - 5 ML VIAL IVPUSH ONE (03:46)
[2018-09-24] MEDS: SODIUM CHLORIDE 1,000 ML IV SCH (06:20)
[2018-09-24 07:11] LABS: HEMATOCRIT 22.8 % (35.4-49); HEMOGLOBIN 7.5 GM/dL (11.7-16.9); MCH 29.5 pg (25.7-33.7); MCHC 32.9 g/dl (32.0-35.9); MEAN CELL VOLUME 89.9 fl (80-96); MEAN PLT VOLUME 7.3 fl (7.5-11.1); PLATELET COUNT 172 K/MM3 (134-434); RBC 2.54 M/mm3 (4.00-5.60); WHITE BLOOD COUNT 8.5 K/mm3 (4.0-10.0)
[2018-09-24 07:16] LABS: BILIRUBIN,TOTAL 0.6 mg/dL (0.2-1); BLOOD UREA NITROGEN 17.6 mg/dL (7-18); CALCIUM 7.8 mg/dL (8.5-10.1); CREATININE 0.9 mg/dL (0.55-1.3); MAGNESIUM 2.3 mg/dL (1.8-2.4); PHOSPHOROUS 2.7 mg/dL (2.5-4.9); POTASSIUM 3.9 mmol/L (3.5-5.1); TOT PROT 5.2 g/dl (6.4-8.2)
[2018-09-24] MEDS: ALBUTEROL SO4 2.5/IPRATROPIUM 0.5 INH SOL 3 ML VIAL.NEB. NEB SCH ×4 (08:07→21:30)
[2018-09-24] MEDS ORDERED: PANTOPRAZOLE SODIUM 40 MG VIAL IVPUSH SCH (10:00)
[2018-09-24] MEDS: LACTOBACILLUS ACIDOPHILUS 1 TABLET PO SCH (10:03)
[2018-09-24] MEDS: MUPIROCIN 2% TOPICAL OINTMENT FOR DECOLONIZATION NS SCH ×2 (10:03→22:44)
[2018-09-24] MEDS: methylPREDNISolone NA SUCC 40 MG/1 ML VIAL IVPUSH SCH (10:03)
--- NOTE | 2018-09-24 10:31 | PN ---
Progress Note, Physician History of Present Illness: Remains extubated on 40% VM, required NIPPV overnight, remains in rate- controlled afib, afebrile. - Current Medication List Current Medications: Active Medications Albuterol/Ipratropium (Duoneb -) 1 amp NEB RQID [facility] Last Admin: 09/24/18 08:07 Dose: 1 amp Chlorhexidine Gluconate (Hibiclens For Decolonization -) 1 applic TP HS [facility] Last Admin: 09/23/18 22:23 Dose: 1 applic Diltiazem HCl (Cardizem Cd -) 120 mg PO DAILY [facility] Last Admin: 09/24/18 10:03 Dose: 120 mg Sodium Chloride (Normal Saline -) 1,000 mls @ 75 mls/hr IV ASDIR [facility] Last Admin: 09/24/18 06:20 Dose: 75 mls/hr Vancomycin HCl (Vancomycin (Pre-Docked)) 1,000 mg in 250 mls @ 166.667 mls/hr IVPB Q12H MORE; Protocol Last Admin: 09/24/18 01:37 Dose: 166.667 mls/hr Piperacillin Sod/Tazobactam (Sod 4.5 gm/ Dextrose) 100 mls @ 200 mls/hr IVPB Q8H-IV MORE; Protocol Last Admin: 09/24/18 10:03 Dose: 200 mls/hr Lactobacillus Acidophilus (Bacid -) 1 tab PO DAILY [facility] Last Admin: 09/24/18 10:03 Dose: 1 tab Methylprednisolone Sodium Succinate (Solu-Medrol -) 40 mg IVPUSH DAILY [facility] Last Admin: 09/24/18 10:03 Dose: 40 mg Mupirocin (Bactroban Ointment (For Decolonization) -) 1 applic NS BID [facility] Stop: 09/28/18 09:59 Last Admin: 09/24/18 10:03 Dose: 1 applic Pantoprazole Sodium (Protonix Iv) 40 mg IVPUSH DAILY [facility] Last Admin: 09/24/18 10:03 Dose: 40 mg - Objective Vital Signs: Vital Signs Temperature 97.6 F 09/24/18 06:00 Pulse Rate 72 09/24/18 07:40 Respiratory Rate 22 H 09/24/18 06:00 Blood Pressure 101/51 L 09/24/18 06:00 O2 Sat by Pulse Oximetry (%) 100 09/24/18 07:40 Constitutional: Yes: No Distress, Calm Neck: Yes: Supple Cardiovascular: Yes: Pulse Irregular Respiratory: Yes: Regular, Diminished, On Venti-Mask Gastrointestinal: Yes: Soft, Hypoactive Bowel Sounds Edema: No Labs: CBC, BMP 09/24/18 06:20 09/24/18 06:20 INR, PTT INR 1.18 (0.83-1.09) H 09/22/18 21:00 - ....Imaging Chest X-ray: Report Reviewed (Rt base ATX and congestive changes) Problem List - Problems (1) Acute and chronic respiratory failure with hypoxia Code(s): J96.21 - ACUTE AND CHRONIC RESPIRATORY FAILURE WITH HYPOXIA (2) Anemia Code(s): D64.9 - ANEMIA, UNSPECIFIED Qualifiers: Iron deficiency anemia type: chronic blood loss (3) COPD with acute exacerbation Code(s): J44.1 - CHRONIC OBSTRUCTIVE PULMONARY DISEASE W (ACUTE) EXACERBATION (4) AF (paroxysmal atrial fibrillation) Code(s): I48.0 - PAROXYSMAL ATRIAL FIBRILLATION (5) Hypertension Code(s): I10 - ESSENTIAL (PRIMARY) HYPERTENSION Qualifiers: Hypertension type: essential hypertension Qualified Code(s): I10 - Essential (primary) hypertension (6) Pneumonia Code(s): J18.9 - PNEUMONIA, UNSPECIFIED ORGANISM Qualifiers: Laterality: right Lung location: lower lobe of lung Assessment/Plan Echocardiogram 07/03/2018 Normal LV and RV size and fxn, LVEF 55-60%, mild LAE, mild ao root dilatation 4.2 cm, impaired LV relaxation Echocardiography (12/08/17) which revealed normal LV systolic function, LVEF 60- 65%, moderately dilated ascending thoracic aorta, mild TR and trace [place]. Nuclear MPI (08/20/16) revealed moderate zone of anterior and anteroapical reversible defect c/s mild intensity ischemia and moderate inferior attenuation. LVEF was 71%. Chest CT: 09/21/2018 Patchy pneumonia middle lobe and bilateral lower lobes, mod -severe centrilobular/paraseptal pulmomary emphysema, mucous plugging right lower lobe 1. Post acute on chronic hypercapneic/hypoxemic respiratory failure requiring mechanical ventilation 2. Acute COPD exacerbation 3. RLL pneumonia(HAP)-legionella urinary antigen negative 4. PAF [id number] score of 2-3 currently in sinus rhythm (refused DOAC or Coumadin) 5. Recent UGI bleed 2/2 bleeding duodenal ulcer post epinephrine injection 6. Anemia 7. HTN 8. Prior abnormal nuclear MPI suggests CAD with demand ischemia 9. Diastolic dysfunction 10. Hstory of MRSA colonization-continue isolation PLAN: 1. IV steroids with GI protection, bronchodilators, Vanco/zosyn per C&S and NIPPV as needed, wean FIO2 as tolerated, pulmonary rehab post discharge 2. Continue Cardizem CD 120 mg QD and hold ASA 81 mg QD, diuresis as needed 3. Ideally anticoagulation is recommended, but patient has previously declined along with recent UGI bleed. Continue DVT prophylaxis 4. Cardiac work up including repeat nuclear MPI can be done as outpatient in the office once clinically improved 5. Monitor Hgb and transfuse as needed
--- NOTE | 2018-09-24 10:44 | PN ---
Progress Note (short form) - Note Progress Note: required bipap last night no fevers +BM Vital Signs Period Temp Pulse Resp BP Sys/[place] Pulse Ox Last 24 Hr 97.6 F 69-96 17-28 94-143/51-76 97-100 cor-rrr lungs bilateral rhonchi abd soft,nt ext trace edema CBC, BMP 09/24/18 06:20 09/24/18 06:20 Microbiology 09/22/18 22:00 Urine - Urine [place] Urine Culture - Final NO GROWTH OBTAINED 09/22/18 21:00 Blood - Peripheral Venous Blood Culture - Preliminary NO GROWTH OBTAINED AFTER 24 HOURS, INCUBATION TO CONTINUE FOR 4 DAYS. 09/22/18 21:00 Blood - Peripheral Venous Blood Culture - Preliminary NO GROWTH OBTAINED AFTER 24 HOURS, INCUBATION TO CONTINUE FOR 4 DAYS. 09/23/18 02:00 Sputum - Endotrachea Suction/Ventilator Gram Stain - Final 09/23/18 02:00 Urine For Antigen Detection Legionella Antigen - Final 09/23/18 02:00 Urine For Antigen Detection Streptococcus pneumoniae Antigen (M - Final a/p acute on chronic resp failure RLL pneumonia(HAP)-legionella urinary antigen negative recent GI bleed COPD home oxygen history of MRSA colonization-continue isolation continue vancomycin and zosyn continue probiotics f/u cultures d/w at bedside
--- NOTE | 2018-09-24 11:03 | PN ---
Progress Note, Physician Chief Complaint: EVENTS AND NOTES REVIEWED PATIENT IN BED DYSPNEA AND WEAKNESS IS MAIN COMPLAINT. - Current Medication List Current Medications: Active Medications Al Hydroxide/Mg Hydroxide (Mylanta Oral Suspension -) 30 ml PO BID PRN PRN Reason: epigastric pain Albuterol/Ipratropium (Duoneb -) 1 amp NEB RQID [facility] Last Admin: 09/24/18 08:07 Dose: 1 amp Chlorhexidine Gluconate (Hibiclens For Decolonization -) 1 applic TP HS [facility] Last Admin: 09/23/18 22:23 Dose: 1 applic Diltiazem HCl (Cardizem Cd -) 120 mg PO DAILY [facility] Last Admin: 09/24/18 10:03 Dose: 120 mg Sodium Chloride (Normal Saline -) 1,000 mls @ 75 mls/hr IV ASDIR [facility] Last Admin: 09/24/18 06:20 Dose: 75 mls/hr Vancomycin HCl (Vancomycin (Pre-Docked)) 1,000 mg in 250 mls @ 166.667 mls/hr IVPB Q12H MORE; Protocol Last Admin: 09/24/18 01:37 Dose: 166.667 mls/hr Piperacillin Sod/Tazobactam (Sod 4.5 gm/ Dextrose) 100 mls @ 200 mls/hr IVPB Q8H-IV MORE; Protocol Last Admin: 09/24/18 10:03 Dose: 200 mls/hr Lactobacillus Acidophilus (Bacid -) 1 tab PO DAILY [facility] Last Admin: 09/24/18 10:03 Dose: 1 tab Methylprednisolone Sodium Succinate (Solu-Medrol -) 40 mg IVPUSH DAILY [facility] Last Admin: 09/24/18 10:03 Dose: 40 mg Mupirocin (Bactroban Ointment (For Decolonization) -) 1 applic NS BID [facility] Stop: 09/28/18 09:59 Last Admin: 09/24/18 10:03 Dose: 1 applic Pantoprazole Sodium (Protonix Iv) 40 mg IVPUSH DAILY [facility] Last Admin: 09/24/18 10:03 Dose: 40 mg - Objective Vital Signs: Vital Signs Temperature 97.6 F 09/24/18 06:00 Pulse Rate 68 09/24/18 10:00 Respiratory Rate 20 09/24/18 10:00 Blood Pressure 107/68 09/24/18 10:00 O2 Sat by Pulse Oximetry (%) 100 09/24/18 07:40 Constitutional: Yes: Moderate Distress Cardiovascular: Yes: Pulse Irregular Respiratory: Yes: On Nasal O2 Gastrointestinal: Yes: Soft, Abdomen, Obese Genitourinary: Yes: WNL Musculoskeletal: Yes: Muscle Weakness Edema: Yes Integumentary: Yes: WNL Wound/Incision: Yes: Clean/Dry Neurological: Yes: WNL ...Motor Strength: WNL Psychiatric: Yes: WNL Labs: CBC, BMP 09/24/18 06:20 09/24/18 06:20 INR, PTT INR 1.18 (0.83-1.09) H 09/22/18 21:00 Assessment/Plan ANEMIA WORKUP IN PROGRESS IRON STUDIES SENT INJECTOFER GIVEN IV YESTERDAY HEME WORKUP TRANSFUSE PRBC 1 UNIT TODAY ADVANCE DIET OOB TO CHAIR IF POSSIBLE WHEN OFF AIRVO RESPIRATORY STATUS VOLATILE CARDIO W/UP PROTEIN SHAKES FOR ENERGY FULL CODE SPENT 30 MINS WITH DISCUSSED STATUS AND GOC
[2018-09-24] MEDS ORDERED: FERRIC CARBOXYMALTOSE 750 MG in SODIUM CHLORIDE 250 ML IVPB ONE (11:15)
--- NOTE | 2018-09-24 11:20 | PN ---
Teaching Attending Note Name of Resident: Mary Ann Foley ATTENDING PHYSICIAN STATEMENT I saw and evaluated the patient. I reviewed the resident's note and discussed the case with the resident. I agree with the resident's findings and plan as documented. SUBJECTIVE: Patient seen and examined in the ICU. Remains extubated but required NIPPV support overnight due to respiratory distress. No CP. (+) congested cough. Intake & Output 09/21/18 09/22/18 09/23/18 09/24/18 23:59 23:59 23:59 23:59 Intake Total 2392 850 Output Total 1975 500 Balance 417 350 Weight 187 lb 6.287 oz 188 lb 8 oz 188 lb 5 oz Last Vital Signs Temp Pulse Resp BP Pulse Ox 97.6 F 68 20 107/68 100 09/24/18 06:00 09/24/18 10:00 09/24/18 10:00 09/24/18 10:00 09/24/18 07:40 Active Medications Al Hydroxide/Mg Hydroxide (Mylanta Oral Suspension -) 30 ml PO BID PRN PRN Reason: epigastric pain Albuterol/Ipratropium (Duoneb -) 1 amp NEB RQID MORE Last Admin: 09/24/18 08:07 Dose: 1 amp Chlorhexidine Gluconate (Hibiclens For Decolonization -) 1 applic TP HS [facility] Last Admin: 09/23/18 22:23 Dose: 1 applic Diltiazem HCl (Cardizem Cd -) 120 mg PO DAILY MORE Last Admin: 09/24/18 10:03 Dose: 120 mg Sodium Chloride (Normal Saline -) 1,000 mls @ 75 mls/hr IV ASDIR MORE Last Admin: 09/24/18 06:20 Dose: 75 mls/hr Vancomycin HCl (Vancomycin (Pre-Docked)) 1,000 mg in 250 mls @ 166.667 mls/hr IVPB Q12H MORE; Protocol Last Admin: 09/24/18 01:37 Dose: 166.667 mls/hr Piperacillin Sod/Tazobactam (Sod 4.5 gm/ Dextrose) 100 mls @ 200 mls/hr IVPB Q8H-IV MORE; Protocol Last Admin: 09/24/18 10:03 Dose: 200 mls/hr Ferric Carboxymaltose 750 mg/ (Sodium Chloride) 265 mls @ 530 mls/hr IVPB ONCE ONE Stop: 09/24/18 11:44 Lactobacillus Acidophilus (Bacid -) 1 tab PO DAILY [facility] Last Admin: 09/24/18 10:03 Dose: 1 tab Methylprednisolone Sodium Succinate (Solu-Medrol -) 40 mg IVPUSH DAILY [facility] Last Admin: 09/24/18 10:03 Dose: 40 mg Mupirocin (Bactroban Ointment (For Decolonization) -) 1 applic NS BID [facility] Stop: 09/28/18 09:59 Last Admin: 09/24/18 10:03 Dose: 1 applic Pantoprazole Sodium (Protonix Iv) 40 mg IVPUSH DAILY [facility] Last Admin: 09/24/18 10:03 Dose: 40 mg General: Obese, extubated, awake and alert on NIPPV support Respiratory: bibasilar rhonchi, Right > Left CV: S1, S2, irregular Abdomen: soft, non-tender, (+) bowel sounds Extremity: 2+ DP pulses B/L, no edema 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: awake and alert, non-focal Laboratory Results - last 24 hr 09/23/18 09/23/18 09/23/18 06:05 12:55 19:00 WBC 8.4 RBC 2.69 L Hgb 7.9 L Hct 24.3 L MCV 90.4 MCH 29.5 MCHC 32.6 RDW 17.0 H Plt Count 173 MPV 7.0 L Absolute Neuts (auto) 7.9 Total Counted 100 Neutrophils % 94.0 H Neutrophils % (Manual) 63.0 60.0 Band Neutrophils % 29.0 34.0 Lymphocytes % 3.5 L D Lymphocytes % (Manual) 4.0 L D 3.0 L D Monocytes % 2.4 L Monocytes % (Manual) 2 L Eosinophils % 0.0 D Eosinophils % (Manual) 0.0 Basophils % 0.1 Basophils % (Manual) 0.0 Myelocytes % (Man) 2 D 0 D Promyelocytes % (Man) 0 Blast Cells % (Manual) 0 Nucleated RBC % 2 H 0 Metamyelocytes 0 Hypochromia 0 Toxic Granulation 0 Dohle Bodies 0 Platelet Estimate Adequate Normal Polychromasia 0 Poikilocytosis 0 Basophilic Stippling 0 Anisocytosis 0 Microcytosis 0 Macrocytosis 1+ 0 Spherocytes 0 Sickle Cells 0 Target Cells 0 Tear Drop Cells 1+ 0 Ovalocytes 1+ 0 Stomatocytes 0 Helmet Cells 0 [place] Bodies 0 [place] Rings 0 [place] Cells 0 Acanthocytes (Spur) 0 Rouleaux 0 Fragmented RBCs 0 Schistocytes 0 Anticoagulation Therapy Puncture Site ABG pH ABG pCO2 at Pt Temp ABG pO2 at Pt Temp ABG HCO3 ABG O2 Sat (Measured) ABG O2 Content ABG Base Excess Josue Test O2 Delivery Device Oxygen Flow Rate Vent Mode Vent Rate Mechanical Rate Pressure Support Vent Sodium Potassium Chloride Carbon Dioxide Anion Gap BUN Creatinine Est GFR (CKD-EPI)AfAm Est GFR (CKD-EPI)NonAf Random Glucose Calcium Phosphorus Magnesium Total Bilirubin AST ALT Alkaline Phosphatase Creatine Kinase 24 L Troponin I < 0.02 Total Protein Albumin 09/24/18 09/24/18 09/24/18 03:00 06:20 06:20 WBC 8.5 RBC 2.54 L Hgb 7.5 L Hct 22.8 L MCV 89.9 MCH 29.5 MCHC 32.9 RDW 17.0 H Plt Count 172 MPV 7.3 L Absolute Neuts (auto) Total Counted Neutrophils % Neutrophils % (Manual) Band Neutrophils % Lymphocytes % Lymphocytes % (Manual) Monocytes % Monocytes % (Manual) Eosinophils % Eosinophils % (Manual) Basophils % Basophils % (Manual) Myelocytes % (Man) Promyelocytes % (Man) Blast Cells % (Manual) Nucleated RBC % Metamyelocytes Hypochromia Toxic Granulation Dohle Bodies Platelet Estimate Polychromasia Poikilocytosis Basophilic Stippling Anisocytosis Microcytosis Macrocytosis Spherocytes Sickle Cells Target Cells Tear Drop Cells Ovalocytes Stomatocytes Helmet Cells [place] Bodies [place] Rings [place] Cells Acanthocytes (Spur) Rouleaux Fragmented RBCs Schistocytes Anticoagulation Therapy No Result Required. Puncture Site Right radial ABG pH 7.44 ABG pCO2 at Pt Temp 41.3 ABG pO2 at Pt Temp 45.8 L ABG HCO3 27.3 H ABG O2 Sat (Measured) 79.1 L ABG O2 Content 7.5 L* ABG Base Excess 3.3 H Josue Test Positive O2 Delivery Device Venti mask Oxygen Flow Rate 40% Vent Mode No Result Required. Vent Rate No Result Required. Mechanical Rate No Result Required. Pressure Support Vent No Result Required. Sodium 137 Potassium 3.9 Chloride 100 Carbon Dioxide 30 Anion Gap 7 L BUN 17.6 Creatinine 0.9 Est GFR (CKD-EPI)AfAm 96.49 Est GFR (CKD-EPI)NonAf 83.25 Random Glucose 109 H Calcium 7.8 L Phosphorus 2.7 Magnesium 2.3 Total Bilirubin 0.6 AST 10 L ALT 20 Alkaline Phosphatase 95 Creatine Kinase Troponin I Total Protein 5.2 L Albumin 2.0 L ASSESSMENT/PLAN: Acute on Chronic Respiratory Failure due to RLL PNA GI bleed Anemia O2 dependent COPD (on 2 -3 L NC @ home) HTN NIPPV support, as he improves can trial VM O2 vs HFOT ABX per ID BD TX Daily Medrol Follow sputum Normal transfusion thresholds Check CXR Requires ICU monitoring due to tenuous respiratory status Dr Rios Critical care time spent in reviewing chart, evaluating patient and formulating plan - 36 minutes.
--- NOTE | 2018-09-24 11:39 | PN ---
Physical Exam: SUBJECTIVE: Patient seen and examined at bedside. Overnight the patient was complaining of chest discomfort with increased WOB. EKG showed sinus arrhythmia and afib which the patient was known to have. The patient was also complaining of epigastric pain which improved with IV protonix, ranitidine, and maalox. The patient was put on BiPAP overnight, and his WOB and O2 sats improved. This morning he stated he was no longer experiencing epigastric pain and felt he was breathing well on BiPAP. OBJECTIVE: Vital Signs Period Temp Pulse Resp BP Sys/[place] Pulse Ox Last 24 Hr 97.6 F 64-96 17-28 94-143/51-76 97-100 GENERAL: The patient is awake, alert, in no acute distress. HEAD: Normal with no signs of trauma. EYES: PERRL, extraocular movements intact, sclera anicteric, conjunctiva clear. ENT: Ears normal, nares patent NECK: Trachea midline, supple. LUNGS: Breath sounds equal, clear to auscultation bilaterally, fine crackles bilaterally, no accessory muscle use, patient on BiPAP HEART: Regular rate and rhythm, S1, S2 without murmur. ABDOMEN: Soft, nontender, nondistended, normoactive bowel sounds, EXTREMITIES: 2+ pulses, warm, well-perfused, no edema. SKIN: Warm, dry, normal turgor, no rashes or lesions noted Laboratory Results - last 24 hr 09/23/18 09/23/18 09/23/18 06:05 12:55 19:00 WBC 8.4 RBC 2.69 L Hgb 7.9 L Hct 24.3 L MCV 90.4 MCH 29.5 MCHC 32.6 RDW 17.0 H Plt Count 173 MPV 7.0 L Absolute Neuts (auto) 7.9 Total Counted 100 Neutrophils % 94.0 H Neutrophils % (Manual) 63.0 60.0 Band Neutrophils % 29.0 34.0 Lymphocytes % 3.5 L D Lymphocytes % (Manual) 4.0 L D 3.0 L D Monocytes % 2.4 L Monocytes % (Manual) 2 L Eosinophils % 0.0 D Eosinophils % (Manual) 0.0 Basophils % 0.1 Basophils % (Manual) 0.0 Myelocytes % (Man) 2 D 0 D Promyelocytes % (Man) 0 Blast Cells % (Manual) 0 Nucleated RBC % 2 H 0 Metamyelocytes 0 Hypochromia 0 Toxic Granulation 0 Dohle Bodies 0 Platelet Estimate Adequate Normal Polychromasia 0 Poikilocytosis 0 Basophilic Stippling 0 Anisocytosis 0 Microcytosis 0 Macrocytosis 1+ 0 Spherocytes 0 Sickle Cells 0 Target Cells 0 Tear Drop Cells 1+ 0 Ovalocytes 1+ 0 Stomatocytes 0 Helmet Cells 0 [place] Bodies 0 [place] Rings 0 [place] Cells 0 Acanthocytes (Spur) 0 Rouleaux 0 Fragmented RBCs 0 Schistocytes 0 Anticoagulation Therapy Puncture Site ABG pH ABG pCO2 at Pt Temp ABG pO2 at Pt Temp ABG HCO3 ABG O2 Sat (Measured) ABG O2 Content ABG Base Excess Josue Test O2 Delivery Device Oxygen Flow Rate Vent Mode Vent Rate Mechanical Rate Pressure Support Vent Sodium Potassium Chloride Carbon Dioxide Anion Gap BUN Creatinine Est GFR (CKD-EPI)AfAm Est GFR (CKD-EPI)NonAf Random Glucose Calcium Phosphorus Magnesium Total Bilirubin AST ALT Alkaline Phosphatase Creatine Kinase 24 L Troponin I < 0.02 Total Protein Albumin 09/24/18 09/24/18 09/24/18 03:00 06:20 06:20 WBC 8.5 RBC 2.54 L Hgb 7.5 L Hct 22.8 L MCV 89.9 MCH 29.5 MCHC 32.9 RDW 17.0 H Plt Count 172 MPV 7.3 L Absolute Neuts (auto) Total Counted Neutrophils % Neutrophils % (Manual) Band Neutrophils % Lymphocytes % Lymphocytes % (Manual) Monocytes % Monocytes % (Manual) Eosinophils % Eosinophils % (Manual) Basophils % Basophils % (Manual) Myelocytes % (Man) Promyelocytes % (Man) Blast Cells % (Manual) Nucleated RBC % Metamyelocytes Hypochromia Toxic Granulation Dohle Bodies Platelet Estimate Polychromasia Poikilocytosis Basophilic Stippling Anisocytosis Microcytosis Macrocytosis Spherocytes Sickle Cells Target Cells Tear Drop Cells Ovalocytes Stomatocytes Helmet Cells [place] Bodies [place] Rings [place] Cells Acanthocytes (Spur) Rouleaux Fragmented RBCs Schistocytes Anticoagulation Therapy No Result Required. Puncture Site Right radial ABG pH 7.44 ABG pCO2 at Pt Temp 41.3 ABG pO2 at Pt Temp 45.8 L ABG HCO3 27.3 H ABG O2 Sat (Measured) 79.1 L ABG O2 Content 7.5 L* ABG Base Excess 3.3 H Josue Test Positive O2 Delivery Device Venti mask Oxygen Flow Rate 40% Vent Mode No Result Required. Vent Rate No Result Required. Mechanical Rate No Result Required. Pressure Support Vent No Result Required. Sodium 137 Potassium 3.9 Chloride 100 Carbon Dioxide 30 Anion Gap 7 L BUN 17.6 Creatinine 0.9 Est GFR (CKD-EPI)AfAm 96.49 Est GFR (CKD-EPI)NonAf 83.25 Random Glucose 109 H Calcium 7.8 L Phosphorus 2.7 Magnesium 2.3 Total Bilirubin 0.6 AST 10 L ALT 20 Alkaline Phosphatase 95 Creatine Kinase Troponin I Total Protein 5.2 L Albumin 2.0 L Active Medications Generic Name Dose Route Start Last Admin Trade Name Freq PRN Reason Stop Dose Admin Al Hydroxide/Mg Hydroxide 30 ml 09/24/18 10:54 Mylanta Oral Suspension - PO BID PRN epigastric pain Albuterol/Ipratropium 1 amp 09/23/18 08:00 09/24/18 08:07 Duoneb - NEB 1 amp RQID MORE Administration Chlorhexidine Gluconate 1 applic 09/23/18 22:00 09/23/18 22:23 Hibiclens For Decolonization - TP 1 applic HS MORE Administration Diltiazem HCl 120 mg 09/23/18 17:45 09/24/18 10:03 Cardizem Cd - PO 120 mg DAILY MORE Administration Sodium Chloride 1,000 mls @ 75 mls/hr 09/23/18 00:30 09/24/18 06:20 Normal Saline - IV 75 mls/hr ASDIR MORE Administration Vancomycin HCl 1,000 mg in 250 mls @ 166.667 mls/hr 09/23/18 14:00 09/24/18 01:37 Vancomycin (Pre-Docked) IVPB 166.667 mls/hr Q12H MORE Administration Protocol Piperacillin Sod/Tazobactam 100 mls @ 200 mls/hr 09/23/18 16:00 09/24/18 10: 03 Sod 4.5 gm/ Dextrose IVPB 200 mls/hr Q8H-IV MORE Administration Protocol Ferric Carboxymaltose 750 mg/ 265 mls @ 530 mls/hr 09/24/18 11:15 Sodium Chloride IVPB 09/24/18 11:44 ONCE ONE Lactobacillus Acidophilus 1 tab 09/24/18 10:00 09/24/18 10:03 Bacid - PO 1 tab DAILY MORE Administration Methylprednisolone Sodium Succinate 40 mg 09/23/18 10:00 09/24/18 10:03 Solu-Medrol - IVPUSH 40 mg DAILY MORE Administration Mupirocin 1 applic 09/23/18 10:00 09/24/18 10:03 Bactroban Ointment (For Decolonization) - NS 09/28/18 09:59 1 applic BID MORE Administration Pantoprazole Sodium 40 mg 09/24/18 10:00 09/24/18 10:03 Protonix Iv IVPUSH 40 mg DAILY MORE Administration ASSESSMENT/PLAN: The patient is a 73 year old male with a PMH of GI bleed, Anemia and COPD (on 2 L NC @ home) who presented to our ED in Respiratory Distress. Patient intubated and sedated with Propofol. Admitted to ICU for further monitoring. Acute on Chronic Respiratory Failure due to RLL PNA GI bleed Anemia O2 dependent COPD (on 2 L NC @ home) HTN Neurologic - Awake, alert and oriented Cardiovascular - HTN - BP well controlled for now, continue to monitor -Cardizem PO 120mg qDaily -Holding ASA for now -Cardiology following, recommendations appreciated Pulmonary Acute on Chronic Respiratory Failure -On BiPAP, tolerating it well -BiPAP settings: IPAP 14/EPAP 7/ R16/ FiO2 40% -plan to trial HFNC today, will place on BiPAP at night prn - ABG 7.44/41.3/45.8/27.3 - CXR shows bibasilar atelectasis -F/U repeat CXR - continue Duo-Nebs - continue steroids Hematologic - Anemia in patient with history of recent GI bleed - Hb was decreasing, now stable (8.6>7.2>7.5) - transfuse for Hb =/< 7 - Continue to monitor for evidence of bleeding ID -Bandemia 21% without Leukocytosis- possibly 2/2 to chronic steroid use + chronic prophylatic ABx - RLL pneumonia(HAP)-legionella urinary antigen negative - Continue Vanc/Zosyn - d/c zithromax -history of MRSA colonization-continue isolation -f/u cultures -add probiotics - ID following, appreciate recommendations FEN NS 75cc/hr Monitor Lytes replete PRN NPO Visit type - Emergency Visit Emergency Visit: Yes ED Registration Date: 09/22/18 Care time: The patient presented to the Emergency Department on the above date and was hospitalized for further evaluation of their emergent condition. - New Patient This patient is new to me today: No - Critical Care Critical Care patient: Yes Total Critical Care Time (in minutes): 40 Critical Care Statement: The care of this patient involved high complexity decision making to prevent further life threatening deterioration of the patient 's condition and/or to evaluate & treat vital organ system(s) failure or risk of failure. ATTENDING PHYSICIAN STATEMENT I saw and evaluated the patient. I reviewed the resident's note and discussed the case with the resident. I agree with the resident's findings and plan as documented. SUBJECTIVE: OBJECTIVE: ASSESSMENT AND PLAN:
[2018-09-24] MEDS ORDERED: MAG HYDROX/AL HYDROX/SIMETH 30 ML UNIT-DOSE CUP PO SCH (12:00)
[2018-09-24] MEDS ORDERED: ALBUTEROL SO4 2.5/IPRATROPIUM 0.5 INH SOL 3 ML VIAL.NEB. NEB ONE (15:03)
[2018-09-24] MEDS: MAG HYDROX/AL HYDROX/SIMETH 30 ML UNIT-DOSE CUP PO PRN (20:39)
[2018-09-24] MEDS: CHLORHEXIDINE GLUCONATE 4% CLEANSER FOR DECOLONIZATION TP SCH (22:45)
[2018-09-25] MEDS ORDERED: PIPERACILLIN/TAZOBACTAM 4.5 GM VIAL IVPB ONE ×2 (04:04→09:13)
[2018-09-25] MEDS: VANCOMYCIN 1 GRAM (PRE-DOCKED) 1,000 MG/250 ML BAG IVPB SCH ×2 (04:04→15:34)
[2018-09-25] MEDS ORDERED: DEXTROSE 5%-WATER 100 ML IVPB ONE ×2 (04:04→09:13)
[2018-09-25] MEDS: PIPERACILLIN/TAZOB 4.5 GM 4.5 GM in DEXTROSE 5%-WATER 100 ML IVPB SCH ×2 (04:06→09:17)
[2018-09-25] MEDS: SODIUM CHLORIDE 1,000 ML IV SCH (04:07)
[2018-09-25 07:25] LABS: HEMATOCRIT 22.2 % (35.4-49); HEMOGLOBIN 7.3 GM/dL (11.7-16.9); MCH 29.7 pg (25.7-33.7); MCHC 32.9 g/dl (32.0-35.9); MEAN CELL VOLUME 90.1 fl (80-96); MEAN PLT VOLUME 7.5 fl (7.5-11.1); PLATELET COUNT 150 K/MM3 (134-434); RBC 2.46 M/mm3 (4.00-5.60); RDW 17.1 % (11.9-15.9); WHITE BLOOD COUNT 5.7 K/mm3 (4.0-10.0)
[2018-09-25 08:01] LABS: ALBUMIN 1.9 g/dl (3.4-5.0); BILIRUBIN,TOTAL 0.3 mg/dL (0.2-1); BLOOD UREA NITROGEN 12.3 mg/dL (7-18); CALCIUM 7.9 mg/dL (8.5-10.1); CREATININE 0.6 mg/dL (0.55-1.3); MAGNESIUM 2.4 mg/dL (1.8-2.4); PHOSPHOROUS 2.2 mg/dL (2.5-4.9); POTASSIUM 3.9 mmol/L (3.5-5.1)
[2018-09-25] MEDS ORDERED: NAPH,MB-DB/K PH,MBDB POWDER PACKET PO ONE (08:19)
[2018-09-25] MEDS: ALBUTEROL SO4 2.5/IPRATROPIUM 0.5 INH SOL 3 ML VIAL.NEB. NEB SCH ×4 (08:49→20:30)
[2018-09-25] MEDS: methylPREDNISolone NA SUCC 40 MG/1 ML VIAL IVPUSH SCH (09:16)
[2018-09-25] MEDS: PANTOPRAZOLE 40 MG TABLET (FP) PO SCH (09:17)
[2018-09-25] MEDS: MUPIROCIN 2% TOPICAL OINTMENT FOR DECOLONIZATION NS SCH ×2 (09:17→22:15)
[2018-09-25] MEDS: LACTOBACILLUS ACIDOPHILUS 1 TABLET PO SCH (09:17)
--- NOTE | 2018-09-25 09:17 | PN ---
Progress Note (short form) - Note Progress Note: wearing high flow oxygen Vital Signs Period Temp Pulse Resp BP Sys/[place] Pulse Ox Last 24 Hr 98.0 F 55-76 20-24 100-124/6-76 98-100 cor-rrr lungs bilateral rhonchi abd soft,nt ext no edema CBC, BMP 09/25/18 06:30 09/25/18 06:30 Microbiology 09/22/18 21:00 Blood - Peripheral Venous Blood Culture - Preliminary NO GROWTH OBTAINED AFTER 48 HOURS, INCUBATION TO CONTINUE FOR 3 DAYS. 09/22/18 21:00 Blood - Peripheral Venous Blood Culture - Preliminary NO GROWTH OBTAINED AFTER 48 HOURS, INCUBATION TO CONTINUE FOR 3 DAYS. 09/23/18 02:00 Sputum - Endotrachea Suction/Ventilator Gram Stain - Final 09/23/18 02:00 Sputum - Endotrachea Suction/Ventilator Sputum Culture - Preliminary Presumptive Mrsa (Pbp2a Pos) 09/22/18 22:00 Urine - Urine [place] Urine Culture - Final NO GROWTH OBTAINED 09/23/18 02:00 Urine For Antigen Detection Legionella Antigen - Final 09/23/18 02:00 Urine For Antigen Detection Streptococcus pneumoniae Antigen (M - Final cxray dense RLL infiltrate a/p acute on chronic resp failure RLL pneumonia(HAP)-legionella urinary antigen negative recent GI bleed COPD home oxygen history of MRSA colonization-continue isolation continue vancomycin and zosyn-if sputum culture is finalized as MRSA only can d/ c zosyn check vancomycin trough today continue probiotics f/u cultures d/w ICU resident
--- NOTE | 2018-09-25 10:24 | PN ---
Progress Note, Physician Chief Complaint: AWAKE BEDSIDE ON AIRVO EVENTS AND GOALS D/W BEDSIDE PATIENT IS TIRED AND C/O FATIGUE - Current Medication List Current Medications: Active Medications Al Hydroxide/Mg Hydroxide (Mylanta Oral Suspension -) 30 ml PO BID PRN PRN Reason: epigastric pain Last Admin: 09/24/18 20:39 Dose: 30 ml Albuterol/Ipratropium (Duoneb -) 1 amp NEB RQID [facility] Last Admin: 09/25/18 08:49 Dose: 1 amp Chlorhexidine Gluconate (Hibiclens For Decolonization -) 1 applic TP HS [facility] Last Admin: 09/24/18 22:45 Dose: 1 applic Diltiazem HCl (Cardizem Cd -) 120 mg PO DAILY [facility] Last Admin: 09/25/18 09:17 Dose: 120 mg Vancomycin HCl (Vancomycin (Pre-Docked)) 1,000 mg in 250 mls @ 166.667 mls/hr IVPB Q12H MORE; Protocol Last Admin: 09/25/18 04:04 Dose: 166.667 mls/hr Piperacillin Sod/Tazobactam (Sod 4.5 gm/ Dextrose) 100 mls @ 200 mls/hr IVPB Q8H-IV MORE; Protocol Last Admin: 09/25/18 09:17 Dose: 200 mls/hr Lactobacillus Acidophilus (Bacid -) 1 tab PO DAILY [facility] Last Admin: 09/25/18 09:17 Dose: 1 tab Methylprednisolone Sodium Succinate (Solu-Medrol -) 40 mg IVPUSH DAILY [facility] Last Admin: 09/25/18 09:16 Dose: 40 mg Mupirocin (Bactroban Ointment (For Decolonization) -) 1 applic NS BID [facility] Stop: 09/28/18 09:59 Last Admin: 09/25/18 09:17 Dose: 1 applic Pantoprazole Sodium (Protonix -) 40 mg PO DAILY [facility] Last Admin: 09/25/18 09:17 Dose: 40 mg - Objective Vital Signs: Vital Signs Temperature 98.0 F 09/24/18 14:00 Pulse Rate 66 09/25/18 08:20 Respiratory Rate 24 H 09/25/18 08:00 Blood Pressure 122/76 09/25/18 08:00 O2 Sat by Pulse Oximetry (%) 100 09/25/18 08:20 Constitutional: Yes: Moderate Distress Cardiovascular: Yes: Pulse Irregular Respiratory: Yes: Rhonchi, Other (AIRVO) Gastrointestinal: Yes: Soft, Abdomen, Obese Genitourinary: Yes: Incontinence Musculoskeletal: Yes: Muscle Weakness Edema: Yes Edema: LLE: 2+ Integumentary: Yes: Other Neurological: Yes: Alert, Oriented ...Motor Strength: LLE, RLE Psychiatric: Yes: WNL Labs: CBC, BMP 09/25/18 06:30 09/25/18 06:30 INR, PTT INR 1.18 (0.83-1.09) H 09/22/18 21:00 Problem List - Problems (1) Acute and chronic respiratory failure with hypoxia Code(s): J96.21 - ACUTE AND CHRONIC RESPIRATORY FAILURE WITH HYPOXIA (2) Anemia Code(s): D64.9 - ANEMIA, UNSPECIFIED Qualifiers: Iron deficiency anemia type: chronic blood loss (3) COPD with acute exacerbation Code(s): J44.1 - CHRONIC OBSTRUCTIVE PULMONARY DISEASE W (ACUTE) EXACERBATION (4) AF (paroxysmal atrial fibrillation) Code(s): I48.0 - PAROXYSMAL ATRIAL FIBRILLATION (5) Anxiety Code(s): F41.9 - ANXIETY DISORDER, UNSPECIFIED (6) DVT prophylaxis Code(s): FHN5695 - Assessment/Plan ANEMIA WORKUP IN PROGRESS IRON STUDIES SENT INJECTOFER GIVEN IV YESTERDAY HEME WORKUP TRANSFUSE PRBC 1 UNIT TODAY ADVANCE DIET OOB TO CHAIR IF POSSIBLE WHEN OFF AIRVO RESPIRATORY STATUS VOLATILE CARDIO W/UP PROTEIN SHAKES FOR ENERGY FULL CODE SPENT 30 MINS WITH DISCUSSED STATUS AND GOC
--- NOTE | 2018-09-25 11:45 | PN ---
Teaching Attending Note Name of Resident: Sal Taveras ATTENDING PHYSICIAN STATEMENT I saw and evaluated the patient. I reviewed the resident's note and discussed the case with the resident. I agree with the resident's findings and plan as documented. SUBJECTIVE: Patient seen and examined in the ICU. Remains extubated, but requiring HFOT ( 60L / 45% FiO2). Mildly tachypneic at rest. Some congested cough. No CP. CXR: increasing density of the RLL infiltrate Intake & Output 09/22/18 09/23/18 09/24/18 09/25/18 23:59 23:59 23:59 23:59 Intake Total 2392 3500 1090 Output Total 1975 2300 500 Balance 417 1200 590 Weight 187 lb 6.287 oz 188 lb 8 oz 188 lb 190 lb 8 oz Last Vital Signs Temp Pulse Resp BP Pulse Ox 98.0 F 66 24 H 122/76 100 09/24/18 14:00 09/25/18 08:20 09/25/18 08:00 09/25/18 08:00 09/25/18 08:20 Active Medications Al Hydroxide/Mg Hydroxide (Mylanta Oral Suspension -) 30 ml PO BID PRN PRN Reason: epigastric pain Last Admin: 09/24/18 20:39 Dose: 30 ml Albuterol/Ipratropium (Duoneb -) [address] [facility] Last Admin: 09/25/18 08:49 Dose: 1 amp Chlorhexidine Gluconate (Hibiclens For Decolonization -) [address] [facility] Last Admin: 09/24/18 22:45 Dose: 1 applic Diltiazem HCl (Cardizem Cd -) [address] [facility] Last Admin: 09/25/18 09:17 Dose: 120 mg Vancomycin HCl (Vancomycin (Pre-Docked)) 1,000 mg in 250 mls @ 166.667 mls/hr IVPB Q12H [facility]; Protocol Last Admin: 09/25/18 04:04 Dose: 166.667 mls/hr Lactobacillus Acidophilus (Bacid -) [address] [facility] Last Admin: 09/25/18 09:17 Dose: 1 tab Methylprednisolone Sodium Succinate (Solu-Medrol -) [address] [facility] Last Admin: 09/25/18 09:16 Dose: 40 mg Mupirocin (Bactroban Ointment (For Decolonization) -) [address] [facility] Stop: 09/28/18 09:59 Last Admin: 09/25/18 09:17 Dose: 1 applic Pantoprazole Sodium (Protonix -) [address] 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, non-focal Laboratory Results - last 24 hr 09/22/18 09/25/18 09/25/18 23:45 06:30 06:30 WBC 5.7 RBC 2.46 L Hgb 7.3 L Hct 22.2 L MCV 90.1 MCH 29.7 MCHC 32.9 RDW 17.1 H Plt Count 150 MPV 7.5 Sodium 139 Potassium 3.9 Chloride 103 Carbon Dioxide 31 Anion Gap 6 L BUN 12.3 Creatinine 0.6 Est GFR (CKD-EPI)AfAm 113.99 Est GFR (CKD-EPI)NonAf 98.35 Random Glucose 109 H Calcium 7.9 L Phosphorus 2.2 L Magnesium 2.4 Total Bilirubin 0.3 AST 9 L ALT 20 Alkaline Phosphatase 87 Total Protein 5.0 L Albumin 1.9 L Blood Type O POSITIVE Antibody Screen Negative Crossmatch See Detail ASSESSMENT/PLAN: Acute on Chronic Respiratory Failure due to RLL PNA GI bleed Anemia O2 dependent COPD (on 2 -3 L NC @ home) HTN HFOT support with NIPPV support as needed ABX per ID BD [place] Daily Medrol Normal transfusion thresholds Check CXR Requires ICU monitoring due to tenuous respiratory status Dr Rios Critical care time spent in reviewing chart, evaluating patient and formulating plan - 36 minutes.
--- NOTE | 2018-09-25 11:53 | EKG ---
Test Reason : Blood Pressure : / mmHG Vent. Rate : 129 BPM Atrial Rate : 129 BPM P-R Int : 140 ms QRS Dur : 080 ms QT Int : 278 ms P-R-T Axes : 034 -50 070 degrees QTc Int : 407 ms SINUS TACHYCARDIA WITH PREMATURE ATRIAL COMPLEXES LOW VOLTAGE QRS LEFT ANTERIOR FASCICULAR BLOCK CANNOT RULE OUT ANTERIOR INFARCT , AGE UNDETERMINED ABNORMAL ECG WHEN COMPARED WITH ECG OF 30-JUL-2018 09:21, NO SIGNIFICANT CHANGE WAS FOUND Confirmed by REY BEST MD ([id number]) on 09/25/2018 11:53:38 AM Referred By: Confirmed By:REY BEST MD
[2018-09-25] MEDS: MAG HYDROX/AL HYDROX/SIMETH 30 ML UNIT-DOSE CUP PO PRN (12:14)
--- NOTE | 2018-09-25 12:37 | CONSULT ---
Consult Consult Specialty:: Hematology-Oncology Referred by:: Dr. Miller Reason for Consultation:: Anemia - History of Present Illness Chief Complaint: History of COPD, presents with shortness of breath, dyspnea. - History Source History Provided By: Patient, Medical Record Limitations to Obtaining History: No Limitations - Past Medical History Cardio/Vascular: Yes: AFIB, HTN Pulmonary: Yes: COPD (home oxygen), Pneumonia Gastrointestinal: Yes: Peptic Ulcer Disease Infectious Disease: Yes: Other (MRSA nares colonization) Musculoskeletal: Yes: Chronic low back pain - Past Surgical History Past Surgical History: Yes: Appendectomy, Cholecystectomy Additional Surgical History: Bilateral total hip replaceement - Alcohol/Substance Use Hx Alcohol Use: No History of Substance Use: reports: None - Smoking History Smoking history: Former smoker Have you smoked in the past 12 months: No Aproximately how many cigarettes per day: 40 If you are a former smoker, when did you quit?: age 58 - Social History Usual Living Arrangement: With Spouse ADL: Independent 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 History of Recent Travel: No Home Medications - Allergies Allergies/Adverse Reactions: Allergies Allergy/AdvReac Type Severity Reaction Status Date / Time No Known Allergies Allergy Verified 09/22/18 21:20 - Home Medications Home Medications: Ambulatory Orders Acetaminophen [Tylenol .Regular Strength -] 650 mg PO Q6H PRN #90 tablet Albuterol 0.083% Nebulizer Kayce [Ventolin 0.083% Nebulizer Soln -] 1 neb [facility] Q4H PRN #30 vial 07/18/13 Fluticasone Propionate [Flovent Hfa] 110 mcg IH BID 12/18/13 Diltiazem Cd [Cardizem Cd -] 120 mg PO DAILY #30 cap.cd.24h 12/21/13 Arformoterol Tartrate [Brovana] 15 mcg IH BID #1 ml 04/08/14 Aspirin [ASA -] 81 mg PO DAILY #30 tab.chew 04/08/14 Polyethylene Glycol 3350 [Miralax 119 gm Btl -] 17 gm PO DAILY #1 bottle Oxycodone HCl 20 mg PO ONCE 07/03/18 Albuterol 2.5/Ipratropium 0.5 [Duoneb -] 1 amp NEB RQID #120 amp 07/08/18 Azithromycin [Zithromax 250mg Tablets -] 1 tab PO Q2D #2 tablet 07/08/18 Loratadine [Claritin -] 10 mg PO DAILY #30 tablet 07/08/18 Roflumilast [Daliresp -] 500 mcg PO DAILY #30 tablet 07/08/18 Prednisone 5 mg PO ASDIR 07/20/18 Albuterol 0.083% Nebulizer Kayce [Ventolin 0.083% Nebulizer Soln -] 1 amp NEB Q1H PRN amp 07/29/18 Albuterol 2.5/Ipratropium 0.5 [Duoneb -] 1 amp NEB RQ4H amp 07/29/18 Alprazolam [Xanax] 0.5 mg PO HS tablet MDD 1 07/29/18 Aspirin [ASA -] 81 mg PO DAILY #0 tab.chew 07/29/18 Azithromycin [Zithromax 250mg Tablets -] 250 mg PO Q2D tablet 07/29/18 Budesonide/Formeterol Fumarate [SYMBICORT 160/4.5mcg -] 2 puff IH BID inhaler 07/29/18 Diltiazem Cd [Cardizem Cd -] 120 mg PO DAILY cap.cd.24h 07/29/18 Docusate Sodium [Colace -] 100 mg PO BID PRN capsule 07/29/18 Enoxaparin [Lovenox -] 40 mg SQ DAILY disp.syrin 07/29/18 Methylprednisolone Na Succ [Solu-Medrol -] 20 mg IVPUSH Q8H-IV vial 07/29/18 Mometasone Furoate [Asmanex 220Mcg -] 2 puff IH DAILY inhaler 07/29/18 Nystatin Cream [Mycostatin Cream -] 1 applic TP Q6HPO applic 07/29/18 Nystatin Oral Suspension - [Nystatin Oral Susp 963273 Units/5 ML -] 500,000 units PO Q6HPO cup 07/29/18 Phenol [Chloraseptic -] 1 spray MM Q6HPO PRN bottle 07/29/18 predniSONE [Deltasone -] 60 mg PO DAILY tablet 07/29/18 Family Disease History - Family Disease History Family Disease History: Heart Disease: Father ([place] at age 63 ), [place]: Mother (colon , kidney ), Sister (medical record administrator malignancy ) Review of Systems - Review of Systems Constitutional: reports: Weakness. denies: Chills Eyes: denies: Blurred Vision, Double Vision HENT: denies: Difficult Swallowing, Throat Pain Neck: denies: Stiffness, Swollen Glands Cardiovascular: reports: Shortness of Breath. denies: Chest Pain Respiratory: reports: Cough, Exercise Intolerance, SOB on Exertion. denies: Hemoptysis Gastrointestinal: reports: Vomiting Blood, Other (recent hospitilization at - UGI bleeding secondary to ulcer disease) Genitourinary: denies: Burning, Discharge, Dysuria, Incontinence, Testicular Mass Integumentary: denies: Erythema Neurological: reports: No Symptoms Endocrine: reports: No Symptoms Psychiatric: reports: No Symptoms Physical Exam Vital Signs: Vital Signs Temperature 98.0 F 09/24/18 14:00 Pulse Rate 66 09/25/18 08:20 Respiratory Rate 24 H 09/25/18 08:00 Blood Pressure 122/76 09/25/18 08:00 O2 Sat by Pulse Oximetry (%) 100 09/25/18 08:20 Constitutional: Yes: Mild Distress Eyes: Yes: PERRL. No: Cataracts, Diplopia, Ptosis, Sclera Icterus HENT: Yes: Normocephalic. No: Hoarseness, Thrush, Tonsillar Exudate Neck: Yes: Supple. No: Lymphadenopathy Cardiovascular: Yes: Pulse Irregular Respiratory: Yes: Rhonchi Gastrointestinal: Yes: Normal Bowel Sounds, Soft. No: Hepatomegaly, Hypoactive Bowel Sounds Renal/: No: CVA Tenderness - Left, CVA Tenderness - Right Musculoskeletal: Yes: Back Pain Extremities: No: Calf Tenderness, Cyanosis, Deformity, Erythema Edema: No Integumentary: No: Erythema, Jaundice Neurological: Yes: WNL ...Motor Strength: WNL Psychiatric: Yes: WNL Labs: CBC, BMP 09/25/18 06:30 09/25/18 06:30 Imaging - Results Chest X-ray: Report Reviewed, Image Reviewed Problem List - Problems (1) Anemia Assessment/Plan: 73 year old of [place] ancestry with no family history of anemia, thalassemia, Mediteranean anemia or Adam's anemia. Recent admission to [facility] for hematemesis. No prior history of anemia reported. Was on ASA-81 mg daily. Occasional advil ( approximately 1-2 x per week) . Had coffee ground emesis and then hematemesis. Required 2 units of packed cells at . Had upper endoscopy x2 with ulcer found and injected. Presented once again with anemia- NC/NC. Currently receiving packed cells. Suspect component of anemia related to recent GI bleeding and inadequate replacement. Recently received Injectafer such that iron studies will not be meaningful. Will need to do initial screening tests. Has reverse albumin/globulin ratio. So will obtain protein studies as well. Code(s): D64.9 - ANEMIA, UNSPECIFIED Qualifiers: Iron deficiency anemia type: chronic blood loss (2) Acute and chronic respiratory failure with hypoxia Code(s): J96.21 - ACUTE AND CHRONIC RESPIRATORY FAILURE WITH HYPOXIA (3) COPD with acute exacerbation Code(s): J44.1 - CHRONIC OBSTRUCTIVE PULMONARY DISEASE W (ACUTE) EXACERBATION (4) AF (paroxysmal atrial fibrillation) Code(s): I48.0 - PAROXYSMAL ATRIAL FIBRILLATION
--- NOTE | 2018-09-25 13:11 | PN ---
Physical Exam: SUBJECTIVE: Patient seen and examined at the bedside. Overnight, required Bilevel as he was not tolerating hiflow. This morning, was placed back on hiflow and had respiratory distress but was encouraged to continue with hiflow after orientation to the machine. Stated that he does not have cp, abd pain, n/v , fever, chills, weakness, numbness, tingling, headaches, dizziness, lightheadedness. OBJECTIVE: Vital Signs Period Temp Pulse Resp BP Sys/[place] Pulse Ox Last 24 Hr 98.0 F 55-76 20-24 111-124/ 98-100 GENERAL: The patient is awake, alert, in no acute distress. HEAD: Normal with no signs of trauma. EYES: PERRL, extraocular movements intact, sclera anicteric, conjunctiva clear. ENT: Ears normal, nares patent NECK: Trachea midline, supple. LUNGS: Breath sounds equal, decreased at the bases, fine crackles bilaterally, no accessory muscle use, patient on hiflow HEART: Regular rate and rhythm, S1, S2 without murmur. ABDOMEN: Soft, nontender, nondistended, normoactive bowel sounds, EXTREMITIES: 2+ pulses, warm, well-perfused, no edema. SKIN: Warm, dry, normal turgor, no rashes or lesions noted Laboratory Results - last 24 hr 09/22/18 09/25/18 09/25/18 23:45 06:30 06:30 WBC 5.7 RBC 2.46 L Hgb 7.3 L Hct 22.2 L MCV 90.1 MCH 29.7 MCHC 32.9 RDW 17.1 H Plt Count 150 MPV 7.5 Sodium 139 Potassium 3.9 Chloride 103 Carbon Dioxide 31 Anion Gap 6 L BUN 12.3 Creatinine 0.6 Est GFR (CKD-EPI)AfAm 113.99 Est GFR (CKD-EPI)NonAf 98.35 Random Glucose 109 H Calcium 7.9 L Phosphorus 2.2 L Magnesium 2.4 Total Bilirubin 0.3 AST 9 L ALT 20 Alkaline Phosphatase 87 Total Protein 5.0 L Albumin 1.9 L Blood Type O POSITIVE Antibody Screen Negative Crossmatch See Detail Active Medications Generic Name Dose Route Start Last Admin Trade Name Freq PRN Reason Stop Dose Admin Al Hydroxide/Mg Hydroxide 30 ml 09/24/18 10:54 09/25/18 12:14 Mylanta Oral Suspension - PO 30 ml BID PRN Administration epigastric pain Albuterol/Ipratropium 1 amp 09/23/18 08:00 09/25/18 11:51 Duoneb - NEB 1 amp RQID MORE Administration Chlorhexidine Gluconate 1 applic 09/23/18 22:00 09/24/18 22:45 Hibiclens For Decolonization - TP 1 applic HS MORE Administration Diltiazem HCl 120 mg 09/23/18 17:45 09/25/18 09:17 Cardizem Cd - PO 120 mg DAILY MORE Administration Vancomycin HCl 1,000 mg in 250 mls @ 166.667 mls/hr 09/23/18 14:00 09/25/18 04:04 Vancomycin (Pre-Docked) IVPB 166.667 mls/hr Q12H MORE Administration Protocol Lactobacillus Acidophilus 1 tab 09/24/18 10:00 09/25/18 09:17 Bacid - PO 1 tab DAILY MORE Administration Methylprednisolone Sodium Succinate 40 mg 09/23/18 10:00 09/25/18 09:16 Solu-Medrol - IVPUSH 40 mg DAILY MORE Administration Mupirocin 1 applic 09/23/18 10:00 09/25/18 09:17 Bactroban Ointment (For Decolonization) - NS 09/28/18 09:59 1 applic BID MORE Administration Pantoprazole Sodium 40 mg 09/25/18 10:00 09/25/18 09:17 Protonix - PO 40 mg DAILY MORE Administration ASSESSMENT/PLAN: Gilbert Giang is a 73 year old male with a PMH of GI bleed, Anemia and COPD ( on 2 L NC @ home) who presented to for Respiratory Distress and admitted to ICU for COPD exacerbation and PNA. Acute on Chronic Respiratory Failure due to RLL PNA GI bleed Anemia O2 dependent COPD (on 2 L NC @ home) HTN Neurologic - Awake, alert and oriented Cardiovascular - HTN - BP well controlled for now, continue to monitor - Cardizem PO 120mg qDaily - Holding ASA for now -Cardiology following, recommendations appreciated - will need outpatient nuclear MPI Pulmonary -HFNC today, will place on BiPAP at night prn -BiPAP settings: IPAP 14/EPAP 7/R16/FiO2 40%, use as needed at night -hiflow settings 60L, 45%, wean as tolerated - CXR shows bibasilar atelectasis - continue to follow CXR - continue Duo-Nebs - continue solumedrol 40mg IV daily - encourage incentive spirometry - bed to chair position today - will likely need outpatient eval of sleep apnea Hematologic - Anemia in patient with history of recent GI bleed - Hgb at 7.3, decreased from admission 7.9 - transfuse today in setting of patient's cardiac conditions, 1 unit PRBCs - Continue to monitor for evidence of bleeding - Dr. aRmos consulted, recs appreciated, anemia workup ID -Bandemia 21% without Leukocytosis- possibly 2/2 to chronic steroid use + chronic prophylatic ABx - RLL pneumonia(HAP)-legionella urinary antigen negative -sputum MRSA +, continue isolation - Continue Vanco - vanco trough today - blood cxs negative -add probiotics - ID following, appreciate recommendations Renal - d/c hogue today - no acute issues FEN -no standing fluids -continue to monitor electrolytes and replete as necessary -full liquid diet and ensure supplement Code - full code Dispo - continue to monitor in ICU Visit type - Emergency Visit Emergency Visit: No - New Patient This patient is new to me today: Yes Date on this admission: 09/25/18 - Critical Care Critical Care patient: Yes Total Critical Care Time (in minutes): 35 Critical Care Statement: The care of this patient involved high complexity decision making to prevent further life threatening deterioration of the patient 's condition and/or to evaluate & treat vital organ system(s) failure or risk of failure.
--- NOTE | 2018-09-25 13:22 | PN ---
Progress Note, Physician History of Present Illness: Remains extubated on HFO2 (60L / 45% FiO2), remains in rate-controlled afib, afebrile. Undergoing pRBC. - Current Medication List Current Medications: Active Medications Al Hydroxide/Mg Hydroxide (Mylanta Oral Suspension -) 30 ml PO BID PRN PRN Reason: epigastric pain Last Admin: 09/25/18 12:14 Dose: 30 ml Albuterol/Ipratropium (Duoneb -) 1 amp NEB RQID [facility] Last Admin: 09/25/18 11:51 Dose: 1 amp Chlorhexidine Gluconate (Hibiclens For Decolonization -) 1 applic TP HS [facility] Last Admin: 09/24/18 22:45 Dose: 1 applic Diltiazem HCl (Cardizem Cd -) 120 mg PO DAILY [facility] Last Admin: 09/25/18 09:17 Dose: 120 mg Vancomycin HCl (Vancomycin (Pre-Docked)) 1,000 mg in 250 mls @ 166.667 mls/hr IVPB Q12H [facility]; Protocol Last Admin: 09/25/18 04:04 Dose: 166.667 mls/hr Lactobacillus Acidophilus (Bacid -) 1 tab PO DAILY [facility] Last Admin: 09/25/18 09:17 Dose: 1 tab Methylprednisolone Sodium Succinate (Solu-Medrol -) 40 mg IVPUSH DAILY [facility] Last Admin: 09/25/18 09:16 Dose: 40 mg Mupirocin (Bactroban Ointment (For Decolonization) -) 1 applic NS BID [facility] Stop: 09/28/18 09:59 Last Admin: 09/25/18 09:17 Dose: 1 applic Pantoprazole Sodium (Protonix -) 40 mg PO DAILY [facility] Last Admin: 09/25/18 09:17 Dose: 40 mg - Objective Vital Signs: Vital Signs Temperature 98.0 F 09/24/18 14:00 Pulse Rate 66 09/25/18 08:20 Respiratory Rate 24 H 09/25/18 08:00 Blood Pressure 122/76 09/25/18 08:00 O2 Sat by Pulse Oximetry (%) 100 09/25/18 08:20 Constitutional: Yes: No Distress, Calm Neck: Yes: Supple Cardiovascular: Yes: Pulse Irregular Respiratory: Yes: Regular, Diminished, Other (HFO2) Gastrointestinal: Yes: Normal Bowel Sounds, Soft Edema: No Labs: CBC, BMP 09/25/18 06:30 09/25/18 06:30 INR, PTT INR 1.18 (0.83-1.09) H 09/22/18 21:00 - ....Imaging EKG: Report Reviewed (Tele: Rory) Problem List - Problems (1) Acute and chronic respiratory failure with hypoxia Code(s): J96.21 - ACUTE AND CHRONIC RESPIRATORY FAILURE WITH HYPOXIA (2) Anemia Code(s): D64.9 - ANEMIA, UNSPECIFIED Qualifiers: Iron deficiency anemia type: chronic blood loss (3) COPD with acute exacerbation Code(s): J44.1 - CHRONIC OBSTRUCTIVE PULMONARY DISEASE W (ACUTE) EXACERBATION (4) AF (paroxysmal atrial fibrillation) Code(s): I48.0 - PAROXYSMAL ATRIAL FIBRILLATION (5) Hypertension Code(s): I10 - ESSENTIAL (PRIMARY) HYPERTENSION Qualifiers: Hypertension type: essential hypertension Qualified Code(s): I10 - Essential (primary) hypertension (6) Pneumonia Code(s): J18.9 - PNEUMONIA, UNSPECIFIED ORGANISM Qualifiers: Laterality: right Lung location: lower lobe of lung Assessment/Plan Echocardiogram 07/03/2018 Normal LV and RV size and fxn, LVEF 55-60%, mild LAE, mild ao root dilatation 4.2 cm, impaired LV relaxation Echocardiography (12/08/17) which revealed normal LV systolic function, LVEF 60- 65%, moderately dilated ascending thoracic aorta, mild TR and trace [place]. Nuclear MPI (08/20/16) revealed moderate zone of anterior and anteroapical reversible defect c/s mild intensity ischemia and moderate inferior attenuation. LVEF was 71%. Chest CT: 09/21/2018 Patchy pneumonia middle lobe and bilateral lower lobes, mod -severe centrilobular/paraseptal pulmomary emphysema, mucous plugging right lower lobe 1. Acute on chronic hypercapneic/hypoxemic respiratory failure requiring mechanical ventilation 2. Acute O2 dependent (on 2 -3 L NC @ home) COPD exacerbation 3. RLL pneumonia(HAP)-legionella urinary antigen negative 4. PAF [id number] score of 2-3 currently in sinus rhythm (refused DOAC or Coumadin) 5. Recent UGI bleed 2/2 bleeding duodenal ulcer post epinephrine injection 6. Anemia 7. HTN 8. Prior abnormal nuclear MPI suggests CAD with demand ischemia 9. Diastolic dysfunction 10. Hstory of MRSA colonization-continue isolation PLAN: 1. IV steroids with GI protection, bronchodilators, Vanco now off zosyn per C&S and NIPPV as needed, wean HFO2 as tolerated, pulmonary rehab post discharge 2. Continue Cardizem CD 120 mg QD and hold ASA 81 mg QD, diuresis as needed 3. Ideally anticoagulation is recommended, but patient has previously declined along with recent UGI bleed. Continue DVT prophylaxis 4. Cardiac work up including repeat nuclear MPI can be done as outpatient in the office once clinically improved 5. Monitor Hgb and transfuse as needed
[2018-09-25 17:44] LABS: IRON SERUM 194 ug/dL (50-175); TOTAL IRON BINDING CAPACITY 322 ug/dL (250-450)
--- NOTE | 2018-09-25 19:18 | CON.GI ---
Consult Consult Specialty:: GI Referred by:: Hospitalist Service Reason for Consultation:: Anemia - History of Present Illness Chief Complaint: "I got pneumonia again" History of Present Illness: 73M admitted for evaluation of shortness of breath. Was intubated, extubated, placed on CPAP now on high flow O2. Asked to evaluate anemia. Had significant upper GI bleed at [facility], possibly 2-3 weeks ago (admitted there for resp issues). and had EGD x 2 (he believes that Dr. Antonio performed them). There has been no melena, rectal bleeding. He denies abdominal pain. He has never had a colonoscopy. - Past Medical History Cardio/Vascular: Yes: AFIB, HTN Pulmonary: Yes: COPD (home oxygen), Pneumonia Gastrointestinal: Yes: Peptic Ulcer Disease Infectious Disease: Yes: Other (MRSA nares colonization) Musculoskeletal: Yes: Chronic low back pain - Past Surgical History Past Surgical History: Yes: Appendectomy, Cholecystectomy, Joint Replacement (B/ L THR), Tonsillectomy Additional Surgical History: Bilateral total hip replacement - Alcohol/Substance Use Hx Alcohol Use: No History of Substance Use: reports: None - Smoking History Smoking history: Former smoker Have you smoked in the past 12 months: No Aproximately how many cigarettes per day: 40 If you are a former smoker, when did you quit?: age 58 - Social History Usual Living Arrangement: With Spouse ADL: Independent 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 Place of : [facility] History of Recent Travel: No Home Medications - Allergies Allergies/Adverse Reactions: Allergies Allergy/AdvReac Type Severity Reaction Status Date / Time No Known Allergies Allergy Verified 09/22/18 21:20 - Home Medications Home Medications: Ambulatory Orders Acetaminophen [Tylenol .Regular Strength -] 650 mg PO Q6H PRN #90 tablet Albuterol 0.083% Nebulizer Kayce [Ventolin 0.083% Nebulizer Soln -] 1 neb NEB Q4H PRN #30 vial 07/18/13 Fluticasone Propionate [Flovent Hfa] 110 mcg IH BID 12/18/13 Diltiazem Cd [Cardizem Cd -] 120 mg PO DAILY #30 cap.cd.24h 12/21/13 Arformoterol Tartrate [Brovana] 15 mcg IH BID #1 ml 04/08/14 Aspirin [ASA -] 81 mg PO DAILY #30 tab.chew 04/08/14 Polyethylene Glycol 3350 [Miralax 119 gm Btl -] 17 gm PO DAILY #1 bottle Oxycodone HCl 20 mg PO ONCE 07/03/18 Albuterol 2.5/Ipratropium 0.5 [Duoneb -] 1 amp NEB RQID #120 amp 07/08/18 Azithromycin [Zithromax 250mg Tablets -] 1 tab PO Q2D #2 tablet 07/08/18 Loratadine [Claritin -] 10 mg PO DAILY #30 tablet 07/08/18 Roflumilast [Daliresp -] 500 mcg PO DAILY #30 tablet 07/08/18 Prednisone 5 mg PO ASDIR 07/20/18 Albuterol 0.083% Nebulizer Kayce [Ventolin 0.083% Nebulizer Soln -] 1 amp NEB Q1H PRN amp 07/29/18 Albuterol 2.5/Ipratropium 0.5 [Duoneb -] 1 amp NEB RQ4H amp 07/29/18 Alprazolam [Xanax] 0.5 mg PO HS tablet MDD 1 07/29/18 Aspirin [ASA -] 81 mg PO DAILY #0 tab.chew 07/29/18 Azithromycin [Zithromax 250mg Tablets -] 250 mg PO Q2D tablet 07/29/18 Budesonide/Formeterol Fumarate [SYMBICORT 160/4.5mcg -] 2 puff IH BID inhaler 07/29/18 Diltiazem Cd [Cardizem Cd -] 120 mg PO DAILY cap.cd.24h 07/29/18 Docusate Sodium [Colace -] 100 mg PO BID PRN capsule 07/29/18 Enoxaparin [Lovenox -] 40 mg SQ DAILY disp.syrin 07/29/18 Methylprednisolone Na Succ [Solu-Medrol -] 20 mg IVPUSH Q8H-IV vial 07/29/18 Mometasone Furoate [Asmanex 220Mcg -] 2 puff IH DAILY inhaler 07/29/18 Nystatin Cream [Mycostatin Cream -] 1 applic TP Q6HPO applic 07/29/18 Nystatin Oral Suspension - [Nystatin Oral Susp 181333 Units/5 ML -] 500,000 units PO Q6HPO cup 07/29/18 Phenol [Chloraseptic -] 1 spray MM Q6HPO PRN bottle 07/29/18 predniSONE [Deltasone -] 60 mg PO DAILY tablet 07/29/18 Family Disease History - Family Disease History Family Disease History: Heart Disease: Father ([place] at age 63 ), [place]: Mother ( : 81: Unclear cancer, kidney problems ), Sister (1, 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 malignancy ), Other: Sister, Son (2 healthy), Daughter (1 healthy) Review of Systems - Review of Systems Constitutional: denies: Chills Respiratory: reports: SOB, Wheezing Gastrointestinal: denies: Constipation, Melena, Rectal Bleeding, Vomiting, Vomiting Blood Physical Exam-GI Vital Signs: Vital Signs Temperature 98.0 F 09/24/18 14:00 Pulse Rate 77 09/25/18 18:00 Respiratory Rate 22 H 09/25/18 18:00 Blood Pressure 117/98 09/25/18 18:00 O2 Sat by Pulse Oximetry (%) 100 09/25/18 10:00 Constitutional: Yes: Calm Eyes: No: Sclera Icterus Cardiovascular: Yes: Regular Rate and Rhythm Respiratory: Yes: Rhonchi (bilaterally at bases) Gastrointestinal Inspection: Yes: Scars (+ RUQ scar, + RLQ scar). No: Distention ...Auscultate: Yes: Normoactive Bowel Sounds ...Palpate: Yes: Soft. No: Hepatomegaly, Splenomegaly, Tenderness ...Percussion: No: Tympanitic ...Rectal Exam: Yes: Deferred (Refused) Extremities: Yes: Other (trace edema, B/L feet) Neurological: Yes: Alert Labs: CBC, BMP 09/25/18 06:30 09/25/18 06:30 INR, PTT INR 1.18 (0.83-1.09) H 09/22/18 21:00 Problem List - Problems (1) Anemia Assessment/Plan: No overt bleeding and uncertain what H/H has been baseline s/p bleed at [facility] Continue to monitor for now for active bleeding. Would not attempt elective endoscopic evaluation at this point given tenuous respiratory status Protonix 40mg once daily Monitor h/h Heme evaluation, check iron studies When acute issues are resolved, Colonoscopy could be considered. This can be performed in outpatient setting Code(s): D64.9 - ANEMIA, UNSPECIFIED Qualifiers: Iron deficiency anemia type: chronic blood loss
--- NOTE | 2018-09-25 19:59 | PN ---
Progress Note (short form) - Note Progress Note: Vancomycin trough 34. Held vancomycin dose for now. Will repeat vanco random level in AM with routine lab draws --Sal Alcala, DO - IM PGY-3
[2018-09-25] MEDS: CHLORHEXIDINE GLUCONATE 4% CLEANSER FOR DECOLONIZATION TP SCH (22:15)
[2018-09-26] MEDS ORDERED: ZOLPIDEM TARTRATE 5 MG TABLET PO ONE ×2 (00:55→21:59)
[2018-09-26 06:43] LABS: BASO % 0.1 % (0-2.0); HEMATOCRIT 23.3 % (35.4-49); HEMOGLOBIN 7.9 GM/dL (11.7-16.9); LYMPH % 8.5 % (8-40); MCH 30.5 pg (25.7-33.7); MCHC 34.1 g/dl (32.0-35.9); MEAN CELL VOLUME 89.5 fl (80-96); MEAN PLT VOLUME 7.7 fl (7.5-11.1); MONO % 4.9 % (3.8-10.2); NEUT % 86.5 % (42.8-82.8); PLATELET COUNT 163 K/MM3 (134-434); RDW 16.8 % (11.9-15.9); WHITE BLOOD COUNT 6.1 K/mm3 (4.0-10.0)
[2018-09-26 07:05] LABS: BLOOD UREA NITROGEN 11.1 mg/dL (7-18); CREATININE 0.6 mg/dL (0.55-1.3); POTASSIUM 4.2 mmol/L (3.5-5.1)
[2018-09-26 07:33] LABS: MAGNESIUM 2.1 mg/dL (1.8-2.4); PHOSPHOROUS 1.8 mg/dL (2.5-4.9)
--- NOTE | 2018-09-26 07:59 | PN.GI ---
GI Progress Note Subjective: PATIENT STATES HE IS FEELING BETTER -- HE IS KNOWN TO ME FROM OUTSIDE FACILITY AT WHICH TIME HE UNDERWENT EGD FOR MELENA FOUND TO HAVE EXTENSIVE DUODENAL BULB ULCER. CURRENTLY, DENIES ANY MELENA/ BRBR OR ABDOMINAL PAIN - Objective Vital Signs: Vital Signs Temperature 98.0 F 09/26/18 07:38 Pulse Rate 78 09/26/18 07:38 Respiratory Rate 20 09/26/18 07:38 Blood Pressure 127/66 09/26/18 07:38 O2 Sat by Pulse Oximetry (%) 93 L 09/26/18 06:32 Constitutional: Well Nourished, No Distress, Calm Eyes: Yes: WNL HENT: Yes: WNL Neck: Yes: WNL Cardiovascular: Yes: WNL Respiratory: Yes: WNL, Regular Gastrointestinal Inspection: Yes: WNL ...Auscultate: Yes: Normoactive Bowel Sounds Extremities: Yes: WNL Edema: No Labs: CBC, BMP 09/26/18 05:30 09/26/18 05:30 INR, PTT INR 1.18 (0.83-1.09) H 09/22/18 21:00 Assessment/Plan IMPRESSION: COPD ANEMIA -- NO SIGN OF OVERT GI BLEED. REC: - TREND H/H QD - C/W PPI THERAPY - AVOID NSAID - MICU CARE
--- NOTE | 2018-09-26 08:54 | PN ---
Progress Note, Physician Chief Complaint: SOB History of Present Illness: The patient is a 73 year old man admitted for evaluation of shortness of breath. Was intubated, extubated, placed on CPAP now on high flow O2. He had been hospitalized at [place] for exacerbation COPD. Re-admitted in resp failure. Now RX for pneumonia, C/s MRSA. - Current Medication List Current Medications: Active Medications Al Hydroxide/Mg Hydroxide (Mylanta Oral Suspension -) 30 ml PO BID PRN PRN Reason: epigastric pain Last Admin: 09/25/18 12:14 Dose: 30 ml Albuterol/Ipratropium (Duoneb -) 1 amp NEB RQID [facility] Last Admin: 09/25/18 20:30 Dose: 1 amp Chlorhexidine Gluconate (Hibiclens For Decolonization -) 1 applic TP HS [facility] Last Admin: 09/25/18 22:15 Dose: 1 applic Diltiazem HCl (Cardizem Cd -) 120 mg PO DAILY [facility] Last Admin: 09/25/18 09:17 Dose: 120 mg Vancomycin HCl (Vancomycin (Pre-Docked)) 1,000 mg in 250 mls @ 166.667 mls/hr IVPB Q12H MORE; Protocol Last Admin: 09/25/18 15:34 Dose: 166.667 mls/hr Lactobacillus Acidophilus (Bacid -) 1 tab PO DAILY [facility] Last Admin: 09/25/18 09:17 Dose: 1 tab Methylprednisolone Sodium Succinate (Solu-Medrol -) 40 mg IVPUSH DAILY [facility] Last Admin: 09/25/18 09:16 Dose: 40 mg Mupirocin (Bactroban Ointment (For Decolonization) -) 1 applic NS BID [facility] Stop: 09/28/18 09:59 Last Admin: 09/25/18 22:15 Dose: 1 applic Pantoprazole Sodium (Protonix -) 40 mg PO DAILY [facility] Last Admin: 09/25/18 09:17 Dose: 40 mg Potassium Phos/Sodium Phos (Phos-Nak Packet -) 1 packet PO BID [facility] - Objective Vital Signs: Vital Signs Temperature 98.0 F 09/26/18 07:38 Pulse Rate 78 09/26/18 07:38 Respiratory Rate 20 09/26/18 07:38 Blood Pressure 127/66 09/26/18 07:38 O2 Sat by Pulse Oximetry (%) 99 09/26/18 07:45 Constitutional: Yes: Well Nourished, No Distress Eyes: Yes: PERRL Neck: Yes: Supple Cardiovascular: Yes: Regular Rate and Rhythm Respiratory: Yes: Rhonchi (Occasional wheeze, Hi Flow O2) Gastrointestinal: Yes: Normal Bowel Sounds, Soft. No: Tenderness Labs: CBC, BMP 09/26/18 05:30 09/26/18 05:30 INR, PTT INR 1.18 (0.83-1.09) H 09/22/18 21:00 - ....Imaging Chest X-ray: Report Reviewed, Image Reviewed Problem List - Problems (1) Acute and chronic respiratory failure with hypoxia Code(s): J96.21 - ACUTE AND CHRONIC RESPIRATORY FAILURE WITH HYPOXIA (2) Pneumonia Code(s): J18.9 - PNEUMONIA, UNSPECIFIED ORGANISM Qualifiers: Laterality: right Lung location: lower lobe of lung Assessment/Plan Pt with Acute on Chronic Resp Failure Pneumonia (R) MRSA in Sputum VAnco Trough 34.8 CAn DC Zosyn Hold Vanco Check VAnco level in AM IF less 15, can re-dose - 1 gr Q 24
[2018-09-26] MEDS: ALBUTEROL SO4 2.5/IPRATROPIUM 0.5 INH SOL 3 ML VIAL.NEB. NEB SCH ×4 (08:56→20:50)
[2018-09-26] MEDS: NAPH,MB-DB/K PH,MBDB POWDER PACKET PO SCH ×2 (09:22→21:01)
[2018-09-26] MEDS: LACTOBACILLUS ACIDOPHILUS 1 TABLET PO SCH (09:22)
[2018-09-26] MEDS: PANTOPRAZOLE 40 MG TABLET (FP) PO SCH (09:22)
[2018-09-26] MEDS: methylPREDNISolone NA SUCC 40 MG/1 ML VIAL IVPUSH SCH (09:22)
[2018-09-26] MEDS: MUPIROCIN 2% TOPICAL OINTMENT FOR DECOLONIZATION NS SCH ×2 (09:32→21:01)
--- NOTE | 2018-09-26 09:42 | PN ---
Teaching Attending Note Name of Resident: Sal Taveras ATTENDING PHYSICIAN STATEMENT I saw and evaluated the patient. I reviewed the resident's note and discussed the case with the resident. I agree with the resident's findings and plan as documented. SUBJECTIVE: Patient seen and examined in the ICU. Remains extubated, but still requiring HFOT (50L / 50% FiO2). Mildly tachypneic at rest. Less congested cough. No CP. CXR: decreasing density of the RLL infiltrate Intake & Output 09/23/18 09/24/18 09/25/18 09/26/18 23:59 23:59 23:59 23:59 Intake Total 2392 3500 3180 Output Total 1975 2300 2050 650 Balance 417 1200 1130 -650 Weight 188 lb 8 oz 188 lb 190 lb 8 oz Last Vital Signs Temp Pulse Resp BP Pulse Ox 98.0 F 78 20 127/66 100 09/26/18 07:38 09/26/18 07:38 09/26/18 07:38 09/26/18 07:38 09/26/18 08:14 Active Medications Al Hydroxide/Mg Hydroxide (Mylanta Oral Suspension -) 30 ml PO BID PRN PRN Reason: epigastric pain Last Admin: 09/25/18 12:14 Dose: 30 ml Albuterol/Ipratropium (Duoneb -) 1 amp NEB RQID [facility] Last Admin: 09/26/18 08:56 Dose: 1 amp Chlorhexidine Gluconate (Hibiclens For Decolonization -) 1 applic TP HS [facility] Last Admin: 09/25/18 22:15 Dose: 1 applic Diltiazem HCl (Cardizem Cd -) 120 mg PO DAILY [facility] Last Admin: 09/26/18 09:22 Dose: 120 mg Lactobacillus Acidophilus (Bacid -) 1 tab PO DAILY [facility] Last Admin: 09/26/18 09:22 Dose: 1 tab Methylprednisolone Sodium Succinate (Solu-Medrol -) 40 mg IVPUSH DAILY [facility] Last Admin: 09/26/18 09:22 Dose: 40 mg Mupirocin (Bactroban Ointment (For Decolonization) -) 1 applic NS BID [facility] Stop: 09/28/18 09:59 Last Admin: 09/26/18 09:32 Dose: 1 applic Pantoprazole Sodium (Protonix -) 40 mg PO DAILY MORE Last Admin: 09/26/18 09:22 Dose: 40 mg Potassium Phos/Sodium Phos (Phos-Nak Packet -) 1 packet PO BID MORE Last Admin: 09/26/18 09:22 Dose: 1 packet Vancomycin HCl (Vancomycin (Pre-Docked)) 1,000 mg IVPB DAILY [facility]; Protocol General: Obese, awake and alert, Mildly tachypneic on HFOT Respiratory: bibasilar rhonchi, Right > Left CV: S1, S2, irregular Abdomen: soft, non-tender, (+) bowel sounds Extremity: 2+ DP pulses B/L, no edema [employer]: awake and alert, non-focal Laboratory Results - last 24 hr 09/22/18 09/25/18 09/25/18 23:45 16:40 16:40 WBC RBC Hgb Hct MCV MCH MCHC RDW Plt Count MPV Absolute Neuts (auto) Neutrophils % Lymphocytes % Monocytes % Eosinophils % Basophils % Nucleated RBC % Retic Count Sodium Potassium Chloride Carbon Dioxide Anion Gap BUN Creatinine Est GFR (CKD-EPI)AfAm Est GFR (CKD-EPI)NonAf Random Glucose Calcium Phosphorus Magnesium Iron 194 H TIBC 322 Iron Saturation 60 H Unsaturated IBC 128 L LD Total Triglycerides Cholesterol Total LDL Cholesterol HDL Cholesterol Vitamin B12 Serum Folate TSH Free T4 Stool Occult Blood Random Vancomycin Vancomycin Pre-Dose 34.8 H* Blood Type O POSITIVE Antibody Screen Negative Crossmatch See Detail 09/25/18 09/26/18 09/26/18 18:00 05:30 05:30 WBC RBC Hgb Hct MCV MCH MCHC RDW Plt Count MPV Absolute Neuts (auto) Neutrophils % Lymphocytes % Monocytes % Eosinophils % Basophils % Nucleated RBC % Retic Count Sodium 141 Potassium 4.2 Chloride 105 Carbon Dioxide 30 Anion Gap 6 L BUN 11.1 Creatinine 0.6 Est GFR (CKD-EPI)AfAm 113.99 Est GFR (CKD-EPI)NonAf 98.35 Random Glucose 83 Calcium 8.0 L Phosphorus Magnesium Iron TIBC Iron Saturation Unsaturated IBC LD Total Triglycerides 125 Cholesterol 145 Total LDL Cholesterol 90 HDL Cholesterol 40 Vitamin B12 Serum Folate TSH Free T4 1.21 H Stool Occult Blood Negative Random Vancomycin 14.5 L Vancomycin Pre-Dose Blood Type Antibody Screen Crossmatch 09/26/18 09/26/18 09/26/18 05:30 05:30 05:30 WBC 6.1 RBC 2.60 L Hgb 7.9 L Hct 23.3 L MCV 89.5 MCH 30.5 MCHC 34.1 RDW 16.8 H Plt Count 163 MPV 7.7 Absolute Neuts (auto) 5.3 Neutrophils % 86.5 H Lymphocytes % 8.5 D Monocytes % 4.9 D Eosinophils % 0.0 Basophils % 0.1 Nucleated RBC % 0 Retic Count 1.38 Sodium Potassium Chloride Carbon Dioxide Anion Gap BUN Creatinine Est GFR (CKD-EPI)AfAm Est GFR (CKD-EPI)NonAf Random Glucose Calcium Phosphorus 1.8 L Magnesium 2.1 Iron TIBC Iron Saturation Unsaturated IBC LD Total 209 Triglycerides Cholesterol Total LDL Cholesterol HDL Cholesterol Vitamin B12 1111 H Serum Folate 11 TSH 0.30 L Free T4 Stool Occult Blood Random Vancomycin Vancomycin Pre-Dose Blood Type Antibody Screen Crossmatch ASSESSMENT/PLAN: Acute on Chronic Respiratory Failure due to RLL PNA GI bleed Anemia O2 dependent COPD (on 2 -3 L NC @ home) HTN Wean HFOT support with NIPPV support as needed ABX per ID BD TX Daily Medrol Normal transfusion thresholds Encourage Incentive Spirometry PO as tolerated Requires ICU monitoring due to tenuous respiratory status Dr Rios Critical care time spent in reviewing chart, evaluating patient and formulating plan - 36 minutes.
--- NOTE | 2018-09-26 09:53 | PN ---
Progress Note, Physician Chief Complaint: AWAKE ON AIRVO NC 02 SUPPORT DENIES CP, FEELS BETTER - Current Medication List Current Medications: Active Medications Al Hydroxide/Mg Hydroxide (Mylanta Oral Suspension -) 30 ml PO BID PRN PRN Reason: epigastric pain Last Admin: 09/25/18 12:14 Dose: 30 ml Albuterol/Ipratropium (Duoneb -) 1 amp NEB RQID [facility] Last Admin: 09/26/18 08:56 Dose: 1 amp Chlorhexidine Gluconate (Hibiclens For Decolonization -) 1 applic TP HS [facility] Last Admin: 09/25/18 22:15 Dose: 1 applic Diltiazem HCl (Cardizem Cd -) 120 mg PO DAILY [facility] Last Admin: 09/26/18 09:22 Dose: 120 mg Lactobacillus Acidophilus (Bacid -) 1 tab PO DAILY [facility] Last Admin: 09/26/18 09:22 Dose: 1 tab Methylprednisolone Sodium Succinate (Solu-Medrol -) 40 mg IVPUSH DAILY [facility] Last Admin: 09/26/18 09:22 Dose: 40 mg Mupirocin (Bactroban Ointment (For Decolonization) -) 1 applic NS BID [facility] Stop: 09/28/18 09:59 Last Admin: 09/26/18 09:32 Dose: 1 applic Pantoprazole Sodium (Protonix -) 40 mg PO DAILY [facility] Last Admin: 09/26/18 09:22 Dose: 40 mg Potassium Phos/Sodium Phos (Phos-Nak Packet -) 1 packet PO BID [facility] Last Admin: 09/26/18 09:22 Dose: 1 packet Vancomycin HCl (Vancomycin (Pre-Docked)) 1,000 mg IVPB DAILY [facility]; Protocol - Objective Vital Signs: Vital Signs Temperature 98.0 F 09/26/18 07:38 Pulse Rate 78 09/26/18 07:38 Respiratory Rate 20 09/26/18 07:38 Blood Pressure 127/66 09/26/18 07:38 O2 Sat by Pulse Oximetry (%) 100 09/26/18 08:14 Constitutional: Yes: Mild Distress Cardiovascular: Yes: Pulse Irregular Respiratory: Yes: Other Gastrointestinal: Yes: Soft Genitourinary: Yes: WNL Musculoskeletal: Yes: Muscle Weakness Extremities: Yes: WNL Edema: Yes Edema: LLE: 1+ Integumentary: Yes: WNL Wound/Incision: Yes: Clean/Dry Neurological: Yes: WNL ...Motor Strength: WNL Psychiatric: Yes: WNL Labs: CBC, BMP 09/26/18 05:30 09/26/18 05:30 INR, PTT INR 1.18 (0.83-1.09) H 09/22/18 21:00 Problem List - Problems (1) Acute and chronic respiratory failure with hypoxia Code(s): J96.21 - ACUTE AND CHRONIC RESPIRATORY FAILURE WITH HYPOXIA (2) Anemia Code(s): D64.9 - ANEMIA, UNSPECIFIED Qualifiers: Iron deficiency anemia type: chronic blood loss (3) COPD with acute exacerbation Code(s): J44.1 - CHRONIC OBSTRUCTIVE PULMONARY DISEASE W (ACUTE) EXACERBATION (4) AF (paroxysmal atrial fibrillation) Code(s): I48.0 - PAROXYSMAL ATRIAL FIBRILLATION Assessment/Plan TRANSFUSED YESTERDAY PRBC MINIMALLY IMPROVED BONE MARROW BX FOR Friday SUPPORT NO AC WITH HX OF GI ULCER VENODYNE B/L OOB TO CHAIR/PT ALEXANDR
[2018-09-26] MEDS: VANCOMYCIN 1 GM in D5W (PRE-DOCKED) 1,000 MG/250 ML IVPB SCH (09:55)
--- NOTE | 2018-09-26 10:40 | PN ---
Physical Exam: SUBJECTIVE: Patient seen and examined at the bedside. Asking for diet upgrade. States that his breathing is getting better and wants to know when he can go home. No acute complaints of cp, abd pain, n/v, headaches, dizziness, lightheadedness, fever, chills, weakness. OBJECTIVE: Vital Signs Period Temp Pulse Resp BP Sys/[place] Pulse Ox Last 24 Hr 98 F-98.8 F 57-95 19-24 117-156/61-98 93-100 GENERAL: The patient is awake, alert, in no acute distress. HEAD: Normal with no signs of trauma. EYES: PERRL, extraocular movements intact, sclera anicteric, conjunctiva clear. ENT: Ears normal, nares patent NECK: Trachea midline, supple. LUNGS: Breath sounds equal, decreased at the bases, no accessory muscle use, patient on hiflow HEART: Regular rate and rhythm, S1, S2 without murmur. ABDOMEN: Soft, nontender, nondistended, normoactive bowel sounds, EXTREMITIES: 2+ pulses, warm, well-perfused, no edema. SKIN: Warm, dry, normal turgor, no rashes or lesions noted Laboratory Results - last 24 hr 09/22/18 09/25/18 09/25/18 23:45 16:40 16:40 WBC RBC Hgb Hct MCV MCH MCHC RDW Plt Count MPV Absolute Neuts (auto) Neutrophils % Lymphocytes % Monocytes % Eosinophils % Basophils % Nucleated RBC % Retic Count Sodium Potassium Chloride Carbon Dioxide Anion Gap BUN Creatinine Est GFR (CKD-EPI)AfAm Est GFR (CKD-EPI)NonAf Random Glucose Calcium Phosphorus Magnesium Iron 194 H TIBC 322 Iron Saturation 60 H Unsaturated IBC 128 L LD Total Triglycerides Cholesterol Total LDL Cholesterol HDL Cholesterol Vitamin B12 Serum Folate TSH Free T4 Stool Occult Blood Random Vancomycin Vancomycin Pre-Dose 34.8 H* Blood Type O POSITIVE Antibody Screen Negative Crossmatch See Detail 09/25/18 09/26/18 09/26/18 18:00 05:30 05:30 WBC RBC Hgb Hct MCV MCH MCHC RDW Plt Count MPV Absolute Neuts (auto) Neutrophils % Lymphocytes % Monocytes % Eosinophils % Basophils % Nucleated RBC % Retic Count Sodium 141 Potassium 4.2 Chloride 105 Carbon Dioxide 30 Anion Gap 6 L BUN 11.1 Creatinine 0.6 Est GFR (CKD-EPI)AfAm 113.99 Est GFR (CKD-EPI)NonAf 98.35 Random Glucose 83 Calcium 8.0 L Phosphorus Magnesium Iron TIBC Iron Saturation Unsaturated IBC LD Total Triglycerides 125 Cholesterol 145 Total LDL Cholesterol 90 HDL Cholesterol 40 Vitamin B12 Serum Folate TSH Free T4 1.21 H Stool Occult Blood Negative Random Vancomycin 14.5 L Vancomycin Pre-Dose Blood Type Antibody Screen Crossmatch 09/26/18 09/26/18 09/26/18 05:30 05:30 05:30 WBC 6.1 RBC 2.60 L Hgb 7.9 L Hct 23.3 L MCV 89.5 MCH 30.5 MCHC 34.1 RDW 16.8 H Plt Count 163 MPV 7.7 Absolute Neuts (auto) 5.3 Neutrophils % 86.5 H Lymphocytes % 8.5 D Monocytes % 4.9 D Eosinophils % 0.0 Basophils % 0.1 Nucleated RBC % 0 Retic Count 1.38 Sodium Potassium Chloride Carbon Dioxide Anion Gap BUN Creatinine Est GFR (CKD-EPI)AfAm Est GFR (CKD-EPI)NonAf Random Glucose Calcium Phosphorus 1.8 L Magnesium 2.1 Iron TIBC Iron Saturation Unsaturated IBC LD Total 209 Triglycerides Cholesterol Total LDL Cholesterol HDL Cholesterol Vitamin B12 1111 H Serum Folate 11 TSH 0.30 L Free T4 Stool Occult Blood Random Vancomycin Vancomycin Pre-Dose Blood Type Antibody Screen Crossmatch Active Medications Generic Name Dose Route Start Last Admin Trade Name Freq PRN Reason Stop Dose Admin Al Hydroxide/Mg Hydroxide 30 ml 09/24/18 10:54 09/25/18 12:14 Mylanta Oral Suspension - PO 30 ml BID PRN Administration epigastric pain Albuterol/Ipratropium 1 amp 09/23/18 08:00 09/26/18 08:56 Duoneb - NEB 1 amp RQID MORE Administration Chlorhexidine Gluconate 1 applic 09/23/18 22:00 09/25/18 22:15 Hibiclens For Decolonization - TP 1 applic HS MORE Administration Diltiazem HCl 120 mg 09/23/18 17:45 09/26/18 09:22 Cardizem Cd - PO 120 mg DAILY MORE Administration Lactobacillus Acidophilus 1 tab 09/24/18 10:00 09/26/18 09:22 Bacid - PO 1 tab DAILY MORE Administration Methylprednisolone Sodium Succinate 40 mg 09/23/18 10:00 09/26/18 09:22 Solu-Medrol - IVPUSH 40 mg DAILY MORE Administration Mupirocin 1 applic 09/23/18 10:00 09/26/18 09:32 Bactroban Ointment (For Decolonization) - NS 09/28/18 09:59 1 applic BID MORE Administration Pantoprazole Sodium 40 mg 09/25/18 10:00 09/26/18 09:22 Protonix - PO 40 mg DAILY MORE Administration Potassium Phos/Sodium Phos 1 packet 09/26/18 10:00 09/26/18 09:22 Phos-Nak Packet - PO 1 packet BID MORE Administration Vancomycin HCl 1,000 mg 09/26/18 10:00 09/26/18 09:55 Vancomycin (Pre-Docked) IVPB Not Given DAILY MORE Protocol ASSESSMENT/PLAN: Gilbert Giang is a 73 year old male with a PMH of GI bleed, Anemia and COPD ( on 2 L NC @ home) who presented to for Respiratory Distress and admitted to ICU for COPD exacerbation and PNA. Acute on Chronic Respiratory Failure due to RLL PNA GI bleed Anemia O2 dependent COPD (on 2 L NC @ home) HTN Neurologic - Awake, alert and oriented Cardiovascular - HTN - BP well controlled for now, continue to monitor - Cardizem PO 120mg qDaily - Holding ASA for now -Cardiology following, recommendations appreciated - will need outpatient nuclear MPI Pulmonary -HFNC today, will place on BiPAP at night prn -BiPAP settings: IPAP 14/EPAP 7/R16/FiO2 40%, use as needed at night -hiflow settings 50L, 45%, wean as tolerated - CXR shows bibasilar atelectasis, improved today - continue to follow CXR - continue Duo-Nebs - continue solumedrol 40mg IV daily - encourage incentive spirometry - bed to chair position today - will likely need outpatient eval of sleep apnea Hematologic - Anemia in patient with history of recent GI bleed - Hgb at 7.9, s/p transfusion of 1 unit PRBCs - Continue to monitor for evidence of bleeding - Dr. Ramos consulted, recs appreciated, anemia workup - received Injectafor - protein studies, cytometry, hemoglobin studies - to go for bone marrow biopsy on Friday ID - Bandemia 21% without Leukocytosis- possibly 2/2 to chronic steroid use + chronic prophylatic ABx - RLL pneumonia(HAP)-legionella urinary antigen negative - sputum MRSA +, continue isolation - Continue Vanco - vanco trough elevated - today random vanco level <15 - redosed vanco to 1g q24h - blood cxs negative - add probiotics - ID following, appreciate recommendations Renal - hogue out - no acute issues Endocrine - TSH low, free T4 mildly elevated, no acute signs of hyperthyroidism - continue to monitor for signs including fever, wt loss, tachycardia, hypertension FEN -no standing fluids -continue to monitor electrolytes and replete as necessary -soft diet and ensure supplement Code - full code Dispo - continue to monitor in ICU Visit type - Emergency Visit Emergency Visit: No - New Patient This patient is new to me today: No - Critical Care Critical Care patient: Yes Total Critical Care Time (in minutes): 36 Critical Care Statement: The care of this patient involved high complexity decision making to prevent further life threatening deterioration of the patient 's condition and/or to evaluate & treat vital organ system(s) failure or risk of failure.
[2018-09-26 14:00] LABS: ANISOCYTOSIS 2+; MACROCYTOSIS 0; PLATELET ESTIMATE NORMAL; TEAR DROP CELLS 1+
--- NOTE | 2018-09-26 14:02 | CON.PSY ---
Psychiatry Consult Chief Complaint: 73 Wilder old male, lives with his and has 6grand cHildren seen for ? suicidal statements. Patient denies any active suicvidal ideas or plans, i want to live but I am fed up with being in the Hospital for the past 4 months. No history of DEpression or Psych treatment on no psych meds. Symptoms: reports: Anxiety - Previous Psychiatric Treatment Outpatient: None Inpatient: None - Previous Substance Abuse Treatment Outpatient: None Inpatient: None - Current Medications Current Medications: Active Medications Al Hydroxide/Mg Hydroxide (Mylanta Oral Suspension -) 30 ml PO BID PRN PRN Reason: epigastric pain Last Admin: 09/25/18 12:14 Dose: 30 ml Albuterol/Ipratropium (Duoneb -) 1 amp NEB RQID [facility] Last Admin: 09/26/18 12:30 Dose: 1 amp Chlorhexidine Gluconate (Hibiclens For Decolonization -) 1 applic TP HS [facility] Last Admin: 09/25/18 22:15 Dose: 1 applic Diltiazem HCl (Cardizem Cd -) 120 mg PO DAILY [facility] Last Admin: 09/26/18 09:22 Dose: 120 mg Lactobacillus Acidophilus (Bacid -) 1 tab PO DAILY [facility] Last Admin: 09/26/18 09:22 Dose: 1 tab Methylprednisolone Sodium Succinate (Solu-Medrol -) 40 mg IVPUSH DAILY [facility] Last Admin: 09/26/18 09:22 Dose: 40 mg Mupirocin (Bactroban Ointment (For Decolonization) -) 1 applic NS BID [facility] Stop: 09/28/18 09:59 Last Admin: 09/26/18 09:32 Dose: 1 applic Pantoprazole Sodium (Protonix -) 40 mg PO DAILY [facility] Last Admin: 09/26/18 09:22 Dose: 40 mg Potassium Phos/Sodium Phos (Phos-Nak Packet -) 1 packet PO BID [facility] Last Admin: 09/26/18 09:22 Dose: 1 packet Vancomycin HCl (Vancomycin (Pre-Docked)) 1,000 mg IVPB DAILY [facility]; Protocol Last Admin: 09/26/18 09:55 Dose: Not Given - Allergies Allergies: Allergies Allergy/AdvReac Type Severity Reaction Status Date / Time No Known Allergies Allergy Verified 09/22/18 21:20 - Current Living Status Usual Living Arrangement: With Spouse - Current Mental Status Evaluation Appearance: Well Groomed Attitude: Cooperative - Affect Affect: Constrictive Appropriateness: Appropriate to Content - Mood Mood: Euthymic - Speech/Language Expressive: Coherent - Psychomotor Activity Psychomotor Activity: Normal - Thought Process Thought Process: Intact - Thought Content Hallucinations: Absent Delusions: Absent - Self Perception Self Perception: No Impairment - Cognition Attention: Alert Orientation: Time Memory, Immediate Recall: Intact Memory, Short Term: 3/3 Memory, Remote with Promptin/3 - Concentration Serial Sevens Intact: Yes Simple Calculations Intact: Yes - Abstraction Proverb Interpretation: Intact Judgement: Intact - Insight Insight: Intact - Impulse Control Impulse Control: Good Control - Suicidal Ideation Suicidal Ideation: No - Homicidal Ideation Homicidal Ideation: No Assessment/Plan 1) Patient is not suicidal at tis time. 2) No Psych meds needed. 3) Suggest consult with DR. Nithin Fatima Psychologist for Supportive Therapy.
[2018-09-26] MEDS ORDERED: MELATONIN 5 MG TABLETS PO PRN (14:05)
[2018-09-26] MEDS ORDERED: POLYETHYLENE GLYCOL 3350 119 GM BTL PO ONE (19:29)
[2018-09-26] MEDS: CHLORHEXIDINE GLUCONATE 4% CLEANSER FOR DECOLONIZATION TP SCH ×2 (20:58→22:07)
[2018-09-27 06:52] LABS: HEMATOCRIT 24.3 % (35.4-49); MCH 29.9 pg (25.7-33.7); MCHC 32.8 g/dl (32.0-35.9); MEAN CELL VOLUME 91.1 fl (80-96); MEAN PLT VOLUME 7.4 fl (7.5-11.1); PLATELET COUNT 167 K/MM3 (134-434); RBC 2.67 M/mm3 (4.00-5.60); WHITE BLOOD COUNT 8.1 K/mm3 (4.0-10.0)
[2018-09-27 07:13] LABS: BLOOD UREA NITROGEN 16.9 mg/dL (7-18); CREATININE 0.8 mg/dL (0.55-1.3); MAGNESIUM 2.1 mg/dL (1.8-2.4); PHOSPHOROUS 2.1 mg/dL (2.5-4.9); POTASSIUM 4.5 mmol/L (3.5-5.1)
[2018-09-27] MEDS: ALBUTEROL SO4 2.5/IPRATROPIUM 0.5 INH SOL 3 ML VIAL.NEB. NEB SCH ×4 (07:40→21:00)
--- NOTE | 2018-09-27 08:26 | PN.GI ---
GI Progress Note Subjective: NO NEW COMPLAINTS DOING OK - Objective Vital Signs: Vital Signs Temperature 97.8 F 09/27/18 07:52 Pulse Rate 82 09/27/18 07:52 Respiratory Rate 21 H 09/27/18 07:52 Blood Pressure 137/90 09/27/18 07:52 O2 Sat by Pulse Oximetry (%) 97 09/27/18 06:08 Constitutional: Well Nourished, No Distress, Calm Eyes: Yes: WNL HENT: Yes: WNL Neck: Yes: WNL, Supple Cardiovascular: Yes: WNL Respiratory: Yes: WNL, Regular, CTA Bilaterally Gastrointestinal Inspection: Yes: WNL ...Auscultate: Yes: Normoactive Bowel Sounds Extremities: Yes: WNL Edema: No Labs: CBC, BMP 09/27/18 06:15 09/27/18 06:15 INR, PTT INR 1.18 (0.83-1.09) H 09/22/18 21:00 Problem List - Problems (1) Anemia Assessment/Plan: H/H STABLE C/W PPI RX FOR COPD PER MICU TEAM Code(s): D64.9 - ANEMIA, UNSPECIFIED Qualifiers: Iron deficiency anemia type: chronic blood loss (2) COPD with acute exacerbation Code(s): J44.1 - CHRONIC OBSTRUCTIVE PULMONARY DISEASE W (ACUTE) EXACERBATION
--- NOTE | 2018-09-27 09:06 | PN ---
Progress Note (short form) - Note Progress Note: wearing high flow oxygen alert no complaints no diarrhea Vital Signs Period Temp Pulse Resp BP Sys/[place] Pulse Ox Last 24 Hr 97.8 F-99.0 F 58-95 17-28 119-152/64-90 97-100 cor-rrr lungs decreased bs at bases abd soft,nt ext no edema CBC, BMP 09/27/18 06:15 09/27/18 06:15 Microbiology 09/22/18 21:00 Blood - Peripheral Venous Blood Culture - Preliminary NO GROWTH OBTAINED AFTER 96 HOURS, INCUBATION TO CONTINUE FOR 1 DAYS. 09/22/18 21:00 Blood - Peripheral Venous Blood Culture - Preliminary NO GROWTH OBTAINED AFTER 96 HOURS, INCUBATION TO CONTINUE FOR 1 DAYS. 09/23/18 02:00 Sputum - Endotrachea Suction/Ventilator Gram Stain - Final 09/23/18 02:00 Sputum - Endotrachea Suction/Ventilator Sputum Culture - Final S Aureus 09/22/18 22:00 Urine - Urine Honeycutt Urine Culture - Final NO GROWTH OBTAINED 09/23/18 02:00 Urine For Antigen Detection Legionella Antigen - Final 09/23/18 02:00 Urine For Antigen Detection Streptococcus pneumoniae Antigen (M - Final Current Medications Al Hydroxide/Mg Hydroxide (Mylanta Oral Suspension -) 30 ml PO BID PRN PRN Reason: epigastric pain Last Admin: 09/25/18 12:14 Dose: 30 ml Albuterol/Ipratropium (Duoneb -) 1 amp NEB RQID [facility] Last Admin: 09/27/18 07:40 Dose: 1 amp Chlorhexidine Gluconate (Hibiclens For Decolonization -) 1 applic TP HS [facility] Last Admin: 09/26/18 22:07 Dose: Not Given Diltiazem HCl (Cardizem Cd -) 120 mg PO DAILY [facility] Last Admin: 09/26/18 09:22 Dose: 120 mg Lactobacillus Acidophilus (Bacid -) 1 tab PO DAILY [facility] Last Admin: 09/26/18 09:22 Dose: 1 tab Melatonin (Melatonin) 5 mg PO HS PRN PRN Reason: INSOMNIA Last Admin: 09/26/18 21:06 Dose: 5 mg Methylprednisolone Sodium Succinate (Solu-Medrol -) 40 mg IVPUSH DAILY [facility] Last Admin: 09/26/18 09:22 Dose: 40 mg Mupirocin (Bactroban Ointment (For Decolonization) -) 1 applic NS BID [facility] Stop: 09/28/18 09:59 Last Admin: 09/26/18 21:01 Dose: 1 applic Pantoprazole Sodium (Protonix -) 40 mg PO DAILY [facility] Last Admin: 09/26/18 09:22 Dose: 40 mg Potassium Phos/Sodium Phos (Phos-Nak Packet -) 1 packet PO BID [facility] Last Admin: 09/26/18 21:01 Dose: 1 packet Vancomycin HCl (Vancomycin (Pre-Docked)) 1,000 mg IVPB DAILY [facility]; Protocol Last Admin: 09/26/18 09:55 Dose: Not Given a/p acute on chronic resp failure RLL pneumonia(HAP)-legionella urinary antigen negative anemia/recent GI bleed COPD home oxygen history of MRSA colonization-continue isolation continue vancomycin alone zosyn d/thai yesterday check [facility] on Friday contact isolation MRSA
--- NOTE | 2018-09-27 09:27 | PN ---
Teaching Attending Note Name of Resident: Mary Ann Foley ATTENDING PHYSICIAN STATEMENT I saw and evaluated the patient. I reviewed the resident's note and discussed the case with the resident. I agree with the resident's findings and plan as documented. SUBJECTIVE: Patient seen and examined in the ICU. Remains extubated, but still requiring HFOT (50L / 40% FiO2). Remains mildly tachypneic at rest which increases with speaking. Less congested cough. No CP. Intake & Output 09/24/18 09/25/18 09/26/18 09/27/18 23:59 23:59 23:59 23:59 Intake Total 3500 3180 980 200 Output Total 2300 2050 1975 600 Balance 1200 1130 -995 -400 Weight 188 lb 190 lb 8 oz 192 lb 6 oz Last Vital Signs Temp Pulse Resp BP Pulse Ox 97.8 F 82 21 H 137/90 100 09/27/18 07:52 09/27/18 07:52 09/27/18 07:52 09/27/18 07:52 09/27/18 08:12 Active Medications Al Hydroxide/Mg Hydroxide (Mylanta Oral Suspension -) 30 ml PO BID PRN PRN Reason: epigastric pain Last Admin: 09/25/18 12:14 Dose: 30 ml Albuterol/Ipratropium (Duoneb -) 1 amp NEB RQID [facility] Last Admin: 09/27/18 07:40 Dose: 1 amp Chlorhexidine Gluconate (Hibiclens For Decolonization -) 1 applic TP HS [facility] Last Admin: 09/26/18 22:07 Dose: Not Given Diltiazem HCl (Cardizem Cd -) 120 mg PO DAILY [facility] Last Admin: 09/26/18 09:22 Dose: 120 mg Lactobacillus Acidophilus (Bacid -) 1 tab PO DAILY [facility] Last Admin: 09/26/18 09:22 Dose: 1 tab Melatonin (Melatonin) 5 mg PO HS PRN PRN Reason: INSOMNIA Last Admin: 09/26/18 21:06 Dose: 5 mg Methylprednisolone Sodium Succinate (Solu-Medrol -) 40 mg IVPUSH DAILY [facility] Last Admin: 09/26/18 09:22 Dose: 40 mg Mupirocin (Bactroban Ointment (For Decolonization) -) 1 applic NS BID [facility] Stop: 09/28/18 09:59 Last Admin: 09/26/18 21:01 Dose: 1 applic Pantoprazole Sodium (Protonix -) 40 mg PO DAILY MORE Last Admin: 09/26/18 09:22 Dose: 40 mg Potassium Phos/Sodium Phos (Phos-Nak Packet -) 1 packet PO BID MORE Last Admin: 09/26/18 21:01 Dose: 1 packet Vancomycin HCl (Vancomycin (Pre-Docked)) 1,000 mg IVPB DAILY [facility]; Protocol Last Admin: 09/26/18 09:55 Dose: Not Given General: Obese, awake and alert, Mildly tachypneic on HFOT Respiratory: bibasilar rhonchi, Right > Left CV: S1, S2, irregular Abdomen: soft, non-tender, (+) bowel sounds Extremity: 2+ DP pulses B/L, no edema [employer]: awake and alert, non-focal Laboratory Results - last 24 hr 09/26/18 09/27/18 09/27/18 05:30 06:15 06:15 WBC 8.1 RBC 2.67 L Hgb 8.0 L Hct 24.3 L MCV 91.1 MCH 29.9 MCHC 32.8 RDW 17.0 H Plt Count 167 MPV 7.4 L Neutrophils % (Manual) 80.0 D Band Neutrophils % 7.0 Lymphocytes % (Manual) 9.0 D Monocytes % (Manual) 1 L Eosinophils % (Manual) 0.0 Basophils % (Manual) 0.0 Myelocytes % (Man) 2 D Promyelocytes % (Man) 0 Blast Cells % (Manual) 0 Metamyelocytes 0 Hypochromia 0 Platelet Estimate Normal Polychromasia 2+ Poikilocytosis 1+ Anisocytosis 2+ Microcytosis 1+ Macrocytosis 0 Spherocytes 1+ Tear Drop Cells 1+ Sodium Potassium Chloride Carbon Dioxide Anion Gap BUN Creatinine Est GFR (CKD-EPI)AfAm Est GFR (CKD-EPI)NonAf Random Glucose Calcium Phosphorus Magnesium Random Vancomycin 7.4 L 09/27/18 06:15 WBC RBC Hgb Hct MCV MCH MCHC RDW Plt Count MPV Neutrophils % (Manual) Band Neutrophils % Lymphocytes % (Manual) Monocytes % (Manual) Eosinophils % (Manual) Basophils % (Manual) Myelocytes % (Man) Promyelocytes % (Man) Blast Cells % (Manual) Metamyelocytes Hypochromia Platelet Estimate Polychromasia Poikilocytosis Anisocytosis Microcytosis Macrocytosis Spherocytes Tear Drop Cells Sodium 141 Potassium 4.5 Chloride 103 Carbon Dioxide 33 H Anion Gap 6 L BUN 16.9 Creatinine 0.8 Est GFR (CKD-EPI)AfAm 101.28 Est GFR (CKD-EPI)NonAf 87.38 Random Glucose 84 Calcium 8.0 L Phosphorus 2.1 L Magnesium 2.1 Random Vancomycin ASSESSMENT/PLAN: Acute on Chronic Respiratory Failure due to RLL PNA GI bleed Anemia O2 dependent COPD (on 2 -3 L NC @ home) HTN Wean HFOT support with NIPPV support as needed ABX per ID BD TX Daily Medrol Normal transfusion thresholds Encourage Incentive Spirometry PO as tolerated Requires ICU monitoring due to tenuous respiratory status Dr Rios Critical care time spent in reviewing chart, evaluating patient and formulating plan - 36 minutes.
[2018-09-27] MEDS: NAPH,MB-DB/K PH,MBDB POWDER PACKET PO SCH ×2 (10:03→21:17)
[2018-09-27] MEDS: LACTOBACILLUS ACIDOPHILUS 1 TABLET PO SCH (10:03)
[2018-09-27] MEDS: methylPREDNISolone NA SUCC 40 MG/1 ML VIAL IVPUSH SCH (10:04)
[2018-09-27] MEDS: PANTOPRAZOLE 40 MG TABLET (FP) PO SCH (10:04)
[2018-09-27] MEDS: MUPIROCIN 2% TOPICAL OINTMENT FOR DECOLONIZATION NS SCH ×2 (10:07→21:19)
[2018-09-27] MEDS: VANCOMYCIN 1 GM in D5W (PRE-DOCKED) 1,000 MG/250 ML IVPB SCH (10:10)
--- NOTE | 2018-09-27 10:10 | PN ---
Physical Exam: SUBJECTIVE: Patient seen and examined at the bedside. No acute events overnight. The patient is breathing comfortably on HFNC, plan to attempt to wean down/ off high flow today. Continue to encourage use of incentive spirometer. OBJECTIVE: Vital Signs Period Temp Pulse Resp BP Sys/[place] Pulse Ox Last 24 Hr 97.8 F-99.0 F 58-91 17-28 119-152/66-90 97-100 GENERAL: The patient is awake, alert, in no acute distress. HEAD: Normal with no signs of trauma. EYES: PERRL, extraocular movements intact, sclera anicteric, conjunctiva clear. ENT: Ears normal, nares patent NECK: Trachea midline, supple. LUNGS: Breath sounds equal, decreased at the bases, no accessory muscle use, patient on hiflow HEART: Regular rate and rhythm, S1, S2 without murmur. ABDOMEN: Soft, nontender, nondistended, normoactive bowel sounds, EXTREMITIES: 2+ pulses, warm, well-perfused, no edema. SKIN: Warm, dry, normal turgor, no rashes or lesions noted Laboratory Results - last 24 hr 09/26/18 09/27/18 09/27/18 05:30 06:15 06:15 WBC 8.1 RBC 2.67 L Hgb 8.0 L Hct 24.3 L MCV 91.1 MCH 29.9 MCHC 32.8 RDW 17.0 H Plt Count 167 MPV 7.4 L Neutrophils % (Manual) 80.0 D Band Neutrophils % 7.0 Lymphocytes % (Manual) 9.0 D Monocytes % (Manual) 1 L Eosinophils % (Manual) 0.0 Basophils % (Manual) 0.0 Myelocytes % (Man) 2 D Promyelocytes % (Man) 0 Blast Cells % (Manual) 0 Metamyelocytes 0 Hypochromia 0 Platelet Estimate Normal Polychromasia 2+ Poikilocytosis 1+ Anisocytosis 2+ Microcytosis 1+ Macrocytosis 0 Spherocytes 1+ Tear Drop Cells 1+ Sodium Potassium Chloride Carbon Dioxide Anion Gap BUN Creatinine Est GFR (CKD-EPI)AfAm Est GFR (CKD-EPI)NonAf Random Glucose Calcium Phosphorus Magnesium Random Vancomycin 7.4 L 09/27/18 06:15 WBC RBC Hgb Hct MCV MCH MCHC RDW Plt Count MPV Neutrophils % (Manual) Band Neutrophils % Lymphocytes % (Manual) Monocytes % (Manual) Eosinophils % (Manual) Basophils % (Manual) Myelocytes % (Man) Promyelocytes % (Man) Blast Cells % (Manual) Metamyelocytes Hypochromia Platelet Estimate Polychromasia Poikilocytosis Anisocytosis Microcytosis Macrocytosis Spherocytes Tear Drop Cells Sodium 141 Potassium 4.5 Chloride 103 Carbon Dioxide 33 H Anion Gap 6 L BUN 16.9 Creatinine 0.8 Est GFR (CKD-EPI)AfAm 101.28 Est GFR (CKD-EPI)NonAf 87.38 Random Glucose 84 Calcium 8.0 L Phosphorus 2.1 L Magnesium 2.1 Random Vancomycin Active Medications Generic Name Dose Route Start Last Admin Trade Name Freq PRN Reason Stop Dose Admin Al Hydroxide/Mg Hydroxide 30 ml 09/24/18 10:54 09/25/18 12:14 Mylanta Oral Suspension - PO 30 ml BID PRN Administration epigastric pain Albuterol/Ipratropium 1 amp 09/23/18 08:00 09/27/18 07:40 Duoneb - NEB 1 amp RQID MORE Administration Chlorhexidine Gluconate 1 applic 09/23/18 22:00 09/26/18 22:07 Hibiclens For Decolonization - TP Not Given HS MORE Diltiazem HCl 120 mg 09/23/18 17:45 09/26/18 09:22 Cardizem Cd - PO 120 mg DAILY MORE Administration Lactobacillus Acidophilus 1 tab 09/24/18 10:00 09/26/18 09:22 Bacid - PO 1 tab DAILY MORE Administration Melatonin 5 mg 09/26/18 14:05 09/26/18 21:06 Melatonin PO 5 mg HS PRN Administration INSOMNIA Methylprednisolone Sodium Succinate 40 mg 09/23/18 10:00 09/26/18 09:22 Solu-Medrol - IVPUSH 40 mg DAILY MORE Administration Mupirocin 1 applic 09/23/18 10:00 09/26/18 21:01 Bactroban Ointment (For Decolonization) - NS 09/28/18 09:59 1 applic BID MORE Administration Pantoprazole Sodium 40 mg 09/25/18 10:00 09/26/18 09:22 Protonix - PO 40 mg DAILY MORE Administration Potassium Phos/Sodium Phos 1 packet 09/26/18 10:00 09/26/18 21:01 Phos-Nak Packet - PO 1 packet BID MORE Administration Vancomycin HCl 1,000 mg 09/26/18 10:00 09/26/18 09:55 Vancomycin (Pre-Docked) IVPB Not Given DAILY [facility] Protocol ASSESSMENT/PLAN: Gilbert Giang is a 73 year old male with a PMH of GI bleed, Anemia and COPD ( on 2 L NC @ home) who presented to for Respiratory Distress and admitted to ICU for COPD exacerbation and PNA. Acute on Chronic Respiratory Failure due to RLL PNA GI bleed Anemia O2 dependent COPD (on 2 L NC @ home) HTN Neurologic - Awake, alert and oriented Cardiovascular - HTN - BP well controlled for now, continue to monitor - Cardizem PO 120mg qDaily - Holding ASA for now -Cardiology following, recommendations appreciated - will need outpatient nuclear MPI Pulmonary -HFNC today, will place on BiPAP at night prn -BiPAP settings: IPAP 14/EPAP 7/R16/FiO2 40%, use as needed at night -hiflow settings 40L, 40%, wean as tolerated - CXR shows bibasilar atelectasis which are improving - continue to follow CXR - continue Duo-Nebs - continue solumedrol 40mg IV daily - encourage incentive spirometry - bed to chair position today - will likely need outpatient eval of sleep apnea Hematologic - Anemia in patient with history of recent GI bleed - Hgb at 8, s/p transfusion of 1 unit PRBCs - Continue to monitor for evidence of bleeding - Dr. Ramos consulted, recs appreciated, anemia workup - received Injectafor - protein studies, cytometry, hemoglobin studies - to go for bone marrow biopsy on Friday ID - Bandemia 21% without Leukocytosis- possibly 2/2 to chronic steroid use + chronic prophylatic ABx - RLL pneumonia(HAP)-legionella urinary antigen negative - sputum MRSA +, continue isolation - today random vanco level <15 - continue vanco 1g q24h - repeat vanco trough on friday - blood cxs negative - add probiotics - ID following, appreciate recommendations Renal - hogue out - no acute issues Endocrine - TSH low, free T4 mildly elevated, no acute signs of hyperthyroidism - continue to monitor for signs including fever, wt loss, tachycardia, hypertension FEN -no standing fluids -continue to monitor electrolytes and replete as necessary -soft diet and ensure supplement Code - full code Dispo - continue to monitor in ICU Visit type - Emergency Visit Emergency Visit: Yes ED Registration Date: 09/22/18 Care time: The patient presented to the Emergency Department on the above date and was hospitalized for further evaluation of their emergent condition. - New Patient This patient is new to me today: No - Critical Care Critical Care patient: Yes Total Critical Care Time (in minutes): 40 Critical Care Statement: The care of this patient involved high complexity decision making to prevent further life threatening deterioration of the patient 's condition and/or to evaluate & treat vital organ system(s) failure or risk of failure. ATTENDING PHYSICIAN STATEMENT I saw and evaluated the patient. I reviewed the resident's note and discussed the case with the resident. I agree with the resident's findings and plan as documented. SUBJECTIVE: OBJECTIVE: ASSESSMENT AND PLAN:
--- NOTE | 2018-09-27 12:38 | PN ---
Progress Note, Physician Chief Complaint: AWAKE MORE ALERT TODAY DENIES CP OR SOB - Current Medication List Current Medications: Active Medications Al Hydroxide/Mg Hydroxide (Mylanta Oral Suspension -) 30 ml PO BID PRN PRN Reason: epigastric pain Last Admin: 09/25/18 12:14 Dose: 30 ml Albuterol/Ipratropium (Duoneb -) 1 amp NEB RQID [facility] Last Admin: 09/27/18 11:40 Dose: 1 amp Chlorhexidine Gluconate (Hibiclens For Decolonization -) 1 applic TP HS [facility] Last Admin: 09/26/18 22:07 Dose: Not Given Diltiazem HCl (Cardizem Cd -) 120 mg PO DAILY [facility] Last Admin: 09/27/18 10:04 Dose: 120 mg Ferric Carboxymaltose 750 mg/ (Sodium Chloride) 265 mls @ 530 mls/hr IVPB ONCE ONE Stop: 09/27/18 13:03 Lactobacillus Acidophilus (Bacid -) 1 tab PO DAILY [facility] Last Admin: 09/27/18 10:03 Dose: 1 tab Melatonin (Melatonin) 5 mg PO HS PRN PRN Reason: INSOMNIA Last Admin: 09/26/18 21:06 Dose: 5 mg Methylprednisolone Sodium Succinate (Solu-Medrol -) 40 mg IVPUSH DAILY [facility] Last Admin: 09/27/18 10:04 Dose: 40 mg Mupirocin (Bactroban Ointment (For Decolonization) -) 1 applic NS BID [facility] Stop: 09/28/18 09:59 Last Admin: 09/27/18 10:07 Dose: 1 applic Pantoprazole Sodium (Protonix -) 40 mg PO DAILY [facility] Last Admin: 09/27/18 10:04 Dose: 40 mg Potassium Phos/Sodium Phos (Phos-Nak Packet -) 1 packet PO BID [facility] Last Admin: 09/27/18 10:03 Dose: 1 packet Vancomycin HCl (Vancomycin (Pre-Docked)) 1,000 mg IVPB DAILY [facility]; Protocol Last Admin: 09/27/18 10:10 Dose: 1,000 mg - Objective Vital Signs: Vital Signs Temperature 98.0 F 09/27/18 12:00 Pulse Rate 85 09/27/18 12:00 Respiratory Rate 21 H 09/27/18 12:00 Blood Pressure 152/76 09/27/18 12:00 O2 Sat by Pulse Oximetry (%) 96 09/27/18 11:57 Constitutional: Yes: Mild Distress Cardiovascular: Yes: Pulse Irregular Respiratory: Yes: Diminished, On Nasal O2 Gastrointestinal: Yes: Soft Genitourinary: Yes: Other Musculoskeletal: Yes: Muscle Weakness Edema: Yes Edema: LLE: 2+ Peripheral Pulses WNL: Yes Integumentary: Yes: Rash Wound/Incision: Yes: Dressing Dry and Intact Neurological: Yes: Other ...Motor Strength: LLE, RLE Psychiatric: Yes: WNL Labs: CBC, BMP 09/27/18 06:15 09/27/18 06:15 INR, PTT INR 1.18 (0.83-1.09) H 09/22/18 21:00 Problem List - Problems (1) Acute and chronic respiratory failure with hypoxia Code(s): J96.21 - ACUTE AND CHRONIC RESPIRATORY FAILURE WITH HYPOXIA (2) Anemia Code(s): D64.9 - ANEMIA, UNSPECIFIED Qualifiers: Iron deficiency anemia type: chronic blood loss (3) COPD with acute exacerbation Code(s): J44.1 - CHRONIC OBSTRUCTIVE PULMONARY DISEASE W (ACUTE) EXACERBATION (4) AF (paroxysmal atrial fibrillation) Code(s): I48.0 - PAROXYSMAL ATRIAL FIBRILLATION Assessment/Plan INJECTOFER X 1 OW BM BX TOMORROW ONCOLOGY FOLLOW UP IV ABX PER ID CXR IMPROVING PA AIRVO 02 SUPPORT OOB TO CHAIR
[2018-09-27] MEDS ORDERED: FERRIC CARBOXYMALTOSE 750 MG in SODIUM CHLORIDE 250 ML IVPB ONE (13:00)
--- NOTE | 2018-09-27 13:41 | PN ---
Progress Note, Physician Chief Complaint: Pt A&Ox3; anxious; no chest pain; + dyspneic even with small movements in bed. History of Present Illness: Patient is a 73 year old male with a significant past medical history of asthma who presents to the ED with increasing SOB. Patient was brought in with severe distress and was unable to provide history. Patient was recently admitted for similar symptoms. CPAP in Progress. Allergies:NKA - Current Medication List Current Medications: Active Medications Al Hydroxide/Mg Hydroxide (Mylanta Oral Suspension -) 30 ml PO BID PRN PRN Reason: epigastric pain Last Admin: 09/25/18 12:14 Dose: 30 ml Albuterol/Ipratropium (Duoneb -) 1 amp NEB RQID [facility] Last Admin: 09/27/18 11:40 Dose: 1 amp Chlorhexidine Gluconate (Hibiclens For Decolonization -) 1 applic TP HS [facility] Last Admin: 09/26/18 22:07 Dose: Not Given Diltiazem HCl (Cardizem Cd -) 120 mg PO DAILY [facility] Last Admin: 09/27/18 10:04 Dose: 120 mg Lactobacillus Acidophilus (Bacid -) 1 tab PO DAILY [facility] Last Admin: 09/27/18 10:03 Dose: 1 tab Melatonin (Melatonin) 5 mg PO HS PRN PRN Reason: INSOMNIA Last Admin: 09/26/18 21:06 Dose: 5 mg Methylprednisolone Sodium Succinate (Solu-Medrol -) 40 mg IVPUSH DAILY [facility] Last Admin: 09/27/18 10:04 Dose: 40 mg Mupirocin (Bactroban Ointment (For Decolonization) -) 1 applic NS BID [facility] Stop: 09/28/18 09:59 Last Admin: 09/27/18 10:07 Dose: 1 applic Pantoprazole Sodium (Protonix -) 40 mg PO DAILY [facility] Last Admin: 09/27/18 10:04 Dose: 40 mg Potassium Phos/Sodium Phos (Phos-Nak Packet -) 1 packet PO BID [facility] Last Admin: 09/27/18 10:03 Dose: 1 packet Vancomycin HCl (Vancomycin (Pre-Docked)) 1,000 mg IVPB DAILY [facility]; Protocol Last Admin: 09/27/18 10:10 Dose: 1,000 mg - Objective Vital Signs: Vital Signs Temperature 98.0 F 09/27/18 12:00 Pulse Rate 85 09/27/18 12:00 Respiratory Rate 21 H 09/27/18 12:00 Blood Pressure 152/76 09/27/18 12:00 O2 Sat by Pulse Oximetry (%) 96 09/27/18 11:57 Constitutional: Yes: Anxious Eyes: Yes: WNL HENT: Yes: WNL Neck: Yes: WNL Cardiovascular: Yes: Pulse Irregular Respiratory: Yes: Diminished, SOB, Tachypnea Gastrointestinal: Yes: Soft ...Rectal Exam: Yes: Deferred Genitourinary: No: Anuria Breast(s): Yes: WNL Musculoskeletal: Yes: Muscle Weakness Extremities: Yes: Cool Edema: No Peripheral Pulses WNL: Yes Integumentary: Yes: WNL Neurological: Yes: WNL Psychiatric: Yes: Alert, Oriented, Other (anxious) Labs: CBC, BMP 09/27/18 06:15 09/27/18 06:15 INR, PTT INR 1.18 (0.83-1.09) H 09/22/18 21:00 Abnormal Lab Results 09/27/18 09/27/18 09/27/18 06:15 06:15 06:15 RBC 2.67 L Hgb 8.0 L Hct 24.3 L RDW 17.0 H MPV 7.4 L Carbon Dioxide 33 H Anion Gap 6 L Calcium 8.0 L Phosphorus 2.1 L Random Vancomycin 7.4 L - ....Imaging Chest X-ray: Image Reviewed (congestive changes) EKG: Image Reviewed (sinus , with APCs and sinus arrhythmia) Problem List - Problems (1) Anemia Assessment/Plan: s/p bleeding doudenal ulcer; 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 Code(s): D64.9 - ANEMIA, UNSPECIFIED Qualifiers: Iron deficiency anemia type: chronic blood loss (2) COPD with acute exacerbation Assessment/Plan: bronchodilators and steroids per vegetable tester. Code(s): J44.1 - CHRONIC OBSTRUCTIVE PULMONARY DISEASE W (ACUTE) EXACERBATION (3) Anxiety Code(s): F41.9 - ANXIETY DISORDER, UNSPECIFIED (4) Chronic respiratory failure with hypoxia Code(s): J96.11 - CHRONIC RESPIRATORY FAILURE WITH HYPOXIA (5) SOB (shortness of breath) Code(s): R06.02 - SHORTNESS OF BREATH (6) CAD (coronary artery disease) Assessment/Plan: for further coronary evaluation as outpatient (mild ischemia on prior stress MIBI). Code(s): I25.10 - ATHSCL HEART DISEASE OF [place] CORONARY ARTERY W/O ANG PCTRS (7) AF (paroxysmal atrial fibrillation) Assessment/Plan: On diltiazem for HR control. Off antiplatelets; off anticoagulants due to GI bleed, chronic anemia, frail state. Code(s): I48.0 - PAROXYSMAL ATRIAL FIBRILLATION Assessment/Plan CCU time spent: 35 minutes.
[2018-09-27] MEDS ORDERED: PT OWN MED DRAWER 7, Y5N ONE (15:39)
[2018-09-27] MEDS ORDERED: INSULIN (NOVOLOG) ASPART 100 UNITS/ML 10ML VIAL ONE (15:50)
[2018-09-27] MEDS: CHLORHEXIDINE GLUCONATE 4% CLEANSER FOR DECOLONIZATION TP SCH (21:20)
[2018-09-27] MEDS ORDERED: ZOLPIDEM TARTRATE 5 MG TABLET PO ONE (21:30)
--- NOTE | 2018-09-28 06:30 | PN ---
Progress Note, Physician Chief Complaint: Pt A&Ox3; anxious and frightened at proposed bone marrow biopsy; dyspneic on mild exertion; no chest pain or palpitations. History of Present Illness: Patient is a 73 year old white male with a significant past medical history of bronchial asthma, CAD, diastolic CHF, anemia (noted since 07/29), who presents to the ED with increasing SOB. Patient was brought in with severe distress and was unable to provide history. Patient was recently admitted for similar symptoms. CPAP in Progress. Allergies:NKA - Current Medication List Current Medications: Active Medications Al Hydroxide/Mg Hydroxide (Mylanta Oral Suspension -) 30 ml PO BID PRN PRN Reason: epigastric pain Last Admin: 09/25/18 12:14 Dose: 30 ml Albuterol/Ipratropium (Duoneb -) 1 amp NEB RQID [facility] Last Admin: 09/27/18 21:00 Dose: 1 amp Chlorhexidine Gluconate (Hibiclens For Decolonization -) 1 applic TP HS [facility] Last Admin: 09/27/18 21:20 Dose: 1 applic Diltiazem HCl (Cardizem Cd -) 120 mg PO DAILY [facility] Last Admin: 09/27/18 10:04 Dose: 120 mg Lactobacillus Acidophilus (Bacid -) 1 tab PO DAILY [facility] Last Admin: 09/27/18 10:03 Dose: 1 tab Melatonin (Melatonin) 5 mg PO HS PRN PRN Reason: INSOMNIA Last Admin: 09/26/18 21:06 Dose: 5 mg Methylprednisolone Sodium Succinate (Solu-Medrol -) 40 mg IVPUSH DAILY [facility] Last Admin: 09/27/18 10:04 Dose: 40 mg Mupirocin (Bactroban Ointment (For Decolonization) -) 1 applic NS BID [facility] Stop: 09/28/18 09:59 Last Admin: 09/27/18 21:19 Dose: 1 applic Pantoprazole Sodium (Protonix -) 40 mg PO DAILY [facility] Last Admin: 09/27/18 10:04 Dose: 40 mg Potassium Phos/Sodium Phos (Phos-Nak Packet -) 1 packet PO BID [facility] Last Admin: 09/27/18 21:17 Dose: 1 packet Vancomycin HCl (Vancomycin (Pre-Docked)) 1,000 mg IVPB DAILY [facility]; Protocol Last Admin: 09/27/18 10:10 Dose: 1,000 mg - Objective Vital Signs: Vital Signs Temperature 98.2 F 09/28/18 05:50 Pulse Rate 68 09/28/18 05:50 Respiratory Rate 14 09/28/18 05:50 Blood Pressure 154/81 09/28/18 06:00 O2 Sat by Pulse Oximetry (%) 100 09/28/18 00:02 Constitutional: Yes: Anxious, Moderate Distress Eyes: Yes: WNL HENT: Yes: WNL Neck: Yes: Supple Cardiovascular: Yes: S1 (varies in intenstiy), S2 Respiratory: Yes: Diminished, Poor Air Entry, SOB on Exertion Gastrointestinal: Yes: Soft ...Rectal Exam: Yes: Deferred Genitourinary: No: Anuria Breast(s): Yes: WNL Musculoskeletal: Yes: Muscle Weakness Extremities: Yes: Cool Edema: No Peripheral Pulses WNL: Yes Integumentary: Yes: WNL Psychiatric: Yes: Alert, Oriented, Other (anxiety) Labs: CBC, BMP 09/27/18 06:15 09/27/18 06:15 INR, PTT INR 1.18 (0.83-1.09) H 09/22/18 21:00 Abnormal Lab Results 09/27/18 09/27/18 09/27/18 06:15 06:15 06:15 RBC 2.67 L Hgb 8.0 L Hct 24.3 L RDW 17.0 H MPV 7.4 L Carbon Dioxide 33 H Anion Gap 6 L Calcium 8.0 L Phosphorus 2.1 L Random Vancomycin 7.4 L - ....Imaging Chest X-ray: Image Reviewed Other: Image Reviewed (telemetry: NSR: APCs; sinus arrhytymia) Problem List - Problems (1) Anemia Assessment/Plan: Noted Hb delcine since 07/2018. reportedd s/p bleeding doudenal ulcer; f/u with GI and hand wrapper operator; f/u Hb. Plans for bone marrow biopsy, which is making pt highly anxious. Code(s): D64.9 - ANEMIA, UNSPECIFIED Qualifiers: Iron deficiency anemia type: chronic blood loss (2) COPD with acute exacerbation Assessment/Plan: Continues bronchodilators,antibiotics, and steroids per metal bending machine operator. Code(s): J44.1 - CHRONIC OBSTRUCTIVE PULMONARY DISEASE W (ACUTE) EXACERBATION (3) Anxiety Code(s): F41.9 - ANXIETY DISORDER, UNSPECIFIED (4) Chronic respiratory failure with hypoxia Code(s): J96.11 - CHRONIC RESPIRATORY FAILURE WITH HYPOXIA (5) SOB (shortness of breath) Code(s): R06.02 - SHORTNESS OF BREATH (6) CAD (coronary artery disease) Assessment/Plan: for further coronary evaluation as outpatient (mild ischemia on prior stress MIBI). Code(s): I25.10 - ATHSCL HEART DISEASE OF [place] CORONARY ARTERY W/O ANG PCTRS (7) AF (paroxysmal atrial fibrillation) Assessment/Plan: On diltiazem for HR control. Off antiplatelets; off anticoagulants due to GI bleed, chronic anemia, frail state. Code(s): I48.0 - PAROXYSMAL ATRIAL FIBRILLATION (8) Diastolic CHF Code(s): I50.30 - UNSPECIFIED DIASTOLIC (CONGESTIVE) HEART FAILURE Assessment/Plan CCU time spent: 40 minutes.
--- NOTE | 2018-09-28 06:39 | PN ---
Progress Note (short form) - Note Progress Note: Chief Complaint: Events noted, notes reviewed, dyspnea improved but not resolved , bilateral lower extremity edema resolving, extremely anxious about planned bone marrow biopsy History of Present Illness: Seen and examined in the ICU. Events noted, notes reviewed, dyspnea improved but not resolved, bilateral lower extremity edema resolving, extremely anxious about planned bone marrow biopsy Echocardiogram 07/03/2018 revealed normal LV size and systolic function, LVEF 55 -60%, mild LAE, mild ao root dilatation 4.2 cm, impaired LV relaxation Echocardiography (12/08/17) revealed normal LV systolic function, LVEF 60-65%, moderately dilated ascending thoracic aorta, mild TR and trace CA. Nuclear MPI (08/20/16) revealed moderate zone of anterior and brain-apical reversible defect c/s mild intensity ischemia and moderate inferior attenuation , LVEF was 71%. - Current Medication List Current Medications Al Hydroxide/Mg Hydroxide (Mylanta Oral Suspension -) 30 ml PO BID PRN PRN Reason: epigastric pain Last Admin: 09/25/18 12:14 Dose: 30 ml Albuterol/Ipratropium (Duoneb -) 1 amp NEB RQID [facility] Last Admin: 09/27/18 21:00 Dose: 1 amp Chlorhexidine Gluconate (Hibiclens For Decolonization -) 1 applic TP HS [facility] Last Admin: 09/27/18 21:20 Dose: 1 applic Diltiazem HCl (Cardizem Cd -) 120 mg PO DAILY [facility] Last Admin: 09/27/18 10:04 Dose: 120 mg Lactobacillus Acidophilus (Bacid -) 1 tab PO DAILY [facility] Last Admin: 09/27/18 10:03 Dose: 1 tab Melatonin (Melatonin) 5 mg PO HS PRN PRN Reason: INSOMNIA Last Admin: 09/26/18 21:06 Dose: 5 mg Methylprednisolone Sodium Succinate (Solu-Medrol -) 40 mg IVPUSH DAILY [facility] Last Admin: 09/27/18 10:04 Dose: 40 mg Mupirocin (Bactroban Ointment (For Decolonization) -) 1 applic NS BID [facility] Stop: 09/28/18 09:59 Last Admin: 09/27/18 21:19 Dose: 1 applic Pantoprazole Sodium (Protonix -) 40 mg PO DAILY [facility] Last Admin: 09/27/18 10:04 Dose: 40 mg Potassium Phos/Sodium Phos (Phos-Nak Packet -) 1 packet PO BID MORE Last Admin: 09/27/18 21:17 Dose: 1 packet Vancomycin HCl (Vancomycin (Pre-Docked)) 1,000 mg IVPB DAILY [facility]; Protocol Last Admin: 09/27/18 10:10 Dose: 1,000 mg Review of Systems Constitutional: denies Chills or Fever Respiratory: denies Cough or Sputum Production Cardiovascular: As noted above Gastrointestinal: denies Nausea, Vomiting, Diarrhea, Constipation or Abdominal Pain Genitourinary: No Symptoms Reported Musculoskeletal: No Symptoms Reported - Objective Vital Signs: Last Vital Signs Temp Pulse Resp BP Pulse Ox 98.2 F 68 14 154/81 100 09/28/18 05:50 09/28/18 05:50 09/28/18 05:50 09/28/18 06:00 09/28/18 03:29 Intake & Output 09/25/18 09/26/18 09/27/18 09/28/18 23:59 23:59 23:59 23:59 Intake Total 3180 980 1300 200 Output Total 2050 1975 1650 400 Balance 1130 -995 -350 -200 Weight 190 lb 8 oz 192 lb 6 oz 194 lb 8 oz Neck: Supple Negative JVD No Bruit Cardiovascular: S1 S2 Irregularly Irregular Respiratory: Diminished Breath Sounds at the Bases Scattered Rhonchi Gastrointestinal: Soft Benign Normal Bowel Sounds Ext: Bilateral Ankle Edema Labs: ABG Results ABG pH 7.44 (7.35-7.45) 09/24/18 03:00 ABG pCO2 at Pt Temp 41.3 mmHg (35-45) 09/24/18 03:00 ABG pO2 at Pt Temp 45.8 mmHg (80-105) L 09/24/18 03:00 ABG HCO3 27.3 mmol/L (22-27) H 09/24/18 03:00 ABG O2 Sat (Measured) 79.1 % (95-98) L 09/24/18 03:00 ABG O2 Content 7.5 % vol (15-22) L* 09/24/18 03:00 ABG Base Excess 3.3 meq/l (-2-2) H 09/24/18 03:00 CBC, BMP 09/27/18 06:15 09/27/18 06:15 Hepatic Panel Total Bilirubin 0.3 mg/dL (0.2-1) 09/25/18 06:30 AST 9 U/L (15-37) L 09/25/18 06:30 ALT 20 U/L (13-61) 09/25/18 06:30 Alkaline Phosphatase 87 U/L (45-117) 09/25/18 06:30 Albumin 1.9 g/dl (3.4-5.0) L 09/25/18 06:30 Assessment/Plan ASSESSMENT: 1. Acute on chronic hypercapneic/hypoxemic respiratory failure requiring mechanical ventilation post extubation related to 2. COPD exacerbation and 3. Right lower lobe pneumonia (HAP), resolving 4. CAD coronary artery calcification/visual calcification on CT scan of the chest July 03, 2018 abnormal MPI study August 20, 2016 angina pectoris 5. Diastolic LV dysfunction with clinical class 0 NYHA classification LV failure 6. Paroxysmal atrial fibrillation [id number] score of 4 (refused DOAC or Coumadin) 7. HTN 8. Recent UGI bleed secondary to bleeding duodenal ulcer post intervention 9. Anemia for further evaluation 10. Hstory of MRSA colonization PLAN: 1. Steroids and bronchodilators as per the pulmonary team 2. Continue antibiotics as per the primary team 3. Continue Cardizem CD 4. Continue to hold ASA 5. Utilize diuretics as needed 6. Ideally anticoagulation is recommended considering the above noted [id number] score of 4, but patient has previously declined- along with recent UGI bleed, option of proceeding with FILI closure device as an alternative to A/C - to be discussed with the patient- outpatient intervention 7. Additional cardiovascular evaluation as outpatient including nuclear MPI once clinically improved 8. Monitor Hg and transfuse as needed Bam Vidal M.D.
[2018-09-28] MEDS: ALBUTEROL SO4 2.5/IPRATROPIUM 0.5 INH SOL 3 ML VIAL.NEB. NEB SCH ×4 (07:30→20:50)
[2018-09-28 09:01] LABS: HEMATOCRIT 27.4 % (35.4-49); HEMOGLOBIN 8.7 GM/dL (11.7-16.9); MCH 29.4 pg (25.7-33.7); MCHC 31.9 g/dl (32.0-35.9); MEAN CELL VOLUME 92.3 fl (80-96); MEAN PLT VOLUME 7.4 fl (7.5-11.1); PLATELET COUNT 221 K/MM3 (134-434); RBC 2.97 M/mm3 (4.00-5.60); RDW 17.2 % (11.9-15.9); WHITE BLOOD COUNT 12.8 K/mm3 (4.0-10.0)
[2018-09-28 09:11] LABS: BLOOD UREA NITROGEN 19.1 mg/dL (7-18); CALCIUM 8.7 mg/dL (8.5-10.1); CREATININE 0.8 mg/dL (0.55-1.3); MAGNESIUM 2.2 mg/dL (1.8-2.4); PHOSPHOROUS 2.5 mg/dL (2.5-4.9); POTASSIUM 4.9 mmol/L (3.5-5.1)
[2018-09-28] MEDS: methylPREDNISolone NA SUCC 40 MG/1 ML VIAL IVPUSH SCH (09:40)
[2018-09-28] MEDS: NAPH,MB-DB/K PH,MBDB POWDER PACKET PO SCH ×2 (09:40→22:01)
[2018-09-28] MEDS: LACTOBACILLUS ACIDOPHILUS 1 TABLET PO SCH (09:40)
[2018-09-28] MEDS: PANTOPRAZOLE 40 MG TABLET (FP) PO SCH (09:40)
[2018-09-28] MEDS: VANCOMYCIN 1 GM in D5W (PRE-DOCKED) 1,000 MG/250 ML IVPB SCH (09:42)
[2018-09-28 09:43] LABS: INR 1.08 (0.83-1.09); PROTHROMBIN TIME (PATIENT) 12.8 SEC (9.7-13.0)
[2018-09-28 09:45] LABS: ACTIVATED PTT 23.6 SECONDS (25.2-36.5)
--- NOTE | 2018-09-28 09:51 | PN ---
Progress Note (short form) - Note Progress Note: wearing high flow oxygen alert brisk cough, expectorating sputum- toney Vital Signs Period Temp Pulse Resp BP Sys/[place] Pulse Ox Last 24 Hr 97.8 F-98.2 F 68-115 14-22 134-167/69-114 96-100 thrush cor-rrr lungs few rhonchi abd soft,nt ext no edema CBC, BMP 09/28/18 08:25 09/28/18 08:25 Microbiology 09/22/18 21:00 Blood - Peripheral Venous Blood Culture - Final NO GROWTH AFTER 5 DAYS INCUBATION 09/22/18 21:00 Blood - Peripheral Venous Blood Culture - Final NO GROWTH AFTER 5 DAYS INCUBATION 09/23/18 02:00 Sputum - Endotrachea Suction/Ventilator Gram Stain - Final 09/23/18 02:00 Sputum - Endotrachea Suction/Ventilator Sputum Culture - Final S Aureus 09/22/18 22:00 Urine - Urine [place] Urine Culture - Final NO GROWTH OBTAINED 09/23/18 02:00 Urine For Antigen Detection Legionella Antigen - Final 09/23/18 02:00 Urine For Antigen Detection Streptococcus pneumoniae Antigen (M - Final cxary RLL infiltrate Current Medications Al Hydroxide/Mg Hydroxide (Mylanta Oral Suspension -) 30 ml PO BID PRN PRN Reason: epigastric pain Last Admin: 09/25/18 12:14 Dose: 30 ml Albuterol/Ipratropium (Duoneb -) 1 amp NEB RQID [facility] Last Admin: 09/28/18 07:30 Dose: 1 amp Chlorhexidine Gluconate (Hibiclens For Decolonization -) 1 applic TP HS [facility] Last Admin: 09/27/18 21:20 Dose: 1 applic Diltiazem HCl (Cardizem Cd -) 120 mg PO DAILY [facility] Last Admin: 09/28/18 09:40 Dose: 120 mg Fluconazole (Diflucan -) 200 mg PO DAILY [facility] Lactobacillus Acidophilus (Bacid -) 1 tab PO DAILY [facility] Last Admin: 09/28/18 09:40 Dose: 1 tab Melatonin (Melatonin) 5 mg PO HS PRN PRN Reason: INSOMNIA Last Admin: 09/26/18 21:06 Dose: 5 mg Methylprednisolone Sodium Succinate (Solu-Medrol -) 40 mg IVPUSH DAILY [facility] Last Admin: 09/28/18 09:40 Dose: 40 mg Mupirocin (Bactroban Ointment (For Decolonization) -) 1 applic NS BID [facility] Stop: 09/28/18 09:59 Last Admin: 09/27/18 21:19 Dose: 1 applic Nystatin (Nystatin Oral Suspension -) 500,000 units PO Q6HPO [facility] Pantoprazole Sodium (Protonix -) 40 mg PO DAILY [facility] Last Admin: 09/28/18 09:40 Dose: 40 mg Potassium Phos/Sodium Phos (Phos-Nak Packet -) 1 packet PO BID [facility] Last Admin: 09/28/18 09:40 Dose: 1 packet Vancomycin HCl (Vancomycin (Pre-Docked)) 1,000 mg IVPB DAILY [facility]; Protocol Last Admin: 09/28/18 09:42 Dose: 1,000 mg a/p acute on chronic resp failure RLL pneumonia(HAP)-legionella urinary antigen negative anemia/recent GI bleed COPD home oxygen history of MRSA colonization-continue isolation continue vancomycin alone thrush- nystatin swish and swallow check [facility] on Friday contact isolation MRSA
[2018-09-28] MEDS: FLUCONAZOLE 100 MG TABLET (UD) PO SCH (10:55)
[2018-09-28] MEDS: NYSTATIN 500,000 UNITS/5 ML SUSPENSION PO SCH ×2 (11:19→17:29)
--- NOTE | 2018-09-28 11:22 | PN ---
Teaching Attending Note Name of Resident: Sal Taveras ATTENDING PHYSICIAN STATEMENT I saw and evaluated the patient. I reviewed the resident's note and discussed the case with the resident. I agree with the resident's findings and plan as documented. SUBJECTIVE: Pt seen and examined in the ICU. On HFOT with 50L/min, 40% fiO2. States breathing is improving. OBJECTIVE: Vital Signs Period Temp Pulse Resp BP Sys/[place] Pulse Ox Last 24 Hr 97.8 F-98.2 F 68-115 14-22 134-167/70-114 96-100 Intake & Output 09/25/18 09/26/18 09/27/18 09/28/18 23:59 23:59 23:59 23:59 Intake Total 3180 980 1300 200 Output Total 2050 1975 1650 400 Balance 1130 -995 -350 -200 Weight 86.409 kg 87.26 kg 88.224 kg Gen: NAD on HFOT Heart: RRR Lung: right base rales Abd: soft, nontender Ext: no edema CBC, BMP 09/28/18 08:25 09/28/18 08:25 Active Medications Al Hydroxide/Mg Hydroxide (Mylanta Oral Suspension -) 30 ml PO BID PRN PRN Reason: epigastric pain Last Admin: 09/25/18 12:14 Dose: 30 ml Albuterol/Ipratropium (Duoneb -) 1 amp NEB RQID [facility] Last Admin: 09/28/18 07:30 Dose: 1 amp Chlorhexidine Gluconate (Hibiclens For Decolonization -) 1 applic TP HS [facility] Last Admin: 09/27/18 21:20 Dose: 1 applic Diltiazem HCl (Cardizem Cd -) 120 mg PO DAILY [facility] Last Admin: 09/28/18 09:40 Dose: 120 mg Fluconazole (Diflucan -) 200 mg PO DAILY [facility] Last Admin: 09/28/18 10:55 Dose: 200 mg Vancomycin HCl 1,250 mg/ (Dextrose) 250 mls @ 250 mls/2 hr IVPB Q24H [facility]; Protocol Lactobacillus Acidophilus (Bacid -) 1 tab PO DAILY [facility] Last Admin: 09/28/18 09:40 Dose: 1 tab Melatonin (Melatonin) 5 mg PO HS PRN PRN Reason: INSOMNIA Last Admin: 09/26/18 21:06 Dose: 5 mg Methylprednisolone Sodium Succinate (Solu-Medrol -) 40 mg IVPUSH DAILY [facility] Last Admin: 09/28/18 09:40 Dose: 40 mg Nystatin (Nystatin Oral Suspension -) 500,000 units PO Q6HPO [facility] Last Admin: 09/28/18 11:19 Dose: 500,000 units Pantoprazole Sodium (Protonix -) 40 mg PO DAILY [facility] Last Admin: 09/28/18 09:40 Dose: 40 mg Potassium Phos/Sodium Phos (Phos-Nak Packet -) 1 packet PO BID [facility] Last Admin: 09/28/18 09:40 Dose: 1 packet ASSESSMENT AND PLAN: Acute on Chronic Hypoxic and Hypercapneic Respiratory Failure Pneumonia Acute COPD Exacerbation CAD LV Diastolic Dysfunction Paroxysmal Atrial Fibrillation HTN Anemia - continue antibiotics - medrol taper - inhaled bronchodilators standing and PRN - O2 to keep Spo2 >90% - transition to nasal cannula - rate controlled - anemia work up in progress - DVT prophylaxis - can monitor on telemetry once off HFOT critical care time spent in reviewing chart, evaluating patient and formulating plan 35 min
[2018-09-28] MEDS ORDERED: IRON SUCROSE INJECTION 300 MG in SODIUM CHLORIDE 235 ML IVPB ONE (11:29)
--- NOTE | 2018-09-28 11:46 | PN ---
Progress Note, Physician Chief Complaint: patient seen and examined high flow oxygen 30L/min fio2 is 30% awake alert - Current Medication List Current Medications: Active Medications Al Hydroxide/Mg Hydroxide (Mylanta Oral Suspension -) 30 ml PO BID PRN PRN Reason: epigastric pain Last Admin: 09/25/18 12:14 Dose: 30 ml Albuterol/Ipratropium (Duoneb -) 1 amp NEB RQID [facility] Last Admin: 09/28/18 11:27 Dose: 1 amp Chlorhexidine Gluconate (Hibiclens For Decolonization -) 1 applic TP HS [facility] Last Admin: 09/27/18 21:20 Dose: 1 applic Diltiazem HCl (Cardizem Cd -) 120 mg PO DAILY [facility] Last Admin: 09/28/18 09:40 Dose: 120 mg Fluconazole (Diflucan -) 200 mg PO DAILY [facility] Last Admin: 09/28/18 10:55 Dose: 200 mg Vancomycin HCl 1,250 mg/ (Dextrose) 250 mls @ 250 mls/2 hr IVPB Q24H [facility]; Protocol Iron Sucrose 300 mg/ Sodium (Chloride) 250 mls @ 250 mls/hr IVPB ONCE ONE Stop: 09/28/18 12:28 Lactobacillus Acidophilus (Bacid -) 1 tab PO DAILY [facility] Last Admin: 09/28/18 09:40 Dose: 1 tab Melatonin (Melatonin) 5 mg PO HS PRN PRN Reason: INSOMNIA Last Admin: 09/26/18 21:06 Dose: 5 mg Nystatin (Nystatin Oral Suspension -) 500,000 units PO Q6HPO [facility] Last Admin: 09/28/18 11:19 Dose: 500,000 units Pantoprazole Sodium (Protonix -) 40 mg PO DAILY [facility] Last Admin: 09/28/18 09:40 Dose: 40 mg Potassium Phos/Sodium Phos (Phos-Nak Packet -) 1 packet PO BID [facility] Last Admin: 09/28/18 09:40 Dose: 1 packet Prednisone (Deltasone -) 40 mg PO DAILY [facility] - Objective Vital Signs: Vital Signs Temperature 98.1 F 09/28/18 10:00 Pulse Rate 76 09/28/18 10:00 Respiratory Rate 20 09/28/18 10:00 Blood Pressure 139/90 09/28/18 10:00 O2 Sat by Pulse Oximetry (%) 98 09/28/18 08:39 Constitutional: Yes: Calm Respiratory: Yes: Diminished Gastrointestinal: Yes: Normal Bowel Sounds, Soft Neurological: Yes: Alert Labs: CBC, BMP 09/28/18 08:25 09/28/18 08:25 INR, PTT INR 1.08 (0.83-1.09) 09/28/18 08:25 Problem List - Problems (1) Acute and chronic respiratory failure with hypoxia Assessment/Plan: Airvo oxygen prednisone 40mg from [facility] Code(s): J96.21 - ACUTE AND CHRONIC RESPIRATORY FAILURE WITH HYPOXIA (2) Anemia Assessment/Plan: iron panel noted no need for venofer today no plans for BM biopsy today Code(s): D64.9 - ANEMIA, UNSPECIFIED Qualifiers: Iron deficiency anemia type: chronic blood loss (3) Thrush, oral Assessment/Plan: nystatin Code(s): B37.0 - CANDIDAL STOMATITIS
--- NOTE | 2018-09-28 11:52 | PN ---
Physical Exam: SUBJECTIVE: Patient seen and examined at the bedside. In better spirits today. States that his breathing feels better but still has a cough productive of toney/ clear sputum. Denies cp, abd pain, n/v/c/d, fever, chills, headaches, dizziness , lightheadedness, dizziness. OBJECTIVE: Vital Signs Period Temp Pulse Resp BP Sys/[place] Pulse Ox Last 24 Hr 97.8 F-98.2 F 68-115 14-22 134-167/70-114 96-100 GENERAL: The patient is awake, alert, in no acute distress. HEAD: Normal with no signs of trauma. EYES: PERRL, extraocular movements intact, sclera anicteric, conjunctiva clear. ENT: Ears normal, nares patent. Thrush noted on soft palate and tongue NECK: Trachea midline, supple. LUNGS: Breath sounds equal, decreased at the bases, no accessory muscle use, patient on hiflow HEART: Regular rate and rhythm, S1, S2 without murmur. ABDOMEN: Soft, nontender, nondistended, normoactive bowel sounds, EXTREMITIES: 2+ pulses, warm, well-perfused, no edema. SKIN: Warm, dry, normal turgor, no rashes or lesions noted Laboratory Results - last 24 hr 09/22/18 09/28/18 09/28/18 23:45 08:25 08:25 WBC 12.8 H RBC 2.97 L Hgb 8.7 L Hct 27.4 L MCV 92.3 MCH 29.4 MCHC 31.9 L RDW 17.2 H Plt Count 221 D MPV 7.4 L PT with INR INR PTT (Actin FS) Sodium Potassium Chloride Carbon Dioxide Anion Gap BUN Creatinine Est GFR (CKD-EPI)AfAm Est GFR (CKD-EPI)NonAf Random Glucose Calcium Phosphorus Magnesium Random Vancomycin 9.7 L Blood Type O POSITIVE Antibody Screen Negative Crossmatch See Detail 09/28/18 09/28/18 08:25 08:25 WBC RBC Hgb Hct MCV MCH MCHC RDW Plt Count MPV PT with INR 12.80 INR 1.08 PTT (Actin FS) 23.6 L Sodium 138 Potassium 4.9 Chloride 98 Carbon Dioxide 34 H Anion Gap 6 L BUN 19.1 H Creatinine 0.8 Est GFR (CKD-EPI)AfAm 101.28 Est GFR (CKD-EPI)NonAf 87.38 Random Glucose 82 Calcium 8.7 Phosphorus 2.5 Magnesium 2.2 Random Vancomycin Blood Type Antibody Screen Crossmatch Active Medications Generic Name Dose Route Start Last Admin Trade Name Freq PRN Reason Stop Dose Admin Al Hydroxide/Mg Hydroxide 30 ml 09/24/18 10:54 09/25/18 12:14 Mylanta Oral Suspension - PO 30 ml BID PRN Administration epigastric pain Albuterol/Ipratropium 1 amp 09/23/18 08:00 09/28/18 11:27 Duoneb - NEB 1 amp RQID MORE Administration Chlorhexidine Gluconate 1 applic 09/23/18 22:00 09/27/18 21:20 Hibiclens For Decolonization - TP 1 applic HS MORE Administration Diltiazem HCl 120 mg 09/23/18 17:45 09/28/18 09:40 Cardizem Cd - PO 120 mg DAILY MORE Administration Fluconazole 200 mg 09/28/18 10:00 09/28/18 10:55 Diflucan - PO 200 mg DAILY MORE Administration Vancomycin HCl 1,250 mg/ 250 mls @ 250 mls/2 hr 09/29/18 10:00 Dextrose IVPB Q24H MORE Protocol Lactobacillus Acidophilus 1 tab 09/24/18 10:00 09/28/18 09:40 Bacid - PO 1 tab DAILY MORE Administration Melatonin 5 mg 09/26/18 14:05 09/26/18 21:06 Melatonin PO 5 mg HS PRN Administration INSOMNIA Nystatin 500,000 units 09/28/18 12:00 09/28/18 11:19 Nystatin Oral Suspension - PO 500,000 units Q6HPO MORE Administration Pantoprazole Sodium 40 mg 09/25/18 10:00 09/28/18 09:40 Protonix - PO 40 mg DAILY MORE Administration Potassium Phos/Sodium Phos 1 packet 09/26/18 10:00 09/28/18 09:40 Phos-Nak Packet - PO 1 packet BID MORE Administration Prednisone 40 mg 09/29/18 10:00 Deltasone - PO DAILY MORE ASSESSMENT/PLAN: Gilbert Giang is a 73 year old male with a PMH of GI bleed, Anemia and COPD ( on 2 L NC @ home) who presented to for Respiratory Distress and admitted to ICU for COPD exacerbation and PNA. Acute on Chronic Respiratory Failure due to RLL PNA GI bleed Anemia O2 dependent COPD (on 2 L NC @ home) HTN Neurologic - Awake, alert and oriented Cardiovascular - HTN - BP well controlled for now, continue to monitor - Cardizem PO 120mg qDaily - Holding ASA for now - Cardiology following, recommendations appreciated - will need outpatient nuclear MPI Pulmonary - HFNC today transitioned to NC, keep on NC as tolerated - BiPAP settings: IPAP 14/EPAP 7/R16/FiO2 40%, use as needed at night - hiflow settings 30L, 30%, wean as tolerated - attempt to wean to NC as tolerating - CXR shows bibasilar atelectasis which are improving - continue to follow CXR - continue Duo-Nebs - switch steroids to prednisone to 40mg daily - encourage incentive spirometry - OOB to chair - will likely need outpatient eval of sleep apnea Hematologic - Anemia in patient with history of recent GI bleed - Hgb at 8.7 today - Continue to monitor for evidence of bleeding - Dr. Ramos consulted, recs appreciated, anemia workup - protein studies, cytometry, hemoglobin studies - plan for bone marrow biopsy ID - Bandemia 21% without Leukocytosis- possibly 2/2 to chronic steroid use + chronic prophylatic ABx - RLL pneumonia(HAP)-legionella urinary antigen negative - sputum MRSA +, continue isolation - today random vanco level 9.7 - increase vanco to 1250mg daily - repeat vanco trough on friday - blood cxs negative - add probiotics - ID following, appreciate recommendations Renal - hogue out - no acute issues Endocrine - TSH low, free T4 mildly elevated, no acute signs of hyperthyroidism - continue to monitor for signs including fever, wt loss, tachycardia, hypertension FEN -no standing fluids -continue to monitor electrolytes and replete as necessary -soft diet and ensure supplement Code - full code Dispo - continue to monitor in ICU Visit type - Emergency Visit Emergency Visit: No - New Patient This patient is new to me today: No - Critical Care Critical Care patient: Yes Total Critical Care Time (in minutes): 37 Critical Care Statement: The care of this patient involved high complexity decision making to prevent further life threatening deterioration of the patient 's condition and/or to evaluate & treat vital organ system(s) failure or risk of failure.
[2018-09-28 16:09] LABS: GLIADIN ANTIBODY IGA 4 units (0-19); GLIADIN ANTIBODY IGG 4 units (0-19); TRANSGLUTAMINASE IGG < 2 U/mL (0-5)
[2018-09-28] MEDS ORDERED: HYDROCORTISONE 1% TOPICAL LOTION 118 ML BOTTLE TP PRN (16:56)
--- NOTE | 2018-09-28 20:56 | PN ---
Progress Note (short form) - Note Progress Note: Patient seen and examined Last Vital Signs Temp Pulse Resp BP Pulse Ox 98.2 F 105 H 26 H 115/72 96 09/28/18 16:00 09/28/18 18:00 09/28/18 18:00 09/28/18 18:00 09/28/18 20:12 Cor: RSR, No murmurs, No gallops Lungs: Clear to P&A Abd: Soft, Normal bowel sounds, No organomegaly Ext:No significant edema Abnormal Lab Results 09/22/18 09/25/18 09/26/18 23:45 16:40 05:30 WBC RBC Hgb Hct MCHC RDW MPV PTT (Actin FS) Carbon Dioxide Anion Gap BUN Total Protein (PEP) 4.8 L Albumin (PEP) 2.1 L Random Vancomycin IEP IgG 386 L Crossmatch See Detail 09/28/18 09/28/18 09/28/18 08:25 08:25 08:25 WBC 12.8 H RBC 2.97 L Hgb 8.7 L Hct 27.4 L MCHC 31.9 L RDW 17.2 H MPV 7.4 L PTT (Actin FS) Carbon Dioxide 34 H Anion Gap 6 L BUN 19.1 H Total Protein (PEP) Albumin (PEP) Random Vancomycin 9.7 L IEP IgG Crossmatch 09/28/18 08:25 WBC RBC Hgb Hct MCHC RDW MPV PTT (Actin FS) 23.6 L Carbon Dioxide Anion Gap BUN Total Protein (PEP) Albumin (PEP) Random Vancomycin IEP IgG Crossmatch Active Medications Generic Name Dose Route Start Last Admin Trade Name Freq PRN Reason Stop Dose Admin Al Hydroxide/Mg Hydroxide 30 ml 09/24/18 10:54 09/25/18 12:14 Mylanta Oral Suspension - PO 30 ml BID PRN Administration epigastric pain Albuterol/Ipratropium 1 amp 09/23/18 08:00 09/28/18 15:27 Duoneb - NEB 1 amp RQID MORE Administration Chlorhexidine Gluconate 1 applic 09/23/18 22:00 09/27/18 21:20 Hibiclens For Decolonization - TP 1 applic HS MORE Administration Diltiazem HCl 120 mg 09/23/18 17:45 09/28/18 09:40 Cardizem Cd - PO 120 mg DAILY MORE Administration Fluconazole 200 mg 09/28/18 10:00 09/28/18 10:55 Diflucan - PO 200 mg DAILY MORE Administration Hydrocortisone 1 applic 09/28/18 16:56 Hytone 1% Lotion - TP Q12H PRN itching Vancomycin HCl 1,250 mg/ 250 mls @ 250 mls/2 hr 09/29/18 10:00 Dextrose IVPB Q24H MORE Protocol Lactobacillus Acidophilus 1 tab 09/24/18 10:00 09/28/18 09:40 Bacid - PO 1 tab DAILY MORE Administration Melatonin 5 mg 09/26/18 14:05 09/26/18 21:06 Melatonin PO 5 mg HS PRN Administration INSOMNIA Nystatin 500,000 units 09/28/18 12:00 09/28/18 17:29 Nystatin Oral Suspension - PO 500,000 units Q6HPO MORE Administration Pantoprazole Sodium 40 mg 09/25/18 10:00 09/28/18 09:40 Protonix - PO 40 mg DAILY MORE Administration Potassium Phos/Sodium Phos 1 packet 09/26/18 10:00 09/28/18 09:40 Phos-Nak Packet - PO 1 packet BID MORE Administration Prednisone 40 mg 09/29/18 10:00 Deltasone - PO DAILY MORE A/P 73 y/o patient with Acute on Chronic Hypoxic and Hypercapneic Respiratory Failure Pneumonia Acute COPD Exacerbation CAD LV Diastolic Dysfunction Paroxysmal Atrial Fibrillation HTN Anemia Anemia--normocytic/normochromic B12/ folate--nl TSH --low/fT4 high SIFE negative s/p injectafer x2 per PMD Suspect anemia of chronic disease +/- gi losses Given his multiple comorbidites, acute COPD exacerbation, would hold further invasive w/u for anemia at this time Will discuss with PMD
[2018-09-28] MEDS: ZOLPIDEM TARTRATE 5 MG TABLET PO PRN (22:02)
[2018-09-28] MEDS: CHLORHEXIDINE GLUCONATE 4% CLEANSER FOR DECOLONIZATION TP SCH (22:02)
[2018-09-29] MEDS: NYSTATIN 500,000 UNITS/5 ML SUSPENSION PO SCH ×5 (00:17→23:48)
[2018-09-29 06:42] LABS: BASO % 0.1 % (0-2.0); EOS % 0.8 % (0-4.5); HEMOGLOBIN 8.5 GM/dL (11.7-16.9); LYMPH % 6.6 % (8-40); MCH 30.4 pg (25.7-33.7); MCHC 32.8 g/dl (32.0-35.9); MEAN CELL VOLUME 92.6 fl (80-96); MEAN PLT VOLUME 7.8 fl (7.5-11.1); MONO % 2.2 % (3.8-10.2); NEUT % 90.3 % (42.8-82.8); PLATELET COUNT 199 K/MM3 (134-434); RDW 17.4 % (11.9-15.9); WHITE BLOOD COUNT 10.5 K/mm3 (4.0-10.0)
[2018-09-29 06:52] LABS: INR 1.08 (0.83-1.09); PROTHROMBIN TIME (PATIENT) 12.8 SEC (9.7-13.0)
[2018-09-29 06:54] LABS: ACTIVATED PTT 26.2 SECONDS (25.2-36.5)
[2018-09-29 06:59] LABS: ALBUMIN 2.4 g/dl (3.4-5.0); BILIRUBIN,TOTAL 0.3 mg/dL (0.2-1); BLOOD UREA NITROGEN 20.7 mg/dL (7-18); CALCIUM 8.2 mg/dL (8.5-10.1); CREATININE 0.9 mg/dL (0.55-1.3); MAGNESIUM 2.2 mg/dL (1.8-2.4); PHOSPHOROUS 2.7 mg/dL (2.5-4.9); TOT PROT 5.5 g/dl (6.4-8.2)
--- NOTE | 2018-09-29 06:59 | PN ---
Progress Note (short form) - Note Progress Note: Chief Complaint: Events noted, notes reviewed, dyspnea improved but not resolved , complaining of cough, bilateral lower extremity edema resolving, bone marrow biopsy deferred as per hematology History of Present Illness: Seen and examined in the ICU. Events noted, notes reviewed, dyspnea improved but not resolved, complaining of cough, bilateral lower extremity edema resolving, bone marrow biopsy deferred as per hematology Echocardiogram 07/03/2018 revealed normal LV size and systolic function, LVEF 55 -60%, mild LAE, mild ao root dilatation 4.2 cm, impaired LV relaxation Echocardiography (12/08/17) revealed normal LV systolic function, LVEF 60-65%, moderately dilated ascending thoracic aorta, mild TR and trace CA. Nuclear MPI (08/20/16) revealed moderate zone of anterior and brian-apical reversible defect c/s mild intensity ischemia and moderate inferior attenuation , LVEF was 71%. - Current Medication List Current Medications Al Hydroxide/Mg Hydroxide (Mylanta Oral Suspension -) 30 ml PO BID PRN PRN Reason: epigastric pain Last Admin: 09/25/18 12:14 Dose: 30 ml Albuterol/Ipratropium (Duoneb -) 1 amp NEB RQID MORE Last Admin: 09/28/18 20:50 Dose: 1 amp Chlorhexidine Gluconate (Hibiclens For Decolonization -) 1 applic TP HS [facility] Last Admin: 09/28/18 22:02 Dose: 1 applic Diltiazem HCl (Cardizem Cd -) 120 mg PO DAILY MORE Last Admin: 09/28/18 09:40 Dose: 120 mg Fluconazole (Diflucan -) 200 mg PO DAILY [facility] Last Admin: 09/28/18 10:55 Dose: 200 mg Hydrocortisone (Hytone 1% Lotion -) 1 applic TP Q12H PRN PRN Reason: itching Vancomycin HCl 1,250 mg/ (Dextrose) 250 mls @ 250 mls/2 hr IVPB Q24H [facility]; Protocol Lactobacillus Acidophilus (Bacid -) 1 tab PO DAILY [facility] Last Admin: 09/28/18 09:40 Dose: 1 tab Melatonin (Melatonin) 5 mg PO HS PRN PRN Reason: INSOMNIA Last Admin: 09/26/18 21:06 Dose: 5 mg Nystatin (Nystatin Oral Suspension -) 500,000 units PO Q6HPO [facility] Last Admin: 09/29/18 05:35 Dose: 500,000 units Pantoprazole Sodium (Protonix -) 40 mg PO DAILY [facility] Last Admin: 09/28/18 09:40 Dose: 40 mg Potassium Phos/Sodium Phos (Phos-Nak Packet -) 1 packet PO BID [facility] Last Admin: 09/28/18 22:01 Dose: 1 packet Prednisone (Deltasone -) 40 mg PO DAILY [facility] Zolpidem Tartrate (Ambien -) 5 mg PO HS PRN PRN Reason: INSOMNIA Last Admin: 09/28/18 22:02 Dose: 5 mg Review of Systems Constitutional: denies Chills or Fever Respiratory: reports Cough but no Sputum Production Cardiovascular: As noted above Gastrointestinal: denies Nausea, Vomiting, Diarrhea, Constipation or Abdominal Pain Genitourinary: No Symptoms Reported Musculoskeletal: No Symptoms Reported - Objective Vital Signs: Last Vital Signs Temp Pulse Resp BP Pulse Ox 97.9 F 84 17 154/78 98 09/29/18 06:00 09/29/18 06:00 09/29/18 06:00 09/29/18 06:00 09/29/18 01:09 Intake & Output 09/26/18 09/27/18 09/28/18 09/29/18 23:59 23:59 23:59 23:59 Intake Total 980 1300 790 200 Output Total 1975 1650 1550 200 Balance -995 350 -760 0 Weight 192 lb 6 oz 194 lb 8 oz 192 lb 1 oz Neck: Supple Negative JVD No Bruit Cardiovascular: S1 S2 Irregularly Irregular Respiratory: Diminished Breath Sounds at the Bases Scattered Rhonchi Gastrointestinal: Soft Benign Normal Bowel Sounds Ext: Bilateral Ankle Edema Labs: CBC, BMP 09/29/18 05:35 BMP pending from this AM Hepatic Panel Total Bilirubin 0.3 mg/dL (0.2-1) 09/25/18 06:30 AST 9 U/L (15-37) L 09/25/18 06:30 ALT 20 U/L (13-61) 09/25/18 06:30 Alkaline Phosphatase 87 U/L (45-117) 09/25/18 06:30 Albumin 1.9 g/dl (3.4-5.0) L 09/25/18 06:30 ABG Results ABG pH 7.44 (7.35-7.45) 09/24/18 03:00 ABG pCO2 at Pt Temp 41.3 mmHg (35-45) 09/24/18 03:00 ABG pO2 at Pt Temp 45.8 mmHg (80-105) L 09/24/18 03:00 ABG HCO3 27.3 mmol/L (22-27) H 09/24/18 03:00 ABG O2 Sat (Measured) 79.1 % (95-98) L 09/24/18 03:00 ABG O2 Content 7.5 % vol (15-22) L* 09/24/18 03:00 ABG Base Excess 3.3 meq/l (-2-2) H 09/24/18 03:00 Assessment/Plan ASSESSMENT: 1. Acute on chronic hypercapneic/hypoxemic respiratory failure requiring mechanical ventilation post extubation related to 2. COPD exacerbation and 3. Right lower lobe pneumonia (HAP), resolving 4. CAD coronary artery calcification/visual calcification on CT scan of the chest July 03, 2018 abnormal MPI study August 20, 2016 angina pectoris 5. Diastolic LV dysfunction with clinical class 0 NYHA classification LV failure 6. Paroxysmal atrial fibrillation [id number] score of 4 (refused DOAC or Coumadin) 7. HTN 8. Recent UGI bleed secondary to bleeding duodenal ulcer post intervention 9. Anemia 10. History of MRSA colonization PLAN: 1. Steroids and bronchodilators as per the pulmonary team 2. Continue antibiotics as per the primary team 3. Continue Cardizem CD 4. Add ARBS unless contraindicated, Diovan 5. Continue to hold ASA 6. Utilize diuretics as needed 7. Ideally anticoagulation is recommended considering the above noted [id number] score of 4, but patient has declined- along with recent UGI bleed- relatively contraindicated, option of proceeding with FILI closure device as an alternative to A/C- discussed with the patient- outpatient intervention 8. Additional cardiovascular evaluation as outpatient including nuclear MPI once clinically improved 9. Monitor Hg and transfuse as needed maintaining Hg equal or > 8.0 Bam Vidal M.D.
[2018-09-29] MEDS: ALBUTEROL SO4 2.5/IPRATROPIUM 0.5 INH SOL 3 ML VIAL.NEB. NEB SCH (07:30)
[2018-09-29] MEDS ORDERED: PT OWN MED DRAWER 7, Y5N ONE ×2 (09:11→17:54)
[2018-09-29] MEDS: PANTOPRAZOLE 40 MG TABLET (FP) PO SCH (10:39)
[2018-09-29] MEDS: predniSONE 20 MG TABLET (UD) PO SCH (10:39)
[2018-09-29] MEDS: NAPH,MB-DB/K PH,MBDB POWDER PACKET PO SCH ×2 (10:40→21:05)
[2018-09-29] MEDS: LACTOBACILLUS ACIDOPHILUS 1 TABLET PO SCH (10:40)
[2018-09-29] MEDS: VALSARTAN 80 MG TABLET (UD) PO SCH (10:40)
[2018-09-29] MEDS: VANCOMYCIN HCL 1,250 MG in DEXTROSE 5%-WATER - 250 ML IVPB SCH (10:41)
[2018-09-29] MEDS ORDERED: ALBUTEROL SO4 0.042% IH SOL 1.25 MG/3 ML VIAL.NEB NEB PRN (11:37)
[2018-09-29] MEDS: FLUCONAZOLE 100 MG TABLET (UD) PO SCH (11:42)
[2018-09-29 12:09] LABS: ANISOCYTOSIS 1+; MACROCYTOSIS 0; PLATELET ESTIMATE NORMAL; TEAR DROP CELLS 1+
--- NOTE | 2018-09-29 12:09 | PN ---
Teaching Attending Note Name of Resident: Sal Taveras ATTENDING PHYSICIAN STATEMENT I saw and evaluated the patient. I reviewed the resident's note and discussed the case with the resident. I agree with the resident's findings and plan as documented. SUBJECTIVE: Pt seen and examined in the ICU. Transitioned off HFOT now on nasal cannula. Breathing slightly improved. Still with productive cough. OBJECTIVE: Vital Signs Period Temp Pulse Resp BP Sys/[place] Pulse Ox Last 24 Hr 97.6 F-98.4 F 71-105 13-26 115-157/72-98 93-98 Intake & Output 09/26/18 09/27/18 09/28/18 09/29/18 23:59 23:59 23:59 23:59 Intake Total 980 1300 790 200 Output Total 1975 1650 1550 200 Balance -995 -350 -760 0 Weight 87.26 kg 88.224 kg 87.118 kg Gen: mildly tachypneic at rest Heart: tachycardic, irregular Lung: scattered rhonchi bilaterally Abd: soft, nontender Ext: no edema CBC, BMP 09/29/18 05:35 09/29/18 05:35 Active Medications Al Hydroxide/Mg Hydroxide (Mylanta Oral Suspension -) 30 ml PO BID PRN PRN Reason: epigastric pain Last Admin: 09/25/18 12:14 Dose: 30 ml Albuterol Sulfate (Ventolin 0.042trength) -) 1 amp NEB Q6H PRN PRN Reason: SHORT OF BREATH/WHEEZING Budesonide/Formoterol Fumarate (Symbicort 160/4.5mcg -) 2 puff IH BID MORE Chlorhexidine Gluconate (Hibiclens For Decolonization -) 1 applic TP HS MORE Last Admin: 09/28/18 22:02 Dose: 1 applic Diltiazem HCl (Cardizem Cd -) 120 mg PO DAILY MORE Last Admin: 09/29/18 10:40 Dose: 120 mg Fluconazole (Diflucan -) 200 mg PO DAILY [facility] Last Admin: 09/29/18 11:42 Dose: 200 mg Hydrocortisone (Hytone 1% Lotion -) 1 applic TP Q12H PRN PRN Reason: itching Vancomycin HCl 1,250 mg/ (Dextrose) 250 mls @ 250 mls/2 hr IVPB Q24H MORE; Protocol Last Admin: 09/29/18 10:41 Dose: 250 mls/2 hr Ipratropium [place] (Atrovent 0.02% Nebulizer -) 1 amp NEB RQID MORE Lactobacillus Acidophilus (Bacid -) 1 tab PO DAILY [facility] Last Admin: 09/29/18 10:40 Dose: 1 tab Melatonin (Melatonin) 5 mg PO HS PRN PRN Reason: INSOMNIA Last Admin: 09/26/18 21:06 Dose: 5 mg Nystatin (Nystatin Oral Suspension -) 500,000 units PO Q6HPO [facility] Last Admin: 09/29/18 05:35 Dose: 500,000 units Pantoprazole Sodium (Protonix -) 40 mg PO DAILY [facility] Last Admin: 09/29/18 10:39 Dose: 40 mg Potassium Phos/Sodium Phos (Phos-Nak Packet -) 1 packet PO BID [facility] Last Admin: 09/29/18 10:40 Dose: 1 packet Prednisone (Deltasone -) 40 mg PO DAILY [facility] Last Admin: 09/29/18 10:39 Dose: 40 mg Valsartan (Diovan -) 80 mg PO DAILY [facility] Last Admin: 09/29/18 10:40 Dose: 80 mg Zolpidem Tartrate (Ambien -) 5 mg PO HS PRN PRN Reason: INSOMNIA Last Admin: 09/28/18 22:02 Dose: 5 mg ASSESSMENT AND PLAN: Acute on Chronic Hypoxic and Hypercapneic Respiratory Failure Pneumonia Acute COPD Exacerbation CAD LV Diastolic Dysfunction Paroxysmal Atrial Fibrillation HTN Anemia - continue antibiotics - prednisone taper - inhaled bronchodilators standing and PRN - O2 to keep Spo2 >90% - rate controlled - anemia work up in progress - DVT prophylaxis - can monitor on telemetry critical care time spent in reviewing chart, evaluating patient and formulating plan 35 min
--- NOTE | 2018-09-29 12:10 | PN ---
Physical Exam: SUBJECTIVE: Patient seen and examined at the bedside. Patient had been tolerating NC well all through the night and had not required Bilevel. Stated that he did not feel short of breath. Denied cp, sob, abd pain, n/v/c/d, fever, chills, weakness, numbness, tingling. Anxious to be transferred out of the ICU. Bone marrow biopsy to be done outpatient. Should use Bilevel at night in setting probable GENE. OBJECTIVE: Vital Signs Period Temp Pulse Resp BP Sys/[place] Pulse Ox Last 24 Hr 97.6 F-98.4 F 71-105 13-26 115-157/72-98 93-98 GENERAL: The patient is awake, alert, in no acute distress. HEAD: Normal with no signs of trauma. EYES: PERRL, extraocular movements intact, sclera anicteric, conjunctiva clear. ENT: Ears normal, nares patent. Thrush noted on soft palate and tongue NECK: Trachea midline, supple. LUNGS: Breath sounds equal, decreased at the bases, some accessory muscle use, patient on NC tolerating well. HEART: Regular rate and rhythm, S1, S2 without murmur. ABDOMEN: Soft, nontender, nondistended, normoactive bowel sounds, EXTREMITIES: 2+ pulses, warm, well-perfused, no edema. SKIN: Warm, dry, normal turgor, no rashes or lesions noted Laboratory Results - last 24 hr 09/25/18 09/26/18 09/26/18 16:40 05:30 05:30 WBC RBC Hgb Hct MCV MCH MCHC RDW Plt Count MPV Absolute Neuts (auto) Neutrophils % Lymphocytes % Monocytes % Eosinophils % Basophils % Nucleated RBC % PT with INR INR PTT (Actin FS) Sodium Potassium Chloride Carbon Dioxide Anion Gap BUN Creatinine Est GFR (CKD-EPI)AfAm Est GFR (CKD-EPI)NonAf Random Glucose Calcium Phosphorus Magnesium Total Bilirubin AST ALT Alkaline Phosphatase Total Protein Total Protein (PEP) 4.8 L Albumin Albumin (PEP) 2.1 L Globulin 2.7 Albumin/Globulin Ratio 0.8 Beta Globulins 0.8 Vancomycin Pre-Dose IgA 261 RODERICK M-Oscar Not observed Serum RODERICK Interpret IEP IgG 386 L IEP IgA 255 IEP IgM 38 Endomysial IgA Ab Negative Tiss Transglutamin IgG < 2 Tiss Transglutamin IgA <2 Anti-Gliadin IgG Ab 4 Anti-Gliadin IgA Ab 4 09/29/18 09/29/18 09/29/18 05:35 05:35 05:35 WBC 10.5 H RBC 2.80 L Hgb 8.5 L Hct 26.0 L MCV 92.6 MCH 30.4 MCHC 32.8 RDW 17.4 H Plt Count 199 MPV 7.8 Absolute Neuts (auto) 9.5 H Neutrophils % 90.3 H Lymphocytes % 6.6 L D Monocytes % 2.2 L Eosinophils % 0.8 D Basophils % 0.1 Nucleated RBC % 0 PT with INR 12.80 INR 1.08 PTT (Actin FS) 26.2 Sodium 140 Potassium 5.0 Chloride 99 Carbon Dioxide 36 H Anion Gap 5 L BUN 20.7 H Creatinine 0.9 Est GFR (CKD-EPI)AfAm 96.49 Est GFR (CKD-EPI)NonAf 83.25 Random Glucose 90 Calcium 8.2 L Phosphorus 2.7 Magnesium 2.2 Total Bilirubin 0.3 AST 17 ALT 37 Alkaline Phosphatase 94 Total Protein 5.5 L Total Protein (PEP) Albumin 2.4 L Albumin (PEP) Globulin Albumin/Globulin Ratio Beta Globulins Vancomycin Pre-Dose IgA RODERICK M-Oscar Serum RODERICK Interpret IEP IgG IEP IgA IEP IgM Endomysial IgA Ab Tiss Transglutamin IgG Tiss Transglutamin IgA Anti-Gliadin IgG Ab Anti-Gliadin IgA Ab 09/29/18 09:30 WBC RBC Hgb Hct MCV MCH MCHC RDW Plt Count MPV Absolute Neuts (auto) Neutrophils % Lymphocytes % Monocytes % Eosinophils % Basophils % Nucleated RBC % PT with INR INR PTT (Actin FS) Sodium Potassium Chloride Carbon Dioxide Anion Gap BUN Creatinine Est GFR (CKD-EPI)AfAm Est GFR (CKD-EPI)NonAf Random Glucose Calcium Phosphorus Magnesium Total Bilirubin AST ALT Alkaline Phosphatase Total Protein Total Protein (PEP) Albumin Albumin (PEP) Globulin Albumin/Globulin Ratio Beta Globulins Vancomycin Pre-Dose 9.8 L IgA RODERICK M-Oscar Serum RODERICK Interpret IEP IgG IEP IgA IEP IgM Endomysial IgA Ab Tiss Transglutamin IgG Tiss Transglutamin IgA Anti-Gliadin IgG Ab Anti-Gliadin IgA Ab Active Medications Generic Name Dose Route Start Last Admin Trade Name Freq PRN Reason Stop Dose Admin Al Hydroxide/Mg Hydroxide 30 ml 09/24/18 10:54 09/25/18 12:14 Mylanta Oral Suspension - PO 30 ml BID PRN Administration epigastric pain Albuterol Sulfate 1 amp 09/29/18 11:37 Ventolin 0.042trength) - NEB Q6H PRN SHORT OF BREATH/WHEEZING Budesonide/Formoterol Fumarate 2 puff 09/29/18 22:00 Symbicort 160/4.5mcg - IH BID MORE Chlorhexidine Gluconate 1 applic 09/23/18 22:00 09/28/18 22:02 Hibiclens For Decolonization - TP 1 applic HS MORE Administration Diltiazem HCl 120 mg 09/23/18 17:45 09/29/18 10:40 Cardizem Cd - PO 120 mg DAILY MORE Administration Fluconazole 200 mg 09/28/18 10:00 09/29/18 11:42 Diflucan - PO 200 mg DAILY MORE Administration Hydrocortisone 1 applic 09/28/18 16:56 Hytone 1% Lotion - TP Q12H PRN itching Vancomycin HCl 1,250 mg/ 250 mls @ 250 mls/2 hr 09/29/18 10:00 09/29/18 10:41 Dextrose IVPB 250 mls/2 hr Q24H MORE Administration Protocol Ipratropium [place] 1 amp 09/29/18 12:00 Atrovent 0.02% Nebulizer - NEB RQID MORE Lactobacillus Acidophilus 1 tab 09/24/18 10:00 09/29/18 10:40 Bacid - PO 1 tab DAILY MORE Administration Melatonin 5 mg 09/26/18 14:05 09/26/18 21:06 Melatonin PO 5 mg HS PRN Administration INSOMNIA Nystatin 500,000 units 09/28/18 12:00 09/29/18 05:35 Nystatin Oral Suspension - PO 500,000 units Q6HPO MORE Administration Pantoprazole Sodium 40 mg 09/25/18 10:00 09/29/18 10:39 Protonix - PO 40 mg DAILY MORE Administration Potassium Phos/Sodium Phos 1 packet 09/26/18 10:00 09/29/18 10:40 Phos-Nak Packet - PO 1 packet BID MORE Administration Prednisone 40 mg 09/29/18 10:00 09/29/18 10:39 Deltasone - PO 40 mg DAILY MORE Administration Valsartan 80 mg 09/29/18 10:00 09/29/18 10:40 Diovan - PO 80 mg DAILY MORE Administration Zolpidem Tartrate 5 mg 09/28/18 21:11 09/28/18 22:02 Ambien - PO 5 mg HS PRN Administration INSOMNIA ASSESSMENT/PLAN: Gilbert Giang is a 73 year old male with a PMH of GI bleed, Anemia and COPD ( on 2 L NC @ home) who presented to for Respiratory Distress and admitted to ICU for COPD exacerbation and PNA. Acute on Chronic Respiratory Failure due to RLL PNA GI bleed Anemia O2 dependent COPD (on 2 L NC @ home) HTN Neurologic - Awake, alert and oriented Cardiovascular - HTN - BP well controlled for now, continue to monitor - Cardizem PO 120mg qDaily - Holding ASA for now - Cardiology following, recommendations appreciated - cardiology recommending starting patient on valsartan, patient with K of 5.0 today and BP within normal limits, can start if pressures rise and K improves - will need outpatient nuclear MPI Pulmonary - HFNC today transitioned to NC, keep on NC as tolerated - BiPAP settings: IPAP 14/EPAP 7/R16/FiO2 40%, use as needed at night in the setting of probably GENE - CXR shows bibasilar atelectasis which are improving - start Atrovent qid - start albuterol 0.42 qid prn - start Symbicort bid - continue prednisone to 40mg daily - encourage incentive spirometry - OOB to chair - will likely need outpatient eval of sleep apnea Hematologic - Anemia in patient with history of recent GI bleed - Hgb at 8.5 today - Continue to monitor for evidence of bleeding - Dr. Ramos consulted, recs appreciated, anemia workup - protein studies, cytometry, hemoglobin studies - bone marrow biopsy to be done outpatient ID - Bandemia 21% without Leukocytosis- possibly 2/2 to chronic steroid use + chronic prophylatic ABx, resolved - sputum MRSA +, continue isolation - vanco trough 9.8 - continue vanco to 1250mg daily - blood cxs negative - add probiotics - ID following, appreciate recommendations Renal - hogue out - no acute issues Endocrine - TSH low, free T4 mildly elevated, no acute signs of hyperthyroidism - continue to monitor for signs including fever, wt loss, tachycardia, hypertension FEN -no standing fluids -continue to monitor electrolytes and replete as necessary -soft diet and ensure supplement Code - full code Dispo - stable for transfer to telemetry Visit type - Emergency Visit Emergency Visit: No - New Patient This patient is new to me today: No - Critical Care Critical Care patient: No
[2018-09-29] MEDS: IPRATROPIUM BR 0.02% 0.5 MG/2.5 ML VIAL.NEB. NEB SCH ×3 (12:17→20:30)
--- NOTE | 2018-09-29 15:45 | PN ---
Progress Note, Physician Chief Complaint: AWAKE ALERT ON 02 STILL SOB - Current Medication List Current Medications: Active Medications Al Hydroxide/Mg Hydroxide (Mylanta Oral Suspension -) 30 ml PO BID PRN PRN Reason: epigastric pain Last Admin: 09/25/18 12:14 Dose: 30 ml Albuterol Sulfate (Ventolin 0.042trength) -) 1 amp NEB Q6H PRN PRN Reason: SHORT OF BREATH/WHEEZING Budesonide/Formoterol Fumarate (Symbicort 160/4.5mcg -) 2 puff IH BID [facility] Chlorhexidine Gluconate (Hibiclens For Decolonization -) 1 applic TP HS MORE Last Admin: 09/28/18 22:02 Dose: 1 applic Diltiazem HCl (Cardizem Cd -) 120 mg PO DAILY [facility] Last Admin: 09/29/18 10:40 Dose: 120 mg Fluconazole (Diflucan -) 200 mg PO DAILY [facility] Last Admin: 09/29/18 11:42 Dose: 200 mg Hydrocortisone (Hytone 1% Lotion -) 1 applic TP Q12H PRN PRN Reason: itching Vancomycin HCl 1,250 mg/ (Dextrose) 250 mls @ 250 mls/2 hr IVPB Q24H [facility]; Protocol Last Admin: 09/29/18 10:41 Dose: 250 mls/2 hr Ipratropium [place] (Atrovent 0.02% Nebulizer -) 1 amp NEB RQID [facility] Last Admin: 09/29/18 15:22 Dose: 1 amp Lactobacillus Acidophilus (Bacid -) 1 tab PO DAILY [facility] Last Admin: 09/29/18 10:40 Dose: 1 tab Melatonin (Melatonin) 5 mg PO HS PRN PRN Reason: INSOMNIA Last Admin: 09/26/18 21:06 Dose: 5 mg Nystatin (Nystatin Oral Suspension -) 500,000 units PO Q6HPO [facility] Last Admin: 09/29/18 13:00 Dose: 500,000 units Pantoprazole Sodium (Protonix -) 40 mg PO DAILY [facility] Last Admin: 09/29/18 10:39 Dose: 40 mg Potassium Phos/Sodium Phos (Phos-Nak Packet -) 1 packet PO BID [facility] Last Admin: 09/29/18 10:40 Dose: 1 packet Prednisone (Deltasone -) 40 mg PO DAILY [facility] Last Admin: 09/29/18 10:39 Dose: 40 mg Valsartan (Diovan -) 80 mg PO DAILY MORE Last Admin: 09/29/18 10:40 Dose: 80 mg Zolpidem Tartrate (Ambien -) 5 mg PO HS PRN PRN Reason: INSOMNIA Last Admin: 09/28/18 22:02 Dose: 5 mg - Objective Vital Signs: Vital Signs Temperature 97.4 F L 09/29/18 14:00 Pulse Rate 89 09/29/18 14:00 Respiratory Rate 23 H 09/29/18 14:00 Blood Pressure 119/76 09/29/18 14:00 O2 Sat by Pulse Oximetry (%) 96 09/29/18 09:00 Constitutional: Yes: Moderate Distress Cardiovascular: Yes: Pulse Irregular Respiratory: Yes: Diminished, On Nasal O2 Gastrointestinal: Yes: Soft Genitourinary: Yes: WNL Musculoskeletal: Yes: Muscle Weakness Edema: Yes Edema: LLE: 2+ Integumentary: Yes: WNL Wound/Incision: Yes: Clean/Dry Neurological: Yes: WNL ...Motor Strength: WNL Psychiatric: Yes: WNL Labs: CBC, BMP 09/29/18 05:35 09/29/18 05:35 INR, PTT INR 1.08 (0.83-1.09) 09/29/18 05:35 Problem List - Problems (1) Acute and chronic respiratory failure with hypoxia Code(s): J96.21 - ACUTE AND CHRONIC RESPIRATORY FAILURE WITH HYPOXIA (2) Anemia Code(s): D64.9 - ANEMIA, UNSPECIFIED Qualifiers: Iron deficiency anemia type: chronic blood loss (3) COPD with acute exacerbation Code(s): J44.1 - CHRONIC OBSTRUCTIVE PULMONARY DISEASE W (ACUTE) EXACERBATION (4) AF (paroxysmal atrial fibrillation) Code(s): I48.0 - PAROXYSMAL ATRIAL FIBRILLATION Assessment/Plan ANEMIA WORSE H/H TODAY AWAITING BONE MARROW BX FOR OTHER SOURCE OF ANEMIA. HEME/ONC F/U APPRECIATED TRANSFER TO TELE 02 SUPPORT CARDIO F/U FOR WATCHMAN DEVICE PT REFUSED AC DUE TO GI BLEEDING ULCER IN PAST. ABX PER [facility]
[2018-09-29 16:07] LABS: HGB SOLUBILITY Negative (Negative); Hgb C 0 % (0.0); Hgb F 0 % (0.0-2.0); Hgb S 0 % (0.0)
[2018-09-29 17:07] LABS: FREE KAPPA,SERUM 28.6 mg/L (3.3-19.4)
[2018-09-29] MEDS: MAG HYDROX/ALH/SMC/DPHA/LIDO 240 ML MOUTHWASH MM SCH ×2 (18:23→23:47)
[2018-09-29] MEDS ORDERED: POLYETHYLENE GLYCOL 3350 119 GM BTL PO ONE (18:56)
[2018-09-29] MEDS: CHLORHEXIDINE GLUCONATE 4% CLEANSER FOR DECOLONIZATION TP SCH ×2 (21:05→23:47)
[2018-09-29] MEDS: BUDESONIDE/FORMETEROL FUMARATE 160/4.5 mcg INHALER IH SCH (21:05)
[2018-09-29] MEDS: ZOLPIDEM TARTRATE 5 MG TABLET PO PRN (21:10)
[2018-09-30] MEDS: NYSTATIN 500,000 UNITS/5 ML SUSPENSION PO SCH ×4 (05:38→23:02)
[2018-09-30] MEDS: MAG HYDROX/ALH/SMC/DPHA/LIDO 240 ML MOUTHWASH MM SCH ×5 (05:38→23:02)
[2018-09-30 07:54] LABS: HEMATOCRIT 25.9 % (35.4-49); HEMOGLOBIN 8.5 GM/dL (11.7-16.9); MCH 30.3 pg (25.7-33.7); MCHC 32.7 g/dl (32.0-35.9); MEAN CELL VOLUME 92.4 fl (80-96); MEAN PLT VOLUME 7.7 fl (7.5-11.1); PLATELET COUNT 178 K/MM3 (134-434); RBC 2.81 M/mm3 (4.00-5.60); RDW 18.5 % (11.9-15.9); WHITE BLOOD COUNT 10.3 K/mm3 (4.0-10.0)
[2018-09-30] MEDS: IPRATROPIUM BR 0.02% 0.5 MG/2.5 ML VIAL.NEB. NEB SCH ×4 (08:10→20:30)
[2018-09-30] MEDS ORDERED: PT OWN MED DRAWER 7, Y5N ONE ×4 (09:06→21:13)
[2018-09-30] MEDS: FLUCONAZOLE 100 MG TABLET (UD) PO SCH (09:13)
[2018-09-30] MEDS: PANTOPRAZOLE 40 MG TABLET (FP) PO SCH (09:14)
[2018-09-30] MEDS: VALSARTAN 80 MG TABLET (UD) PO SCH (09:14)
[2018-09-30] MEDS: NAPH,MB-DB/K PH,MBDB POWDER PACKET PO SCH ×2 (09:14→22:35)
[2018-09-30] MEDS: predniSONE 20 MG TABLET (UD) PO SCH (09:14)
[2018-09-30] MEDS: LACTOBACILLUS ACIDOPHILUS 1 TABLET PO SCH (09:15)
--- NOTE | 2018-09-30 09:29 | PN.GI ---
GI Progress Note Subjective: Pt seen/examined at bedside, sitting up, still dyspneic feeling better overall though requiring high flow O2 intermittently. Tolerating diet. Denies abdominal pain, n/v. No melena or hematochezia per nursing staff. - Objective Vital Signs: Vital Signs Temperature 98.5 F 09/30/18 08:33 Pulse Rate 122 H 09/30/18 08:33 Respiratory Rate 30 H 09/30/18 08:33 Blood Pressure 153/72 09/30/18 08:33 O2 Sat by Pulse Oximetry (%) 97 09/30/18 08:33 Constitutional: Well Nourished, No Distress Cardiovascular: Yes: WNL, Regular Rate and Rhythm Respiratory: Yes: WNL, Regular, CTA Bilaterally, Diminished, Other (on High flow O2) ...Palpate: Yes: Other (Abd soft, nt, nd) Labs: CBC, BMP 09/30/18 06:30 09/29/18 05:35 INR, PTT INR 1.08 (0.83-1.09) 09/29/18 05:35 Problem List - Problems (1) Anemia Assessment/Plan: Normocytic anemia, no overt bleeding. Iron studies not suggestive or iron deficiency (no ferritin result available). -No urgency for endoscopy in absence of overt bleeding with stable Hb and as pt continues to be optimized from a respiratory standpoint. -Check ferritin -Further recommendations/workup per hematology -PPI daily -If overt bleeding with drop in Hb or hemodynamic instability would consider more urgent endoscopic evaluation. -Otherwise would recommend colonoscopy +/- EGD once stabilized from a respiratory standpoint Code(s): D64.9 - ANEMIA, UNSPECIFIED Qualifiers: Iron deficiency anemia type: chronic blood loss
[2018-09-30] MEDS: VANCOMYCIN HCL 1,250 MG in DEXTROSE 5%-WATER - 250 ML IVPB SCH (09:42)
[2018-09-30] MEDS: BUDESONIDE/FORMETEROL FUMARATE 160/4.5 mcg INHALER IH SCH ×2 (09:46→22:35)
--- NOTE | 2018-09-30 09:47 | PN ---
Progress Note (short form) - Note Progress Note: wearing high flow oxygen alert brisk cough, expectorating sputum- toney Vital Signs Period Temp Pulse Resp BP Sys/[place] Pulse Ox Last 24 Hr 97.4 F-98.5 F 69-125 20-30 106-159/62-85 96-100 cor-rrr llungs clear abd soft,nt ext no edema cxary clearing RLL infiltrate CBC, BMP 09/30/18 06:30 09/29/18 05:35 Microbiology 09/22/18 21:00 Blood - Peripheral Venous Blood Culture - Final NO GROWTH AFTER 5 DAYS INCUBATION 09/22/18 21:00 Blood - Peripheral Venous Blood Culture - Final NO GROWTH AFTER 5 DAYS INCUBATION 09/23/18 02:00 Sputum - Endotrachea Suction/Ventilator Gram Stain - Final 09/23/18 02:00 Sputum - Endotrachea Suction/Ventilator Sputum Culture - Final S Aureus 09/22/18 22:00 Urine - Urine [place] Urine Culture - Final NO GROWTH OBTAINED 09/23/18 02:00 Urine For Antigen Detection Legionella Antigen - Final 09/23/18 02:00 Urine For Antigen Detection Streptococcus pneumoniae Antigen (M - Final Current Medications Al Hydroxide/Mg Hydroxide (Mylanta Oral Suspension -) 30 ml PO BID PRN PRN Reason: epigastric pain Last Admin: 09/25/18 12:14 Dose: 30 ml Albuterol Sulfate (Ventolin 0.042trength) -) 1 amp NEB Q6H PRN PRN Reason: SHORT OF BREATH/WHEEZING Budesonide/Formoterol Fumarate (Symbicort 160/4.5mcg -) 2 puff IH BID [facility] Last Admin: 09/29/18 21:05 Dose: 2 puff Chlorhexidine Gluconate (Hibiclens For Decolonization -) 1 applic TP HS [facility] Last Admin: 09/29/18 23:47 Dose: 1 applic Diltiazem HCl (Cardizem Cd -) 120 mg PO DAILY [facility] Last Admin: 09/30/18 09:14 Dose: 120 mg Fluconazole (Diflucan -) 200 mg PO DAILY [facility] Last Admin: 09/30/18 09:13 Dose: 200 mg Hydrocortisone (Hytone 1% Lotion -) 1 applic TP Q12H PRN PRN Reason: itching Last Admin: 09/29/18 22:00 Dose: 1 applic Vancomycin HCl 1,250 mg/ (Dextrose) 250 mls @ 250 mls/2 hr IVPB Q24H [facility]; Protocol Last Admin: 09/29/18 10:41 Dose: 250 mls/2 hr Ipratropium [place] (Atrovent 0.02% Nebulizer -) 1 amp NEB RQID MORE Last Admin: 09/29/18 20:30 Dose: 1 amp Lactobacillus Acidophilus (Bacid -) 1 tab PO DAILY [facility] Last Admin: 09/30/18 09:15 Dose: 1 tab Lidocaine/Aluminum/Magnesium/Simeth (Magic Mouthwash *Sjr Formula* -) 5 ml MM Q6HPO [facility] Last Admin: 09/30/18 05:38 Dose: 5 ml Melatonin (Melatonin) 5 mg PO HS PRN PRN Reason: INSOMNIA Last Admin: 09/26/18 21:06 Dose: 5 mg Nystatin (Nystatin Oral Suspension -) 500,000 units PO Q6HPO [facility] Last Admin: 09/30/18 05:38 Dose: 500,000 units Pantoprazole Sodium (Protonix -) 40 mg PO DAILY [facility] Last Admin: 09/30/18 09:14 Dose: 40 mg Potassium Phos/Sodium Phos (Phos-Nak Packet -) 1 packet PO BID [facility] Last Admin: 09/30/18 09:14 Dose: 1 packet Prednisone (Deltasone -) 40 mg PO DAILY [facility] Last Admin: 09/30/18 09:14 Dose: 40 mg Valsartan (Diovan -) 80 mg PO DAILY [facility] Last Admin: 09/30/18 09:14 Dose: 80 mg Zolpidem Tartrate (Ambien -) 5 mg PO HS PRN PRN Reason: INSOMNIA Last Admin: 09/29/18 21:10 Dose: 5 mg a/p acute on chronic resp failure RLL pneumonia(HAP)-MRSA DAY #8 VANCOMYCIN- check level in am continue vancomycin thrush- nystatin swish and swallow COPD exaceerbation-consider pulmonary rehab history GI bleed anemia contact isolation MRSA
--- NOTE | 2018-09-30 10:25 | PN ---
Progress Note, Physician Chief Complaint: AWAKE ALERT FEELS DEPRESSED TODAY STILL SOB - Current Medication List Current Medications: Active Medications Al Hydroxide/Mg Hydroxide (Mylanta Oral Suspension -) 30 ml PO BID PRN PRN Reason: epigastric pain Last Admin: 09/25/18 12:14 Dose: 30 ml Albuterol Sulfate (Ventolin 0.042trength) -) 1 amp NEB Q6H PRN PRN Reason: SHORT OF BREATH/WHEEZING Budesonide/Formoterol Fumarate (Symbicort 160/4.5mcg -) 2 puff IH BID MORE Last Admin: 09/30/18 09:46 Dose: 2 puff Chlorhexidine Gluconate (Hibiclens For Decolonization -) 1 applic TP HS MORE Last Admin: 09/29/18 23:47 Dose: 1 applic Diltiazem HCl (Cardizem Cd -) 120 mg PO DAILY MORE Last Admin: 09/30/18 09:14 Dose: 120 mg Fluconazole (Diflucan -) 200 mg PO DAILY MORE Last Admin: 09/30/18 09:13 Dose: 200 mg Hydrocortisone (Hytone 1% Lotion -) 1 applic TP Q12H PRN PRN Reason: itching Last Admin: 09/29/18 22:00 Dose: 1 applic Vancomycin HCl 1,250 mg/ (Dextrose) 250 mls @ 250 mls/2 hr IVPB Q24H MORE; Protocol Last Admin: 09/30/18 09:42 Dose: 250 mls/2 hr Ipratropium [place] (Atrovent 0.02% Nebulizer -) 1 amp NEB RQID MORE Last Admin: 09/29/18 20:30 Dose: 1 amp Lactobacillus Acidophilus (Bacid -) 1 tab PO DAILY MORE Last Admin: 09/30/18 09:15 Dose: 1 tab Lidocaine/Aluminum/Magnesium/Simeth (Magic Mouthwash *Sjr Formula* -) 5 ml MM Q6HPO MORE Last Admin: 09/30/18 05:38 Dose: 5 ml Melatonin (Melatonin) 5 mg PO HS PRN PRN Reason: INSOMNIA Last Admin: 09/26/18 21:06 Dose: 5 mg Nystatin (Nystatin Oral Suspension -) 500,000 units PO Q6HPO MORE Last Admin: 09/30/18 05:38 Dose: 500,000 units Pantoprazole Sodium (Protonix -) 40 mg PO DAILY [facility] Last Admin: 09/30/18 09:14 Dose: 40 mg Potassium Phos/Sodium Phos (Phos-Nak Packet -) 1 packet PO BID [facility] Last Admin: 09/30/18 09:14 Dose: 1 packet Prednisone (Deltasone -) 40 mg PO DAILY [facility] Last Admin: 09/30/18 09:14 Dose: 40 mg Valsartan (Diovan -) 80 mg PO DAILY [facility] Last Admin: 09/30/18 09:14 Dose: 80 mg Zolpidem Tartrate (Ambien -) 5 mg PO HS PRN PRN Reason: INSOMNIA Last Admin: 09/29/18 21:10 Dose: 5 mg - Objective Vital Signs: Vital Signs Temperature 98.5 F 09/30/18 08:33 Pulse Rate 122 H 09/30/18 08:33 Respiratory Rate 30 H 09/30/18 08:33 Blood Pressure 153/72 09/30/18 08:33 O2 Sat by Pulse Oximetry (%) 97 09/30/18 08:33 Constitutional: Yes: Mild Distress Cardiovascular: Yes: Pulse Irregular Respiratory: Yes: Diminished, Other (AIRVO) Gastrointestinal: Yes: Soft Genitourinary: Yes: WNL Musculoskeletal: Yes: Muscle Weakness Edema: Yes Edema: LLE: 2+ Peripheral Pulses WNL: Yes Integumentary: Yes: WNL Wound/Incision: Yes: Clean/Dry Neurological: Yes: WNL ...Motor Strength: LLE, RLE Psychiatric: Yes: Other Labs: CBC, BMP 09/30/18 06:30 09/29/18 05:35 INR, PTT INR 1.08 (0.83-1.09) 09/29/18 05:35 Problem List - Problems (1) Acute and chronic respiratory failure with hypoxia Code(s): J96.21 - ACUTE AND CHRONIC RESPIRATORY FAILURE WITH HYPOXIA (2) Anemia Code(s): D64.9 - ANEMIA, UNSPECIFIED Qualifiers: Iron deficiency anemia type: chronic blood loss (3) COPD with acute exacerbation Code(s): J44.1 - CHRONIC OBSTRUCTIVE PULMONARY DISEASE W (ACUTE) EXACERBATION (4) AF (paroxysmal atrial fibrillation) Code(s): I48.0 - PAROXYSMAL ATRIAL FIBRILLATION Assessment/Plan AIRVO FOR 02 SUPPORT VANCO DAY#8 PER ID CHECK LEVEL IN AM ANEMIA WORSE, TRANSFUSE PRBC NEEDED TRANSFER TO TELE FLOOR DC PLANNING TO [facility] JUDIE SPANN WITH DR MCKNIGHT OUTPATIENT PT DOES NOT WANT ANTICOAGULATION DUE TO H/O SEVERE GI BLEED STARTING SSRI FOR DEPRESSION
--- NOTE | 2018-09-30 11:42 | PN ---
Teaching Attending Note Name of Resident: Mary Ann Foley ATTENDING PHYSICIAN STATEMENT I saw and evaluated the patient. I reviewed the resident's note and discussed the case with the resident. I agree with the resident's findings and plan as documented. SUBJECTIVE: Pt seen and examined in the ICU. Back on HFOT but denies increased shortness of breath. +nonproductive cough. OBJECTIVE: Vital Signs Period Temp Pulse Resp BP Sys/[place] Pulse Ox Last 24 Hr 97.4 F-98.5 F 69-125 20-30 106-159/62-85 96-100 Intake & Output 09/27/18 09/28/18 09/29/18 09/30/18 23:59 23:59 23:59 23:59 Intake Total 1300 790 450 100 Output Total 1650 1550 600 450 Balance -350 -760 -150 -350 Weight 87.26 kg 88.224 kg 87.118 kg 86.693 kg Gen: mildly tachypneic with speaking Heart: RRR Lung: scattered rhonchi Abd: soft, nontender Ext: no edema CBC, BMP 09/30/18 06:30 09/29/18 05:35 Active Medications Al Hydroxide/Mg Hydroxide (Mylanta Oral Suspension -) 30 ml PO BID PRN PRN Reason: epigastric pain Last Admin: 09/25/18 12:14 Dose: 30 ml Albuterol Sulfate (Ventolin 0.042trength) -) 1 amp NEB Q6H PRN PRN Reason: SHORT OF BREATH/WHEEZING Budesonide/Formoterol Fumarate (Symbicort 160/4.5mcg -) 2 puff IH BID [facility] Last Admin: 09/30/18 09:46 Dose: 2 puff Chlorhexidine Gluconate (Hibiclens For Decolonization -) 1 applic TP HS MORE Last Admin: 09/29/18 23:47 Dose: 1 applic Diltiazem HCl (Cardizem Cd -) 120 mg PO DAILY MORE Last Admin: 09/30/18 09:14 Dose: 120 mg Fluconazole (Diflucan -) 200 mg PO DAILY [facility] Last Admin: 09/30/18 09:13 Dose: 200 mg Hydrocortisone (Hytone 1% Lotion -) 1 applic TP Q12H PRN PRN Reason: itching Last Admin: 09/29/18 22:00 Dose: 1 applic Vancomycin HCl 1,250 mg/ (Dextrose) 250 mls @ 250 mls/2 hr IVPB Q24H MORE; Protocol Last Admin: 09/30/18 09:42 Dose: 250 mls/2 hr Ipratropium [place] (Atrovent 0.02% Nebulizer -) 1 amp NEB RQID MORE Last Admin: 09/29/18 20:30 Dose: 1 amp Lactobacillus Acidophilus (Bacid -) 1 tab PO DAILY [facility] Last Admin: 09/30/18 09:15 Dose: 1 tab Lidocaine/Aluminum/Magnesium/Simeth (Magic Mouthwash *Sjr Formula* -) 5 ml MM Q6HPO MORE Last Admin: 09/30/18 05:38 Dose: 5 ml Melatonin (Melatonin) 5 mg PO HS PRN PRN Reason: INSOMNIA Last Admin: 09/26/18 21:06 Dose: 5 mg Nystatin (Nystatin Oral Suspension -) 500,000 units PO Q6HPO [facility] Last Admin: 09/30/18 05:38 Dose: 500,000 units Pantoprazole Sodium (Protonix -) 40 mg PO DAILY [facility] Last Admin: 09/30/18 09:14 Dose: 40 mg Potassium Phos/Sodium Phos (Phos-Nak Packet -) 1 packet PO BID [facility] Last Admin: 09/30/18 09:14 Dose: 1 packet Prednisone (Deltasone -) 40 mg PO DAILY [facility] Last Admin: 09/30/18 09:14 Dose: 40 mg Sertraline HCl (Zoloft -) 25 mg PO DAILY [facility] Valsartan (Diovan -) 80 mg PO DAILY [facility] Last Admin: 09/30/18 09:14 Dose: 80 mg Zolpidem Tartrate (Ambien -) 5 mg PO HS PRN PRN Reason: INSOMNIA Last Admin: 09/29/18 21:10 Dose: 5 mg ASSESSMENT AND PLAN: Acute on Chronic Hypoxic and Hypercapneic Respiratory Failure Pneumonia Acute COPD Exacerbation CAD LV Diastolic Dysfunction Paroxysmal Atrial Fibrillation HTN Anemia - continue antibiotics per ID - prednisone taper - inhaled bronchodilators standing and PRN - O2 to keep Spo2 >90% - rate controlled - pt declining anticoagulation - DVT prophylaxis - can monitor on floor critical care time spent in reviewing chart, evaluating patient and formulating plan 35 min
[2018-09-30] MEDS: SERTRALINE HCL 25 MG TABLET (FP) PO SCH (11:45)
[2018-09-30] MEDS ORDERED: AZITHROMYCIN 500 MG TABLET PO SCH ×2 (13:45)
--- NOTE | 2018-09-30 13:56 | PN ---
Physical Exam: SUBJECTIVE: Patient seen and examined at the bedside. Patient was placed back on HFNC yesterday evening but then was switched back to BiPAP by ICU team. This morning patient was found on HFNC again. D/C'd the HFNC this AM and patient now ordered for NC/VM during the day and BiPAP at night. Patient has otherwise been stable and can be transferred to med-surg. OBJECTIVE: Vital Signs Period Temp Pulse Resp BP Sys/[place] Pulse Ox Last 24 Hr 97.4 F-98.8 F 69-122 20-30 106-159/62-90 96-100 GENERAL: The patient is awake, alert, in no acute distress. HEAD: Normal with no signs of trauma. EYES: PERRL, extraocular movements intact, sclera anicteric, conjunctiva clear. ENT: Ears normal, nares patent. Thrush noted on soft palate and tongue NECK: Trachea midline, supple. LUNGS: Breath sounds equal, decreased at the bases, some accessory muscle use, patient on NC tolerating well. HEART: Regular rate and rhythm, S1, S2 without murmur. ABDOMEN: Soft, nontender, nondistended, normoactive bowel sounds, EXTREMITIES: 2+ pulses, warm, well-perfused, no edema. SKIN: Warm, dry, normal turgor, no rashes or lesions noted Laboratory Results - last 24 hr 09/26/18 09/26/18 09/30/18 05:30 05:30 06:30 WBC 10.3 H RBC 2.81 L Hgb 8.5 L Hct 25.9 L MCV 92.4 MCH 30.3 MCHC 32.7 RDW 18.5 H Plt Count 178 MPV 7.7 Hemoglobin A 97.8 Hemoglobin A2 2.2 Hemoglobin C 0 Hemoglobin S 0 Variant Hemoglobin 0.0 Hemoglobin Interpret Maternal Rh 0 Hemoglobin Solubility Negative Free [place] LC, Quant 28.6 H Free Lambda LC, Quant 24.5 Free [place]/Lambda Ratio 1.17 Active Medications Generic Name Dose Route Start Last Admin Trade Name Freq PRN Reason Stop Dose Admin Al Hydroxide/Mg Hydroxide 30 ml 09/24/18 10:54 09/25/18 12:14 Mylanta Oral Suspension - PO 30 ml BID PRN Administration epigastric pain Albuterol Sulfate 1 amp 09/29/18 11:37 Ventolin 0.042trength) - NEB Q6H PRN SHORT OF BREATH/WHEEZING Azithromycin 250 mg 09/30/18 13:53 Zithromax - PO MOWEFR MORE Budesonide/Formoterol Fumarate 2 puff 09/29/18 22:00 09/30/18 09:46 Symbicort 160/4.5mcg - IH 2 puff BID MORE Administration Chlorhexidine Gluconate 1 applic 09/23/18 22:00 09/29/18 23:47 Hibiclens For Decolonization - TP 1 applic HS MORE Administration Diltiazem HCl 120 mg 09/23/18 17:45 09/30/18 09:14 Cardizem Cd - PO 120 mg DAILY MORE Administration Fluconazole 200 mg 09/28/18 10:00 09/30/18 09:13 Diflucan - PO 200 mg DAILY MORE Administration Hydrocortisone 1 applic 09/28/18 16:56 09/29/18 22:00 Hytone 1% Lotion - TP 1 applic Q12H PRN Administration itching Vancomycin HCl 1,250 mg/ 250 mls @ 250 mls/2 hr 09/29/18 10:00 09/30/18 09:42 Dextrose IVPB 250 mls/2 hr Q24H MORE Administration Protocol Ipratropium [place] 1 amp 09/29/18 12:00 09/30/18 12:20 Atrovent 0.02% Nebulizer - NEB 1 amp RQID MORE Administration Lactobacillus Acidophilus 1 tab 09/24/18 10:00 09/30/18 09:15 Bacid - PO 1 tab DAILY MORE Administration Lidocaine/Aluminum/Magnesium/Simeth 5 ml 09/29/18 18:00 09/30/18 05:38 Magic Mouthwash *Sjr Formula* - MM 5 ml Q6HPO MORE Administration Melatonin 5 mg 09/26/18 14:05 09/26/18 21:06 Melatonin PO 5 mg HS PRN Administration INSOMNIA Nystatin 500,000 units 09/28/18 12:00 09/30/18 11:45 Nystatin Oral Suspension - PO 500,000 units Q6HPO MORE Administration Pantoprazole Sodium 40 mg 09/25/18 10:00 09/30/18 09:14 Protonix - PO 40 mg DAILY MORE Administration Potassium Phos/Sodium Phos 1 packet 09/26/18 10:00 09/30/18 09:14 Phos-Nak Packet - PO 1 packet BID MORE Administration Prednisone 40 mg 09/29/18 10:00 09/30/18 09:14 Deltasone - PO 40 mg DAILY MORE Administration Sertraline HCl 25 mg 09/30/18 10:30 09/30/18 11:45 Zoloft - PO 25 mg DAILY MORE Administration Valsartan 80 mg 09/29/18 10:00 09/30/18 09:14 Diovan - PO 80 mg DAILY MORE Administration Zolpidem Tartrate 5 mg 09/28/18 21:11 09/29/18 21:10 Ambien - PO 5 mg HS PRN Administration INSOMNIA ASSESSMENT/PLAN: Gilbert Giang is a 73 year old male with a PMH of GI bleed, Anemia and COPD ( on 2 L NC @ home) who presented to for Respiratory Distress and admitted to ICU for COPD exacerbation and PNA. Acute on Chronic Respiratory Failure due to RLL PNA GI bleed Anemia O2 dependent COPD (on 2 L NC @ home) HTN Neurologic - Awake, alert and oriented Cardiovascular - HTN - BP well controlled for now, continue to monitor - Cardizem PO 120mg qDaily - Valsartan 80 qd - Holding ASA for now - Diuresis as needed - Cardiology following, recommendations appreciated - will need outpatient nuclear MPI Pulmonary - HFNC today transitioned to NC, keep on NC as tolerated - BiPAP settings: IPAP 14/EPAP 7/R16/FiO2 40%, use as needed at night in the setting of probably GNEE - CXR shows bibasilar atelectasis which are improving - start Atrovent qid - start albuterol 0.42 qid prn - start Symbicort bid - continue prednisone to 40mg daily > Oral steroid taper with GI protection - encourage incentive spirometry - OOB to chair - will likely need outpatient eval of sleep apnea Hematologic - Anemia in patient with history of recent GI bleed - Hgb at 8.5 today - Continue to monitor for evidence of bleeding - Ideally anticoagulation is recommended, but patient has previously declined because of a recent history of UGI bleed. - Dr. Ramos consulted, recs appreciated, anemia workup - protein studies, cytometry, hemoglobin studies - bone marrow biopsy to be done outpatient ID - Bandemia 21% without Leukocytosis- possibly 2/2 to chronic steroid use + chronic prophylatic ABx, resolved - sputum MRSA +, continue isolation - vanco trough 9.8 - continue vanco to 1250mg daily - continue Zithromax - blood cxs negative - add probiotics - ID following, appreciate recommendations Renal - hogue out - no acute issues Endocrine - TSH low, free T4 mildly elevated, no acute signs of hyperthyroidism - continue to monitor for signs including fever, wt loss, tachycardia, hypertension FEN -no standing fluids -continue to monitor electrolytes and replete as necessary -soft diet and ensure supplement Code - full code Dispo - stable for transfer to med-surg today Visit type - Emergency Visit Emergency Visit: Yes ED Registration Date: 09/22/18 Care time: The patient presented to the Emergency Department on the above date and was hospitalized for further evaluation of their emergent condition. - New Patient This patient is new to me today: No - Critical Care Critical Care patient: Yes Total Critical Care Time (in minutes): 41 Critical Care Statement: The care of this patient involved high complexity decision making to prevent further life threatening deterioration of the patient 's condition and/or to evaluate & treat vital organ system(s) failure or risk of failure. ATTENDING PHYSICIAN STATEMENT I saw and evaluated the patient. I reviewed the resident's note and discussed the case with the resident. I agree with the resident's findings and plan as documented. SUBJECTIVE: OBJECTIVE: ASSESSMENT AND PLAN:
[2018-09-30] MEDS: AZITHROMYCIN 250 MG TABLET PO SCH (14:27)
--- NOTE | 2018-09-30 14:51 | PN ---
Progress Note, Physician History of Present Illness: Dyspnea improved but not resolved, complaining of cough, bilateral lower extremity edema resolving, remains in rate-controlled afib, comfortable on NC. - Current Medication List Current Medications: Active Medications Al Hydroxide/Mg Hydroxide (Mylanta Oral Suspension -) 30 ml PO BID PRN PRN Reason: epigastric pain Last Admin: 09/25/18 12:14 Dose: 30 ml Albuterol Sulfate (Ventolin 0.042trength) -) 1 amp NEB Q6H PRN PRN Reason: SHORT OF BREATH/WHEEZING Azithromycin (Zithromax -) 250 mg PO MOWEFR [facility] Last Admin: 09/30/18 14:27 Dose: 250 mg Budesonide/Formoterol Fumarate (Symbicort 160/4.5mcg -) 2 puff IH BID MORE Last Admin: 09/30/18 09:46 Dose: 2 puff Chlorhexidine Gluconate (Hibiclens For Decolonization -) 1 applic TP HS [facility] Last Admin: 09/29/18 23:47 Dose: 1 applic Diltiazem HCl (Cardizem Cd -) 120 mg PO DAILY MORE Last Admin: 09/30/18 09:14 Dose: 120 mg Fluconazole (Diflucan -) 200 mg PO DAILY [facility] Last Admin: 09/30/18 09:13 Dose: 200 mg Hydrocortisone (Hytone 1% Lotion -) 1 applic TP Q12H PRN PRN Reason: itching Last Admin: 09/29/18 22:00 Dose: 1 applic Vancomycin HCl 1,250 mg/ (Dextrose) 250 mls @ 250 mls/2 hr IVPB Q24H MORE; Protocol Last Admin: 09/30/18 09:42 Dose: 250 mls/2 hr Ipratropium [place] (Atrovent 0.02% Nebulizer -) 1 amp NEB RQID [facility] Last Admin: 09/30/18 12:20 Dose: 1 amp Lactobacillus Acidophilus (Bacid -) 1 tab PO DAILY [facility] Last Admin: 09/30/18 09:15 Dose: 1 tab Lidocaine/Aluminum/Magnesium/Simeth (Magic Mouthwash *Sjr Formula* -) 5 ml MM Q6HPO MORE Last Admin: 09/30/18 14:28 Dose: 5 ml Melatonin (Melatonin) 5 mg PO HS PRN PRN Reason: INSOMNIA Last Admin: 09/26/18 21:06 Dose: 5 mg Nystatin (Nystatin Oral Suspension -) 500,000 units PO Q6HPO [facility] Last Admin: 09/30/18 11:45 Dose: 500,000 units Pantoprazole Sodium (Protonix -) 40 mg PO DAILY [facility] Last Admin: 09/30/18 09:14 Dose: 40 mg Potassium Phos/Sodium Phos (Phos-Nak Packet -) 1 packet PO BID [facility] Last Admin: 09/30/18 09:14 Dose: 1 packet Prednisone (Deltasone -) 40 mg PO DAILY [facility] Last Admin: 09/30/18 09:14 Dose: 40 mg Sertraline HCl (Zoloft -) 25 mg PO DAILY [facility] Last Admin: 09/30/18 11:45 Dose: 25 mg Valsartan (Diovan -) 80 mg PO DAILY [facility] Last Admin: 09/30/18 09:14 Dose: 80 mg Zolpidem Tartrate (Ambien -) 5 mg PO HS PRN PRN Reason: INSOMNIA Last Admin: 09/29/18 21:10 Dose: 5 mg - Objective Vital Signs: Vital Signs Temperature 98.8 F 09/30/18 12:00 Pulse Rate 92 H 09/30/18 13:50 Respiratory Rate 20 09/30/18 13:50 Blood Pressure 125/68 09/30/18 13:50 O2 Sat by Pulse Oximetry (%) 98 09/30/18 12:20 Constitutional: Yes: No Distress, Calm Neck: Yes: Supple Cardiovascular: Yes: Pulse Irregular Respiratory: Yes: Regular, Diminished, On Nasal O2 Gastrointestinal: Yes: Soft, Hypoactive Bowel Sounds Edema: No Labs: CBC, BMP 09/30/18 06:30 09/29/18 05:35 INR, PTT INR 1.08 (0.83-1.09) 09/29/18 05:35 - ....Imaging EKG: Report Reviewed (Tele: Rate-controlled afib) Problem List - Problems (1) Acute and chronic respiratory failure with hypoxia Code(s): J96.21 - ACUTE AND CHRONIC RESPIRATORY FAILURE WITH HYPOXIA (2) Anemia Code(s): D64.9 - ANEMIA, UNSPECIFIED Qualifiers: Iron deficiency anemia type: chronic blood loss (3) COPD with acute exacerbation Code(s): J44.1 - CHRONIC OBSTRUCTIVE PULMONARY DISEASE W (ACUTE) EXACERBATION (4) AF (paroxysmal atrial fibrillation) Code(s): I48.0 - PAROXYSMAL ATRIAL FIBRILLATION (5) Hypertension Code(s): I10 - ESSENTIAL (PRIMARY) HYPERTENSION Qualifiers: Hypertension type: essential hypertension Qualified Code(s): I10 - Essential (primary) hypertension (6) Pneumonia Code(s): J18.9 - PNEUMONIA, UNSPECIFIED ORGANISM Qualifiers: Laterality: right Lung location: lower lobe of lung Assessment/Plan Echocardiogram 07/03/2018 Normal LV and RV size and fxn, LVEF 55-60%, mild LAE, mild ao root dilatation 4.2 cm, impaired LV relaxation Echocardiography (12/08/17) which revealed normal LV systolic function, LVEF 60- 65%, moderately dilated ascending thoracic aorta, mild TR and trace SD. Nuclear MPI (08/20/16) revealed moderate zone of anterior and anteroapical reversible defect c/s mild intensity ischemia and moderate inferior attenuation. LVEF was 71%. Chest CT: 09/21/2018 Patchy pneumonia middle lobe and bilateral lower lobes, mod -severe centrilobular/paraseptal pulmomary emphysema, mucous plugging right lower lobe 1. Acute on chronic hypercapneic/hypoxemic respiratory failure post mechanical ventilation and HFO2 2. Acute O2 dependent (on 2 -3 L NC @ home) COPD exacerbation 3. RLL pneumonia(HAP)-legionella urinary antigen negative 4. Paroxysmal afib [id number] score of 2-3 (refused DOAC or Coumadin) 5. Recent UGI bleed 2/2 bleeding duodenal ulcer post epinephrine injection 6. Anemia 7. HTN 8. Prior abnormal nuclear MPI suggests CAD with demand ischemia 9. Diastolic dysfunction 10. Hstory of MRSA colonization-continue isolation PLAN: 1. Oral steroid taper with GI protection, bronchodilators, Vanco and Zithromax per C&S and NIPPV as needed, wean O2 as tolerated, pulmonary rehab post discharge 2. Continue Cardizem CD 120 mg QD and Diovan 80 qd, hold ASA 81 mg QD, diuresis as needed 3. Ideally anticoagulation is recommended, but patient has previously declined along with recent UGI bleed. Continue DVT prophylaxis 4. Cardiac work up including repeat nuclear MPI can be done as outpatient in the office once clinically improved 5. Monitor Hgb and transfuse as needed
--- NOTE | 2018-09-30 17:35 | PN ---
Progress Note (short form) - Note Progress Note: Patient seen and examined Overall improvement in breathing Currently on nasal cannula. Last Vital Signs Temp Pulse Resp BP Pulse Ox 98.0 F 90 21 H 132/86 98 09/30/18 15:29 09/30/18 15:29 09/30/18 15:29 09/30/18 15:29 09/30/18 12:20 HEENT: RISHI, EOM Intact Cor: RSR, No murmurs, No gallops Lungs: rhonchi Abd: Soft, Normal bowel sounds, No organomegaly Ext:No significant edema Skin: No rashes, Integument intact CBC, BMP 09/30/18 06:30 09/29/18 05:35 Current Medications Generic Name Dose Route Start Last Admin Trade Name Freq PRN Reason Stop Dose Admin Al Hydroxide/Mg Hydroxide 30 ml 09/24/18 10:54 09/25/18 12:14 Mylanta Oral Suspension - PO 30 ml BID PRN Administration epigastric pain Albuterol Sulfate 1 amp 09/29/18 11:37 Ventolin 0.042trength) - NEB Q6H PRN SHORT OF BREATH/WHEEZING Azithromycin 250 mg 09/30/18 13:53 09/30/18 14:27 Zithromax - PO 250 mg MOWEFR MORE Administration Budesonide/Formoterol Fumarate 2 puff 09/29/18 22:00 09/30/18 09:46 Symbicort 160/4.5mcg - IH 2 puff BID MORE Administration Chlorhexidine Gluconate 1 applic 09/23/18 22:00 09/29/18 23:47 Hibiclens For Decolonization - TP 1 applic HS MROE Administration Diltiazem HCl 120 mg 09/23/18 17:45 09/30/18 09:14 Cardizem Cd - PO 120 mg DAILY MORE Administration Fluconazole 200 mg 09/28/18 10:00 09/30/18 09:13 Diflucan - PO 200 mg DAILY MORE Administration Hydrocortisone 1 applic 09/28/18 16:56 09/29/18 22:00 Hytone 1% Lotion - TP 1 applic Q12H PRN Administration itching Vancomycin HCl 1,250 mg/ 250 mls @ 250 mls/2 hr 09/29/18 10:00 09/30/18 09:42 Dextrose IVPB 250 mls/2 hr Q24H MORE Administration Protocol Ipratropium [place] 1 amp 09/29/18 12:00 09/30/18 12:20 Atrovent 0.02% Nebulizer - NEB 1 amp RQID MORE Administration Lactobacillus Acidophilus 1 tab 09/24/18 10:00 09/30/18 09:15 Bacid - PO 1 tab DAILY MORE Administration Lidocaine/Aluminum/Magnesium/Simeth 5 ml 09/29/18 18:00 09/30/18 17:26 Magic Mouthwash *Sjr Formula* - MM 5 ml Q6HPO MORE Administration Melatonin 5 mg 09/26/18 14:05 09/26/18 21:06 Melatonin PO 5 mg HS PRN Administration INSOMNIA Nystatin 500,000 units 09/28/18 12:00 09/30/18 17:26 Nystatin Oral Suspension - PO 500,000 units Q6HPO MORE Administration Pantoprazole Sodium 40 mg 09/25/18 10:00 09/30/18 09:14 Protonix - PO 40 mg DAILY MORE Administration Potassium Phos/Sodium Phos 1 packet 09/26/18 10:00 09/30/18 09:14 Phos-Nak Packet - PO 1 packet BID MORE Administration Prednisone 40 mg 09/29/18 10:00 09/30/18 09:14 Deltasone - PO 40 mg DAILY MORE Administration Sertraline HCl 25 mg 09/30/18 10:30 09/30/18 11:45 Zoloft - PO 25 mg DAILY MORE Administration Valsartan 80 mg 09/29/18 10:00 09/30/18 09:14 Diovan - PO 80 mg DAILY MORE Administration Zolpidem Tartrate 5 mg 09/28/18 21:11 09/29/18 21:10 Ambien - PO 5 mg HS PRN Administration INSOMNIA Impression: Stable Hb/Hct over last several days. Had GI bleeding at and was found to have ulcers which were the source of bleeding and which were injected.. Required 2 units of p.c. at . When patient presented to - received packed cells such that FE++ studies are not meaningful. Interpretation that blood loss is not a component of anemia as is suggested in chart is therefore not correct. In addition, patient subsequently has received injectafer x2. B-12 levels, folate, studies - normal. No "M" component and normal free kappa/free lambda light chain ratio against dysproteinemia. Suspect anemia is secondary to blood loss/ chronic disease. Flow cytometry pending. Problem List - Problems (1) Anemia Code(s): D64.9 - ANEMIA, UNSPECIFIED Qualifiers: Iron deficiency anemia type: chronic blood loss (2) Acute and chronic respiratory failure with hypoxia Code(s): J96.21 - ACUTE AND CHRONIC RESPIRATORY FAILURE WITH HYPOXIA (3) COPD with acute exacerbation Code(s): J44.1 - CHRONIC OBSTRUCTIVE PULMONARY DISEASE W (ACUTE) EXACERBATION (4) AF (paroxysmal atrial fibrillation) Code(s): I48.0 - PAROXYSMAL ATRIAL FIBRILLATION
[2018-09-30] MEDS ORDERED: HYDROCORTISONE 1% TOPICAL LOTION 118 ML BOTTLE TP PRN (21:36)
[2018-09-30] MEDS ORDERED: ALBUTEROL SO4 0.042% IH SOL 1.25 MG/3 ML VIAL.NEB NEB PRN (21:36)
[2018-09-30] MEDS ORDERED: MELATONIN 5 MG TABLETS PO PRN (21:36)
[2018-09-30] MEDS ORDERED: ZOLPIDEM TARTRATE 5 MG TABLET PO ONE (21:57)
[2018-10-01] MEDS: MAG HYDROX/ALH/SMC/DPHA/LIDO 240 ML MOUTHWASH MM SCH ×3 (05:45→17:53)
[2018-10-01] MEDS: NYSTATIN 500,000 UNITS/5 ML SUSPENSION PO SCH ×3 (05:45→17:53)
--- NOTE | 2018-10-01 07:33 | PN ---
Progress Note, Physician - Current Medication List Current Medications: Active Medications Al Hydroxide/Mg Hydroxide (Mylanta Oral Suspension -) 30 ml PO BID PRN PRN Reason: epigastric pain Albuterol Sulfate (Ventolin 0.042trength) -) 1 amp NEB Q6H PRN PRN Reason: SHORT OF BREATH/WHEEZING Azithromycin (Zithromax -) 250 mg PO MOWEFR [facility] Last Admin: 09/30/18 14:27 Dose: 250 mg Budesonide/Formoterol Fumarate (Symbicort 160/4.5mcg -) 2 puff IH BID [facility] Last Admin: 09/30/18 22:35 Dose: 2 puff Diltiazem HCl (Cardizem Cd -) 120 mg PO DAILY [facility] Fluconazole (Diflucan -) 200 mg PO DAILY [facility] Hydrocortisone (Hytone 1% Lotion -) 1 applic TP Q12H PRN PRN Reason: itching Vancomycin HCl 1,250 mg/ (Dextrose) 250 mls @ 250 mls/2 hr IVPB Q24H [facility]; Protocol Ipratropium [place] (Atrovent 0.02% Nebulizer -) 1 amp NEB RQID MORE Lactobacillus Acidophilus (Bacid -) 1 tab PO DAILY [facility] Lidocaine/Aluminum/Magnesium/Simeth (Magic Mouthwash *Sjr Formula* -) 5 ml MM Q6HPO [facility] Last Admin: 10/01/18 05:45 Dose: 5 ml Melatonin (Melatonin) 5 mg PO HS PRN PRN Reason: INSOMNIA Nystatin (Nystatin Oral Suspension -) 500,000 units PO Q6HPO [facility] Last Admin: 10/01/18 05:45 Dose: 500,000 units Pantoprazole Sodium (Protonix -) 40 mg PO DAILY [facility] Potassium Phos/Sodium Phos (Phos-Nak Packet -) 1 packet PO BID [facility] Last Admin: 09/30/18 22:35 Dose: 1 packet Prednisone (Deltasone -) 40 mg PO DAILY [facility] Sertraline HCl (Zoloft -) 25 mg PO DAILY [facility] Last Admin: 09/30/18 11:45 Dose: 25 mg Valsartan (Diovan -) 80 mg PO DAILY [facility] - Objective Vital Signs: Vital Signs Temperature 98.0 F 10/01/18 05:55 Pulse Rate 98 H 10/01/18 05:55 Respiratory Rate 26 H 10/01/18 05:55 Blood Pressure 154/61 10/01/18 05:55 O2 Sat by Pulse Oximetry (%) 93 L 09/30/18 22:00 Labs: INR, PTT INR 1.08 (0.83-1.09) 09/29/18 05:35 Problem List - Problems (1) Acute and chronic respiratory failure with hypoxia Assessment/Plan: - keep on NC as tolerated - BiPAP settings: IPAP 14/EPAP 7/R16/FiO2 40%, use as needed at night in the setting of probably GENE - start Atrovent qid - start albuterol 0.42 qid prn - start Symbicort bid - continue prednisone to 40mg daily > Oral steroid taper with GI protection - encourage incentive spirometry - OOB - will likely need outpatient eval of sleep apnea Code(s): J96.21 - ACUTE AND CHRONIC RESPIRATORY FAILURE WITH HYPOXIA (2) Anemia Assessment/Plan: - Anemia in patient with history of recent GI bleed - Hgb monitor - Continue to monitor for evidence of bleeding - Dr. Ramos consult noted - protein studies, cytometry, hemoglobin studies - bone marrow biopsy to be done outpatient Code(s): D64.9 - ANEMIA, UNSPECIFIED Qualifiers: Iron deficiency anemia type: chronic blood loss (3) COPD with acute exacerbation Assessment/Plan: steroids and nebs Code(s): J44.1 - CHRONIC OBSTRUCTIVE PULMONARY DISEASE W (ACUTE) EXACERBATION (4) AF (paroxysmal atrial fibrillation) Assessment/Plan: -NO AC DUE TO GI BLEED AND PT REFUSAL -CARDIO ON BOARD Code(s): I48.0 - PAROXYSMAL ATRIAL FIBRILLATION (5) Pneumonia Assessment/Plan: -Abx per id - add probiotics - ID following, appreciate recommendations Code(s): J18.9 - PNEUMONIA, UNSPECIFIED ORGANISM Qualifiers: Laterality: right Lung location: lower lobe of lung (6) Hypertension Code(s): I10 - ESSENTIAL (PRIMARY) HYPERTENSION Qualifiers: Hypertension type: essential hypertension Qualified Code(s): I10 - Essential (primary) hypertension
[2018-10-01 07:54] LABS: HEMATOCRIT 27.5 % (35.4-49); HEMOGLOBIN 8.9 GM/dL (11.7-16.9); MCH 29.9 pg (25.7-33.7); MCHC 32.4 g/dl (32.0-35.9); MEAN CELL VOLUME 92.3 fl (80-96); MEAN PLT VOLUME 7.7 fl (7.5-11.1); PLATELET COUNT 175 K/MM3 (134-434); RBC 2.98 M/mm3 (4.00-5.60); RDW 18.1 % (11.9-15.9); WHITE BLOOD COUNT 15.5 K/mm3 (4.0-10.0)
[2018-10-01] MEDS: IPRATROPIUM BR 0.02% 0.5 MG/2.5 ML VIAL.NEB. NEB SCH ×3 (08:00→20:52)
[2018-10-01 08:06] LABS: CALCIUM 8.3 mg/dL (8.5-10.1); CREATININE 0.6 mg/dL (0.55-1.3); POTASSIUM 4.8 mmol/L (3.5-5.1)
[2018-10-01] MEDS ORDERED: PT OWN MED DRAWER 7, Y5N ONE ×2 (09:07→11:31)
[2018-10-01] MEDS: SERTRALINE HCL 25 MG TABLET (FP) PO SCH (09:16)
[2018-10-01] MEDS: LACTOBACILLUS ACIDOPHILUS 1 TABLET PO SCH (09:16)
[2018-10-01] MEDS: predniSONE 20 MG TABLET (UD) PO SCH (09:16)
[2018-10-01] MEDS: VALSARTAN 80 MG TABLET (UD) PO SCH (09:16)
[2018-10-01] MEDS: FLUCONAZOLE 100 MG TABLET (UD) PO SCH (09:16)
[2018-10-01] MEDS: PANTOPRAZOLE 40 MG TABLET (FP) PO SCH (09:16)
[2018-10-01] MEDS: NAPH,MB-DB/K PH,MBDB POWDER PACKET PO SCH ×2 (09:16→22:11)
[2018-10-01] MEDS: BUDESONIDE/FORMETEROL FUMARATE 160/4.5 mcg INHALER IH SCH ×2 (09:17→22:12)
--- NOTE | 2018-10-01 09:27 | PN ---
Progress Note, Physician History of Present Illness: Resting on bipap, bilateral lower extremity edema resolved, remains in rate- controlled afib. - Current Medication List Current Medications: Active Medications Al Hydroxide/Mg Hydroxide (Mylanta Oral Suspension -) 30 ml PO BID PRN PRN Reason: epigastric pain Albuterol Sulfate (Ventolin 0.042trength) -) 1 amp NEB Q6H PRN PRN Reason: SHORT OF BREATH/WHEEZING Azithromycin (Zithromax -) 250 mg PO MOWEFR [facility] Last Admin: 09/30/18 14:27 Dose: 250 mg Budesonide/Formoterol Fumarate (Symbicort 160/4.5mcg -) 2 puff IH BID [facility] Last Admin: 10/01/18 09:17 Dose: 2 puff Diltiazem HCl (Cardizem Cd -) 120 mg PO DAILY [facility] Last Admin: 10/01/18 09:16 Dose: 120 mg Fluconazole (Diflucan -) 200 mg PO DAILY [facility] Last Admin: 10/01/18 09:16 Dose: 200 mg Hydrocortisone (Hytone 1% Lotion -) 1 applic TP Q12H PRN PRN Reason: itching Vancomycin HCl 1,250 mg/ (Dextrose) 250 mls @ 250 mls/2 hr IVPB Q24H [facility]; Protocol Ipratropium [place] (Atrovent 0.02% Nebulizer -) 1 amp NEB RQID [facility] Last Admin: 10/01/18 08:00 Dose: 1 amp Lactobacillus Acidophilus (Bacid -) 1 tab PO DAILY [facility] Last Admin: 10/01/18 09:16 Dose: 1 tab Lidocaine/Aluminum/Magnesium/Simeth (Magic Mouthwash *Sjr Formula* -) 5 ml MM Q6HPO [facility] Last Admin: 10/01/18 05:45 Dose: 5 ml Melatonin (Melatonin) 5 mg PO HS PRN PRN Reason: INSOMNIA Nystatin (Nystatin Oral Suspension -) 500,000 units PO Q6HPO [facility] Last Admin: 10/01/18 05:45 Dose: 500,000 units Pantoprazole Sodium (Protonix -) 40 mg PO DAILY [facility] Last Admin: 10/01/18 09:16 Dose: 40 mg Potassium Phos/Sodium Phos (Phos-Nak Packet -) 1 packet PO BID [facility] Last Admin: 10/01/18 09:16 Dose: 1 packet Prednisone (Deltasone -) 40 mg PO DAILY [facility] Last Admin: 10/01/18 09:16 Dose: 40 mg Sertraline HCl (Zoloft -) 25 mg PO DAILY [facility] Last Admin: 10/01/18 09:16 Dose: 25 mg Valsartan (Diovan -) 80 mg PO DAILY [facility] Last Admin: 10/01/18 09:16 Dose: 80 mg - Objective Vital Signs: Vital Signs Temperature 99.5 F 10/01/18 09:00 Pulse Rate 100 H 10/01/18 09:00 Respiratory Rate 24 H 10/01/18 09:00 Blood Pressure 130/68 10/01/18 09:00 O2 Sat by Pulse Oximetry (%) 93 L 09/30/18 22:00 Constitutional: Yes: No Distress, Calm Neck: Yes: Supple Cardiovascular: Yes: Pulse Irregular Respiratory: Yes: Regular, Diminished, On BiPap Gastrointestinal: Yes: Soft, Hypoactive Bowel Sounds Edema: No Labs: CBC, BMP 10/01/18 06:55 10/01/18 06:55 INR, PTT INR 1.08 (0.83-1.09) 09/29/18 05:35 Problem List - Problems (1) Acute and chronic respiratory failure with hypoxia Code(s): J96.21 - ACUTE AND CHRONIC RESPIRATORY FAILURE WITH HYPOXIA (2) Anemia Code(s): D64.9 - ANEMIA, UNSPECIFIED Qualifiers: Iron deficiency anemia type: chronic blood loss (3) COPD with acute exacerbation Code(s): J44.1 - CHRONIC OBSTRUCTIVE PULMONARY DISEASE W (ACUTE) EXACERBATION (4) AF (paroxysmal atrial fibrillation) Code(s): I48.0 - PAROXYSMAL ATRIAL FIBRILLATION (5) Hypertension Code(s): I10 - ESSENTIAL (PRIMARY) HYPERTENSION Qualifiers: Hypertension type: essential hypertension Qualified Code(s): I10 - Essential (primary) hypertension (6) Pneumonia Code(s): J18.9 - PNEUMONIA, UNSPECIFIED ORGANISM Qualifiers: Laterality: right Lung location: lower lobe of lung Assessment/Plan Echocardiogram 07/03/2018 Normal LV and RV size and fxn, LVEF 55-60%, mild LAE, mild ao root dilatation 4.2 cm, impaired LV relaxation Echocardiography (12/08/17) which revealed normal LV systolic function, LVEF 60- 65%, moderately dilated ascending thoracic aorta, mild TR and trace [place]. Nuclear MPI (08/20/16) revealed moderate zone of anterior and anteroapical reversible defect c/s mild intensity ischemia and moderate inferior attenuation. LVEF was 71%. Chest CT: 09/21/2018 Patchy pneumonia middle lobe and bilateral lower lobes, mod -severe centrilobular/paraseptal pulmomary emphysema, mucous plugging right lower lobe 1. Acute on chronic hypercapneic/hypoxemic respiratory failure post mechanical ventilation and HFO2 2. Acute O2 dependent (on 2 -3 L NC @ home) COPD exacerbation 3. RLL pneumonia(HAP)-legionella urinary antigen negative 4. Paroxysmal afib [id number] score of 2-3 (refused DOAC or Coumadin) 5. Recent UGI bleed 2/2 bleeding duodenal ulcer post epinephrine injection 6. Anemia 7. HTN 8. Prior abnormal nuclear MPI suggests CAD with demand ischemia 9. Diastolic dysfunction 10. Hstory of MRSA colonization-continue isolation PLAN: 1. Oral steroid taper with GI protection, bronchodilators, Vanco and Zithromax per C&S and NIPPV as needed, wean O2 as tolerated, pulmonary rehab post discharge 2. Continue Cardizem CD 120 mg QD and Diovan 80 qd, hold ASA 81 mg QD, diuresis as needed 3. Ideally anticoagulation is recommended, but patient has previously declined along with recent UGI bleed. Continue DVT prophylaxis 4. Cardiac work up including repeat nuclear MPI can be done as outpatient in the office once clinically improved 5. Monitor Hgb and transfuse as needed
[2018-10-01] MEDS: VANCOMYCIN HCL 1,250 MG in DEXTROSE 5%-WATER - 250 ML IVPB SCH (09:54)
[2018-10-01] MEDS: MAG HYDROX/AL HYDROX/SIMETH 30 ML UNIT-DOSE CUP PO PRN (11:36)
--- NOTE | 2018-10-01 12:44 | PN ---
Progress Note, Physician History of Present Illness: pulmonary awake,on bipap,dyspneic - Current Medication List Current Medications: Active Medications Al Hydroxide/Mg Hydroxide (Mylanta Oral Suspension -) 30 ml PO BID PRN PRN Reason: epigastric pain Last Admin: 10/01/18 11:36 Dose: 30 ml Albuterol Sulfate (Ventolin 0.042trength) -) 1 amp NEB Q6H PRN PRN Reason: SHORT OF BREATH/WHEEZING Azithromycin (Zithromax -) 250 mg PO MOWEFR [facility] Last Admin: 09/30/18 14:27 Dose: 250 mg Budesonide/Formoterol Fumarate (Symbicort 160/4.5mcg -) 2 puff IH BID [facility] Last Admin: 10/01/18 09:17 Dose: 2 puff Diltiazem HCl (Cardizem Cd -) 120 mg PO DAILY [facility] Last Admin: 10/01/18 09:16 Dose: 120 mg Fluconazole (Diflucan -) 200 mg PO DAILY [facility] Last Admin: 10/01/18 09:16 Dose: 200 mg Hydrocortisone (Hytone 1% Lotion -) 1 applic TP Q12H PRN PRN Reason: itching Vancomycin HCl 1,250 mg/ (Dextrose) 250 mls @ 250 mls/2 hr IVPB Q24H [facility]; Protocol Last Admin: 10/01/18 09:54 Dose: 250 mls/2 hr Ipratropium [place] (Atrovent 0.02% Nebulizer -) 1 amp NEB RQID [facility] Last Admin: 10/01/18 08:00 Dose: 1 amp Lactobacillus Acidophilus (Bacid -) 1 tab PO DAILY [facility] Last Admin: 10/01/18 09:16 Dose: 1 tab Lidocaine/Aluminum/Magnesium/Simeth (Magic Mouthwash *Sjr Formula* -) 5 ml MM Q6HPO [facility] Last Admin: 10/01/18 11:37 Dose: 5 ml Melatonin (Melatonin) 5 mg PO HS PRN PRN Reason: INSOMNIA Nystatin (Nystatin Oral Suspension -) 500,000 units PO Q6HPO [facility] Last Admin: 10/01/18 11:37 Dose: 500,000 units Pantoprazole Sodium (Protonix -) 40 mg PO DAILY [facility] Last Admin: 10/01/18 09:16 Dose: 40 mg Potassium Phos/Sodium Phos (Phos-Nak Packet -) 1 packet PO BID [facility] Last Admin: 10/01/18 09:16 Dose: 1 packet Prednisone (Deltasone -) 40 mg PO DAILY [facility] Last Admin: 10/01/18 09:16 Dose: 40 mg Sertraline HCl (Zoloft -) 25 mg PO DAILY [facility] Last Admin: 10/01/18 09:16 Dose: 25 mg Valsartan (Diovan -) 80 mg PO DAILY [facility] Last Admin: 10/01/18 09:16 Dose: 80 mg - Objective Vital Signs: Vital Signs Temperature 99.5 F 10/01/18 09:00 Pulse Rate 100 H 10/01/18 09:00 Respiratory Rate 24 H 10/01/18 09:00 Blood Pressure 130/68 10/01/18 09:00 O2 Sat by Pulse Oximetry (%) 93 L 09/30/18 22:00 Constitutional: Yes: Well Nourished, Mild Distress Eyes: Yes: WNL HENT: Yes: WNL Neck: Yes: WNL Cardiovascular: Yes: Regular Rate and Rhythm, S1, S2 Respiratory: Yes: On BiPap, Rhonchi Gastrointestinal: Yes: Normal Bowel Sounds, Soft Extremities: Yes: WNL Edema: No Labs: CBC, BMP 10/01/18 06:55 10/01/18 06:55 INR, PTT INR 1.08 (0.83-1.09) 09/29/18 05:35 Problem List - Problems (1) Anemia Code(s): D64.9 - ANEMIA, UNSPECIFIED Qualifiers: Iron deficiency anemia type: chronic blood loss (2) COPD with acute exacerbation Code(s): J44.1 - CHRONIC OBSTRUCTIVE PULMONARY DISEASE W (ACUTE) EXACERBATION (3) AF (paroxysmal atrial fibrillation) Code(s): I48.0 - PAROXYSMAL ATRIAL FIBRILLATION (4) Pneumonia Code(s): J18.9 - PNEUMONIA, UNSPECIFIED ORGANISM Qualifiers: Laterality: right Lung location: lower lobe of lung (5) Shortness of breath Code(s): R06.02 - SHORTNESS OF BREATH (6) Acute and chronic respiratory failure with hypoxia Code(s): J96.21 - ACUTE AND CHRONIC RESPIRATORY FAILURE WITH HYPOXIA Assessment/Plan ASSESSMENT AND PLAN: Acute on Chronic Hypoxic and Hypercapneic Respiratory Failure Pneumonia Acute COPD Exacerbation CAD LV Diastolic Dysfunction Paroxysmal Atrial Fibrillation HTN Anemia - continue antibiotics per ID - NIPPV as needed for increased respiratory distress - prednisone taper - inhaled bronchodilators standing and PRN - O2 to keep Spo2 >90% - rate controlled - pt declining anticoagulation - DVT prophylaxis DR DUNN
[2018-10-02] MEDS: NYSTATIN 500,000 UNITS/5 ML SUSPENSION PO SCH ×5 (00:14→23:21)
[2018-10-02] MEDS: MAG HYDROX/ALH/SMC/DPHA/LIDO 240 ML MOUTHWASH MM SCH ×5 (00:14→23:21)
[2018-10-02] MEDS: IPRATROPIUM BR 0.02% 0.5 MG/2.5 ML VIAL.NEB. NEB SCH ×4 (08:03→20:30)
[2018-10-02] MEDS ORDERED: PT OWN MED DRAWER 7, Y5N ONE ×2 (08:52→10:46)
[2018-10-02] MEDS: MAG HYDROX/AL HYDROX/SIMETH 30 ML UNIT-DOSE CUP PO PRN (09:38)
[2018-10-02] MEDS: SERTRALINE HCL 25 MG TABLET (FP) PO SCH (09:39)
[2018-10-02] MEDS: PANTOPRAZOLE 40 MG TABLET (FP) PO SCH (09:40)
[2018-10-02] MEDS: predniSONE 20 MG TABLET (UD) PO SCH (09:40)
[2018-10-02] MEDS: VALSARTAN 80 MG TABLET (UD) PO SCH (09:40)
[2018-10-02] MEDS: NAPH,MB-DB/K PH,MBDB POWDER PACKET PO SCH ×2 (09:40→21:33)
[2018-10-02] MEDS: LACTOBACILLUS ACIDOPHILUS 1 TABLET PO SCH (09:40)
[2018-10-02] MEDS: FLUCONAZOLE 100 MG TABLET (UD) PO SCH (09:40)
[2018-10-02] MEDS: BUDESONIDE/FORMETEROL FUMARATE 160/4.5 mcg INHALER IH SCH ×2 (09:41→21:35)
--- NOTE | 2018-10-02 10:15 | PN ---
Progress Note, Physician - Current Medication List Current Medications: Active Medications Al Hydroxide/Mg Hydroxide (Mylanta Oral Suspension -) 30 ml PO BID PRN PRN Reason: epigastric pain Last Admin: 10/02/18 09:38 Dose: 30 ml Albuterol Sulfate (Ventolin 0.042trength) -) 1 amp NEB Q6H PRN PRN Reason: SHORT OF BREATH/WHEEZING Azithromycin (Zithromax -) 250 mg PO MOWEFR [facility] Last Admin: 09/30/18 14:27 Dose: 250 mg Budesonide/Formoterol Fumarate (Symbicort 160/4.5mcg -) 2 puff IH BID [facility] Last Admin: 10/02/18 09:41 Dose: 2 puff Diltiazem HCl (Cardizem Cd -) 120 mg PO DAILY [facility] Last Admin: 10/02/18 09:40 Dose: 120 mg Fluconazole (Diflucan -) 200 mg PO DAILY [facility] Last Admin: 10/02/18 09:40 Dose: 200 mg Hydrocortisone (Hytone 1% Lotion -) 1 applic TP Q12H PRN PRN Reason: itching Vancomycin HCl 1,250 mg/ (Dextrose) 250 mls @ 250 mls/2 hr IVPB Q24H [facility]; Protocol Last Admin: 10/01/18 09:54 Dose: 250 mls/2 hr Ipratropium [place] (Atrovent 0.02% Nebulizer -) 1 amp NEB RQID [facility] Last Admin: 10/02/18 08:03 Dose: 1 amp Lactobacillus Acidophilus (Bacid -) 1 tab PO DAILY [facility] Last Admin: 10/02/18 09:40 Dose: 1 tab Lidocaine/Aluminum/Magnesium/Simeth (Magic Mouthwash *Sjr Formula* -) 5 ml MM Q6HPO [facility] Last Admin: 10/02/18 06:29 Dose: 5 ml Melatonin (Melatonin) 5 mg PO HS PRN PRN Reason: INSOMNIA Last Admin: 10/01/18 22:12 Dose: 5 mg Nystatin (Nystatin Oral Suspension -) 500,000 units PO Q6HPO [facility] Last Admin: 10/02/18 06:29 Dose: 500,000 units Pantoprazole Sodium (Protonix -) 40 mg PO DAILY [facility] Last Admin: 10/02/18 09:40 Dose: 40 mg Potassium Phos/Sodium Phos (Phos-Nak Packet -) 1 packet PO BID [facility] Last Admin: 10/02/18 09:40 Dose: 1 packet Prednisone (Deltasone -) 40 mg PO DAILY [facility] Last Admin: 10/02/18 09:40 Dose: 40 mg Sertraline HCl (Zoloft -) 25 mg PO DAILY [facility] Last Admin: 10/02/18 09:39 Dose: 25 mg Valsartan (Diovan -) 80 mg PO DAILY [facility] Last Admin: 10/02/18 09:40 Dose: 80 mg - Objective Vital Signs: Vital Signs Temperature 98.7 F 10/02/18 08:42 Pulse Rate 87 10/02/18 08:42 Respiratory Rate 18 10/02/18 08:42 Blood Pressure 131/80 10/02/18 08:42 O2 Sat by Pulse Oximetry (%) 93 L 10/02/18 08:43 Cardiovascular: Yes: S1, S2 Respiratory: Yes: On Nasal O2, Rhonchi Gastrointestinal: Yes: Normal Bowel Sounds, Soft Labs: CBC, BMP 10/01/18 06:55 10/01/18 06:55 INR, PTT INR 1.08 (0.83-1.09) 09/29/18 05:35 Problem List - Problems (1) Acute and chronic respiratory failure with hypoxia Assessment/Plan: - keep on NC as tolerated - BiPAP settings: IPAP 14/EPAP 7/R16/FiO2 40%, use as needed at night in the setting of probably GENE - On Atrovent qid and albuterol 0.42 qid prn - On Symbicort bid - continue prednisone to 40mg daily > Oral steroid taper with GI protection - encourage incentive spirometry - On [facility] - OOB - will likely need outpatient eval of sleep apnea Code(s): J96.21 - ACUTE AND CHRONIC RESPIRATORY FAILURE WITH HYPOXIA (2) Anemia Code(s): D64.9 - ANEMIA, UNSPECIFIED Qualifiers: Iron deficiency anemia type: chronic blood loss (3) COPD with acute exacerbation Assessment/Plan: steroids and nebs Code(s): J44.1 - CHRONIC OBSTRUCTIVE PULMONARY DISEASE W (ACUTE) EXACERBATION (4) AF (paroxysmal atrial fibrillation) Assessment/Plan: -NO AC DUE TO GI BLEED AND PT REFUSAL -CARDIO ON BOARD Code(s): I48.0 - PAROXYSMAL ATRIAL FIBRILLATION (5) Pneumonia Assessment/Plan: - Abx per id- On vanco day 10 - probiotics - ID following, appreciate recommendations Code(s): J18.9 - PNEUMONIA, UNSPECIFIED ORGANISM Qualifiers: Laterality: right Lung location: lower lobe of lung (6) Hypertension Assessment/Plan: -Controlled Code(s): I10 - ESSENTIAL (PRIMARY) HYPERTENSION Qualifiers: Hypertension type: essential hypertension Qualified Code(s): I10 - Essential (primary) hypertension Assessment/Plan dc planning--Arturo
[2018-10-02] MEDS: VANCOMYCIN HCL 1,250 MG in DEXTROSE 5%-WATER - 250 ML IVPB SCH (10:49)
[2018-10-02 10:54] LABS: BASO % 0.2 % (0-2.0); EOS % 0.1 % (0-4.5); HEMATOCRIT 28.4 % (35.4-49); HEMOGLOBIN 9.1 GM/dL (11.7-16.9); LYMPH % 6.5 % (8-40); MCH 30.1 pg (25.7-33.7); MCHC 32.1 g/dl (32.0-35.9); MEAN CELL VOLUME 93.6 fl (80-96); MEAN PLT VOLUME 8.6 fl (7.5-11.1); MONO % 2.7 % (3.8-10.2); NEUT % 90.5 % (42.8-82.8); PLATELET COUNT 195 K/MM3 (134-434); RBC 3.03 M/mm3 (4.00-5.60); RDW 18.8 % (11.9-15.9); WHITE BLOOD COUNT 13.4 K/mm3 (4.0-10.0)
--- NOTE | 2018-10-02 11:15 | PN ---
Progress Note, Physician History of Present Illness: Resting on NC, used bipap night-time, bilateral lower extremity edema resolved, remains in rate-controlled afib. - Current Medication List Current Medications: Active Medications Al Hydroxide/Mg Hydroxide (Mylanta Oral Suspension -) 30 ml PO BID PRN PRN Reason: epigastric pain Last Admin: 10/02/18 09:38 Dose: 30 ml Albuterol Sulfate (Ventolin 0.042trength) -) 1 amp NEB Q6H PRN PRN Reason: SHORT OF BREATH/WHEEZING Azithromycin (Zithromax -) 250 mg PO MOWEFR [facility] Last Admin: 09/30/18 14:27 Dose: 250 mg Budesonide/Formoterol Fumarate (Symbicort 160/4.5mcg -) 2 puff IH BID [facility] Last Admin: 10/02/18 09:41 Dose: 2 puff Diltiazem HCl (Cardizem Cd -) 120 mg PO DAILY [facility] Last Admin: 10/02/18 09:40 Dose: 120 mg Fluconazole (Diflucan -) 200 mg PO DAILY [facility] Last Admin: 10/02/18 09:40 Dose: 200 mg Hydrocortisone (Hytone 1% Lotion -) 1 applic TP Q12H PRN PRN Reason: itching Vancomycin HCl 1,250 mg/ (Dextrose) 250 mls @ 250 mls/2 hr IVPB Q24H [facility]; Protocol Last Admin: 10/02/18 10:49 Dose: 250 mls/2 hr Ipratropium [place] (Atrovent 0.02% Nebulizer -) 1 amp NEB RQID [facility] Last Admin: 10/02/18 08:03 Dose: 1 amp Lactobacillus Acidophilus (Bacid -) 1 tab PO DAILY [facility] Last Admin: 10/02/18 09:40 Dose: 1 tab Lidocaine/Aluminum/Magnesium/Simeth (Magic Mouthwash *Sjr Formula* -) 5 ml MM Q6HPO [facility] Last Admin: 10/02/18 06:29 Dose: 5 ml Melatonin (Melatonin) 5 mg PO HS PRN PRN Reason: INSOMNIA Last Admin: 10/01/18 22:12 Dose: 5 mg Nystatin (Nystatin Oral Suspension -) 500,000 units PO Q6HPO [facility] Last Admin: 10/02/18 06:29 Dose: 500,000 units Pantoprazole Sodium (Protonix -) 40 mg PO DAILY [facility] Last Admin: 10/02/18 09:40 Dose: 40 mg Potassium Phos/Sodium Phos (Phos-Nak Packet -) 1 packet PO BID [facility] Last Admin: 10/02/18 09:40 Dose: 1 packet Prednisone (Deltasone -) 40 mg PO DAILY [facility] Last Admin: 10/02/18 09:40 Dose: 40 mg Sertraline HCl (Zoloft -) 25 mg PO DAILY [facility] Last Admin: 10/02/18 09:39 Dose: 25 mg Valsartan (Diovan -) 80 mg PO DAILY [facility] Last Admin: 10/02/18 09:40 Dose: 80 mg - Objective Vital Signs: Vital Signs Temperature 98.7 F 10/02/18 08:42 Pulse Rate 87 10/02/18 08:42 Respiratory Rate 18 10/02/18 08:42 Blood Pressure 131/80 10/02/18 08:42 O2 Sat by Pulse Oximetry (%) 93 L 10/02/18 08:43 Constitutional: Yes: No Distress, Calm Neck: Yes: Supple Cardiovascular: Yes: Pulse Irregular Respiratory: Yes: Regular, Diminished, On Nasal O2 Gastrointestinal: Yes: Normal Bowel Sounds, Soft Edema: No Labs: CBC, BMP 10/02/18 10:00 INR, PTT INR 1.08 (0.83-1.09) 09/29/18 05:35 Problem List - Problems (1) Acute and chronic respiratory failure with hypoxia Code(s): J96.21 - ACUTE AND CHRONIC RESPIRATORY FAILURE WITH HYPOXIA (2) Anemia Code(s): D64.9 - ANEMIA, UNSPECIFIED Qualifiers: Iron deficiency anemia type: chronic blood loss (3) COPD with acute exacerbation Code(s): J44.1 - CHRONIC OBSTRUCTIVE PULMONARY DISEASE W (ACUTE) EXACERBATION (4) AF (paroxysmal atrial fibrillation) Code(s): I48.0 - PAROXYSMAL ATRIAL FIBRILLATION (5) Hypertension Code(s): I10 - ESSENTIAL (PRIMARY) HYPERTENSION Qualifiers: Hypertension type: essential hypertension Qualified Code(s): I10 - Essential (primary) hypertension (6) Pneumonia Code(s): J18.9 - PNEUMONIA, UNSPECIFIED ORGANISM Qualifiers: Laterality: right Lung location: lower lobe of lung Assessment/Plan Echocardiogram 07/03/2018 Normal LV and RV size and fxn, LVEF 55-60%, mild LAE, mild ao root dilatation 4.2 cm, impaired LV relaxation Echocardiography (12/08/17) which revealed normal LV systolic function, LVEF 60- 65%, moderately dilated ascending thoracic aorta, mild TR and trace [place]. Nuclear MPI (08/20/16) revealed moderate zone of anterior and anteroapical reversible defect c/s mild intensity ischemia and moderate inferior attenuation. LVEF was 71%. Chest CT: 09/21/2018 Patchy pneumonia middle lobe and bilateral lower lobes, mod -severe centrilobular/paraseptal pulmomary emphysema, mucous plugging right lower lobe 1. Acute on chronic hypercapneic/hypoxemic respiratory failure post mechanical ventilation and HFO2 2. Acute O2 dependent (on 2 -3 L NC @ home) COPD exacerbation improving 3. RLL pneumonia(HAP)-legionella urinary antigen negative 4. Paroxysmal afib [id number] score of 2-3 (refused DOAC or Coumadin) 5. Recent UGI bleed 2/2 bleeding duodenal ulcer post epinephrine injection 6. Anemia 7. HTN 8. Prior abnormal nuclear MPI suggests CAD with demand ischemia 9. Diastolic dysfunction 10. Hstory of MRSA colonization-continue isolation PLAN: 1. Oral steroid taper with GI protection, bronchodilators, Vanco, Diflucan and Zithromax per C&S and NIPPV as needed, wean O2 as tolerated, pulmonary rehab post discharge 2. Continue Cardizem CD 120 mg QD and Diovan 80 qd, hold ASA 81 mg QD, diuresis as needed 3. Ideally anticoagulation is recommended, but patient has previously declined along with recent UGI bleed. Continue DVT prophylaxis 4. Cardiac work up including repeat nuclear MPI can be done as outpatient in the office once clinically improved 5. Monitor Hgb and transfuse as needed
[2018-10-02 11:23] LABS: ALBUMIN 2.2 g/dl (3.4-5.0); BILIRUBIN,TOTAL 0.3 mg/dL (0.2-1); BLOOD UREA NITROGEN 18.6 mg/dL (7-18); CALCIUM 8.3 mg/dL (8.5-10.1); CREATININE 0.7 mg/dL (0.55-1.3); POTASSIUM 4.7 mmol/L (3.5-5.1); TOT PROT 5.8 g/dl (6.4-8.2)
[2018-10-02 11:33] VITALS: BMI 26.8
--- NOTE | 2018-10-02 11:44 | PN ---
Progress Note, Physician History of Present Illness: pulmonary alert,feeling better,less dyspneic on nasal cannula - Current Medication List Current Medications: Active Medications Al Hydroxide/Mg Hydroxide (Mylanta Oral Suspension -) 30 ml PO BID PRN PRN Reason: epigastric pain Last Admin: 10/02/18 09:38 Dose: 30 ml Albuterol Sulfate (Ventolin 0.042trength) -) 1 amp NEB Q6H PRN PRN Reason: SHORT OF BREATH/WHEEZING Azithromycin (Zithromax -) 250 mg PO MOWEFR [facility] Last Admin: 09/30/18 14:27 Dose: 250 mg Budesonide/Formoterol Fumarate (Symbicort 160/4.5mcg -) 2 puff IH BID [facility] Last Admin: 10/02/18 09:41 Dose: 2 puff Diltiazem HCl (Cardizem Cd -) 120 mg PO DAILY [facility] Last Admin: 10/02/18 09:40 Dose: 120 mg Fluconazole (Diflucan -) 200 mg PO DAILY [facility] Last Admin: 10/02/18 09:40 Dose: 200 mg Hydrocortisone (Hytone 1% Lotion -) 1 applic TP Q12H PRN PRN Reason: itching Vancomycin HCl 1,250 mg/ (Dextrose) 250 mls @ 250 mls/2 hr IVPB Q24H [facility]; Protocol Last Admin: 10/02/18 10:49 Dose: 250 mls/2 hr Ipratropium [place] (Atrovent 0.02% Nebulizer -) 1 amp NEB RQID [facility] Last Admin: 10/02/18 08:03 Dose: 1 amp Lactobacillus Acidophilus (Bacid -) 1 tab PO DAILY [facility] Last Admin: 10/02/18 09:40 Dose: 1 tab Lidocaine/Aluminum/Magnesium/Simeth (Magic Mouthwash *Sjr Formula* -) 5 ml MM Q6HPO [facility] Last Admin: 10/02/18 06:29 Dose: 5 ml Melatonin (Melatonin) 5 mg PO HS PRN PRN Reason: INSOMNIA Last Admin: 10/01/18 22:12 Dose: 5 mg Nystatin (Nystatin Oral Suspension -) 500,000 units PO Q6HPO [facility] Last Admin: 10/02/18 06:29 Dose: 500,000 units Pantoprazole Sodium (Protonix -) 40 mg PO DAILY [facility] Last Admin: 10/02/18 09:40 Dose: 40 mg Potassium Phos/Sodium Phos (Phos-Nak Packet -) 1 packet PO BID [facility] Last Admin: 10/02/18 09:40 Dose: 1 packet Prednisone (Deltasone -) 40 mg PO DAILY [facility] Last Admin: 10/02/18 09:40 Dose: 40 mg Sertraline HCl (Zoloft -) 25 mg PO DAILY [facility] Last Admin: 10/02/18 09:39 Dose: 25 mg Valsartan (Diovan -) 80 mg PO DAILY [facility] Last Admin: 10/02/18 09:40 Dose: 80 mg - Objective Vital Signs: Vital Signs Temperature 98.7 F 10/02/18 08:42 Pulse Rate 87 10/02/18 08:42 Respiratory Rate 18 10/02/18 08:42 Blood Pressure 131/80 10/02/18 08:42 O2 Sat by Pulse Oximetry (%) 93 L 10/02/18 08:43 Constitutional: Yes: Well Nourished, Calm Eyes: Yes: WNL HENT: Yes: WNL Neck: Yes: WNL Cardiovascular: Yes: Regular Rate and Rhythm, S1, S2 Respiratory: Yes: Rhonchi (few rhonchi) Gastrointestinal: Yes: Normal Bowel Sounds, Soft Extremities: Yes: WNL Edema: No Labs: CBC, BMP 10/02/18 10:00 10/02/18 10:15 INR, PTT INR 1.08 (0.83-1.09) 09/29/18 05:35 Problem List - Problems (1) Anemia Code(s): D64.9 - ANEMIA, UNSPECIFIED Qualifiers: Iron deficiency anemia type: chronic blood loss (2) COPD with acute exacerbation Code(s): J44.1 - CHRONIC OBSTRUCTIVE PULMONARY DISEASE W (ACUTE) EXACERBATION (3) AF (paroxysmal atrial fibrillation) Code(s): I48.0 - PAROXYSMAL ATRIAL FIBRILLATION (4) Pneumonia Code(s): J18.9 - PNEUMONIA, UNSPECIFIED ORGANISM Qualifiers: Laterality: right Lung location: lower lobe of lung (5) Shortness of breath Code(s): R06.02 - SHORTNESS OF BREATH (6) Acute and chronic respiratory failure with hypoxia Code(s): J96.21 - ACUTE AND CHRONIC RESPIRATORY FAILURE WITH HYPOXIA Assessment/Plan ASSESSMENT AND PLAN: Acute on Chronic Hypoxic and Hypercapneic Respiratory Failure Pneumonia Acute COPD Exacerbation CAD LV Diastolic Dysfunction Paroxysmal Atrial Fibrillation HTN Anemia - antibiotics per ID - xopenex - inhaled bronchodilators - NIPPV as needed for increased respiratory distress - prednisone same dose - inhaled bronchodilators standing and PRN - O2 to keep Spo2 >90% - rate controlled - pt declining anticoagulation - DVT prophylaxis - chest x-ray today DR DUNN
--- NOTE | 2018-10-02 12:15 | PN ---
Progress Note (short form) - Note Progress Note: transferred to the floor feels well expectorating thick sputum Vital Signs Period Temp Pulse Resp BP Sys/[place] Pulse Ox Last 24 Hr 97.6 F-99.5 F 79-107 18-22 110-155/52-80 93-98 no thrush cor rrr lungs clear abd soft,nt ext no edema CBC, BMP 10/02/18 10:00 10/02/18 10:15 Microbiology 09/22/18 21:00 Blood - Peripheral Venous Blood Culture - Final NO GROWTH AFTER 5 DAYS INCUBATION 09/22/18 21:00 Blood - Peripheral Venous Blood Culture - Final NO GROWTH AFTER 5 DAYS INCUBATION 09/23/18 02:00 Sputum - Endotrachea Suction/Ventilator Gram Stain - Final 09/23/18 02:00 Sputum - Endotrachea Suction/Ventilator Sputum Culture - Final S Aureus 09/22/18 22:00 Urine - Urine [place] Urine Culture - Final NO GROWTH OBTAINED 09/23/18 02:00 Urine For Antigen Detection Legionella Antigen - Final 09/23/18 02:00 Urine For Antigen Detection Streptococcus pneumoniae Antigen (M - Final Current Medications Al Hydroxide/Mg Hydroxide (Mylanta Oral Suspension -) 30 ml PO BID PRN PRN Reason: epigastric pain Last Admin: 10/02/18 09:38 Dose: 30 ml Albuterol Sulfate (Ventolin 0.042trength) -) 1 amp NEB Q6H PRN PRN Reason: SHORT OF BREATH/WHEEZING Azithromycin (Zithromax -) 250 mg PO MOWEFR MORE Last Admin: 09/30/18 14:27 Dose: 250 mg Budesonide/Formoterol Fumarate (Symbicort 160/4.5mcg -) 2 puff IH BID [facility] Last Admin: 10/02/18 09:41 Dose: 2 puff Diltiazem HCl (Cardizem Cd -) 120 mg PO DAILY [facility] Last Admin: 10/02/18 09:40 Dose: 120 mg Fluconazole (Diflucan -) 200 mg PO DAILY [facility] Last Admin: 10/02/18 09:40 Dose: 200 mg Hydrocortisone (Hytone 1% Lotion -) 1 applic TP Q12H PRN PRN Reason: itching Vancomycin HCl 1,250 mg/ (Dextrose) 250 mls @ 250 mls/2 hr IVPB Q24H MORE; Protocol Last Admin: 10/02/18 10:49 Dose: 250 mls/2 hr Ipratropium [place] (Atrovent 0.02% Nebulizer -) 1 amp NEB RQID [facility] Last Admin: 10/02/18 08:03 Dose: 1 amp Lactobacillus Acidophilus (Bacid -) 1 tab PO DAILY [facility] Last Admin: 10/02/18 09:40 Dose: 1 tab Levalbuterol HCl (Xopenex) 0.31 mg IH RTID [facility] Lidocaine/Aluminum/Magnesium/Simeth (Magic Mouthwash *Sjr Formula* -) 5 ml MM Q6HPO [facility] Last Admin: 10/02/18 11:52 Dose: 5 ml Melatonin (Melatonin) 5 mg PO HS PRN PRN Reason: INSOMNIA Last Admin: 10/01/18 22:12 Dose: 5 mg Nystatin (Nystatin Oral Suspension -) 500,000 units PO Q6HPO [facility] Last Admin: 10/02/18 11:52 Dose: 500,000 units Pantoprazole Sodium (Protonix -) 40 mg PO DAILY [facility] Last Admin: 10/02/18 09:40 Dose: 40 mg Potassium Phos/Sodium Phos (Phos-Nak Packet -) 1 packet PO BID [facility] Last Admin: 10/02/18 09:40 Dose: 1 packet Prednisone (Deltasone -) 40 mg PO DAILY [facility] Last Admin: 10/02/18 09:40 Dose: 40 mg Sertraline HCl (Zoloft -) 25 mg PO DAILY [facility] Last Admin: 10/02/18 09:39 Dose: 25 mg Valsartan (Diovan -) 80 mg PO DAILY [facility] Last Admin: 10/02/18 09:40 Dose: 80 mg a/p acute on chronic resp failure RLL pneumonia(HAP)-MRSA DAY #10 VANCOMYCIN- will d/c thrush- nystatin swish and swallow COPD exaceerbation-consider pulmonary rehab history GI bleed anemia contact isolation MRSA please call back if needed
[2018-10-02] MEDS: AZITHROMYCIN 250 MG TABLET PO SCH (14:23)
[2018-10-02] MEDS: PSYLLIUM 5.85 GM PACKET PO SCH (14:23)
[2018-10-02] MEDS: LEVALBUTEROL HCL 0.31 MG/3 ML VIAL.NEB IH SCH ×2 (15:00→20:30)
[2018-10-02] MEDS: ZOLPIDEM TARTRATE 5 MG TABLET PO PRN (22:37)
[2018-10-03] MEDS: MAG HYDROX/ALH/SMC/DPHA/LIDO 240 ML MOUTHWASH MM SCH ×5 (01:20→23:01)
[2018-10-03] MEDS: NYSTATIN 500,000 UNITS/5 ML SUSPENSION PO SCH ×4 (06:45→23:01)
[2018-10-03] MEDS: LEVALBUTEROL HCL 0.31 MG/3 ML VIAL.NEB IH SCH ×3 (08:57→20:45)
[2018-10-03] MEDS: IPRATROPIUM BR 0.02% 0.5 MG/2.5 ML VIAL.NEB. NEB SCH ×4 (08:57→20:44)
[2018-10-03] MEDS: PANTOPRAZOLE 40 MG TABLET (FP) PO SCH (09:04)
[2018-10-03] MEDS: PSYLLIUM 5.85 GM PACKET PO SCH (09:04)
[2018-10-03] MEDS: MAG HYDROX/AL HYDROX/SIMETH 30 ML UNIT-DOSE CUP PO PRN (09:04)
[2018-10-03] MEDS: VALSARTAN 80 MG TABLET (UD) PO SCH (09:04)
[2018-10-03] MEDS: FLUCONAZOLE 100 MG TABLET (UD) PO SCH (09:04)
[2018-10-03] MEDS: LACTOBACILLUS ACIDOPHILUS 1 TABLET PO SCH (09:04)
[2018-10-03] MEDS: SERTRALINE HCL 25 MG TABLET (FP) PO SCH (09:04)
[2018-10-03] MEDS: NAPH,MB-DB/K PH,MBDB POWDER PACKET PO SCH ×2 (09:05→21:30)
[2018-10-03] MEDS: predniSONE 20 MG TABLET (UD) PO SCH (09:05)
[2018-10-03] MEDS: BUDESONIDE/FORMETEROL FUMARATE 160/4.5 mcg INHALER IH SCH ×2 (09:06→21:30)
--- NOTE | 2018-10-03 09:07 | PN ---
Progress Note, Physician History of Present Illness: pulmonary alert,feeling better dyspnea improving,on nasal cannula. slept well on nasal o2 - Current Medication List Current Medications: Active Medications Al Hydroxide/Mg Hydroxide (Mylanta Oral Suspension -) 30 ml PO BID PRN PRN Reason: epigastric pain Last Admin: 10/02/18 09:38 Dose: 30 ml Albuterol Sulfate (Ventolin 0.042trength) -) 1 amp NEB Q6H PRN PRN Reason: SHORT OF BREATH/WHEEZING Azithromycin (Zithromax -) 250 mg PO MOWEFR [facility] Last Admin: 10/02/18 14:23 Dose: 250 mg Budesonide/Formoterol Fumarate (Symbicort 160/4.5mcg -) 2 puff IH BID [facility] Last Admin: 10/02/18 21:35 Dose: 2 puff Diltiazem HCl (Cardizem Cd -) 120 mg PO DAILY [facility] Last Admin: 10/02/18 09:40 Dose: 120 mg Fluconazole (Diflucan -) 200 mg PO DAILY [facility] Last Admin: 10/02/18 09:40 Dose: 200 mg Hydrocortisone (Hytone 1% Lotion -) 1 applic TP Q12H PRN PRN Reason: itching Ipratropium [place] (Atrovent 0.02% Nebulizer -) 1 amp NEB RQID [facility] Last Admin: 10/03/18 08:57 Dose: 1 amp Lactobacillus Acidophilus (Bacid -) 1 tab PO DAILY [facility] Last Admin: 10/02/18 09:40 Dose: 1 tab Levalbuterol HCl (Xopenex) 0.31 mg IH RTID [facility] Last Admin: 10/03/18 08:57 Dose: 0.31 mg Lidocaine/Aluminum/Magnesium/Simeth (Magic Mouthwash *Sjr Formula* -) 5 ml MM Q6HPO [facility] Last Admin: 10/03/18 06:44 Dose: 5 ml Nystatin (Nystatin Oral Suspension -) 500,000 units PO Q6HPO [facility] Last Admin: 10/03/18 06:45 Dose: 500,000 units Pantoprazole Sodium (Protonix -) 40 mg PO DAILY [facility] Last Admin: 10/02/18 09:40 Dose: 40 mg Potassium Phos/Sodium Phos (Phos-Nak Packet -) 1 packet PO BID [facility] Last Admin: 10/02/18 21:33 Dose: 1 packet Prednisone (Deltasone -) 40 mg PO DAILY [facility] Last Admin: 10/02/18 09:40 Dose: 40 mg Psyllium Hydrophilic Mucilloid (Metamucil (Sugar-Free) -) 5.85 gm PO DAILY [facility] Last Admin: 10/02/18 14:23 Dose: 5.85 gm Sertraline HCl (Zoloft -) 25 mg PO DAILY [facility] Last Admin: 10/02/18 09:39 Dose: 25 mg Valsartan (Diovan -) 80 mg PO DAILY [facility] Last Admin: 10/02/18 09:40 Dose: 80 mg Zolpidem Tartrate (Ambien -) 5 mg PO PRN PRN Reason: INSOMNIA Last Admin: 10/02/18 22:37 Dose: 5 mg - Objective Vital Signs: Vital Signs Temperature 98.4 F 10/03/18 06:00 Pulse Rate 92 H 10/03/18 06:00 Respiratory Rate 20 10/03/18 06:00 Blood Pressure 136/82 10/03/18 06:00 O2 Sat by Pulse Oximetry (%) 96 10/03/18 06:29 Constitutional: Yes: Well Nourished, Calm Eyes: Yes: WNL HENT: Yes: WNL Neck: Yes: WNL Cardiovascular: Yes: Regular Rate and Rhythm, S1, S2 Respiratory: Yes: Rales (few bibasilar crackles) Gastrointestinal: Yes: Normal Bowel Sounds, Soft Extremities: Yes: WNL Edema: No Labs: CBC, BMP Problem List - Problems (1) Anemia Code(s): D64.9 - ANEMIA, UNSPECIFIED Qualifiers: Iron deficiency anemia type: chronic blood loss (2) COPD with acute exacerbation Code(s): J44.1 - CHRONIC OBSTRUCTIVE PULMONARY DISEASE W (ACUTE) EXACERBATION (3) AF (paroxysmal atrial fibrillation) Code(s): I48.0 - PAROXYSMAL ATRIAL FIBRILLATION (4) Pneumonia Code(s): J18.9 - PNEUMONIA, UNSPECIFIED ORGANISM Qualifiers: Laterality: right Lung location: lower lobe of lung (5) Shortness of breath Code(s): R06.02 - SHORTNESS OF BREATH (6) Acute and chronic respiratory failure with hypoxia Code(s): J96.21 - ACUTE AND CHRONIC RESPIRATORY FAILURE WITH HYPOXIA Assessment/Plan ASSESSMENT AND PLAN: Acute on Chronic Hypoxic and Hypercapneic Respiratory Failure improving Pneumonia Acute COPD Exacerbation improving CAD LV Diastolic Dysfunction Paroxysmal Atrial Fibrillation HTN Anemia - xopenex - inhaled bronchodilators - NIPPV as needed for increased respiratory distress - prednisone same dose - inhaled bronchodilators standing and PRN - O2 to keep Spo2 >90% - rate controlled - pt declining anticoagulation - DVT prophylaxis DR DUNN
--- NOTE | 2018-10-03 09:32 | PN ---
Progress Note, Physician - Current Medication List Current Medications: Active Medications Al Hydroxide/Mg Hydroxide (Mylanta Oral Suspension -) 30 ml PO BID PRN PRN Reason: epigastric pain Last Admin: 10/03/18 09:04 Dose: 30 ml Albuterol Sulfate (Ventolin 0.042trength) -) 1 amp NEB Q6H PRN PRN Reason: SHORT OF BREATH/WHEEZING Azithromycin (Zithromax -) 250 mg PO MOWEFR [facility] Last Admin: 10/02/18 14:23 Dose: 250 mg Budesonide/Formoterol Fumarate (Symbicort 160/4.5mcg -) 2 puff IH BID [facility] Last Admin: 10/03/18 09:06 Dose: 2 puff Diltiazem HCl (Cardizem Cd -) 120 mg PO DAILY [facility] Last Admin: 10/03/18 09:05 Dose: 120 mg Fluconazole (Diflucan -) 200 mg PO DAILY [facility] Last Admin: 10/03/18 09:04 Dose: 200 mg Hydrocortisone (Hytone 1% Lotion -) 1 applic TP Q12H PRN PRN Reason: itching Ipratropium [place] (Atrovent 0.02% Nebulizer -) 1 amp NEB RQID [facility] Last Admin: 10/03/18 08:57 Dose: 1 amp Lactobacillus Acidophilus (Bacid -) 1 tab PO DAILY [facility] Last Admin: 10/03/18 09:04 Dose: 1 tab Levalbuterol HCl (Xopenex) 0.31 mg IH RTID [facility] Last Admin: 10/03/18 08:57 Dose: 0.31 mg Lidocaine/Aluminum/Magnesium/Simeth (Magic Mouthwash *Sjr Formula* -) 5 ml MM Q6HPO [facility] Last Admin: 10/03/18 06:44 Dose: 5 ml Nystatin (Nystatin Oral Suspension -) 500,000 units PO Q6HPO [facility] Last Admin: 10/03/18 06:45 Dose: 500,000 units Pantoprazole Sodium (Protonix -) 40 mg PO DAILY [facility] Last Admin: 10/03/18 09:04 Dose: 40 mg Potassium Phos/Sodium Phos (Phos-Nak Packet -) 1 packet PO BID [facility] Last Admin: 10/03/18 09:05 Dose: 1 packet Prednisone (Deltasone -) 40 mg PO DAILY [facility] Last Admin: 10/03/18 09:05 Dose: 40 mg Psyllium Hydrophilic Mucilloid (Metamucil (Sugar-Free) -) 5.85 gm PO DAILY [facility] Last Admin: 10/03/18 09:04 Dose: 5.85 gm Sertraline HCl (Zoloft -) 25 mg PO DAILY [facility] Last Admin: 10/03/18 09:04 Dose: 25 mg Valsartan (Diovan -) 80 mg PO DAILY [facility] Last Admin: 10/03/18 09:04 Dose: 80 mg Zolpidem Tartrate (Ambien -) 5 mg PO HS PRN PRN Reason: INSOMNIA Last Admin: 10/02/18 22:37 Dose: 5 mg - Objective Vital Signs: Vital Signs Temperature 98.2 F 10/03/18 09:11 Pulse Rate 95 H 10/03/18 09:11 Respiratory Rate 18 10/03/18 09:11 Blood Pressure 125/70 10/03/18 09:11 O2 Sat by Pulse Oximetry (%) 100 10/03/18 09:12 Cardiovascular: Yes: S1, S2 Respiratory: Yes: On Nasal O2, Rhonchi Gastrointestinal: Yes: Normal Bowel Sounds, Soft Labs: CBC, BMP 10/02/18 10:00 10/02/18 10:15 INR, PTT INR 1.08 (0.83-1.09) 09/29/18 05:35 Problem List - Problems (1) Acute and chronic respiratory failure with hypoxia Assessment/Plan: - keep on NC as tolerated - BiPAP settings: IPAP 14/EPAP 7/R16/FiO2 40%, use as needed at night in the setting of probably GENE - On Atrovent qid and albuterol 0.42 qid prn - On Symbicort bid - continue prednisone to 40mg daily > Oral steroid taper with GI protection - encourage incentive spirometry - On vanco day - OOB - will likely need outpatient eval of sleep apnea Code(s): J96.21 - ACUTE AND CHRONIC RESPIRATORY FAILURE WITH HYPOXIA (2) Anemia Assessment/Plan: - Anemia in patient with history of recent GI bleed - Hgb monitor - Continue to monitor for evidence of bleeding - Dr. Ramos consult noted - protein studies, cytometry, hemoglobin studies - bone marrow biopsy to be done outpatient Code(s): D64.9 - ANEMIA, UNSPECIFIED Qualifiers: Iron deficiency anemia type: chronic blood loss (3) COPD with acute exacerbation Assessment/Plan: steroids and nebs Code(s): J44.1 - CHRONIC OBSTRUCTIVE PULMONARY DISEASE W (ACUTE) EXACERBATION (4) AF (paroxysmal atrial fibrillation) Assessment/Plan: -NO AC DUE TO GI BLEED AND PT REFUSAL -CARDIO ON BOARD Code(s): I48.0 - PAROXYSMAL ATRIAL FIBRILLATION (5) Pneumonia Assessment/Plan: - Abx per id- On vanco day 10 - probiotics - ID following, appreciate recommendations -Prevnar 13 Code(s): J18.9 - PNEUMONIA, UNSPECIFIED ORGANISM Qualifiers: Laterality: right Lung location: lower lobe of lung (6) Hypertension Assessment/Plan: controlled Code(s): I10 - ESSENTIAL (PRIMARY) HYPERTENSION Qualifiers: Hypertension type: essential hypertension Qualified Code(s): I10 - Essential (primary) hypertension Assessment/Plan dc planning--Arturo
[2018-10-03] MEDS ORDERED: PNEUMOC 13-VAL CONJ-DIP CRM/PF 0.5 ML DISP.SYRIN IM ONE (09:33)
[2018-10-03] MEDS ORDERED: PT OWN MED DRAWER 7, Y5N ONE ×2 (10:47→22:40)
--- NOTE | 2018-10-03 11:53 | PN ---
Progress Note (short form) - Note Progress Note: Chief Complaint: Events noted, notes reviewed, dyspnea persists but improved, denies any chest discomfort History of Present Illness: Seen and examined on telemetry. Events noted, notes reviewed, dyspnea persists but improved, denies any chest discomfort Echocardiogram 07/03/2018 revealed normal LV size and systolic function, LVEF 55 -60%, mild LAE, mild ao root dilatation 4.2 cm, impaired LV relaxation Echocardiography (12/08/17) revealed normal LV systolic function, LVEF 60-65%, moderately dilated ascending thoracic aorta, mild TR and trace TN. Nuclear MPI (08/20/16) revealed moderate zone of anterior and brian-apical reversible defect c/s mild intensity ischemia and moderate inferior attenuation , LVEF was 71%. - Current Medication List Current Medications Al Hydroxide/Mg Hydroxide (Mylanta Oral Suspension -) 30 ml PO BID PRN PRN Reason: epigastric pain Last Admin: 10/03/18 09:04 Dose: 30 ml Albuterol Sulfate (Ventolin 0.042trength) -) 1 amp NEB Q6H PRN PRN Reason: SHORT OF BREATH/WHEEZING Azithromycin (Zithromax -) 250 mg PO MOWEFR [facility] Last Admin: 10/02/18 14:23 Dose: 250 mg Budesonide/Formoterol Fumarate (Symbicort 160/4.5mcg -) 2 puff IH BID [facility] Last Admin: 10/03/18 09:06 Dose: 2 puff Diltiazem HCl (Cardizem Cd -) 120 mg PO DAILY [facility] Last Admin: 10/03/18 09:05 Dose: 120 mg Fluconazole (Diflucan -) 200 mg PO DAILY [facility] Last Admin: 10/03/18 09:04 Dose: 200 mg Hydrocortisone (Hytone 1% Lotion -) 1 applic TP Q12H PRN PRN Reason: itching Ipratropium [place] (Atrovent 0.02% Nebulizer -) 1 amp NEB RQID [facility] Last Admin: 10/03/18 08:57 Dose: 1 amp Lactobacillus Acidophilus (Bacid -) 1 tab PO DAILY [facility] Last Admin: 10/03/18 09:04 Dose: 1 tab Levalbuterol HCl (Xopenex) 0.31 mg IH RTID [facility] Last Admin: 10/03/18 08:57 Dose: 0.31 mg Lidocaine/Aluminum/Magnesium/Simeth (Magic Mouthwash *Sjr Formula* -) 5 ml MM Q6HPO [facility] Last Admin: 10/03/18 06:44 Dose: 5 ml Mupirocin (Bactroban 2% Ointment -) 1 applic TP TID [facility] Nystatin (Nystatin Oral Suspension -) 500,000 units PO Q6HPO [facility] Last Admin: 10/03/18 06:45 Dose: 500,000 units Pantoprazole Sodium (Protonix -) 40 mg PO DAILY [facility] Last Admin: 10/03/18 09:04 Dose: 40 mg Potassium Phos/Sodium Phos (Phos-Nak Packet -) 1 packet PO BID [facility] Last Admin: 10/03/18 09:05 Dose: 1 packet Prednisone (Deltasone -) 40 mg PO DAILY [facility] Last Admin: 10/03/18 09:05 Dose: 40 mg Psyllium Hydrophilic Mucilloid (Metamucil (Sugar-Free) -) 5.85 gm PO DAILY [facility] Last Admin: 10/03/18 09:04 Dose: 5.85 gm Sertraline HCl (Zoloft -) 25 mg PO DAILY [facility] Last Admin: 10/03/18 09:04 Dose: 25 mg Valsartan (Diovan -) 80 mg PO DAILY [facility] Last Admin: 10/03/18 09:04 Dose: 80 mg Zolpidem Tartrate (Ambien -) 5 mg PO HS PRN PRN Reason: INSOMNIA Last Admin: 10/02/18 22:37 Dose: 5 mg Review of Systems Constitutional: denies Chills or Fever Respiratory: reports Cough and Sputum Production Cardiovascular: As noted above Gastrointestinal: denies Nausea, Vomiting, Diarrhea, Constipation or Abdominal Pain Genitourinary: No Symptoms Reported Musculoskeletal: No Symptoms Reported - Objective Vital Signs: Last Vital Signs Temp Pulse Resp BP Pulse Ox 98.2 F 95 H 18 125/70 100 10/03/18 09:11 10/03/18 09:11 10/03/18 09:11 10/03/18 09:11 10/03/18 09:12 Intake & Output 09/30/18 10/01/18 10/02/18 10/03/18 23:59 23:59 23:59 23:59 Intake Total 1220 730 920 10 Output Total 1000 1280 500 900 Balance 220 -550 420 -890 Weight 191 lb 2 oz Neck: Supple Negative JVD No Bruit Cardiovascular: S1 S2 Irregularly Irregular Respiratory: Diminished Breath Sounds at the Bases Scattered Rhonchi Gastrointestinal: Soft Benign Normal Bowel Sounds Ext: Bilateral Ankle Edema Labs: CBC, BMP 10/02/18 10:00 10/02/18 10:15 Assessment/Plan ASSESSMENT: 1. Acute on chronic hypercapneic/hypoxemic respiratory failure requiring mechanical ventilation post extubation related to 2. COPD exacerbation and 3. Right lower lobe pneumonia (HAP), resolving 4. CAD coronary artery calcification/visual calcification on CT scan of the chest July 03, 2018 abnormal MPI study August 20, 2016 angina pectoris 5. Diastolic LV dysfunction with clinical class 0 NYHA classification LV failure 6. Paroxysmal atrial fibrillation [id number] score of 4 (refused DOAC or Coumadin) 7. HTN 8. Recent UGI bleed secondary to bleeding duodenal ulcer post intervention 9. Anemia 10. History of MRSA colonization PLAN: 1. Steroids and bronchodilators as per the pulmonary team 2. Continue antibiotics as per the primary team 3. Continue Cardizem CD 4. Continue Diovan 5. Continue to hold ASA 6. Utilize diuretics as needed 7. As outlined in prior notes ideally anticoagulation is recommended considering the above noted [id number] score of 4, but patient has declined- along with recent UGI bleed- relatively contraindicated, option of proceeding with FILI closure device as an alternative to A/C- outpatient intervention 8. Additional cardiovascular evaluation as outpatient including nuclear MPI once clinically improved 9. Monitor Hg and transfuse as needed maintaining Hg equal or > 8.0 Bam Vidal M.D.
[2018-10-03] MEDS: POLYETHYLENE GLYCOL 3350 119 GM BTL PO SCH (12:33)
[2018-10-03] MEDS: MUPIROCIN 2% TOPICAL OINTMENT 22 GM TUBE TP SCH ×2 (14:12→21:29)
[2018-10-03] MEDS: ZOLPIDEM TARTRATE 5 MG TABLET PO PRN (22:42)
[2018-10-04] MEDS: MUPIROCIN 2% TOPICAL OINTMENT 22 GM TUBE TP SCH ×3 (06:51→22:36)
[2018-10-04] MEDS: NYSTATIN 500,000 UNITS/5 ML SUSPENSION PO SCH ×3 (06:51→18:00)
[2018-10-04] MEDS: MAG HYDROX/ALH/SMC/DPHA/LIDO 240 ML MOUTHWASH MM SCH ×4 (06:51→18:00)
[2018-10-04] MEDS: IPRATROPIUM BR 0.02% 0.5 MG/2.5 ML VIAL.NEB. NEB SCH ×4 (07:35→20:13)
[2018-10-04] MEDS: LEVALBUTEROL HCL 0.31 MG/3 ML VIAL.NEB IH SCH ×3 (07:36→20:13)
[2018-10-04] MEDS ORDERED: PT OWN MED DRAWER 7, Y5N ONE ×3 (09:04→22:25)
--- NOTE | 2018-10-04 09:13 | PN ---
Progress Note, Physician History of Present Illness: pulmonary alert,feeing better,comfortable,-sob at rest + whitt. pt slept well on bipap - Current Medication List Current Medications: Active Medications Al Hydroxide/Mg Hydroxide (Mylanta Oral Suspension -) 30 ml PO BID PRN PRN Reason: epigastric pain Last Admin: 10/03/18 09:04 Dose: 30 ml Albuterol Sulfate (Ventolin 0.042trength) -) 1 amp NEB Q6H PRN PRN Reason: SHORT OF BREATH/WHEEZING Azithromycin (Zithromax -) 250 mg PO MOWEFR [facility] Last Admin: 10/02/18 14:23 Dose: 250 mg Budesonide/Formoterol Fumarate (Symbicort 160/4.5mcg -) 2 puff IH BID [facility] Last Admin: 10/03/18 21:30 Dose: 2 puff Diltiazem HCl (Cardizem Cd -) 120 mg PO DAILY [facility] Last Admin: 10/03/18 09:05 Dose: 120 mg Fluconazole (Diflucan -) 200 mg PO DAILY [facility] Last Admin: 10/03/18 09:04 Dose: 200 mg Hydrocortisone (Hytone 1% Lotion -) 1 applic TP Q12H PRN PRN Reason: itching Ipratropium [place] (Atrovent 0.02% Nebulizer -) 1 amp NEB RQID [facility] Last Admin: 10/03/18 20:44 Dose: 1 amp Lactobacillus Acidophilus (Bacid -) 1 tab PO DAILY [facility] Last Admin: 10/03/18 09:04 Dose: 1 tab Levalbuterol HCl (Xopenex) 0.31 mg IH RTID [facility] Last Admin: 10/03/18 20:45 Dose: Not Given Lidocaine/Aluminum/Magnesium/Simeth (Magic Mouthwash *Sjr Formula* -) 5 ml MM Q6HPO [facility] Last Admin: 10/04/18 06:54 Dose: Not Given Mupirocin (Bactroban 2% Ointment -) 1 applic TP TID [facility] Last Admin: 10/04/18 06:51 Dose: 1 applic Nystatin (Nystatin Oral Suspension -) 500,000 units PO Q6HPO [facility] Last Admin: 10/04/18 06:51 Dose: 500,000 units Pantoprazole Sodium (Protonix -) 40 mg PO DAILY [facility] Last Admin: 10/03/18 09:04 Dose: 40 mg Polyethylene Glycol (Miralax (For Daily Use) -) 17 gm PO DAILY [facility] Last Admin: 10/03/18 12:33 Dose: 17 gm Potassium Phos/Sodium Phos (Phos-Nak Packet -) 1 packet PO BID [facility] Last Admin: 10/03/18 21:30 Dose: 1 packet Prednisone (Deltasone -) 40 mg PO DAILY [facility] Last Admin: 10/03/18 09:05 Dose: 40 mg Psyllium Hydrophilic Mucilloid (Metamucil (Sugar-Free) -) 5.85 gm PO DAILY [facility] Last Admin: 10/03/18 09:04 Dose: 5.85 gm Sertraline HCl (Zoloft -) 25 mg PO DAILY [facility] Last Admin: 10/03/18 09:04 Dose: 25 mg Valsartan (Diovan -) 80 mg PO DAILY [facility] Last Admin: 10/03/18 09:04 Dose: 80 mg Zolpidem Tartrate (Ambien -) 5 mg PO HS PRN PRN Reason: INSOMNIA Last Admin: 10/03/18 22:42 Dose: 5 mg - Objective Vital Signs: Vital Signs Temperature 98.2 F 10/04/18 05:00 Pulse Rate 79 10/04/18 05:00 Respiratory Rate 20 10/04/18 05:00 Blood Pressure 135/76 10/04/18 05:00 O2 Sat by Pulse Oximetry (%) 97 10/04/18 05:30 Constitutional: Yes: Well Nourished, Calm Eyes: Yes: WNL HENT: Yes: WNL Neck: Yes: WNL Cardiovascular: Yes: Regular Rate and Rhythm, S1, S2 Respiratory: Yes: Diminished Gastrointestinal: Yes: Normal Bowel Sounds, Soft Extremities: Yes: WNL Edema: No Labs: CBC, BMP Problem List - Problems (1) Anemia Code(s): D64.9 - ANEMIA, UNSPECIFIED Qualifiers: Iron deficiency anemia type: chronic blood loss (2) COPD with acute exacerbation Code(s): J44.1 - CHRONIC OBSTRUCTIVE PULMONARY DISEASE W (ACUTE) EXACERBATION (3) AF (paroxysmal atrial fibrillation) Code(s): I48.0 - PAROXYSMAL ATRIAL FIBRILLATION (4) Pneumonia Code(s): J18.9 - PNEUMONIA, UNSPECIFIED ORGANISM Qualifiers: Laterality: right Lung location: lower lobe of lung (5) Shortness of breath Code(s): R06.02 - SHORTNESS OF BREATH (6) Acute and chronic respiratory failure with hypoxia Code(s): J96.21 - ACUTE AND CHRONIC RESPIRATORY FAILURE WITH HYPOXIA Assessment/Plan ASSESSMENT AND PLAN: Acute on Chronic Hypoxic and Hypercapneic Respiratory Failure improving Pneumonia Acute COPD Exacerbation improving CAD LV Diastolic Dysfunction Paroxysmal Atrial Fibrillation HTN Anemia - xopenex - inhaled bronchodilators - NIPPV as needed for increased respiratory distress - prednisone - inhaled bronchodilators standing and PRN - O2 to keep Spo2 >90% - rate controlled - pt declining anticoagulation - DVT prophylaxis - inpatient pulmonary rehab post discharge DR DUNN
--- NOTE | 2018-10-04 10:07 | PN ---
Progress Note (short form) - Note Progress Note: Chief Complaint: Events noted, notes reviewed, dyspnea persists but improved, reports cough productive of clear sputum, denies any chest discomfort History of Present Illness: Seen and examined on telemetry. Events noted, notes reviewed, dyspnea persists but improved, reports cough productive of clear sputum, denies any chest discomfort Echocardiogram 07/03/2018 revealed normal LV size and systolic function, LVEF 55 -60%, mild LAE, mild ao root dilatation 4.2 cm, impaired LV relaxation Echocardiography (12/08/17) revealed normal LV systolic function, LVEF 60-65%, moderately dilated ascending thoracic aorta, mild TR and trace VA. Nuclear MPI (08/20/16) revealed moderate zone of anterior and brian-apical reversible defect c/s mild intensity ischemia and moderate inferior attenuation , LVEF was 71%. - Current Medication List Current Medications Al Hydroxide/Mg Hydroxide (Mylanta Oral Suspension -) 30 ml PO BID PRN PRN Reason: epigastric pain Last Admin: 10/03/18 09:04 Dose: 30 ml Albuterol Sulfate (Ventolin 0.042trength) -) 1 amp NEB Q6H PRN PRN Reason: SHORT OF BREATH/WHEEZING Azithromycin (Zithromax -) 250 mg PO MOWEFR [facility] Last Admin: 10/02/18 14:23 Dose: 250 mg Budesonide/Formoterol Fumarate (Symbicort 160/4.5mcg -) 2 puff IH BID [facility] Last Admin: 10/03/18 21:30 Dose: 2 puff Diltiazem HCl (Cardizem Cd -) 120 mg PO DAILY [facility] Last Admin: 10/03/18 09:05 Dose: 120 mg Fluconazole (Diflucan -) 200 mg PO DAILY [facility] Last Admin: 10/03/18 09:04 Dose: 200 mg Hydrocortisone (Hytone 1% Lotion -) 1 applic TP Q12H PRN PRN Reason: itching Ipratropium [place] (Atrovent 0.02% Nebulizer -) 1 amp NEB RQID [facility] Last Admin: 10/03/18 20:44 Dose: 1 amp Lactobacillus Acidophilus (Bacid -) 1 tab PO DAILY [facility] Last Admin: 10/03/18 09:04 Dose: 1 tab Levalbuterol HCl (Xopenex) 0.31 mg IH RTID [facility] Last Admin: 10/03/18 20:45 Dose: Not Given Lidocaine/Aluminum/Magnesium/Simeth (Magic Mouthwash *Sjr Formula* -) 5 ml MM Q6HPO [facility] Last Admin: 10/04/18 06:54 Dose: Not Given Mupirocin (Bactroban 2% Ointment -) 1 applic TP TID [facility] Last Admin: 10/04/18 06:51 Dose: 1 applic Nystatin (Nystatin Oral Suspension -) 500,000 units PO Q6HPO [facility] Last Admin: 10/04/18 06:51 Dose: 500,000 units Pantoprazole Sodium (Protonix -) 40 mg PO DAILY [facility] Last Admin: 10/03/18 09:04 Dose: 40 mg Polyethylene Glycol (Miralax (For Daily Use) -) 17 gm PO DAILY [facility] Last Admin: 10/03/18 12:33 Dose: 17 gm Potassium Phos/Sodium Phos (Phos-Nak Packet -) 1 packet PO BID [facility] Last Admin: 10/03/18 21:30 Dose: 1 packet Prednisone (Deltasone -) 40 mg PO DAILY [facility] Last Admin: 10/03/18 09:05 Dose: 40 mg Psyllium Hydrophilic Mucilloid (Metamucil (Sugar-Free) -) 5.85 gm PO DAILY [facility] Last Admin: 10/03/18 09:04 Dose: 5.85 gm Sertraline HCl (Zoloft -) 25 mg PO DAILY [facility] Last Admin: 10/03/18 09:04 Dose: 25 mg Valsartan (Diovan -) 80 mg PO DAILY [facility] Last Admin: 10/03/18 09:04 Dose: 80 mg Zolpidem Tartrate (Ambien -) 5 mg PO HS PRN PRN Reason: INSOMNIA Last Admin: 10/03/18 22:42 Dose: 5 mg Review of Systems Constitutional: denies Chills or Fever Respiratory: reports Cough and Sputum Production Cardiovascular: As noted above Gastrointestinal: denies Nausea, Vomiting, Diarrhea, Constipation or Abdominal Pain Genitourinary: No Symptoms Reported Musculoskeletal: No Symptoms Reported - Objective Vital Signs: Last Vital Signs Temp Pulse Resp BP Pulse Ox 98.2 F 79 20 135/76 97 10/04/18 05:00 10/04/18 05:00 10/04/18 05:00 10/04/18 05:00 10/04/18 05:30 Intake & Output 10/01/18 10/02/18 10/03/18 10/04/18 23:59 23:59 23:59 23:59 Intake Total 730 920 380 120 Output Total 2640 773 2176 550 Balance -550 154 -8790 -842 Neck: Supple Negative JVD No Bruit Cardiovascular: S1 S2 Irregularly Irregular Respiratory: Diminished Breath Sounds at the Bases Scattered Rhonchi Gastrointestinal: Soft Benign Normal Bowel Sounds Ext: Bilateral Ankle Edema Labs: CBC, BMP 10/02/18 10:00 10/02/18 10:15 Hepatic Panel Total Bilirubin 0.3 mg/dL (0.2-1) 10/02/18 10:15 AST 20 U/L (15-37) 10/02/18 10:15 ALT 28 U/L (13-61) 10/02/18 10:15 Alkaline Phosphatase 111 U/L (45-117) 10/02/18 10:15 Albumin 2.2 g/dl (3.4-5.0) L 10/02/18 10:15 Assessment/Plan ASSESSMENT: 1. Acute on chronic hypercapneic/hypoxemic respiratory failure requiring mechanical ventilation post extubation related to 2. COPD exacerbation and 3. Right lower lobe pneumonia (HAP), resolving 4. CAD coronary artery calcification/visual calcification on CT scan of the chest July 03, 2018 abnormal MPI study August 20, 2016 angina pectoris 5. Diastolic LV dysfunction with clinical class 0 NYHA classification LV failure 6. Paroxysmal atrial fibrillation [id number] score of 4 (refused DOAC or Coumadin) 7. HTN 8. Recent UGI bleed secondary to bleeding duodenal ulcer post intervention 9. Anemia 10. History of MRSA colonization PLAN: 1. Steroids and bronchodilators as per the pulmonary team 2. Continue antibiotics as per the primary team 3. Continue Cardizem CD 4. Continue Diovan 5. Continue to hold ASA 6. Utilize diuretics as needed 7. As outlined in prior notes ideally anticoagulation is recommended considering the above noted [id number] score of 4, but patient has declined- along with recent UGI bleed- relatively contraindicated, option of proceeding with FILI closure device as an alternative to A/C- outpatient intervention 8. Additional cardiovascular evaluation as outpatient including nuclear MPI once clinically improved 9. Monitor Hg and transfuse as needed maintaining Hg equal or > 8.0 Bam Vidal M.D.
--- NOTE | 2018-10-04 10:47 | PN ---
Progress Note, Physician - Current Medication List Current Medications: Active Medications Al Hydroxide/Mg Hydroxide (Mylanta Oral Suspension -) 30 ml PO BID PRN PRN Reason: epigastric pain Last Admin: 10/03/18 09:04 Dose: 30 ml Albuterol Sulfate (Ventolin 0.042trength) -) 1 amp NEB Q6H PRN PRN Reason: SHORT OF BREATH/WHEEZING Azithromycin (Zithromax -) 250 mg PO MOWEFR [facility] Last Admin: 10/02/18 14:23 Dose: 250 mg Budesonide/Formoterol Fumarate (Symbicort 160/4.5mcg -) 2 puff IH BID [facility] Last Admin: 10/03/18 21:30 Dose: 2 puff Diltiazem HCl (Cardizem Cd -) 120 mg PO DAILY [facility] Last Admin: 10/03/18 09:05 Dose: 120 mg Fluconazole (Diflucan -) 200 mg PO DAILY [facility] Last Admin: 10/03/18 09:04 Dose: 200 mg Hydrocortisone (Hytone 1% Lotion -) 1 applic TP Q12H PRN PRN Reason: itching Ipratropium [place] (Atrovent 0.02% Nebulizer -) 1 amp NEB RQID [facility] Last Admin: 10/03/18 20:44 Dose: 1 amp Lactobacillus Acidophilus (Bacid -) 1 tab PO DAILY [facility] Last Admin: 10/03/18 09:04 Dose: 1 tab Levalbuterol HCl (Xopenex) 0.31 mg IH RTID [facility] Last Admin: 10/03/18 20:45 Dose: Not Given Lidocaine/Aluminum/Magnesium/Simeth (Magic Mouthwash *Sjr Formula* -) 5 ml MM Q6HPO [facility] Last Admin: 10/04/18 06:54 Dose: Not Given Mupirocin (Bactroban 2% Ointment -) 1 applic TP TID [facility] Last Admin: 10/04/18 06:51 Dose: 1 applic Nystatin (Nystatin Oral Suspension -) 500,000 units PO Q6HPO [facility] Last Admin: 10/04/18 06:51 Dose: 500,000 units Pantoprazole Sodium (Protonix -) 40 mg PO DAILY [facility] Last Admin: 10/03/18 09:04 Dose: 40 mg Polyethylene Glycol (Miralax (For Daily Use) -) 17 gm PO DAILY [facility] Last Admin: 10/03/18 12:33 Dose: 17 gm Potassium Phos/Sodium Phos (Phos-Nak Packet -) 1 packet PO BID [facility] Last Admin: 10/03/18 21:30 Dose: 1 packet Prednisone (Deltasone -) 40 mg PO DAILY [facility] Last Admin: 10/03/18 09:05 Dose: 40 mg Psyllium Hydrophilic Mucilloid (Metamucil (Sugar-Free) -) 5.85 gm PO DAILY [facility] Last Admin: 10/03/18 09:04 Dose: 5.85 gm Sertraline HCl (Zoloft -) 25 mg PO DAILY [facility] Last Admin: 10/03/18 09:04 Dose: 25 mg Valsartan (Diovan -) 80 mg PO DAILY [facility] Last Admin: 10/03/18 09:04 Dose: 80 mg Zolpidem Tartrate (Ambien -) 5 mg PO HS PRN PRN Reason: INSOMNIA Last Admin: 10/03/18 22:42 Dose: 5 mg - Objective Vital Signs: Vital Signs Temperature 98.2 F 10/04/18 05:00 Pulse Rate 79 10/04/18 05:00 Respiratory Rate 20 10/04/18 05:00 Blood Pressure 135/76 10/04/18 05:00 O2 Sat by Pulse Oximetry (%) 97 10/04/18 05:30 Cardiovascular: Yes: S1, S2 Respiratory: Yes: Regular, CTA Bilaterally Gastrointestinal: Yes: Normal Bowel Sounds, Soft Edema: No Labs: CBC, BMP 10/02/18 10:00 10/02/18 10:15 INR, PTT INR 1.08 (0.83-1.09) 09/29/18 05:35 Problem List - Problems (1) Acute and chronic respiratory failure with hypoxia Assessment/Plan: - keep on NC as tolerated - BiPAP settings: IPAP 14/EPAP 7/R16/FiO2 40%, use as needed at night in the setting of probably GENE - On Atrovent qid and albuterol 0.42 qid prn - On Symbicort bid - continue prednisone to 40mg daily > Oral steroid taper with GI protection - encourage incentive spirometry - On vanco day 10 - OOB - will likely need outpatient eval of sleep apnea Code(s): J96.21 - ACUTE AND CHRONIC RESPIRATORY FAILURE WITH HYPOXIA (2) Anemia Assessment/Plan: - Anemia in patient with history of recent GI bleed - Hgb monitor - Continue to monitor for evidence of bleeding - Dr. Ramos consult noted - protein studies, cytometry, hemoglobin studies - bone marrow biopsy to be done outpatient Code(s): D64.9 - ANEMIA, UNSPECIFIED Qualifiers: Iron deficiency anemia type: chronic blood loss (3) COPD with acute exacerbation Assessment/Plan: steroids and nebs Code(s): J44.1 - CHRONIC OBSTRUCTIVE PULMONARY DISEASE W (ACUTE) EXACERBATION (4) AF (paroxysmal atrial fibrillation) Assessment/Plan: -NO AC DUE TO GI BLEED AND PT REFUSAL -CARDIO ON BOARD Code(s): I48.0 - PAROXYSMAL ATRIAL FIBRILLATION (5) Pneumonia Assessment/Plan: -Off abx - probiotics - ID following, appreciate recommendations -Prevnar 13 Code(s): J18.9 - PNEUMONIA, UNSPECIFIED ORGANISM Qualifiers: Laterality: right Lung location: lower lobe of lung (6) Hypertension Assessment/Plan: -Controlled Code(s): I10 - ESSENTIAL (PRIMARY) HYPERTENSION Qualifiers: Hypertension type: essential hypertension Qualified Code(s): I10 - Essential (primary) hypertension (7) Constipation Assessment/Plan: -Increase miralax bid -dulcolox sup Code(s): K59.00 - CONSTIPATION, UNSPECIFIED Assessment/Plan dc planning--Arturo
[2018-10-04] MEDS: PSYLLIUM 5.85 GM PACKET PO SCH (11:01)
[2018-10-04] MEDS: NAPH,MB-DB/K PH,MBDB POWDER PACKET PO SCH ×2 (11:01→22:36)
[2018-10-04] MEDS: SERTRALINE HCL 25 MG TABLET (FP) PO SCH (11:01)
[2018-10-04] MEDS ORDERED: BISACODYL 10 MG SUPP.RECT PR ONE (11:01)
[2018-10-04] MEDS: LACTOBACILLUS ACIDOPHILUS 1 TABLET PO SCH (11:01)
[2018-10-04] MEDS: predniSONE 20 MG TABLET (UD) PO SCH (11:02)
[2018-10-04] MEDS: VALSARTAN 80 MG TABLET (UD) PO SCH (11:02)
[2018-10-04] MEDS: PANTOPRAZOLE 40 MG TABLET (FP) PO SCH (11:02)
[2018-10-04] MEDS: BUDESONIDE/FORMETEROL FUMARATE 160/4.5 mcg INHALER IH SCH ×2 (11:05→22:35)
[2018-10-04] MEDS: FLUCONAZOLE 100 MG TABLET (UD) PO SCH (20:16)
[2018-10-04] MEDS: POLYETHYLENE GLYCOL 3350 119 GM BTL PO SCH ×2 (20:16→22:38)
[2018-10-04] MEDS: ZOLPIDEM TARTRATE 5 MG TABLET PO PRN (22:36)
[2018-10-05] MEDS: NYSTATIN 500,000 UNITS/5 ML SUSPENSION PO SCH ×3 (00:08→11:10)
[2018-10-05] MEDS: MAG HYDROX/ALH/SMC/DPHA/LIDO 240 ML MOUTHWASH MM SCH ×3 (00:09→11:10)
[2018-10-05] MEDS: LEVALBUTEROL HCL 0.31 MG/3 ML VIAL.NEB IH SCH (08:27)
[2018-10-05] MEDS: IPRATROPIUM BR 0.02% 0.5 MG/2.5 ML VIAL.NEB. NEB SCH (08:27)
--- NOTE | 2018-10-05 09:23 | DS ---
Physical Examination Vital Signs: Vital Signs Temperature 98.7 F 10/05/18 08:41 Pulse Rate 99 H 10/05/18 08:41 Respiratory Rate 20 10/05/18 08:41 Blood Pressure 148/87 10/05/18 08:41 O2 Sat by Pulse Oximetry (%) 92 L 10/05/18 05:20 Cardiovascular: Yes: S1, S2 Respiratory: Yes: Regular, CTA Bilaterally Gastrointestinal: Yes: Normal Bowel Sounds, Soft Labs: CBC, BMP 10/02/18 10:00 10/02/18 10:15 Discharge Summary Reason For Visit: CHRONIC OBSTRUCTIVE PULMONARY DISEASE Current Active Problems Acute and chronic respiratory failure with hypoxia (Acute) Anemia (Acute) CAD (coronary artery disease) (Acute) COPD with acute exacerbation (Acute) Chest pain (Acute) Constipation (Acute) Diastolic CHF (Acute) Intubation of airway performed without difficulty (Acute) Thrush, oral (Acute) Hospital Course: - Problems (1) Acute and chronic respiratory failure with hypoxia Assessment/Plan: - keep on NC as tolerated - BiPAP settings: IPAP 14/EPAP 7/R16/FiO2 40%, use as needed at night in the setting of probably GENE - On Atrovent qid and albuterol 0.42 qid prn - On Symbicort bid - continue prednisone to 40mg daily > Oral steroid taper with GI protection - encourage incentive spirometry - On - OOB - will likely need outpatient eval of sleep apnea Code(s): J96.21 - ACUTE AND CHRONIC RESPIRATORY FAILURE WITH HYPOXIA (2) Anemia Assessment/Plan: - Anemia in patient with history of recent GI bleed - Hgb monitor - Continue to monitor for evidence of bleeding - Dr. Ramos consult noted - protein studies, cytometry, hemoglobin studies - bone marrow biopsy to be done outpatient Code(s): D64.9 - ANEMIA, UNSPECIFIED Qualifiers: Iron deficiency anemia type: chronic blood loss (3) COPD with acute exacerbation Assessment/Plan: steroids and nebs Code(s): J44.1 - CHRONIC OBSTRUCTIVE PULMONARY DISEASE W (ACUTE) EXACERBATION (4) AF (paroxysmal atrial fibrillation) Assessment/Plan: -NO AC DUE TO GI BLEED AND PT REFUSAL -CARDIO ON BOARD Code(s): I48.0 - PAROXYSMAL ATRIAL FIBRILLATION (5) Pneumonia Assessment/Plan: - Off abx - probiotics - ID following, appreciate recommendations -Prevnar 13 Code(s): J18.9 - PNEUMONIA, UNSPECIFIED ORGANISM Qualifiers: Laterality: right Lung location: lower lobe of lung (6) Hypertension Assessment/Plan: Controlled Code(s): I10 - ESSENTIAL (PRIMARY) HYPERTENSION Qualifiers: Hypertension type: essential hypertension Qualified Code(s): I10 - Essential (primary) hypertension (7) Constipation Assessment/Plan: -Increase miralax bid -dulcolox sup Code(s): K59.00 - CONSTIPATION, UNSPECIFIED Assessment/Plan dc planning--Morris Condition: Improved - Instructions Disposition: TRANSFER ACUTE CARE/OTHER HOSP - Home Medications Comprehensive Discharge Medication List: Ambulatory Orders Acetaminophen [Tylenol .Regular Strength -] 650 mg PO Q6H PRN #90 tablet Diltiazem Cd [Cardizem Cd -] 120 mg PO DAILY #30 cap.cd.24h 12/21/13 Aspirin [ASA -] 81 mg PO DAILY #30 tab.chew 04/08/14 Albuterol 2.5/Ipratropium 0.5 [Duoneb -] 1 amp NEB RQID #120 amp 07/08/18 Budesonide/Formeterol Fumarate [SYMBICORT 160/4.5mcg -] 2 puff IH BID inhaler 07/29/18 Enoxaparin [Lovenox -] 40 mg SQ DAILY disp.syrin 07/29/18 Nystatin Oral Suspension - [Nystatin Oral Susp 568427 Units/5 ML -] 500,000 units PO Q6HPO cup 07/29/18 Lactobacillus Acidophilus [Bacid -] 1 tab PO DAILY tab 10/05/18 Mag Hydrox/Al Hydrox/Simeth [Mylanta Oral Suspension -] 30 ml PO BID PRN cup Mag Hydrox/Alh/Smc/Dpha/Lido [Magic Mouthwash *Sjr Formula* -] 5 ml MM Q6HPO bottle 10/05/18 Mupirocin Ointment [Bactroban 2% Ointment -] 1 applic TP TID applic 10/05/18 Naph,Mb-Db/K pH,Mbdb [PHOS-NaK PACKET -] 1 packet PO BID pow 10/05/18 Nystatin Oral Suspension - [Nystatin Oral Susp 940834 Units/5 ML -] 500,000 units PO Q6HPO cup 10/05/18 Pantoprazole Sodium [Protonix -] 40 mg PO DAILY tablet.ec 10/05/18 Polyethylene Glycol 3350 [Miralax 119 gm Btl -] 17 gm PO BID bottle 10/05/18 Psyllium [Metamucil (Sugar-Free) -] 5.85 gm PO DAILY packet 10/05/18 Sertraline HCl [Zoloft -] 25 mg PO DAILY tablet 10/05/18 Valsartan [Diovan] 80 mg PO DAILY tablet 10/05/18 Zolpidem Tartrate [Ambien] 5 mg PO HS PRN tablet MDD 1 10/05/18 predniSONE [Deltasone -] 40 mg PO DAILY tablet 10/05/18
--- NOTE | 2018-10-05 09:39 | PN ---
Progress Note, Physician Chief Complaint: Events noted Receiving bronchodilator therapy History of Present Illness: Patient was seen and examined. Awake and alert. Chart was reviewed Dyspnea persists but improved. Denies chest pain or palpitations - Current Medication List Current Medications: Active Medications Al Hydroxide/Mg Hydroxide (Mylanta Oral Suspension -) 30 ml PO BID PRN PRN Reason: epigastric pain Last Admin: 10/03/18 09:04 Dose: 30 ml Albuterol Sulfate (Ventolin 0.042trength) -) 1 amp NEB Q6H PRN PRN Reason: SHORT OF BREATH/WHEEZING Azithromycin (Zithromax -) 250 mg PO MOWEFR [facility] Last Admin: 10/02/18 14:23 Dose: 250 mg Budesonide/Formoterol Fumarate (Symbicort 160/4.5mcg -) 2 puff IH BID [facility] Last Admin: 10/04/18 22:35 Dose: 2 puff Diltiazem HCl (Cardizem Cd -) 120 mg PO DAILY [facility] Last Admin: 10/04/18 11:01 Dose: 120 mg Hydrocortisone (Hytone 1% Lotion -) 1 applic TP Q12H PRN PRN Reason: itching Ipratropium [place] (Atrovent 0.02% Nebulizer -) 1 amp NEB RQID [facility] Last Admin: 10/05/18 08:27 Dose: 1 amp Lactobacillus Acidophilus (Bacid -) 1 tab PO DAILY [facility] Last Admin: 10/04/18 11:01 Dose: 1 tab Levalbuterol HCl (Xopenex) 0.31 mg IH RTID [facility] Last Admin: 10/05/18 08:27 Dose: 0.31 mg Lidocaine/Aluminum/Magnesium/Simeth (Magic Mouthwash *Sjr Formula* -) 5 ml MM Q6HPO [facility] Last Admin: 10/05/18 00:09 Dose: 5 ml Mupirocin (Bactroban 2% Ointment -) 1 applic TP TID [facility] Last Admin: 10/04/18 22:36 Dose: 1 applic Nystatin (Nystatin Oral Suspension -) 500,000 units PO Q6HPO [facility] Last Admin: 10/05/18 00:08 Dose: 500,000 units Pantoprazole Sodium (Protonix -) 40 mg PO DAILY [facility] Last Admin: 10/04/18 11:02 Dose: 40 mg Polyethylene Glycol (Miralax (For Daily Use) -) 17 gm PO BID [facility] Last Admin: 10/04/18 22:38 Dose: Not Given Potassium Phos/Sodium Phos (Phos-Nak Packet -) 1 packet PO BID [facility] Last Admin: 10/04/18 22:36 Dose: 1 packet Prednisone (Deltasone -) 40 mg PO DAILY [facility] Last Admin: 10/04/18 11:02 Dose: 40 mg Psyllium Hydrophilic Mucilloid (Metamucil (Sugar-Free) -) 5.85 gm PO DAILY [facility] Last Admin: 10/04/18 11:01 Dose: 5.85 gm Sertraline HCl (Zoloft -) 25 mg PO DAILY [facility] Last Admin: 10/04/18 11:01 Dose: 25 mg Valsartan (Diovan -) 80 mg PO DAILY [facility] Last Admin: 10/04/18 11:02 Dose: 80 mg Zolpidem Tartrate (Ambien -) 5 mg PO HS PRN PRN Reason: INSOMNIA Last Admin: 10/04/18 22:36 Dose: 5 mg - Objective Vital Signs: Vital Signs Temperature 98.7 F 10/05/18 08:41 Pulse Rate 99 H 10/05/18 08:41 Respiratory Rate 20 10/05/18 08:41 Blood Pressure 148/87 10/05/18 08:41 O2 Sat by Pulse Oximetry (%) 92 L 10/05/18 05:20 Eyes: Yes: PERRL HENT: Yes: Atraumatic Neck: Yes: Supple Cardiovascular: Yes: Regular Rate and Rhythm, S1, S2 Respiratory: Yes: Diminished Gastrointestinal: Yes: Normal Bowel Sounds, Soft. No: Tenderness Edema: Yes Edema: LLE: Trace, RLE: Trace Additional Findings/Remarks: Review of Systems Constitutional: denies: Chills or Fever Cardiovascular: denies: chest pain, palpitations (+) SOB Respiratory: (+) Cough, sputum, denies: hemoptysis Gastrointestinal: denies: Nausea, Vomiting, Diarrhea, Constipation or Abdominal Pain Genitourinary: denies: Dysuria Musculoskeletal: denies: Joint Pain Neurological: denies: Dizziness or Headache denies: seizure, syncope Labs: CBC, BMP 10/02/18 10:00 10/02/18 10:15 Problem List - Problems (1) Acute and chronic respiratory failure with hypoxia Code(s): J96.21 - ACUTE AND CHRONIC RESPIRATORY FAILURE WITH HYPOXIA (2) Anemia Code(s): D64.9 - ANEMIA, UNSPECIFIED Qualifiers: Iron deficiency anemia type: chronic blood loss (3) CAD (coronary artery disease) Code(s): I25.10 - ATHSCL HEART DISEASE OF [place] CORONARY ARTERY W/O ANG PCTRS Qualifiers: Coronary Disease-Associated Artery/Lesion type: [place] artery [place] vs. transplanted heart: [place] heart Associated angina: without angina Qualified Code(s): I25.10 - Atherosclerotic heart disease of [place] coronary artery without angina pectoris (4) COPD with acute exacerbation Code(s): J44.1 - CHRONIC OBSTRUCTIVE PULMONARY DISEASE W (ACUTE) EXACERBATION (5) Diastolic CHF Code(s): I50.30 - UNSPECIFIED DIASTOLIC (CONGESTIVE) HEART FAILURE Qualifiers: Heart failure chronicity: acute on chronic Qualified Code(s): I50.33 - Acute on chronic diastolic (congestive) heart failure (6) AF (paroxysmal atrial fibrillation) Code(s): I48.0 - PAROXYSMAL ATRIAL FIBRILLATION (7) Acute kidney injury superimposed on CKD Code(s): N17.9 - ACUTE KIDNEY FAILURE, UNSPECIFIED; N18.9 - CHRONIC KIDNEY DISEASE, UNSPECIFIED (8) Chronic respiratory failure with hypoxia Code(s): J96.11 - CHRONIC RESPIRATORY FAILURE WITH HYPOXIA (9) Pneumonia Code(s): J18.9 - PNEUMONIA, UNSPECIFIED ORGANISM Qualifiers: Pneumonia type: due to unspecified organism Laterality: right Lung location: lower lobe of lung Qualified Code(s): J18.1 - Lobar pneumonia, unspecified organism (10) Respiratory failure with hypoxia Code(s): J96.91 - RESPIRATORY FAILURE, UNSPECIFIED WITH HYPOXIA Qualifiers: Chronicity: acute on chronic Qualified Code(s): J96.21 - Acute and chronic respiratory failure with hypoxia (11) Sepsis Code(s): A41.9 - SEPSIS, UNSPECIFIED ORGANISM (12) Hypertension Code(s): I10 - ESSENTIAL (PRIMARY) HYPERTENSION Qualifiers: Hypertension type: essential hypertension Qualified Code(s): I10 - Essential (primary) hypertension Assessment/Plan 1. Acute on chronic hypercapneic/hypoxemic respiratory failure requiring mechanical ventilation remains extubated 2. COPD exacerbation 3. Right lower lobe pneumonia, resolving 4. CAD coronary artery calcification, angina pectoris 5. Diastolic LV dysfunction with clinical class 0 NYHA classification LV failure 6. Paroxysmal atrial fibrillation [id number] score of 4 (refused DOAC or Coumadin) 7. HTN 8. Recent UGI bleed secondary to bleeding duodenal ulcer post intervention 9. Anemia 10. History of MRSA colonization PLAN: 1. Steroids and bronchodilators 2. Continue antibiotics coverage 3. Continue Cardizem CD 4. Continue Diovan 5. ASA if not contraindicated 6. Utilize diuretics as needed 7. As outlined in prior notes ideally anticoagulation is recommended considering the above noted [id number] score of 4, but patient continues to decline - along with history of UGI bleed - relatively contraindicated, option of proceeding with FILI closure device as an alternative to A/C if agreeable 8. Additional cardiovascular evaluation as outpatient including nuclear MPI once clinically improved 9. Monitor Hg and transfuse as needed maintaining Hgb equal or > 8.0 Follow up in the office eventually Garrett Alcantar MD
[2018-10-05] MEDS: VALSARTAN 80 MG TABLET (UD) PO SCH (09:55)
[2018-10-05] MEDS: SERTRALINE HCL 25 MG TABLET (FP) PO SCH (09:55)
[2018-10-05] MEDS: predniSONE 20 MG TABLET (UD) PO SCH (09:55)
[2018-10-05] MEDS: LACTOBACILLUS ACIDOPHILUS 1 TABLET PO SCH (09:55)
[2018-10-05] MEDS: PANTOPRAZOLE 40 MG TABLET (FP) PO SCH (09:56)
[2018-10-05] MEDS: MUPIROCIN 2% TOPICAL OINTMENT 22 GM TUBE TP SCH (09:57)
[2018-10-05] MEDS: NAPH,MB-DB/K PH,MBDB POWDER PACKET PO SCH (09:58)
[2018-10-05] MEDS: PSYLLIUM 5.85 GM PACKET PO SCH (09:58)
[2018-10-05] MEDS: POLYETHYLENE GLYCOL 3350 119 GM BTL PO SCH (09:58)
[2018-10-05] MEDS: BUDESONIDE/FORMETEROL FUMARATE 160/4.5 mcg INHALER IH SCH (10:05)
--- NOTE | 2018-10-05 11:03 | PN ---
Progress Note, Physician History of Present Illness: pulmonary alert,comfortable,-resp distress,on nasal cannula - Current Medication List Current Medications: Active Medications Al Hydroxide/Mg Hydroxide (Mylanta Oral Suspension -) 30 ml PO BID PRN PRN Reason: epigastric pain Last Admin: 10/03/18 09:04 Dose: 30 ml Albuterol Sulfate (Ventolin 0.042trength) -) 1 amp NEB Q6H PRN PRN Reason: SHORT OF BREATH/WHEEZING Azithromycin (Zithromax -) 250 mg PO MOWEFR [facility] Last Admin: 10/02/18 14:23 Dose: 250 mg Budesonide/Formoterol Fumarate (Symbicort 160/4.5mcg -) 2 puff IH BID [facility] Last Admin: 10/05/18 10:05 Dose: 2 puff Diltiazem HCl (Cardizem Cd -) 120 mg PO DAILY [facility] Last Admin: 10/05/18 09:54 Dose: 120 mg Hydrocortisone (Hytone 1% Lotion -) 1 applic TP Q12H PRN PRN Reason: itching Ipratropium Alto (Atrovent 0.02% Nebulizer -) 1 amp NEB RQID [facility] Last Admin: 10/05/18 08:27 Dose: 1 amp Lactobacillus Acidophilus (Bacid -) 1 tab PO DAILY [facility] Last Admin: 10/05/18 09:55 Dose: 1 tab Levalbuterol HCl (Xopenex) 0.31 mg IH RTID [facility] Last Admin: 10/05/18 08:27 Dose: 0.31 mg Lidocaine/Aluminum/Magnesium/Simeth (Magic Mouthwash *Sjr Formula* -) 5 ml MM Q6HPO [facility] Last Admin: 10/05/18 09:57 Dose: 5 ml Mupirocin (Bactroban 2% Ointment -) 1 applic TP TID [facility] Last Admin: 10/05/18 09:57 Dose: 1 applic Nystatin (Nystatin Oral Suspension -) 500,000 units PO Q6HPO [facility] Last Admin: 10/05/18 09:57 Dose: 500,000 units Pantoprazole Sodium (Protonix -) 40 mg PO DAILY [facility] Last Admin: 10/05/18 09:56 Dose: 40 mg Polyethylene Glycol (Miralax (For Daily Use) -) 17 gm PO BID [facility] Last Admin: 10/05/18 09:58 Dose: Not Given Potassium Phos/Sodium Phos (Phos-Nak Packet -) 1 packet PO BID [facility] Last Admin: 10/05/18 09:58 Dose: 1 packet Prednisone (Deltasone -) 40 mg PO DAILY [facility] Last Admin: 10/05/18 09:55 Dose: 40 mg Psyllium Hydrophilic Mucilloid (Metamucil (Sugar-Free) -) 5.85 gm PO DAILY [facility] Last Admin: 10/05/18 09:58 Dose: 5.85 gm Sertraline HCl (Zoloft -) 25 mg PO DAILY [facility] Last Admin: 10/05/18 09:55 Dose: 25 mg Valsartan (Diovan -) 80 mg PO DAILY [facility] Last Admin: 10/05/18 09:55 Dose: 80 mg Zolpidem Tartrate (Ambien -) 5 mg PO HS PRN PRN Reason: INSOMNIA Last Admin: 10/04/18 22:36 Dose: 5 mg - Objective Vital Signs: Vital Signs Temperature 98.7 F 10/05/18 08:41 Pulse Rate 99 H 10/05/18 08:41 Respiratory Rate 20 10/05/18 08:41 Blood Pressure 148/87 10/05/18 08:41 O2 Sat by Pulse Oximetry (%) 92 L 10/05/18 05:20 Constitutional: Yes: Well Nourished, Calm Eyes: Yes: WNL HENT: Yes: WNL Neck: Yes: WNL Cardiovascular: Yes: Regular Rate and Rhythm, S1, S2 Respiratory: Yes: CTA Bilaterally Gastrointestinal: Yes: Normal Bowel Sounds, Soft Extremities: Yes: WNL Edema: No Labs: CBC, BMP Problem List - Problems (1) Anemia Code(s): D64.9 - ANEMIA, UNSPECIFIED Qualifiers: Iron deficiency anemia type: chronic blood loss (2) COPD with acute exacerbation Code(s): J44.1 - CHRONIC OBSTRUCTIVE PULMONARY DISEASE W (ACUTE) EXACERBATION (3) AF (paroxysmal atrial fibrillation) Code(s): I48.0 - PAROXYSMAL ATRIAL FIBRILLATION (4) Pneumonia Code(s): J18.9 - PNEUMONIA, UNSPECIFIED ORGANISM Qualifiers: Pneumonia type: due to unspecified organism Laterality: right Lung location: lower lobe of lung Qualified Code(s): J18.1 - Lobar pneumonia, unspecified organism (5) Shortness of breath Code(s): R06.02 - SHORTNESS OF BREATH (6) Acute and chronic respiratory failure with hypoxia Code(s): J96.21 - ACUTE AND CHRONIC RESPIRATORY FAILURE WITH HYPOXIA Assessment/Plan ASSESSMENT AND PLAN: Acute on Chronic Hypoxic and Hypercapneic Respiratory Failure improved Pneumonia clinically improved Acute COPD Exacerbation improving CAD LV Diastolic Dysfunction Paroxysmal Atrial Fibrillation HTN Anemia - xopenex - inhaled bronchodilators - NIPPV as needed for increased respiratory distress - prednisone - inhaled bronchodilators standing and PRN - O2 to keep Spo2 >90% - rate controlled - pt declining anticoagulation - DVT prophylaxis - inpatient pulmonary rehab post discharge DR DUNN
[2018-10-05] MEDS: AZITHROMYCIN 250 MG TABLET PO SCH (13:05)
[2018-10-05 14:32] VITALS: BP 133/81; PULSE 107; TEMP 98.4
--- NOTE | 2018-10-06 09:36 | EKG ---
Test Reason : Blood Pressure : / mmHG Vent. Rate : 098 BPM Atrial Rate : 147 BPM P-R Int : 000 ms QRS Dur : 084 ms QT Int : 326 ms P-R-T Axes : 000 -27 055 degrees QTc Int : 416 ms NORMAL SINUS RHYTHM WITH SINUS ARRHYTHMIA WITH FREQUENT PREMATURE ATRIAL COMPLEXES POSSIBLE ANTERIOR INFARCT , AGE UNDETERMINED ABNORMAL ECG Confirmed by Daniel Cevallos MD ([id number]) on 10/06/2018 9:35:32 AM Referred By: Confirmed By:Daniel Cevallos MD
== END 2018-10-05 15:44 | DRG 208 ==
LOC: JER 20:58 → JERBED 22:07 → JICU 09-23 00:27 → J4S 09-30 21:21
PROVIDERS: ADMIT Family Medicine; ATTEND Family Medicine
PROC: 5A1935Z Respiratory Ventilation, Less than 24 Consecutive Hours (ICD-10-PCS; principal; 2018-09-22)
PROC: 0BH17EZ Insertion of Endotracheal Airway into Trachea, Via Natural or Artificial Opening (ICD-10-PCS; 2018-09-22)
PROC: 30233N1 Transfusion of Nonautologous Red Blood Cells into Peripheral Vein, Percutaneous Approach (ICD-10-PCS; 2018-09-25)
DX: J96.21 Acute and chronic respiratory failure with hypoxia (principal); J18.9 Pneumonia, unspecified organism; I50.33 Acute on chronic diastolic (congestive) heart failure; J44.1 Chronic obstructive pulmonary disease with (acute) exacerbation; B37.0 Candidal stomatitis; D64.9 Anemia, unspecified; I48.0 Paroxysmal atrial fibrillation; K59.00 Constipation, unspecified; J96.22 Acute and chronic respiratory failure with hypercapnia; I25.10 Atherosclerotic heart disease of native coronary artery without angina pectoris; R07.9 Chest pain, unspecified; I11.0 Hypertensive heart disease with heart failure
CPT/HCPCS: 36415; 36430; 36511; 36600; 71045-TC-FY; 80048; 80053; 80061; 81003; 82272; 82550; 82607; 82746; 82784; 82803; 83021; 83516; 83540; 83550; 83605; 83615; 83721; 83735; 83880; 83883; 84100; 84155; 84165; 84436; 84439; 84443; 84484; 85025; 85027; 85044; 85610; 85660; 85730; 86850; 86900; 86901; 86922; 87040; 87070; 87086; 87186; 87205; 87899; 90670; 93005; 93010; 94002; 94640; 94660; 97116-GP; 97162-GP; 99285-25; G0480; J0131; J1439; J7030; P9038; P9058

== ENCOUNTER 2020-04-26 08:43 | Inpatient (IN) | payer OTHER, MEDICARE ==
[2020-04-26] MEDS ORDERED: RAPID SEQUENCE INTUBATION KIT NR ONE (08:54)
[2020-04-26] MEDS ORDERED: methylPREDNISolone NA SUCC 125 MG/2 ML VIAL IVPB ONE (08:59)
[2020-04-26] MEDS ORDERED: ALBUTEROL SO4 2.5/IPRATROPIUM 0.5 INH SOL 3 ML VIAL.NEB. NEB ONE ×3 (08:59→20:06)
[2020-04-26] MEDS ORDERED: dilTIAZem HCL 125 MG/25 ML - 25 ML VIAL ONE (09:04)
[2020-04-26 09:18] LABS: ARTERIAL BLD GAS O2 SATURATION 96.3 mmHg (95-98); ARTERIAL BLOOD GAS BASE EXCESS 3.3 mmol/L (-2-2); ARTERIAL BLOOD GAS PO2 94.8 mmHg (80-100); ARTERIAL BLOOD GAS pH 7.303 (7.350-7.450)
[2020-04-26 09:24] VITALS: BMI 27.2
[2020-04-26] MEDS ORDERED: dilTIAZem HCL 50 MG/10 ML - 10 ML VIAL IVPUSH ONE ×2 (09:33→09:48)
[2020-04-26] MEDS ORDERED: VANCOMYCIN HCL 1,500 MG in DEXTROSE 5%-WATER - 500 ML IVPB ONE (09:37)
[2020-04-26] MEDS ORDERED: CEFTRIAXONE 1,000 MG in DEXTROSE 5%-WATER - 50 ML IVPB ONE (09:38)
[2020-04-26 09:42] LABS: BASO % 0.2 % (0-2.0); EOS % 0.3 % (0-4.5); HEMATOCRIT 46.4 % (35.4-49); HEMOGLOBIN 15.1 GM/dL (11.7-16.9); LYMPH % 28.5 % (8-40); MCH 30.6 pg (25.7-33.7); MCHC 32.5 g/dl (32.0-35.9); MEAN CELL VOLUME 94.1 fl (80-96); MEAN PLT VOLUME 8.1 fl (7.5-11.1); MONO % 2.9 % (3.8-10.2); NEUT % 68.1 % (42.8-82.8); PLATELET COUNT 254 K/MM3 (134-434); RBC 4.93 M/mm3 (4.00-5.60); RDW 16.3 % (11.9-15.9); WHITE BLOOD COUNT 19.5 K/mm3 (4.0-10.0)
[2020-04-26] MEDS ORDERED: SODIUM CHLORIDE 500 ML IV STA (09:48)
[2020-04-26] MEDS ORDERED: VANCOMYCIN 1 GRAM (PRE-DOCKED) 1,000 MG/250 ML BAG IVPB ONE (09:55)
[2020-04-26] MEDS ORDERED: VANCOMYCIN 500 MG VIAL (RESTRICTED TO ID ONLY) ONE (09:55)
[2020-04-26] MEDS ORDERED: CEFTRIAXONE 1 GM/50 ML BAG ONE (09:55)
[2020-04-26] MEDS ORDERED: VANCOMYCIN PREMIX 1.5 GM 1,500 MG/300 ML BAG IVPB ONE (10:00)
[2020-04-26 10:06] LABS: CHLORIDE 99 mmol/L (98-107); SODIUM 132 mmol/L (136-145)
[2020-04-26 10:10] LABS: ALBUMIN 3.2 g/dl (3.4-5.0); BLOOD UREA NITROGEN 25.2 mg/dL (7-18); CO2 35 mmol/L (21-32); GLUCOSE,RANDOM 106 mg/dL (74-106)
[2020-04-26 10:13] LABS: CREATININE 1.4 mg/dL (0.55-1.3)
[2020-04-26 10:14] LABS: TOT PROT 8.7 g/dl (6.4-8.2)
[2020-04-26 10:15] LABS: ALK PHOS 114 U/L (45-117)
[2020-04-26 10:48] LABS: ANION GAP -1 MMOL/L (8-16); LDH 1395 U/L (87-246); POTASSIUM > 10.0 mmol/L (3.5-5.1); SGOT/AST 134 U/L (15-37); SGPT/ALT 32 U/L (13-61)
[2020-04-26] MEDS ORDERED: dilTIAZem HCL 30 MG TABLET PO ONE (10:54)
[2020-04-26] MEDS ORDERED: dilTIAZem HCL 30 MG TABLET ONE (12:08)
[2020-04-26 12:15] LABS: POTASSIUM 4.3 mmol/L (3.5-5.1)
[2020-04-26 12:17] LABS: CALCIUM 8.5 mg/dL (8.5-10.1)
[2020-04-26 12:18] LABS: BLOOD UREA NITROGEN 26.9 mg/dL (7-18)
[2020-04-26 12:21] LABS: CREATININE 1.4 mg/dL (0.55-1.3)
[2020-04-26 12:22] LABS: BILIRUBIN,TOTAL 0.6 mg/dL (0.2-1)
[2020-04-26 12:24] LABS: TOT PROT 6.3 g/dl (6.4-8.2)
[2020-04-26] MEDS: HEPARIN NA (PORCINE) 5,000 UNITS/ML 1ML VIAL SQ SCH ×2 (15:00→18:35)
[2020-04-26] MEDS ORDERED: HEPARIN NA (PORCINE) 5,000 UNITS/ML 1ML VIAL ONE (15:08)
[2020-04-26] MEDS ORDERED: ALBUTEROL SO4 2.5/IPRATROPIUM 0.5 INH SOL 3 ML VIAL.NEB. NEB SCH (16:00)
[2020-04-26] MEDS: methylPREDNISolone NA SUCC 40 MG/1 ML VIAL IVPUSH SCH (18:30)
[2020-04-26] MEDS ORDERED: methylPREDNISolone NA SUCC 40 MG/1 ML VIAL ONE (18:36)
[2020-04-26] MEDS: ALBUTEROL SO4 2.5/IPRATROPIUM 0.5 INH SOL 3 ML VIAL.NEB. NEB SCH ×2 (18:58→20:13)
[2020-04-26] MEDS: BUDESONIDE/FORMETEROL FUMARATE 160/4.5 mcg INHALER IH SCH (23:18)
[2020-04-27] MEDS: methylPREDNISolone NA SUCC 40 MG/1 ML VIAL IVPUSH SCH ×3 (01:49→18:42)
[2020-04-27] MEDS: HEPARIN NA (PORCINE) 5,000 UNITS/ML 1ML VIAL SQ SCH ×3 (01:50→18:43)
[2020-04-27 02:45] LABS: URINE APPEARANCE CLEAR; URINE BILIRUBIN NEGATIVE (NEGATIVE); URINE COLOR YELLOW; URINE GLUCOSE (UA) NEGATIVE (NEGATIVE); URINE KETONE NEGATIVE (NEGATIVE)
[2020-04-27 02:46] LABS: URINE LEUK ESTERASE NEGATIVE (NEGATIVE); URINE NITRITE NEGATIVE (NEGATIVE); URINE PROTEIN 100 (NEGATIVE); URINE UROBILINOGEN 0.2 mg/dL (0.2-1.0)
[2020-04-27 02:47] LABS: HYALINE CASTS 0.38 /uL (0-3.1); URINE BACTERIA 95.5 /uL (0-1359)
[2020-04-27 06:59] LABS: BASO % 0.1 % (0-2.0); HEMOGLOBIN 12.9 GM/dL (11.7-16.9); LYMPH % 3.5 % (8-40); MCH 30.2 pg (25.7-33.7); MCHC 32.3 g/dl (32.0-35.9); MEAN CELL VOLUME 93.4 fl (80-96); MEAN PLT VOLUME 8.2 fl (7.5-11.1); NEUT % 94.4 % (42.8-82.8); PLATELET COUNT 163 K/MM3 (134-434); RBC 4.28 M/mm3 (4.00-5.60); RDW 15.7 % (11.9-15.9); WHITE BLOOD COUNT 18.9 K/mm3 (4.0-10.0)
[2020-04-27 07:21] LABS: POTASSIUM 4.5 mmol/L (3.5-5.1)
[2020-04-27 07:28] LABS: CALCIUM 8.8 mg/dL (8.5-10.1)
[2020-04-27 07:29] LABS: BLOOD UREA NITROGEN 28.8 mg/dL (7-18); MAGNESIUM 2.2 mg/dL (1.8-2.4)
[2020-04-27 07:31] LABS: CREATININE 1.2 mg/dL (0.55-1.3)
[2020-04-27 07:33] LABS: BILIRUBIN,TOTAL 1.3 mg/dL (0.2-1); TOT PROT 6.6 g/dl (6.4-8.2)
[2020-04-27] MEDS: ALBUTEROL SO4 2.5/IPRATROPIUM 0.5 INH SOL 3 ML VIAL.NEB. NEB SCH ×3 (07:47→20:00)
[2020-04-27] MEDS: PANTOPRAZOLE 40 MG TABLET PO SCH (09:49)
[2020-04-27] MEDS: BUDESONIDE/FORMETEROL FUMARATE 160/4.5 mcg INHALER IH SCH ×2 (09:56→21:29)
[2020-04-27 10:22] LABS: ANISOCYTOSIS FEW; PLATELET ESTIMATE ADEQUATE
[2020-04-27] MEDS ORDERED: NYSTATIN 500,000 UNITS/5 ML SUSPENSION PO PRN (13:44)
[2020-04-27] MEDS ORDERED: DEXTROSE 5%-WATER - 50 ML IVPB ONE (15:05)
[2020-04-27] MEDS ORDERED: cefTRIAXone SODIUM 1 GM VIAL ONE (15:05)
[2020-04-27] MEDS: CEFTRIAXONE 1 GM in DEXTROSE 5%-WATER - 50 ML IVPB SCH (16:32)
[2020-04-27] MEDS ORDERED: ZOLPIDEM TARTRATE 5 MG TABLET PO PRN (18:57)
[2020-04-27] MEDS ORDERED: MELATONIN 5 MG TABLETS PO ONE (22:55)
[2020-04-28] MEDS: methylPREDNISolone NA SUCC 40 MG/1 ML VIAL IVPUSH SCH (01:05)
[2020-04-28] MEDS: HEPARIN NA (PORCINE) 5,000 UNITS/ML 1ML VIAL SQ SCH ×3 (01:05→17:58)
[2020-04-28] MEDS: ALBUTEROL SO4 2.5/IPRATROPIUM 0.5 INH SOL 3 ML VIAL.NEB. NEB SCH ×3 (07:25→20:10)
[2020-04-28] MEDS ORDERED: cefTRIAXone SODIUM 1 GM VIAL ONE (09:46)
[2020-04-28] MEDS ORDERED: DEXTROSE 5%-WATER - 50 ML IVPB ONE (09:46)
[2020-04-28] MEDS ORDERED: FUROSEMIDE 40 MG/4 ML INJECTABLE VIAL IVPUSH ONE (09:48)
[2020-04-28] MEDS ORDERED: PT OWN MED DRAWER 7, Y5N ONE (09:48)
[2020-04-28] MEDS: predniSONE 20 MG TABLET (UD) PO SCH (10:18)
[2020-04-28] MEDS: PANTOPRAZOLE 40 MG TABLET PO SCH (10:19)
[2020-04-28] MEDS: CEFTRIAXONE 1 GM in DEXTROSE 5%-WATER - 50 ML IVPB SCH (10:20)
[2020-04-28] MEDS: BUDESONIDE/FORMETEROL FUMARATE 160/4.5 mcg INHALER IH SCH ×2 (10:36→21:06)
[2020-04-28] MEDS ORDERED: MELATONIN 5 MG TABLETS PO ONE (21:11)
[2020-04-28] MEDS: ZOLPIDEM TARTRATE 5 MG TABLET PO PRN (22:23)
[2020-04-29] MEDS: HEPARIN NA (PORCINE) 5,000 UNITS/ML 1ML VIAL SQ SCH ×3 (01:11→17:58)
[2020-04-29] MEDS: ALBUTEROL SO4 2.5/IPRATROPIUM 0.5 INH SOL 3 ML VIAL.NEB. NEB SCH ×3 (07:30→20:22)
[2020-04-29] MEDS ORDERED: cefTRIAXone SODIUM 1 GM VIAL ONE (08:44)
[2020-04-29] MEDS ORDERED: DEXTROSE 5%-WATER - 50 ML IVPB ONE (08:45)
[2020-04-29] MEDS: predniSONE 20 MG TABLET (UD) PO SCH (09:03)
[2020-04-29] MEDS: PANTOPRAZOLE 40 MG TABLET PO SCH (09:04)
[2020-04-29] MEDS: BUDESONIDE/FORMETEROL FUMARATE 160/4.5 mcg INHALER IH SCH ×2 (09:04→21:47)
[2020-04-29] MEDS: FUROSEMIDE 20 MG TABLET (FP) PO SCH (09:04)
[2020-04-29] MEDS: CEFTRIAXONE 1 GM in DEXTROSE 5%-WATER - 50 ML IVPB SCH (09:04)
[2020-04-29] MEDS: BENZOCAINE/MENTH/CETYLPYRD CL 1 EACH LOZENGE MM PRN ×2 (09:40→14:01)
[2020-04-29 11:22] LABS: POTASSIUM 3.6 mmol/L (3.5-5.1)
[2020-04-29 11:30] LABS: ALBUMIN 2.8 g/dl (3.4-5.0); CALCIUM 8.7 mg/dL (8.5-10.1)
[2020-04-29 11:31] LABS: BLOOD UREA NITROGEN 40.6 mg/dL (7-18)
[2020-04-29 11:33] LABS: CREATININE 1.4 mg/dL (0.55-1.3)
[2020-04-29 11:35] LABS: BILIRUBIN,TOTAL 0.6 mg/dL (0.2-1)
[2020-04-29 11:36] LABS: TOT PROT 6.2 g/dl (6.4-8.2)
[2020-04-29 12:12] LABS: HEMOGLOBIN 12.9 GM/dL (11.7-16.9); MCH 30.1 pg (25.7-33.7); MCHC 32.4 g/dl (32.0-35.9); MEAN CELL VOLUME 92.8 fl (80-96); PLATELET COUNT 194 K/MM3 (134-434); RBC 4.31 M/mm3 (4.00-5.60); RDW 15.5 % (11.9-15.9); WHITE BLOOD COUNT 14.3 K/mm3 (4.0-10.0)
[2020-04-29] MEDS ORDERED: PT OWN MED DRAWER 7, Y5N ONE ×3 (13:46→17:40)
[2020-04-29] MEDS: CEFEPIME 2 GM in DEXTROSE 5%-WATER 2 GM/100 ML BAG IVPB SCH ×2 (13:55→17:58)
[2020-04-29] MEDS ORDERED: MELATONIN 5 MG TABLETS PO ONE (21:08)
[2020-04-29] MEDS: ZOLPIDEM TARTRATE 5 MG TABLET PO PRN (21:46)
[2020-04-30] MEDS ORDERED: PT OWN MED DRAWER 7, Y5N ONE (00:12)
[2020-04-30] MEDS: CEFEPIME 2 GM in DEXTROSE 5%-WATER 2 GM/100 ML BAG IVPB SCH ×2 (01:05→09:42)
[2020-04-30] MEDS: HEPARIN NA (PORCINE) 5,000 UNITS/ML 1ML VIAL SQ SCH ×2 (01:05→09:41)
[2020-04-30 07:06] VITALS: TEMP 97.9
[2020-04-30] MEDS: ALBUTEROL SO4 2.5/IPRATROPIUM 0.5 INH SOL 3 ML VIAL.NEB. NEB SCH (07:25)
[2020-04-30 08:05] LABS: HEMATOCRIT 38.4 % (35.4-49); HEMOGLOBIN 12.9 GM/dL (11.7-16.9); MCH 31.2 pg (25.7-33.7); MCHC 33.7 g/dl (32.0-35.9); MEAN CELL VOLUME 92.8 fl (80-96); MEAN PLT VOLUME 8.1 fl (7.5-11.1); PLATELET COUNT 168 K/MM3 (134-434); RBC 4.14 M/mm3 (4.00-5.60); RDW 15.5 % (11.9-15.9); WHITE BLOOD COUNT 9.7 K/mm3 (4.0-10.0)
[2020-04-30 08:13] LABS: ALBUMIN 2.7 g/dl (3.4-5.0); BLOOD UREA NITROGEN 38.3 mg/dL (7-18); CALCIUM 8.4 mg/dL (8.5-10.1)
[2020-04-30 08:17] LABS: CREATININE 1.3 mg/dL (0.55-1.3)
[2020-04-30 08:18] LABS: BILIRUBIN,TOTAL 0.6 mg/dL (0.2-1)
[2020-04-30] MEDS: BUDESONIDE/FORMETEROL FUMARATE 160/4.5 mcg INHALER IH SCH (09:38)
[2020-04-30] MEDS: FUROSEMIDE 20 MG TABLET (FP) PO SCH (09:41)
[2020-04-30] MEDS: PANTOPRAZOLE 40 MG TABLET PO SCH (09:41)
[2020-04-30] MEDS: predniSONE 20 MG TABLET (UD) PO SCH (09:41)
[2020-04-30 09:48] VITALS: BP 142/75; PULSE 90
== END 2020-04-30 11:57 | disposition left against medical advice (07) | DRG 177 ==
LOC: JER 08:43 → JERBED 11:21 → J4S 23:06
PROVIDERS: ADMIT Family Medicine; ATTEND Family Medicine
DX: J15.1 Pneumonia due to Pseudomonas (principal); J96.21 Acute and chronic respiratory failure with hypoxia; I50.33 Acute on chronic diastolic (congestive) heart failure; J44.1 Chronic obstructive pulmonary disease with (acute) exacerbation; I48.19 Other persistent atrial fibrillation; N17.9 Acute kidney failure, unspecified; I13.0 Hypertensive heart and chronic kidney disease with heart failure and stage 1 through stage 4 chronic kidney disease, or unspecified chronic kidney disease; J98.11 Atelectasis; J44.0 Chronic obstructive pulmonary disease with (acute) lower respiratory infection; J18.9 Pneumonia, unspecified organism; Z99.81 Dependence on supplemental oxygen; D64.9 Anemia, unspecified; I48.91 Unspecified atrial fibrillation; I25.10 Atherosclerotic heart disease of native coronary artery without angina pectoris; F41.9 Anxiety disorder, unspecified; E87.5 Hyperkalemia; N18.9 Chronic kidney disease, unspecified
CPT/HCPCS: 36415; 36600; 71045-TC-FY; 71250-TC; 80053; 80061; 81003; 82550; 82553; 82565; 82728; 82803; 83036; 83615; 83721; 83735; 83880; 84156; 84300; 84443; 84484; 84540; 85025; 85027; 86140; 87040; 87070; 87077; 87081; 87186; 87205; 87804; 93005; 93010; 94640; 94660; 99291; C9803; J1644; U0003

== ENCOUNTER 2020-07-27 11:08 | Inpatient (IN) | payer OTHER, MEDICARE ==
[2020-07-27] MEDS ORDERED: methylPREDNISolone NA SUCC 125 MG/2 ML VIAL IVPUSH ONE (11:13)
[2020-07-27] MEDS ORDERED: ALBUTEROL SO4 2.5/IPRATROPIUM 0.5 INH SOL 3 ML VIAL.NEB. NEB ONE (11:13)
[2020-07-27] MEDS ORDERED: MAGNESIUM SULF 50% (8.12 MEQ/2 ML-1 GM VIAL) IVPB ONE (11:32)
[2020-07-27 12:00] LABS: INR 0.99 (0.83-1.09); PROTHROMBIN TIME (PATIENT) 12.2 SEC (9.7-13.0)
[2020-07-27 12:03] LABS: ACTIVATED PTT 25.8 SECONDS (25.2-36.5); BASO % 0.1 % (0-2.0); HEMATOCRIT 41.3 % (35.4-49); HEMOGLOBIN 13.1 GM/dL (11.7-16.9); LYMPH % 2.2 % (8-40); MCHC 31.8 g/dl (32.0-35.9); MEAN CELL VOLUME 91.4 fl (80-96); MEAN PLT VOLUME 7.7 fl (7.5-11.1); MONO % 2.2 % (3.8-10.2); NEUT % 95.5 % (42.8-82.8); PLATELET COUNT 136 10^3/uL (134-434); RBC 4.52 M/mm3 (4.00-5.60); RDW 16.2 % (11.9-15.9); WHITE BLOOD COUNT 29.5 K/mm3 (4.0-10.0)
[2020-07-27 12:18] LABS: MAGNESIUM 1.9 mg/dL (1.8-2.4)
[2020-07-27 12:20] LABS: ALBUMIN 3.4 g/dl (3.4-5.0); CALCIUM 8.7 mg/dL (8.5-10.1)
[2020-07-27 12:21] LABS: BLOOD UREA NITROGEN 29.9 mg/dL (7-18)
[2020-07-27 12:24] LABS: CREATININE 1.3 mg/dL (0.55-1.3)
[2020-07-27 12:28] LABS: ANISOCYTOSIS 0; HELMET CELLS 0; HOWELL-JOLLY BODIES 0; MACROCYTOSIS 0; N-TERMINAL BNP 3913.6 pg/ml (5-450); OVALOCYTE 0; PLATELET ESTIMATE DECREASED; ROULEAU 0; SICKELED CELLS 0; TARGET CELLS 0; TEAR DROP CELLS 0; TOXIC GRANULATION 0
[2020-07-27] MEDS ORDERED: MAGNESIUM SULFATE IN WATER 2 GM/50 ML IVPB IVPB ONE (12:34)
[2020-07-27] MEDS ORDERED: VANCOMYCIN 1 GM in D5W (PRE-DOCKED) 1,000 MG/250 ML IVPB ONE (15:08)
[2020-07-27] MEDS ORDERED: AZITHROMYCIN IVPB 500 MG in DEXTROSE 5%-WATER - 250 ML IVPB ONE (15:09)
[2020-07-27] MEDS ORDERED: PIPERACILLIN/TAZOB 4.5 GM 4.5 GM in DEXTROSE 5%-WATER 100 ML IVPB ONE (15:09)
[2020-07-27] MEDS ORDERED: PIPERACILLIN/TAZOB 4.5 GM 4.5 GM/100 ML BAG IVPB ONE (15:56)
[2020-07-27] MEDS ORDERED: VANCOMYCIN 1 GRAM (PRE-DOCKED) 1,000 MG/250 ML BAG IVPB ONE (15:57)
[2020-07-27] MEDS ORDERED: AZITHROMYCIN IVPB 500 MG/250 ML BAG IVPB ONE (15:57)
[2020-07-27] MEDS ORDERED: ALBUTEROL SO4 0.083% IH SOL 2.5 MG/3 ML VIAL.NEB. NEB ONE ×2 (18:12→18:35)
[2020-07-27 21:51] VITALS: BMI 28.5
[2020-07-28] MEDS ORDERED: ALBUTEROL SO4 2.5/IPRATROPIUM 0.5 INH SOL 3 ML VIAL.NEB. NEB PRN (00:50)
[2020-07-28] MEDS: methylPREDNISolone NA SUCC 125 MG/2 ML VIAL IVPUSH SCH ×2 (02:15→09:34)
[2020-07-28] MEDS ORDERED: DEXTROSE 5%-WATER 100 ML IVPB ONE ×2 (02:16→09:33)
[2020-07-28] MEDS ORDERED: PIPERACILLIN/TAZOBACTAM 4.5 GM VIAL IVPB ONE ×2 (02:16→09:32)
[2020-07-28] MEDS: PIPERACILLIN/TAZOB 4.5 GM 4.5 GM in DEXTROSE 5%-WATER 100 ML IVPB SCH ×3 (02:36→20:38)
[2020-07-28] MEDS ORDERED: DOCUSATE SODIUM 100 MG CAPSULE (FP) PO PRN (08:34)
[2020-07-28] MEDS: FUROSEMIDE 40 MG/4 ML INJECTABLE VIAL IVPUSH SCH (09:37)
[2020-07-28] MEDS: oxyCODONE HCL 5 MG TABLET PO PRN ×2 (09:37→17:56)
[2020-07-28] MEDS: PANTOPRAZOLE 40 MG TABLET PO SCH (09:37)
[2020-07-28] MEDS: ACETAMINOPHEN 325 MG TABLET (FP) PO PRN ×2 (09:41→17:55)
[2020-07-28] MEDS: VANCOMYCIN 1 GRAM (PRE-DOCKED) 1,000 MG/250 ML BAG IVPB SCH ×2 (12:06→23:00)
[2020-07-28] MEDS: ALBUTEROL SO4 0.083% IH SOL 2.5 MG/3 ML VIAL.NEB. NEB PRN (13:00)
[2020-07-28] MEDS: methylPREDNISolone NA SUCC 40 MG/1 ML VIAL IVPUSH SCH ×2 (14:51→21:37)
[2020-07-28] MEDS: ALBUTEROL SO4 2.5/IPRATROPIUM 0.5 INH SOL 3 ML VIAL.NEB. NEB SCH ×2 (16:22→20:32)
[2020-07-28] MEDS ORDERED: PT OWN MED DRAWER 7, Y5N ONE (17:47)
[2020-07-28] MEDS: CEFEPIME 2 GM in DEXTROSE 5%-WATER 2 GM/100 ML BAG IVPB SCH (17:51)
[2020-07-29] MEDS: CEFEPIME 2 GM in DEXTROSE 5%-WATER 2 GM/100 ML BAG IVPB SCH ×3 (01:20→17:54)
[2020-07-29] MEDS: methylPREDNISolone NA SUCC 40 MG/1 ML VIAL IVPUSH SCH ×4 (02:16→20:18)
[2020-07-29] MEDS: ALBUTEROL SO4 2.5/IPRATROPIUM 0.5 INH SOL 3 ML VIAL.NEB. NEB SCH ×4 (08:00→19:50)
[2020-07-29] MEDS: PANTOPRAZOLE 40 MG TABLET PO SCH (09:04)
[2020-07-29] MEDS: FUROSEMIDE 40 MG/4 ML INJECTABLE VIAL IVPUSH SCH (09:59)
[2020-07-29] MEDS: VANCOMYCIN 1 GRAM (PRE-DOCKED) 1,000 MG/250 ML BAG IVPB SCH ×2 (09:59→23:53)
[2020-07-29] MEDS: oxyCODONE HCL 5 MG TABLET PO PRN (14:05)
[2020-07-29] MEDS: ACETAMINOPHEN 325 MG TABLET (FP) PO PRN (14:09)
[2020-07-29] MEDS: ALBUTEROL SO4 HFA INHALER IH PRN (16:10)
[2020-07-29] MEDS ORDERED: PT OWN MED DRAWER 7, Y5N ONE (17:48)
[2020-07-30] MEDS ORDERED: PT OWN MED DRAWER 7, Y5N ONE ×3 (01:55→18:06)
[2020-07-30] MEDS: methylPREDNISolone NA SUCC 40 MG/1 ML VIAL IVPUSH SCH ×4 (02:02→21:21)
[2020-07-30] MEDS: CEFEPIME 2 GM in DEXTROSE 5%-WATER 2 GM/100 ML BAG IVPB SCH ×3 (02:02→18:11)
[2020-07-30] MEDS: ALBUTEROL SO4 2.5/IPRATROPIUM 0.5 INH SOL 3 ML VIAL.NEB. NEB SCH ×4 (07:15→20:35)
[2020-07-30] MEDS: oxyCODONE HCL 5 MG TABLET PO PRN ×2 (07:15→13:14)
[2020-07-30] MEDS: FUROSEMIDE 40 MG/4 ML INJECTABLE VIAL IVPUSH SCH (09:35)
[2020-07-30] MEDS: PANTOPRAZOLE 40 MG TABLET PO SCH (09:36)
[2020-07-30] MEDS: ACETAMINOPHEN 325 MG TABLET (FP) PO PRN (09:36)
[2020-07-30] MEDS: VANCOMYCIN 1 GRAM (PRE-DOCKED) 1,000 MG/250 ML BAG IVPB SCH (13:17)
[2020-07-30] MEDS ORDERED: ALPRAZolam 0.25 MG TABLET PO PRN (13:20)
[2020-07-31] MEDS: CEFEPIME 2 GM in DEXTROSE 5%-WATER 2 GM/100 ML BAG IVPB SCH ×3 (02:36→17:46)
[2020-07-31] MEDS: methylPREDNISolone NA SUCC 40 MG/1 ML VIAL IVPUSH SCH ×4 (03:36→21:31)
[2020-07-31] MEDS ORDERED: ALPRAZolam 0.25 MG TABLET PO ONE (05:11)
[2020-07-31] MEDS: ACETAMINOPHEN 325 MG TABLET (FP) PO PRN ×2 (05:29→16:24)
[2020-07-31] MEDS: ALBUTEROL SO4 2.5/IPRATROPIUM 0.5 INH SOL 3 ML VIAL.NEB. NEB SCH ×4 (07:45→20:19)
[2020-07-31] MEDS: oxyCODONE HCL 5 MG TABLET PO PRN ×3 (07:49→21:29)
[2020-07-31 07:54] LABS: CALCIUM 8.6 mg/dL (8.5-10.1)
[2020-07-31 07:58] LABS: CREATININE 1.6 mg/dL (0.55-1.3)
[2020-07-31 07:59] LABS: BILIRUBIN,TOTAL 0.9 mg/dL (0.2-1)
[2020-07-31 08:03] LABS: BLOOD UREA NITROGEN 58.3 mg/dL (7-18)
[2020-07-31] MEDS ORDERED: PT OWN MED DRAWER 7, Y5N ONE ×3 (09:41→17:45)
[2020-07-31] MEDS: LIDOCAINE 5% TOPICAL PATCH TP SCH (09:45)
[2020-07-31] MEDS: FUROSEMIDE 40 MG/4 ML INJECTABLE VIAL IVPUSH SCH (09:48)
[2020-07-31] MEDS: PANTOPRAZOLE 40 MG TABLET PO SCH (09:49)
[2020-07-31] MEDS: ALBUTEROL SO4 HFA INHALER IH PRN (10:00)
[2020-07-31] MEDS: ROFLUMILAST 500 MCG TABLET PO SCH (10:19)
[2020-07-31 19:06] LABS: EPI CELLS 6 /uL (0-25.1); HYALINE CASTS 1 /uL (0-3.1); PH,URINE 5.5 (5.0-8.0); URINE APPEARANCE CLEAR; URINE BACTERIA 134 /uL (0-1359); URINE BILIRUBIN NEGATIVE (NEGATIVE); URINE COLOR YELLOW; URINE GLUCOSE (UA) NEGATIVE (NEGATIVE); URINE KETONE NEGATIVE (NEGATIVE); URINE LEUK ESTERASE NEGATIVE (NEGATIVE); URINE NITRITE NEGATIVE (NEGATIVE); URINE PROTEIN 1+ (NEGATIVE); URINE RBC 16 /uL (0-23.9); URINE UROBILINOGEN 0.2 mg/dL (0.2-1.0); URINE WBC 7 /uL (0-25.8)
[2020-07-31] MEDS ORDERED: LIDOCAINE PATCH REMOVAL MC SCH (22:00)
[2020-08-01] MEDS: CEFEPIME 2 GM in DEXTROSE 5%-WATER 2 GM/100 ML BAG IVPB SCH ×3 (01:49→21:27)
[2020-08-01] MEDS: ALBUTEROL SO4 0.083% IH SOL 2.5 MG/3 ML VIAL.NEB. NEB PRN (02:23)
[2020-08-01] MEDS: methylPREDNISolone NA SUCC 40 MG/1 ML VIAL IVPUSH SCH ×4 (02:49→21:25)
[2020-08-01 06:26] LABS: ARTERIAL BLD GAS O2 SATURATION 96.5 mmHg (95-98); ARTERIAL BLOOD GAS BASE EXCESS 9.6 mmol/L (-2-2); ARTERIAL BLOOD GAS PO2 96.2 mmHg (80-100); ARTERIAL BLOOD GAS pH 7.325 (7.350-7.450)
[2020-08-01] MEDS: oxyCODONE HCL 5 MG TABLET PO PRN ×3 (06:31→19:56)
[2020-08-01] MEDS: ACETAMINOPHEN 325 MG TABLET (FP) PO PRN (06:32)
[2020-08-01 06:39] LABS: ALLENS TEST POSITIVE
[2020-08-01] MEDS: ALBUTEROL SO4 2.5/IPRATROPIUM 0.5 INH SOL 3 ML VIAL.NEB. NEB SCH ×4 (08:10→19:46)
[2020-08-01 08:57] LABS: HEMATOCRIT 40.7 % (35.4-49); HEMOGLOBIN 13.1 GM/dL (11.7-16.9); MCH 29.4 pg (25.7-33.7); MCHC 32.2 g/dl (32.0-35.9); MEAN CELL VOLUME 91.3 fl (80-96); MEAN PLT VOLUME 7.9 fl (7.5-11.1); PLATELET COUNT 152 10^3/uL (134-434); RBC 4.46 M/mm3 (4.00-5.60); RDW 15.9 % (11.9-15.9); WHITE BLOOD COUNT 9.7 K/mm3 (4.0-10.0)
[2020-08-01 09:16] LABS: BLOOD UREA NITROGEN 68.8 mg/dL (7-18); CALCIUM 8.1 mg/dL (8.5-10.1)
[2020-08-01 09:17] LABS: ALBUMIN 2.9 g/dl (3.4-5.0); MAGNESIUM 2.7 mg/dL (1.8-2.4)
[2020-08-01 09:20] LABS: CREATININE 1.7 mg/dL (0.55-1.3); PHOSPHOROUS 4.3 mg/dL (2.5-4.9)
[2020-08-01 09:21] LABS: BILIRUBIN,TOTAL 0.8 mg/dL (0.2-1); TOT PROT 6.7 g/dl (6.4-8.2)
[2020-08-01] MEDS ORDERED: PT OWN MED DRAWER 7, Y5N ONE ×2 (09:38→21:11)
[2020-08-01] MEDS: PANTOPRAZOLE 40 MG TABLET PO SCH (10:07)
[2020-08-01] MEDS: ROFLUMILAST 500 MCG TABLET PO SCH (10:08)
[2020-08-01] MEDS: FUROSEMIDE 40 MG/4 ML INJECTABLE VIAL IVPUSH SCH (10:08)
[2020-08-01] MEDS: LIDOCAINE 5% TOPICAL PATCH TP SCH (10:08)
[2020-08-01] MEDS: VANCOMYCIN 1 GRAM (PRE-DOCKED) 1,000 MG/250 ML BAG IVPB SCH (17:08)
[2020-08-01] MEDS ORDERED: DOCUSATE SODIUM 100 MG CAPSULE (FP) PO PRN (20:43)
[2020-08-01] MEDS ORDERED: ALBUTEROL SO4 HFA INHALER IH PRN (20:43)
[2020-08-01] MEDS ORDERED: ALBUTEROL SO4 0.083% IH SOL 2.5 MG/3 ML VIAL.NEB. NEB PRN (20:43)
[2020-08-01] MEDS: LIDOCAINE PATCH REMOVAL MC SCH (21:27)
[2020-08-02] MEDS: methylPREDNISolone NA SUCC 40 MG/1 ML VIAL IVPUSH SCH ×4 (02:20→21:11)
[2020-08-02] MEDS ORDERED: ALPRAZolam 0.25 MG TABLET PO ONE (02:36)
[2020-08-02] MEDS: ALBUTEROL SO4 2.5/IPRATROPIUM 0.5 INH SOL 3 ML VIAL.NEB. NEB SCH ×4 (08:23→21:00)
[2020-08-02] MEDS ORDERED: PT OWN MED DRAWER 7, Y5N ONE ×2 (09:06→20:51)
[2020-08-02] MEDS: ROFLUMILAST 500 MCG TABLET PO SCH (09:16)
[2020-08-02] MEDS: PANTOPRAZOLE 40 MG TABLET PO SCH (09:16)
[2020-08-02] MEDS: LIDOCAINE 5% TOPICAL PATCH TP SCH (09:17)
[2020-08-02] MEDS: CEFEPIME 2 GM in DEXTROSE 5%-WATER 2 GM/100 ML BAG IVPB SCH ×2 (09:17→21:11)
[2020-08-02] MEDS ORDERED: FUROSEMIDE 40 MG/4 ML INJECTABLE VIAL IVPUSH SCH (10:00)
[2020-08-02] MEDS: ALPRAZolam 0.25 MG TABLET PO PRN ×2 (11:49→22:01)
[2020-08-02] MEDS: VANCOMYCIN 1 GRAM (PRE-DOCKED) 1,000 MG/250 ML BAG IVPB SCH (17:25)
[2020-08-02] MEDS: ESCITALOPRAM OXALATE 10 MG TABLET PO SCH (17:45)
[2020-08-02] MEDS: LIDOCAINE PATCH REMOVAL MC SCH (21:11)
[2020-08-03] MEDS: oxyCODONE HCL 5 MG TABLET PO PRN ×3 (00:46→12:16)
[2020-08-03] MEDS: methylPREDNISolone NA SUCC 40 MG/1 ML VIAL IVPUSH SCH ×3 (03:32→21:44)
[2020-08-03] MEDS: ALBUTEROL SO4 2.5/IPRATROPIUM 0.5 INH SOL 3 ML VIAL.NEB. NEB SCH ×4 (07:40→20:00)
[2020-08-03] MEDS ORDERED: PT OWN MED DRAWER 7, Y5N ONE ×3 (08:25→21:28)
[2020-08-03] MEDS: ALPRAZolam 0.25 MG TABLET PO PRN (08:31)
[2020-08-03 09:28] LABS: BLOOD UREA NITROGEN 86.4 mg/dL (7-18)
[2020-08-03 09:31] LABS: CREATININE 1.9 mg/dL (0.55-1.3)
[2020-08-03] MEDS: ESCITALOPRAM OXALATE 10 MG TABLET PO SCH (09:41)
[2020-08-03] MEDS: ROFLUMILAST 500 MCG TABLET PO SCH (09:41)
[2020-08-03] MEDS: PANTOPRAZOLE 40 MG TABLET PO SCH (09:41)
[2020-08-03] MEDS: LIDOCAINE 5% TOPICAL PATCH TP SCH (09:41)
[2020-08-03] MEDS: CEFEPIME 2 GM in DEXTROSE 5%-WATER 2 GM/100 ML BAG IVPB SCH ×2 (09:42→21:44)
[2020-08-03] MEDS ORDERED: FUROSEMIDE 40 MG TABLET (FP) PO SCH (10:00)
[2020-08-03 17:49] LABS: EPI CELLS 16 /uL (0-25.1); HYALINE CASTS 1 /uL (0-3.1); PH,URINE 5.5 (5.0-8.0); URINE APPEARANCE CLEAR; URINE BACTERIA 7 /uL (0-1359); URINE BILIRUBIN NEGATIVE (NEGATIVE); URINE COLOR YELLOW; URINE GLUCOSE (UA) TRACE (NEGATIVE); URINE KETONE NEGATIVE (NEGATIVE); URINE LEUK ESTERASE NEGATIVE (NEGATIVE); URINE NITRITE NEGATIVE (NEGATIVE); URINE PROTEIN 2+ (NEGATIVE); URINE RBC 5 /uL (0-23.9); URINE UROBILINOGEN 0.2 mg/dL (0.2-1.0); URINE WBC 9 /uL (0-25.8)
[2020-08-03] MEDS: LIDOCAINE PATCH REMOVAL MC SCH (21:42)
[2020-08-04] MEDS: ALBUTEROL SO4 2.5/IPRATROPIUM 0.5 INH SOL 3 ML VIAL.NEB. NEB SCH ×4 (07:15→19:30)
[2020-08-04 09:15] LABS: CHLORIDE 92 mmol/L (98-107); SODIUM 138 mmol/L (136-145)
[2020-08-04 09:21] LABS: ANION GAP 9 MMOL/L (8-16); CALCIUM 8.3 mg/dL (8.5-10.1); CO2 37 mmol/L (21-32)
[2020-08-04 09:22] LABS: GLUCOSE,RANDOM 117 mg/dL (74-106)
[2020-08-04 09:23] LABS: CREATININE 2.5 mg/dL (0.55-1.3); SGOT/AST 15 U/L (15-37)
[2020-08-04 09:26] LABS: ALK PHOS 75 U/L (45-117); BILIRUBIN,TOTAL 0.6 mg/dL (0.2-1); TOT PROT 6.6 g/dl (6.4-8.2)
[2020-08-04 09:27] LABS: BLOOD UREA NITROGEN 116.8 mg/dL (7-18)
[2020-08-04 09:38] LABS: SGPT/ALT 45 U/L (13-61)
[2020-08-04] MEDS ORDERED: PT OWN MED DRAWER 7, Y5N ONE (09:38)
[2020-08-04] MEDS: LIDOCAINE 5% TOPICAL PATCH TP SCH ×2 (09:41→09:51)
[2020-08-04] MEDS: methylPREDNISolone NA SUCC 40 MG/1 ML VIAL IVPUSH SCH (09:42)
[2020-08-04] MEDS: PANTOPRAZOLE 40 MG TABLET PO SCH (09:42)
[2020-08-04] MEDS: ESCITALOPRAM OXALATE 10 MG TABLET PO SCH (09:42)
[2020-08-04] MEDS: ROFLUMILAST 500 MCG TABLET PO SCH (09:42)
[2020-08-04] MEDS: CEFEPIME 2 GM in DEXTROSE 5%-WATER 2 GM/100 ML BAG IVPB SCH (10:24)
[2020-08-04] MEDS ORDERED: SODIUM CHLORIDE 500 ML IV STA (10:32)
[2020-08-04] MEDS: NYSTATIN 500,000 UNITS/5 ML SUSPENSION PO SCH ×2 (14:22→17:26)
[2020-08-04] MEDS ORDERED: SODIUM CHLORIDE 1,000 ML IV SCH (14:45)
[2020-08-04 15:29] LABS: EPI CELLS 21 /uL (0-25.1); HYALINE CASTS 4 /uL (0-3.1); PH,URINE 5.5 (5.0-8.0); URINE APPEARANCE CLOUDY; URINE BACTERIA 11 /uL (0-1359); URINE BILIRUBIN NEGATIVE (NEGATIVE); URINE COLOR YELLOW; URINE GLUCOSE (UA) NEGATIVE (NEGATIVE); URINE KETONE NEGATIVE (NEGATIVE); URINE LEUK ESTERASE NEGATIVE (NEGATIVE); URINE NITRITE NEGATIVE (NEGATIVE); URINE PROTEIN 1+ (NEGATIVE); URINE RBC 9 /uL (0-23.9); URINE UROBILINOGEN 0.2 mg/dL (0.2-1.0); URINE WBC 15 /uL (0-25.8)
[2020-08-04 16:07] LABS: URINE CRYSTALS NON SEEN /hpf
[2020-08-04] MEDS: oxyCODONE HCL 5 MG TABLET PO PRN (18:42)
[2020-08-04] MEDS: predniSONE 20 MG TABLET (UD) PO SCH (22:21)
[2020-08-04] MEDS: LIDOCAINE PATCH REMOVAL MC SCH (22:23)
[2020-08-05] MEDS: NYSTATIN 500,000 UNITS/5 ML SUSPENSION PO SCH ×3 (01:01→17:24)
[2020-08-05] MEDS: ALPRAZolam 0.25 MG TABLET PO PRN (01:10)
[2020-08-05] MEDS: ALBUTEROL SO4 2.5/IPRATROPIUM 0.5 INH SOL 3 ML VIAL.NEB. NEB SCH ×4 (07:59→21:01)
[2020-08-05] MEDS ORDERED: PT OWN MED DRAWER 7, Y5N ONE (09:38)
[2020-08-05] MEDS: PANTOPRAZOLE 40 MG TABLET PO SCH (09:48)
[2020-08-05] MEDS: ESCITALOPRAM OXALATE 10 MG TABLET PO SCH (09:48)
[2020-08-05] MEDS: predniSONE 20 MG TABLET (UD) PO SCH ×2 (09:48→21:45)
[2020-08-05] MEDS: ROFLUMILAST 500 MCG TABLET PO SCH (09:48)
[2020-08-05 10:21] LABS: ALBUMIN 2.8 g/dl (3.4-5.0); BLOOD UREA NITROGEN 101.5 mg/dL (7-18); CALCIUM 8.2 mg/dL (8.5-10.1)
[2020-08-05 10:24] LABS: CREATININE 2.1 mg/dL (0.55-1.3)
[2020-08-05 10:27] LABS: BILIRUBIN,TOTAL 0.6 mg/dL (0.2-1); TOT PROT 6.1 g/dl (6.4-8.2)
[2020-08-05] MEDS: oxyCODONE HCL 5 MG TABLET PO PRN ×2 (11:42→17:37)
[2020-08-05] MEDS: LIDOCAINE 5% TOPICAL PATCH TP SCH (11:43)
[2020-08-05] MEDS ORDERED: SODIUM CHLORIDE 0.45% 1,000 ML IV SCH (15:00)
[2020-08-05] MEDS: LIDOCAINE PATCH REMOVAL MC SCH (21:48)
[2020-08-06] MEDS: NYSTATIN 500,000 UNITS/5 ML SUSPENSION PO SCH ×4 (01:10→17:11)
[2020-08-06] MEDS: oxyCODONE HCL 5 MG TABLET PO PRN (03:26)
[2020-08-06] MEDS: ALBUTEROL SO4 2.5/IPRATROPIUM 0.5 INH SOL 3 ML VIAL.NEB. NEB SCH ×4 (07:18→20:15)
[2020-08-06] MEDS: LIDOCAINE 5% TOPICAL PATCH TP SCH (09:14)
[2020-08-06] MEDS: ROFLUMILAST 500 MCG TABLET PO SCH (09:15)
[2020-08-06] MEDS: predniSONE 20 MG TABLET (UD) PO SCH ×2 (09:15→21:06)
[2020-08-06] MEDS: PANTOPRAZOLE 40 MG TABLET PO SCH (09:15)
[2020-08-06] MEDS: ESCITALOPRAM OXALATE 10 MG TABLET PO SCH (09:15)
[2020-08-06 09:31] LABS: CALCIUM 8.4 mg/dL (8.5-10.1)
[2020-08-06 09:32] LABS: ALBUMIN 2.8 g/dl (3.4-5.0); BLOOD UREA NITROGEN 93.8 mg/dL (7-18)
[2020-08-06 09:35] LABS: CREATININE 1.9 mg/dL (0.55-1.3)
[2020-08-06 09:40] LABS: BILIRUBIN,TOTAL 0.7 mg/dL (0.2-1)
[2020-08-06 09:54] LABS: HEMATOCRIT 38.2 % (35.4-49); HEMOGLOBIN 12.1 GM/dL (11.7-16.9); MCHC 31.7 g/dl (32.0-35.9); MEAN CELL VOLUME 91.5 fl (80-96); MEAN PLT VOLUME 8.5 fl (7.5-11.1); PLATELET COUNT 124 10^3/uL (134-434); RBC 4.17 M/mm3 (4.00-5.60); RDW 15.8 % (11.9-15.9)
[2020-08-06] MEDS ORDERED: SODIUM CHLORIDE 0.45% 1,000 ML IV SCH (13:45)
[2020-08-06] MEDS: ALPRAZolam 0.25 MG TABLET PO PRN (16:56)
[2020-08-06] MEDS: ACETAMINOPHEN 325 MG TABLET (FP) PO PRN (21:05)
[2020-08-06] MEDS: LIDOCAINE PATCH REMOVAL MC SCH (22:00)
[2020-08-07] MEDS: NYSTATIN 500,000 UNITS/5 ML SUSPENSION PO SCH ×4 (00:30→18:06)
[2020-08-07 07:29] LABS: HEMATOCRIT 36.4 % (35.4-49); HEMOGLOBIN 11.8 GM/dL (11.7-16.9); MCH 29.4 pg (25.7-33.7); MCHC 32.4 g/dl (32.0-35.9); MEAN CELL VOLUME 90.7 fl (80-96); MEAN PLT VOLUME 7.7 fl (7.5-11.1); PLATELET COUNT 117 10^3/uL (134-434); RBC 4.01 M/mm3 (4.00-5.60); RDW 15.9 % (11.9-15.9); WHITE BLOOD COUNT 9.1 K/mm3 (4.0-10.0)
[2020-08-07 07:34] LABS: CALCIUM 8.3 mg/dL (8.5-10.1)
[2020-08-07 07:35] LABS: ALBUMIN 2.8 g/dl (3.4-5.0); BLOOD UREA NITROGEN 77.8 mg/dL (7-18)
[2020-08-07 07:38] LABS: CREATININE 1.6 mg/dL (0.55-1.3)
[2020-08-07 07:40] LABS: BILIRUBIN,TOTAL 0.7 mg/dL (0.2-1)
[2020-08-07] MEDS: LIDOCAINE 5% TOPICAL PATCH TP SCH (10:06)
[2020-08-07] MEDS: predniSONE 20 MG TABLET (UD) PO SCH ×2 (10:07→21:18)
[2020-08-07] MEDS: PANTOPRAZOLE 40 MG TABLET PO SCH (10:07)
[2020-08-07] MEDS: ROFLUMILAST 500 MCG TABLET PO SCH (10:07)
[2020-08-07] MEDS: ESCITALOPRAM OXALATE 10 MG TABLET PO SCH (10:08)
[2020-08-07] MEDS: ALPRAZolam 0.25 MG TABLET PO PRN (12:08)
[2020-08-07] MEDS: oxyCODONE HCL 5 MG TABLET PO PRN (18:02)
[2020-08-07] MEDS: ACETAMINOPHEN 325 MG TABLET (FP) PO PRN (21:26)
[2020-08-07] MEDS: LIDOCAINE PATCH REMOVAL MC SCH (21:27)
[2020-08-08] MEDS: NYSTATIN 500,000 UNITS/5 ML SUSPENSION PO SCH ×3 (00:03→12:24)
[2020-08-08] MEDS: oxyCODONE HCL 5 MG TABLET PO PRN (00:04)
[2020-08-08 08:34] LABS: CALCIUM 8.2 mg/dL (8.5-10.1)
[2020-08-08 08:35] LABS: BLOOD UREA NITROGEN 76.5 mg/dL (7-18)
[2020-08-08 08:38] LABS: CREATININE 1.5 mg/dL (0.55-1.3)
[2020-08-08] MEDS: ROFLUMILAST 500 MCG TABLET PO SCH (10:04)
[2020-08-08] MEDS: predniSONE 20 MG TABLET (UD) PO SCH (10:04)
[2020-08-08] MEDS: LIDOCAINE 5% TOPICAL PATCH TP SCH ×2 (10:04→10:10)
[2020-08-08] MEDS: PANTOPRAZOLE 40 MG TABLET PO SCH (10:04)
[2020-08-08] MEDS: ESCITALOPRAM OXALATE 10 MG TABLET PO SCH (10:04)
[2020-08-08 13:27] VITALS: BP 158/98; PULSE 98; TEMP 98
[2020-08-08] MEDS ORDERED: ALBUTEROL SO4 2.5/IPRATROPIUM 0.5 INH SOL 3 ML VIAL.NEB. NEB ONE (15:15)
== END 2020-08-08 15:39 | disposition home health service (06) | DRG 189 ==
LOC: JER 11:08 → JERBED 14:32 → J2W 19:45 → J6S 07-31 18:43
PROVIDERS: ADMIT Family Medicine; ATTEND Family Medicine
DX: J96.21 Acute and chronic respiratory failure with hypoxia (principal); J18.9 Pneumonia, unspecified organism; J44.1 Chronic obstructive pulmonary disease with (acute) exacerbation; E87.2 Acidosis; I48.19 Other persistent atrial fibrillation; N17.8 Other acute kidney failure; I13.0 Hypertensive heart and chronic kidney disease with heart failure and stage 1 through stage 4 chronic kidney disease, or unspecified chronic kidney disease; I50.32 Chronic diastolic (congestive) heart failure; E87.3 Alkalosis; J96.22 Acute and chronic respiratory failure with hypercapnia; I25.10 Atherosclerotic heart disease of native coronary artery without angina pectoris; N18.9 Chronic kidney disease, unspecified; I48.91 Unspecified atrial fibrillation; D72.829 Elevated white blood cell count, unspecified; D64.9 Anemia, unspecified; M54.5 Low back pain; F17.210 Nicotine dependence, cigarettes, uncomplicated; E66.9 Obesity, unspecified; Z68.28 Body mass index [BMI] 28.0-28.9, adult; F41.9 Anxiety disorder, unspecified; Z99.81 Dependence on supplemental oxygen; Z87.11 Personal history of peptic ulcer disease; Z22.322 Carrier or suspected carrier of Methicillin resistant Staphylococcus aureus
CPT/HCPCS: 36415; 36600; 71045-TC-FY; 71250-TC; 76775-TC; 76856-TC; 80048; 80053; 81003; 82436; 82550; 82570; 82803; 82962; 83735; 83880; 84100; 84133; 84300; 84443; 84484; 85025; 85027; 85610; 85730; 87040; 87070; 87186; 87205; 87899; 93005; 93010; 94640; 94660; 97116-GP; 97162-GP; 99285-25; C9803; G0480; U0003; U0005

== ENCOUNTER 2020-08-14 01:43 | Inpatient (IN) | payer OTHER, MEDICARE ==
[2020-08-14] MEDS ORDERED: FUROSEMIDE 40 MG/4 ML INJECTABLE VIAL IVPUSH ONE ×4 (02:16→22:58)
[2020-08-14] MEDS ORDERED: methylPREDNISolone NA SUCC 125 MG/2 ML VIAL IVPB ONE (02:17)
[2020-08-14] MEDS ORDERED: ALBUTEROL SO4 2.5/IPRATROPIUM 0.5 INH SOL 3 ML VIAL.NEB. NEB ONE ×2 (02:19→04:24)
[2020-08-14] MEDS ORDERED: methylPREDNISolone NA SUCC 125 MG/2 ML VIAL ONE ×2 (04:24→09:00)
[2020-08-14 05:16] LABS: BASO % 0.2 % (0-2.0); HEMATOCRIT 35.9 % (35.4-49); HEMOGLOBIN 11.7 GM/dL (11.7-16.9); MCH 29.2 pg (25.7-33.7); MCHC 32.7 g/dl (32.0-35.9); MEAN CELL VOLUME 89.4 fl (80-96); MEAN PLT VOLUME 8.4 fl (7.5-11.1); MONO % 4.7 % (3.8-10.2); NEUT % 93.1 % (42.8-82.8); PLATELET COUNT 78 10^3/uL (134-434); RBC 4.02 M/mm3 (4.00-5.60); RDW 15.6 % (11.9-15.9); WHITE BLOOD COUNT 6.7 K/mm3 (4.0-10.0)
[2020-08-14 05:17] LABS: VENOUS BASE EXCESS 17.3 mmol/L (-2-2); VENOUS O2 SATURATION 95.9 % (70-80); VENOUS PH 7.36 (7.310-7.410)
[2020-08-14 05:19] LABS: VENOUS PCO2 84.8 mmHg (38-52)
[2020-08-14 05:31] LABS: INR 0.97 (0.83-1.09); PROTHROMBIN TIME (PATIENT) 11.7 SEC (9.7-13.0)
[2020-08-14 05:33] LABS: ACTIVATED PTT 22.8 SECONDS (25.2-36.5)
[2020-08-14 05:39] LABS: MAGNESIUM 2.9 mg/dL (1.8-2.4)
[2020-08-14 05:42] LABS: CREATININE 1.3 mg/dL (0.55-1.3)
[2020-08-14 05:44] LABS: TOT PROT 6.3 g/dl (6.4-8.2)
[2020-08-14] MEDS ORDERED: FUROSEMIDE 40 MG/4 ML INJECTABLE VIAL ONE (05:48)
[2020-08-14 05:50] LABS: BLOOD UREA NITROGEN 41.2 mg/dL (7-18)
[2020-08-14] MEDS ORDERED: ALBUTEROL SO4 HFA INHALER IH PRN (06:18)
[2020-08-14] MEDS: ALBUTEROL SO4 2.5/IPRATROPIUM 0.5 INH SOL 3 ML VIAL.NEB. NEB SCH ×4 (07:35→20:27)
[2020-08-14 08:33] LABS: ANISOCYTOSIS 0; HELMET CELLS 0; HOWELL-JOLLY BODIES 0; MACROCYTOSIS 0; OVALOCYTE 0; PLATELET ESTIMATE DECREASED; ROULEAU 0; SICKELED CELLS 0; TARGET CELLS 0; TEAR DROP CELLS 0; TOXIC GRANULATION 0
[2020-08-14] MEDS ORDERED: dilTIAZem HCL 60 MG TABLET ONE (08:58)
[2020-08-14] MEDS ORDERED: PANTOPRAZOLE 40 MG TABLET ONE (08:58)
[2020-08-14] MEDS ORDERED: ESCITALOPRAM OXALATE 10 MG TABLET ONE (08:59)
[2020-08-14] MEDS ORDERED: LIDOCAINE 5% TOPICAL PATCH ONE (09:00)
[2020-08-14] MEDS: methylPREDNISolone NA SUCC 40 MG/1 ML VIAL IVPUSH SCH ×3 (09:14→21:23)
[2020-08-14] MEDS: ESCITALOPRAM OXALATE 10 MG TABLET PO SCH (09:14)
[2020-08-14] MEDS: LIDOCAINE 5% TOPICAL PATCH TP SCH (09:14)
[2020-08-14] MEDS ORDERED: PANTOPRAZOLE 40 MG TABLET PO SCH (10:00)
[2020-08-14] MEDS ORDERED: ACETAMINOPHEN 325 MG TABLET (FP) PO PRN (10:42)
[2020-08-14] MEDS ORDERED: cefTRIAXone SODIUM 1 GM VIAL ONE (13:43)
[2020-08-14] MEDS ORDERED: DEXTROSE 5%-WATER - 50 ML IVPB ONE (13:43)
[2020-08-14] MEDS: PANTOPRAZOLE SODIUM 40 MG VIAL IVPUSH SCH (13:55)
[2020-08-14] MEDS: CEFTRIAXONE 1 GM in DEXTROSE 5%-WATER - 50 ML IVPB SCH (13:55)
[2020-08-14 14:00] LABS: ARTERIAL BLD GAS O2 SATURATION 96.7 mmHg (95-98); ARTERIAL BLOOD GAS BASE EXCESS 15.4 mmol/L (-2-2); ARTERIAL BLOOD GAS PO2 88.2 mmHg (80-100); ARTERIAL BLOOD GAS pH 7.439 (7.350-7.450)
[2020-08-14 14:01] LABS: ALLENS TEST POSITIVE
[2020-08-14] MEDS: ALPRAZolam 0.25 MG TABLET PO PRN ×2 (14:05→19:55)
[2020-08-14] MEDS ORDERED: oxyCODONE HCL 5 MG TABLET PO PRN (14:32)
[2020-08-14 14:58] LABS: URINE APPEARANCE Clear; URINE BILIRUBIN Negative (NEGATIVE); URINE COLOR Yellow; URINE GLUCOSE (UA) Negative (NEGATIVE); URINE KETONE Negative (NEGATIVE); URINE LEUK ESTERASE Negative (NEGATIVE); URINE NITRITE Negative (NEGATIVE); URINE PROTEIN 2+ (NEGATIVE); URINE UROBILINOGEN 0.2 mg/dL (0.2-1.0)
[2020-08-14] MEDS: MUPIROCIN 2% TOPICAL OINTMENT FOR DECOLONIZATION NS SCH (22:18)
[2020-08-14] MEDS: LIDOCAINE PATCH REMOVAL MC SCH (22:18)
[2020-08-14] MEDS: CHLORHEXIDINE GLUCONATE 4% CLEANSER FOR DECOLONIZATION TP SCH (22:18)
[2020-08-14] MEDS ORDERED: RAPID SEQUENCE INTUBATION KIT NR ONE (23:11)
[2020-08-14] MEDS ORDERED: PROPOFOL 1,000,000 MCG/100 ML VIAL IVPB SCH (23:30)
[2020-08-15] MEDS ORDERED: fentaNYL CITRATE 250 MCG/5 ML VIAL ONE (00:23)
[2020-08-15] MEDS: FENTANYL IVPB 500 MCG/100 ML BAG IVPB SCH ×2 (00:30→09:07)
[2020-08-15 00:47] LABS: ARTERIAL BLD GAS O2 SATURATION 95.8 mmHg (95-98); ARTERIAL BLOOD GAS BASE EXCESS 18.9 mmol/L (-2-2); ARTERIAL BLOOD GAS PO2 76.9 mmHg (80-100); ARTERIAL BLOOD GAS pH 7.483 (7.350-7.450)
[2020-08-15 00:48] LABS: ALLENS TEST POSITIVE; VENT MODE A/C
[2020-08-15 00:49] LABS: VENT RATE 20
[2020-08-15] MEDS ORDERED: VASOPRESSIN 20 UNITS/ML VIAL IV ONE (01:03)
[2020-08-15] MEDS ORDERED: VASOPRESSIN 40 UNITS in SODIUM CHLORIDE 98 ML IVPB SCH (01:30)
[2020-08-15] MEDS ORDERED: NOREPINEPHRINE NS PREMIX 16,000 MCG/500 ML BAG IVPB ONE (01:42)
[2020-08-15] MEDS: NOREPINEPHRINE BITARTRATE 16,000 MCG in SODIUM CHLORIDE 484 ML IV SCH (01:50)
[2020-08-15] MEDS: methylPREDNISolone NA SUCC 40 MG/1 ML VIAL IVPUSH SCH ×4 (03:21→21:34)
[2020-08-15 06:47] LABS: CALCIUM 7.5 mg/dL (8.5-10.1)
[2020-08-15 06:48] LABS: BLOOD UREA NITROGEN 56.3 mg/dL (7-18); MAGNESIUM 2.6 mg/dL (1.8-2.4)
[2020-08-15 06:52] LABS: BILIRUBIN,TOTAL 1.8 mg/dL (0.2-1)
[2020-08-15 06:59] LABS: ALBUMIN 2.2 g/dl (3.4-5.0); CREATININE 1.8 mg/dL (0.55-1.3)
[2020-08-15 07:40] LABS: BASO % 0.1 % (0-2.0); HEMATOCRIT 33.3 % (35.4-49); LYMPH % 4.7 % (8-40); MCH 29.4 pg (25.7-33.7); MEAN CELL VOLUME 89.1 fl (80-96); MEAN PLT VOLUME 8.9 fl (7.5-11.1); MONO % 1.8 % (3.8-10.2); NEUT % 93.4 % (42.8-82.8); PLATELET COUNT 77 10^3/uL (134-434); RBC 3.74 M/mm3 (4.00-5.60); RDW 15.9 % (11.9-15.9); WHITE BLOOD COUNT 5.2 K/mm3 (4.0-10.0)
[2020-08-15] MEDS ORDERED: cefTRIAXone SODIUM 1 GM VIAL ONE (09:00)
[2020-08-15] MEDS ORDERED: DEXTROSE 5%-WATER - 50 ML IVPB ONE ×3 (09:00→23:53)
[2020-08-15] MEDS: PANTOPRAZOLE SODIUM 40 MG VIAL IVPUSH SCH (09:02)
[2020-08-15] MEDS: MUPIROCIN 2% TOPICAL OINTMENT FOR DECOLONIZATION NS SCH ×2 (09:02→21:34)
[2020-08-15] MEDS: CEFTRIAXONE 1 GM in DEXTROSE 5%-WATER - 50 ML IVPB SCH (09:02)
[2020-08-15] MEDS: LIDOCAINE 5% TOPICAL PATCH TP SCH (09:08)
[2020-08-15 09:16] LABS: ARTERIAL BLD GAS O2 SATURATION 98.8 mmHg (95-98); ARTERIAL BLOOD GAS BASE EXCESS 13.3 mmol/L (-2-2); ARTERIAL BLOOD GAS PO2 141.8 mmHg (80-100); ARTERIAL BLOOD GAS pH 7.432 (7.350-7.450)
[2020-08-15 09:18] LABS: VENT MODE AC; VENT RATE 20
[2020-08-15] MEDS: ALBUTEROL SO4 2.5/IPRATROPIUM 0.5 INH SOL 3 ML VIAL.NEB. NEB SCH ×4 (09:23→20:43)
[2020-08-15] MEDS ORDERED: FUROSEMIDE 40 MG/4 ML INJECTABLE VIAL IVPUSH SCH (10:00)
[2020-08-15 10:09] LABS: ANISOCYTOSIS 0; HELMET CELLS 0; HOWELL-JOLLY BODIES 0; MACROCYTOSIS 0; OVALOCYTE 0; PLATELET ESTIMATE DECREASED; ROULEAU 0; SICKELED CELLS 0; TARGET CELLS 0; TEAR DROP CELLS 0; TOXIC GRANULATION 0
[2020-08-15] MEDS ORDERED: VANCOMYCIN 1 GM in D5W (PRE-DOCKED) 1,000 MG/250 ML IVPB ONE (10:41)
[2020-08-15] MEDS ORDERED: SODIUM CHLORIDE 1,000 ML IV SCH (10:45)
[2020-08-15] MEDS: ESCITALOPRAM OXALATE 10 MG TABLET PO SCH (11:00)
[2020-08-15] MEDS ORDERED: PIPERACILLIN/TAZOB 2.25 GM 2.25 GM in DEXTROSE 5%-WATER - 50 ML IVPB ONE ×3 (11:00)
[2020-08-15] MEDS: PROPOFOL 1,000,000 MCG/100 ML VIAL IVPB SCH (11:01)
[2020-08-15] MEDS ORDERED: ACETAMINOPHEN 325 MG TABLET (FP) NR PRN (11:20)
[2020-08-15] MEDS: DEXMEDETOMIDINE IN 0.9 % NACL 400 MCG/100 ML VIAL IVPB SCH (11:48)
[2020-08-15] MEDS: dilTIAZem HCL 30 MG TABLET NR SCH ×3 (12:28→23:27)
[2020-08-15 12:34] LABS: INR 1.22 (0.83-1.09); PROTHROMBIN TIME (PATIENT) 14.7 SEC (9.7-13.0)
[2020-08-15] MEDS ORDERED: PIPERACILLIN/TAZOBACTAM 2.25 GM VIAL IVPB ONE ×2 (17:10→23:53)
[2020-08-15] MEDS: PIPERACILLIN/TAZOB 2.25 GM 2.25 GM in DEXTROSE 5%-WATER - 50 ML IVPB SCH (17:29)
[2020-08-15] MEDS ORDERED: SODIUM CHLORIDE 0.9% 500 ML INFUS.BAG IV ONE (18:24)
[2020-08-15] MEDS: SODIUM CHLORIDE 1,000 ML IV SCH (19:45)
[2020-08-15] MEDS: CHLORHEXIDINE GLUCONATE 4% CLEANSER FOR DECOLONIZATION TP SCH ×2 (21:28→21:33)
[2020-08-15] MEDS: LIDOCAINE PATCH REMOVAL MC SCH (21:33)
[2020-08-15] MEDS ORDERED: ACETAMINOPHEN 650 MG/20.3 ML ORAL SOLUTION (CUPS) GT PRN (23:30)
[2020-08-16] MEDS: PROPOFOL 1,000,000 MCG/100 ML VIAL IVPB SCH ×3 (00:25→10:51)
[2020-08-16] MEDS: FENTANYL IVPB 500 MCG/100 ML BAG IVPB SCH (00:53)
[2020-08-16] MEDS: PIPERACILLIN/TAZOB 2.25 GM 2.25 GM in DEXTROSE 5%-WATER - 50 ML IVPB SCH ×2 (01:13→09:09)
[2020-08-16] MEDS: SODIUM CHLORIDE 1,000 ML IV SCH ×2 (01:14→18:46)
[2020-08-16] MEDS: oxyCODONE HCL 5 MG TABLET GT PRN (02:15)
[2020-08-16] MEDS: methylPREDNISolone NA SUCC 40 MG/1 ML VIAL IVPUSH SCH ×4 (02:17→20:18)
[2020-08-16] MEDS: NOREPINEPHRINE BITARTRATE 16,000 MCG in SODIUM CHLORIDE 484 ML IV SCH (02:18)
[2020-08-16] MEDS: dilTIAZem HCL 30 MG TABLET NR SCH ×4 (05:02→23:53)
[2020-08-16 06:44] LABS: BASO % 0.2 % (0-2.0); HEMATOCRIT 30.5 % (35.4-49); HEMOGLOBIN 10.1 GM/dL (11.7-16.9); LYMPH % 2.3 % (8-40); MCH 29.2 pg (25.7-33.7); MEAN CELL VOLUME 88.4 fl (80-96); MEAN PLT VOLUME 9.2 fl (7.5-11.1); MONO % 1.4 % (3.8-10.2); NEUT % 96.1 % (42.8-82.8); PLATELET COUNT 67 10^3/uL (134-434); RBC 3.45 M/mm3 (4.00-5.60); RDW 16.1 % (11.9-15.9); WHITE BLOOD COUNT 5.6 K/mm3 (4.0-10.0)
[2020-08-16 06:59] LABS: CALCIUM 7.3 mg/dL (8.5-10.1)
[2020-08-16 07:00] LABS: BLOOD UREA NITROGEN 69.2 mg/dL (7-18); MAGNESIUM 2.8 mg/dL (1.8-2.4)
[2020-08-16 07:03] LABS: CREATININE 2.7 mg/dL (0.55-1.3); PHOSPHOROUS 3.3 mg/dL (2.5-4.9)
[2020-08-16 07:05] LABS: BILIRUBIN,TOTAL 0.9 mg/dL (0.2-1)
[2020-08-16] MEDS: ALBUTEROL SO4 2.5/IPRATROPIUM 0.5 INH SOL 3 ML VIAL.NEB. NEB SCH ×4 (07:45→20:38)
[2020-08-16] MEDS ORDERED: DEXTROSE 5%-WATER - 50 ML IVPB ONE (09:00)
[2020-08-16] MEDS ORDERED: PIPERACILLIN/TAZOBACTAM 2.25 GM VIAL IVPB ONE (09:00)
[2020-08-16] MEDS: ESCITALOPRAM OXALATE 10 MG TABLET GT SCH (09:08)
[2020-08-16] MEDS: MUPIROCIN 2% TOPICAL OINTMENT FOR DECOLONIZATION NS SCH ×2 (09:08→22:44)
[2020-08-16] MEDS: PANTOPRAZOLE SODIUM 40 MG VIAL IVPUSH SCH (09:09)
[2020-08-16] MEDS: LIDOCAINE 5% TOPICAL PATCH TP SCH (09:09)
[2020-08-16] MEDS: DEXMEDETOMIDINE IN 0.9 % NACL 400 MCG/100 ML VIAL IVPB SCH ×2 (09:10→10:51)
[2020-08-16 09:15] LABS: ANISOCYTOSIS 0; HELMET CELLS 0; HOWELL-JOLLY BODIES 0; MACROCYTOSIS 0; OVALOCYTE 0; PLATELET ESTIMATE DECREASED; ROULEAU 0; SICKELED CELLS 0; TARGET CELLS 0; TEAR DROP CELLS 0; TOXIC GRANULATION 0
[2020-08-16] MEDS ORDERED: VANCOMYCIN 1 GRAM (PRE-DOCKED) 1,000 MG/250 ML BAG IVPB SCH (10:00)
[2020-08-16] MEDS: CEFTAROLINE FOSAMIL ACETATE 600 MG in DEXTROSE 5%-WATER - 250 ML IVPB SCH ×2 (11:45→22:44)
[2020-08-16 11:49] VITALS: BMI 27.0
[2020-08-16] MEDS ORDERED: PT OWN MED DRAWER 7, Y5N ONE ×3 (12:52→19:38)
[2020-08-16] MEDS: DAPTOMYCIN 650 MG in SODIUM CHLORIDE 50 ML IVPB SCH (12:55)
[2020-08-16] MEDS: AMINO ACIDS/PROTEIN HYDROLYS 30 ML LIQUID.PKT GT SCH (18:46)
[2020-08-16] MEDS: LIDOCAINE PATCH REMOVAL MC SCH (21:52)
[2020-08-16] MEDS ORDERED: FENTANYL NS IVPB 0 MCG/0 ML BAG IVPB ONE (22:09)
[2020-08-16] MEDS: CHLORHEXIDINE GLUCONATE 4% CLEANSER FOR DECOLONIZATION TP SCH (22:44)
[2020-08-17] MEDS: PROPOFOL 1,000,000 MCG/100 ML VIAL IVPB SCH ×2 (01:58→17:30)
[2020-08-17] MEDS: NOREPINEPHRINE BITARTRATE 16,000 MCG in SODIUM CHLORIDE 484 ML IV SCH (01:59)
[2020-08-17] MEDS: methylPREDNISolone NA SUCC 40 MG/1 ML VIAL IVPUSH SCH ×4 (01:59→22:30)
[2020-08-17] MEDS: DEXMEDETOMIDINE IN 0.9 % NACL 400 MCG/100 ML VIAL IVPB SCH ×2 (01:59→17:30)
[2020-08-17] MEDS: dilTIAZem HCL 30 MG TABLET NR SCH ×3 (05:41→17:32)
[2020-08-17 07:06] LABS: BASO % 0.1 % (0-2.0); EOS % 0.1 % (0-4.5); HEMATOCRIT 31.1 % (35.4-49); HEMOGLOBIN 10.2 GM/dL (11.7-16.9); LYMPH % 3.4 % (8-40); MCH 29.2 pg (25.7-33.7); MCHC 32.8 g/dl (32.0-35.9); MEAN CELL VOLUME 88.9 fl (80-96); MEAN PLT VOLUME 8.1 fl (7.5-11.1); MONO % 0.9 % (3.8-10.2); NEUT % 95.5 % (42.8-82.8); PLATELET COUNT 116 10^3/uL (134-434); RDW 16.1 % (11.9-15.9); WHITE BLOOD COUNT 3.7 K/mm3 (4.0-10.0)
[2020-08-17 07:24] LABS: CALCIUM 7.5 mg/dL (8.5-10.1)
[2020-08-17 07:25] LABS: ALBUMIN 1.8 g/dl (3.4-5.0); BLOOD UREA NITROGEN 80.8 mg/dL (7-18); MAGNESIUM 2.9 mg/dL (1.8-2.4)
[2020-08-17 07:28] LABS: CREATININE 2.6 mg/dL (0.55-1.3); PHOSPHOROUS 4.3 mg/dL (2.5-4.9)
[2020-08-17 07:30] LABS: BILIRUBIN,TOTAL 0.7 mg/dL (0.2-1); TOT PROT 5.5 g/dl (6.4-8.2)
[2020-08-17] MEDS: AMINO ACIDS/PROTEIN HYDROLYS 30 ML LIQUID.PKT GT SCH ×2 (08:00→17:29)
[2020-08-17] MEDS: ALBUTEROL SO4 2.5/IPRATROPIUM 0.5 INH SOL 3 ML VIAL.NEB. NEB SCH ×4 (08:15→20:19)
[2020-08-17] MEDS: ESCITALOPRAM OXALATE 10 MG TABLET GT SCH (09:25)
[2020-08-17] MEDS: LIDOCAINE 5% TOPICAL PATCH TP SCH (09:26)
[2020-08-17] MEDS: PANTOPRAZOLE SODIUM 40 MG VIAL IVPUSH SCH (09:27)
[2020-08-17 09:34] LABS: ANISOCYTOSIS 1+; MACROCYTOSIS 0; PLATELET ESTIMATE DECREASED
[2020-08-17] MEDS ORDERED: PT OWN MED DRAWER 7, Y5N ONE (10:02)
[2020-08-17] MEDS: CEFTAROLINE FOSAMIL ACETATE 600 MG in DEXTROSE 5%-WATER - 250 ML IVPB SCH ×2 (10:04→22:33)
[2020-08-17] MEDS: MUPIROCIN 2% TOPICAL OINTMENT FOR DECOLONIZATION NS SCH ×2 (10:07→22:31)
[2020-08-17] MEDS: oxyCODONE HCL 5 MG TABLET GT PRN (14:31)
[2020-08-17] MEDS ORDERED: ALPRAZolam 0.25 MG TABLET PO PRN (14:42)
[2020-08-17] MEDS: SODIUM CHLORIDE 1,000 ML IV SCH (18:49)
[2020-08-17 21:07] LABS: ARTERIAL BLD GAS O2 SATURATION 92.6 mmHg (95-98); ARTERIAL BLOOD GAS PO2 66.5 mmHg (80-100); ARTERIAL BLOOD GAS pH 7.382 (7.350-7.450)
[2020-08-17 21:09] LABS: ALLENS TEST POSITIVE; VENT MODE S/T; VENT RATE 12
[2020-08-17] MEDS: HEPARIN NA (PORCINE) 5,000 UNITS/ML 1ML VIAL SQ SCH (22:30)
[2020-08-17] MEDS: CHLORHEXIDINE GLUCONATE 4% CLEANSER FOR DECOLONIZATION TP SCH (22:31)
[2020-08-17] MEDS: LIDOCAINE PATCH REMOVAL MC SCH (22:31)
[2020-08-18] MEDS: dilTIAZem HCL 30 MG TABLET NR SCH ×2 (00:26→05:14)
[2020-08-18] MEDS: oxyCODONE HCL 5 MG TABLET GT PRN ×3 (00:27→13:34)
[2020-08-18] MEDS: NOREPINEPHRINE BITARTRATE 16,000 MCG in SODIUM CHLORIDE 484 ML IV SCH (02:16)
[2020-08-18] MEDS: methylPREDNISolone NA SUCC 40 MG/1 ML VIAL IVPUSH SCH ×3 (03:10→18:15)
[2020-08-18] MEDS: SODIUM CHLORIDE 1,000 ML IV SCH (04:24)
[2020-08-18] MEDS: HEPARIN NA (PORCINE) 5,000 UNITS/ML 1ML VIAL SQ SCH (05:26)
[2020-08-18 06:58] LABS: BASO % 0.2 % (0-2.0); EOS % 0.3 % (0-4.5); HEMATOCRIT 29.5 % (35.4-49); HEMOGLOBIN 9.5 GM/dL (11.7-16.9); LYMPH % 6.3 % (8-40); MCH 28.9 pg (25.7-33.7); MEAN CELL VOLUME 90.2 fl (80-96); MEAN PLT VOLUME 9.1 fl (7.5-11.1); MONO % 3.9 % (3.8-10.2); NEUT % 89.3 % (42.8-82.8); RBC 3.28 M/mm3 (4.00-5.60); RDW 16.1 % (11.9-15.9)
[2020-08-18 07:10] LABS: PLATELET COUNT 36 10^3/uL (134-434); WHITE BLOOD COUNT 1.4 K/mm3 (4.0-10.0)
[2020-08-18 07:14] LABS: CALCIUM 7.6 mg/dL (8.5-10.1)
[2020-08-18 07:15] LABS: ALBUMIN 1.8 g/dl (3.4-5.0); BLOOD UREA NITROGEN 80.2 mg/dL (7-18); MAGNESIUM 2.9 mg/dL (1.8-2.4)
[2020-08-18 07:18] LABS: CREATININE 2.3 mg/dL (0.55-1.3); PHOSPHOROUS 6.2 mg/dL (2.5-4.9)
[2020-08-18 07:19] LABS: BILIRUBIN,TOTAL 0.5 mg/dL (0.2-1)
[2020-08-18 07:20] LABS: TOT PROT 5.4 g/dl (6.4-8.2)
[2020-08-18] MEDS: ALBUTEROL SO4 2.5/IPRATROPIUM 0.5 INH SOL 3 ML VIAL.NEB. NEB SCH ×4 (07:30→20:16)
[2020-08-18] MEDS: AMINO ACIDS/PROTEIN HYDROLYS 30 ML LIQUID.PKT GT SCH ×2 (07:40→18:15)
[2020-08-18 08:43] LABS: BASO % 0.2 % (0-2.0); EOS % 0.3 % (0-4.5); HEMATOCRIT 28.8 % (35.4-49); HEMOGLOBIN 9.2 GM/dL (11.7-16.9); LYMPH % 8.2 % (8-40); MCHC 32.1 g/dl (32.0-35.9); MEAN CELL VOLUME 90.4 fl (80-96); MONO % 2.6 % (3.8-10.2); NEUT % 88.7 % (42.8-82.8); PLATELET COUNT 40 10^3/uL (134-434); RBC 3.19 M/mm3 (4.00-5.60); RDW 15.8 % (11.9-15.9)
[2020-08-18 08:54] LABS: WHITE BLOOD COUNT 1.3 K/mm3 (4.0-10.0)
[2020-08-18] MEDS ORDERED: PT OWN MED DRAWER 7, Y5N ONE ×3 (09:24→11:51)
[2020-08-18] MEDS: PANTOPRAZOLE SODIUM 40 MG VIAL IVPUSH SCH (09:42)
[2020-08-18] MEDS: ESCITALOPRAM OXALATE 10 MG TABLET GT SCH (09:42)
[2020-08-18] MEDS: LIDOCAINE 5% TOPICAL PATCH TP SCH (09:42)
[2020-08-18 10:05] LABS: INR 1.06 (0.83-1.09)
[2020-08-18 10:08] LABS: ACTIVATED PTT 25.9 SECONDS (25.2-36.5)
[2020-08-18 10:10] LABS: ANISOCYTOSIS 0; HELMET CELLS 0; HOWELL-JOLLY BODIES 0; MACROCYTOSIS 0; OVALOCYTE 0; PLATELET ESTIMATE DECREASED; ROULEAU 0; SICKELED CELLS 0; TARGET CELLS 0; TEAR DROP CELLS 0; TOXIC GRANULATION 0
[2020-08-18] MEDS: CEFTAROLINE FOSAMIL ACETATE 600 MG in DEXTROSE 5%-WATER - 250 ML IVPB SCH ×2 (10:28→21:54)
[2020-08-18 11:10] LABS: ANISOCYTOSIS 0; HELMET CELLS 0; HOWELL-JOLLY BODIES 0; MACROCYTOSIS 0; OVALOCYTE 0; PLATELET ESTIMATE DECREASED; ROULEAU 0; SICKELED CELLS 0; TARGET CELLS 0; TEAR DROP CELLS 0; TOXIC GRANULATION 0
[2020-08-18] MEDS: DAPTOMYCIN 650 MG in SODIUM CHLORIDE 50 ML IVPB SCH (11:40)
[2020-08-18] MEDS: PROPOFOL 1,000,000 MCG/100 ML VIAL IVPB SCH (11:51)
[2020-08-18] MEDS: MUPIROCIN 2% TOPICAL OINTMENT FOR DECOLONIZATION NS SCH ×2 (11:52→21:55)
[2020-08-18] MEDS: DEXMEDETOMIDINE IN 0.9 % NACL 400 MCG/100 ML VIAL IVPB SCH (11:52)
[2020-08-18] MEDS ORDERED: MORPHINE SULFATE 2 MG/ML VIAL IVPUSH PRN (13:45)
[2020-08-18] MEDS: morphine SULFATE 4 MG/ML VIAL IVPUSH PRN (18:15)
[2020-08-18] MEDS: CHLORHEXIDINE GLUCONATE 4% CLEANSER FOR DECOLONIZATION TP SCH (21:56)
[2020-08-18] MEDS: LIDOCAINE PATCH REMOVAL MC SCH (21:56)
[2020-08-19] MEDS: NOREPINEPHRINE BITARTRATE 16,000 MCG in SODIUM CHLORIDE 484 ML IV SCH (02:00)
[2020-08-19] MEDS: methylPREDNISolone NA SUCC 40 MG/1 ML VIAL IVPUSH SCH ×2 (02:29→09:20)
[2020-08-19] MEDS: SODIUM CHLORIDE 1,000 ML IV SCH (03:44)
[2020-08-19] MEDS: oxyCODONE HCL 5 MG TABLET GT PRN (04:19)
[2020-08-19] MEDS: ALBUTEROL SO4 2.5/IPRATROPIUM 0.5 INH SOL 3 ML VIAL.NEB. NEB SCH ×2 (07:30→11:51)
[2020-08-19 07:44] LABS: CALCIUM 7.7 mg/dL (8.5-10.1)
[2020-08-19 07:46] LABS: ALBUMIN 2.1 g/dl (3.4-5.0); BLOOD UREA NITROGEN 89.1 mg/dL (7-18)
[2020-08-19 07:49] LABS: CREATININE 2.3 mg/dL (0.55-1.3)
[2020-08-19 07:50] LABS: BILIRUBIN,TOTAL 0.7 mg/dL (0.2-1)
[2020-08-19 08:37] LABS: BASO % 0.2 % (0-2.0); HEMATOCRIT 32.2 % (35.4-49); HEMOGLOBIN 10.3 GM/dL (11.7-16.9); LYMPH % 1.9 % (8-40); MCH 29.2 pg (25.7-33.7); MEAN CELL VOLUME 91.2 fl (80-96); MEAN PLT VOLUME 11.2 fl (7.5-11.1); MONO % 0.7 % (3.8-10.2); NEUT % 97.2 % (42.8-82.8); PLATELET COUNT 42 10^3/uL (134-434); RBC 3.53 M/mm3 (4.00-5.60); RDW 16.5 % (11.9-15.9); WHITE BLOOD COUNT 3.1 K/mm3 (4.0-10.0)
[2020-08-19] MEDS ORDERED: PT OWN MED DRAWER 7, Y5N ONE (09:07)
[2020-08-19] MEDS: ESCITALOPRAM OXALATE 10 MG TABLET GT SCH (09:19)
[2020-08-19] MEDS: LIDOCAINE 5% TOPICAL PATCH TP SCH (09:19)
[2020-08-19] MEDS: PANTOPRAZOLE SODIUM 40 MG VIAL IVPUSH SCH (09:20)
[2020-08-19] MEDS: MUPIROCIN 2% TOPICAL OINTMENT FOR DECOLONIZATION NS SCH (09:20)
[2020-08-19] MEDS: AMINO ACIDS/PROTEIN HYDROLYS 30 ML LIQUID.PKT GT SCH (09:20)
[2020-08-19] MEDS: CEFTAROLINE FOSAMIL ACETATE 600 MG in DEXTROSE 5%-WATER - 250 ML IVPB SCH (09:21)
[2020-08-19 09:34] LABS: ANISOCYTOSIS 0; MACROCYTOSIS 0; PLATELET ESTIMATE DECREASED
[2020-08-19 10:20] VITALS: TEMP 97.4
[2020-08-19] MEDS ORDERED: SODIUM CHLORIDE 1,000 ML IV SCH (10:22)
[2020-08-19] MEDS: morphine SULFATE 4 MG/ML VIAL IVPUSH PRN (12:48)
[2020-08-19] MEDS: PROPOFOL 1,000,000 MCG/100 ML VIAL IVPB SCH (13:06)
[2020-08-19] MEDS ORDERED: MORPHINE SULFATE 2 MG/ML VIAL IVPUSH PRN (13:37)
[2020-08-19] MEDS ORDERED: morphine SULFATE 4 MG/ML VIAL ONE (14:22)
[2020-08-19] MEDS ORDERED: LORazepam 2 MG/ML SDV VIAL ONE (14:23)
[2020-08-19] MEDS: LORazepam 2 MG/ML SDV VIAL IVPUSH SCH ×3 (14:31→21:01)
[2020-08-19] MEDS ORDERED: morphine SULFATE 4 MG/ML VIAL IVPUSH ONE (14:32)
[2020-08-19] MEDS ORDERED: MORPHINE SULFATE/0.9% NACL/PF 100 MG/100 ML BAG IVPB SCH (20:15)
[2020-08-19] MEDS: CHLORHEXIDINE GLUCONATE 4% CLEANSER FOR DECOLONIZATION TP SCH (21:44)
[2020-08-19] MEDS: LIDOCAINE PATCH REMOVAL MC SCH (21:45)
[2020-08-20 00:26] VITALS: BP 83/59; PULSE 110
== END 2020-08-20 04:35 | disposition expired | DRG 871 ==
LOC: JER 01:43 → JERBED 05:37 → JICU 11:26
PROVIDERS: ADMIT Family Medicine; ATTEND Family Medicine
PROC: 5A1945Z Respiratory Ventilation, 24-96 Consecutive Hours (ICD-10-PCS; principal; 2020-08-14)
PROC: 0BH17EZ Insertion of Endotracheal Airway into Trachea, Via Natural or Artificial Opening (ICD-10-PCS; 2020-08-14)
PROC: 05HN33Z Insertion of Infusion Device into Left Internal Jugular Vein, Percutaneous Approach (ICD-10-PCS; 2020-08-15)
PROC: B544ZZA Ultrasonography of Left Jugular Veins, Guidance (ICD-10-PCS; 2020-08-15)
DX: A41.02 Sepsis due to Methicillin resistant Staphylococcus aureus (principal); J96.22 Acute and chronic respiratory failure with hypercapnia; R65.21 Severe sepsis with septic shock; J15.212 Pneumonia due to Methicillin resistant Staphylococcus aureus; J44.0 Chronic obstructive pulmonary disease with (acute) lower respiratory infection; I48.19 Other persistent atrial fibrillation; I50.32 Chronic diastolic (congestive) heart failure; E87.2 Acidosis; N17.9 Acute kidney failure, unspecified; D61.818 Other pancytopenia; J44.1 Chronic obstructive pulmonary disease with (acute) exacerbation; I25.10 Atherosclerotic heart disease of native coronary artery without angina pectoris; I10 Essential (primary) hypertension; N18.9 Chronic kidney disease, unspecified; I95.9 Hypotension, unspecified; D69.6 Thrombocytopenia, unspecified; R00.1 Bradycardia, unspecified; D72.819 Decreased white blood cell count, unspecified; Z68.29 Body mass index [BMI] 29.0-29.9, adult; E66.9 Obesity, unspecified
CPT/HCPCS: 31500; 36415; 36600; 71045-TC-FY; 80053; 81003; 82550; 82607; 82728; 82747; 82803; 83010; 83540; 83550; 83605; 83615; 83735; 83880; 84100; 84439; 84443; 84484; 85014; 85025; 85045; 85610; 85730; 86022; 87040; 87070; 87086; 87186; 87205; 87804; 87899; 93005; 93010; 93306-TC; 94002; 94640; 94660; 99285-25; C9803; G0480; J0878; J1644; U0003; U0005